=== PATIENT | male | born 1960 ===

== ENCOUNTER 2020-06-05 12:55 | Outpatient (REF) | payer BC, SELFPAY ==
--- NOTE | 2020-06-05 13:51 | XR_ITS ---
EXAMINATION: XR CHEST CLINICAL INFORMATION: Hemoptysis. COMPARISON: 01/28/2019 and 07/27/2017 and 08/08/2016. TECHNIQUE: 2 views of the chest were obtained. FINDINGS: There is mild hyperinflation. There is some diminished vascularity in the upper lobes consistent with emphysematous change with some linear scarring in the right apex. There is some faint density seen over the lower right hemithorax, however, this may represent overlying soft tissues versus a small region of disease within the right middle lobe. No definite lung mass is appreciated. Heart normal size. No evidence of pulmonary edema. IMPRESSION: COPD. Density overlying the lower right hemithorax likely related to overlying soft tissues.
== END 2020-06-05 12:56 | disposition home or self-care (01) ==
LOC: HO.XRAY 12:55
PROVIDERS: PCP Family Medicine; Visit Provider Hospitalist
DX: R04.2 Hemoptysis (principal); J96.10 Chronic respiratory failure, unspecified whether with hypoxia or hypercapnia; J44.9 Chronic obstructive pulmonary disease, unspecified; G47.33 Obstructive sleep apnea (adult) (pediatric); Z99.89 Dependence on other enabling machines and devices; Z88.1 Allergy status to other antibiotic agents; Z88.2 Allergy status to sulfonamides; Z79.899 Other long term (current) drug therapy
CPT/HCPCS: 71046

== ENCOUNTER → 2020-06-09 10:46 | Outpatient (BNVA) | payer BC, SELFPAY | PROVIDERS: PCP Family Medicine; Visit Provider Internal Medicine | DX: Z76.89 Persons encountering health services in other specified circumstances (principal) ==

== ENCOUNTER 2020-07-21 13:46 | Outpatient (REF) | payer BC, SELFPAY ==
--- NOTE | 2020-07-21 13:55 | XR_ITS ---
EXAMINATION: XR CHEST CLINICAL INFORMATION: Abnormal findings on diagnostic imaging. COMPARISON: Chest radiographs dated 06/05/2020 and chest CTA dated 07/27/2017. TECHNIQUE: 2 views of the chest were obtained. FINDINGS: The lungs show generalized hyperinflation. Mild focal increased markings are seen laterally in the right upper lobe. The left lung is clear. The heart and mediastinal structures are unremarkable. XR/XR chest 2V IMPRESSION: COPD. Mild focal increased markings in the right upper lobe are similar to the previous study and likely represent chronic changes such as bronchiectasis/scarring. No other significant abnormality. If symptoms persist or worsen, short-term repeat radiographic follow-up is recommended as clinically indicated to assess for change.
[2020-07-21 16:49] LABS: Mean Corpuscular HGB Conc 32.6 g/dl (31.0-36.0); Mean Corpuscular Volume 104.4 fL (80-98); Platelet Count 331 X10*3/uL (160-400); Red Blood Count 4.12 X10*6/uL (4.60-5.80); White Blood Count 11.1 X10*3/uL (4.8-10.8)
[2020-07-21 17:06] LABS: Alanine Aminotransferase 29 U/L (0-40); Albumin Level 4.6 g/dL (3.5-5.0); Alkaline Phosphatase 127 U/L (39-117); Anion Gap 12 (12-20); Aspartate Amino Transferase 26 U/L (5-37); Bilirubin Direct 0.2 mg/dL (0.0-0.5); Bilirubin Total 0.5 mg/dL (0.0-1.0); Blood Urea Nitrogen 19 mg/dL (9-16); Calcium 9.3 mg/dL (8.4-10.2); Carbon Dioxide 30 mmol/L (22-29); Chloride 104 mmol/L (96-108); Estimated Glomerular Filt Rate > 60; Glucose Random 69 mg/dL (60-115); Sodium 142 mmol/L (135-145); Total Protein 7.1 g/dL (6.5-8.0)
[2020-07-22 11:48] LABS: Absolute CD3 Count 3203 cells/uL (840-3060); Absolute CD4 Count 1218 cells/uL (490-1740); Absolute CD8 Count 1986 cells/uL (180-1170); Absolute Lymphocytes 5042 cells/uL (850-3900); CD4 CD8 Ratio 0.61 (0.86-5.00); Percent CD3 Cells 64 % (57-85); Percent CD4 Cells 24 % (30-61); Percent CD8 Cells 39 % (12-42)
[2020-07-23 13:27] LABS: HIV RNA PCR Qn Copies <20 DETECTED copies/mL (NOT DETECTED); HIV RNA PCR Qn Log Copies <1.30 DETECTED (NOT DETECTED)
== END 2020-07-21 13:47 | disposition home or self-care (01) ==
LOC: HO.HMGCX 13:46
PROVIDERS: Absent Provider Internal Medicine; PCP Family Medicine; Visit Provider Hospitalist
DX: B20 Human immunodeficiency virus [HIV] disease (principal); R39.89 Other symptoms and signs involving the genitourinary system
CPT/HCPCS: 36415; 71046; 80048; 80076; 85027; 86359; 86360; 87536

== ENCOUNTER 2020-10-28 11:38 | Outpatient (REF) | payer BC, SELFPAY ==
[2020-10-28 13:59] LABS: MANUAL DIFF FLAG NO
[2020-10-28 14:05] LABS: Basophils Absolute Auto 0.1 X10*3/uL (0.0-0.2); Basophils Percent Auto 0.9 % (0-2); Eosinophils Absolute Auto 0.5 X10*3/uL (0.0-0.4); Eosinophils Percent Auto 3.9 % (0-4); Hematocrit 43.9 % (42-52); Hemoglobin 14.7 g/dl (14.0-18.0); Imm Gran Abs Auto 0.13 X10*3/uL (0.00-0.03); Imm Gran Pct Auto 1.1 % (0.0-0.4); Lymphocytes Percent Auto 32.5 % (20-40); Mean Corpuscular HGB Conc 33.5 g/dl (31.0-36.0); Mean Corpuscular Hemoglobin 34.9 pg (27.0-33.0); Mean Corpuscular Volume 104.3 fL (80-98); Mean Platelet Volume 10.2 fL (9.4-12.4); Monocytes Percent Auto 7.8 % (2-11); Neutrophils Absolute Auto 6.7 X10*3/uL (2.0-8.3); Neutrophils Percent Auto 53.8 % (45-73); Platelet Count 360 X10*3/uL (160-400); Red Blood Count 4.21 X10*6/uL (4.60-5.80); Red Cell Distribution Width 12.8 % (11.0-16.0); White Blood Count 12.4 X10*3/uL (4.8-10.8)
[2020-10-28 14:31] LABS: Alanine Aminotransferase 29 U/L (0-40); Albumin Level 4.4 g/dL (3.5-5.0); Alkaline Phosphatase 145 U/L (39-117); Anion Gap 11 (12-20); Aspartate Amino Transferase 26 U/L (5-37); Bilirubin Total 0.4 mg/dL (0.0-1.0); Blood Urea Nitrogen 23 mg/dL (9-16); Calcium 9.1 mg/dL (8.4-10.2); Carbon Dioxide 29 mmol/L (22-29); Chloride 106 mmol/L (96-108); Estimated Glomerular Filt Rate > 60; Glucose Random 73 mg/dL (60-115); Potassium 4.1 mmol/L (3.3-5.1); Sodium 142 mmol/L (135-145); Total Protein 7.1 g/dL (6.5-8.0)
== END 2020-10-28 11:39 | disposition home or self-care (01) ==
LOC: HO.HMGCLDS 11:38
PROVIDERS: PCP Family Medicine; Visit Provider Family Medicine
DX: R06.02 Shortness of breath (principal); I10 Essential (primary) hypertension; R11.0 Nausea
CPT/HCPCS: 36415; 80053; 85025

== ENCOUNTER 2020-11-17 09:10 | Outpatient (REF) | payer BC, SELFPAY ==
--- NOTE | 2020-11-17 11:39 | PFT_ITS ---
FLOWS: FEV1 of 26% of predicted at 0.87 L. FVC 56% of predicted at 2.49 L. FEV1 to FVC ratio of 0.35. Positive bronchodilator response. LUNG VOLUMES: Total lung capacity 91% of predicted at 6.05 L. Residual volume 188% of predicted at 4.04 L. Slow vital capacity 45% of predicted at 2.01 L. Expiratory reserve volume 63% of predicted at 0.81 L. Diffusion capacity is severely decreased, diffusion capacity improves to being moderately decreased after correction for alveolar ventilation. IMPRESSION: Very severe obstructive ventilatory defect with positive bronchodilator response. Increased residual volume suggests air trapping. Decreased diffusion capacity suggests emphysema. Jordan Godinez MD AP/MODL / [id number]
== END 2020-11-17 09:11 | disposition home or self-care (01) ==
LOC: HO.RESP 09:10
PROVIDERS: PCP Family Medicine; Visit Provider Hospitalist
DX: J43.2 Centrilobular emphysema (principal)
CPT/HCPCS: 94060; 94727; 94729

== ENCOUNTER 2020-12-08 12:29 | Outpatient (REF) | payer BC, SELFPAY ==
[2020-12-08 14:03] LABS: MANUAL DIFF FLAG NO
[2020-12-08 14:08] LABS: Basophils Absolute Auto 0.1 X10*3/uL (0.0-0.2); Basophils Percent Auto 0.8 % (0-2); Eosinophils Absolute Auto 0.7 X10*3/uL (0.0-0.4); Eosinophils Percent Auto 6.2 % (0-4); Hematocrit 43.3 % (42-52); Hemoglobin 14.3 g/dl (14.0-18.0); Imm Gran Abs Auto 0.12 X10*3/uL (0.00-0.03); Lymphocytes Absolute Auto 4.3 X10*3/uL (1.2-4.9); Lymphocytes Percent Auto 35.8 % (20-40); Mean Corpuscular Hemoglobin 34.3 pg (27.0-33.0); Mean Corpuscular Volume 103.8 fL (80-98); Mean Platelet Volume 9.8 fL (9.4-12.4); Monocytes Absolute Auto 0.9 X10*3/uL (0.1-1.2); Monocytes Percent Auto 7.7 % (2-11); Neutrophils Absolute Auto 5.8 X10*3/uL (2.0-8.3); Neutrophils Percent Auto 48.5 % (45-73); Platelet Count 303 X10*3/uL (160-400); Red Blood Count 4.17 X10*6/uL (4.60-5.80); Red Cell Distribution Width 12.6 % (11.0-16.0); White Blood Count 11.9 X10*3/uL (4.8-10.8)
[2020-12-08 14:41] LABS: Alanine Aminotransferase 35 U/L (0-40); Albumin Level 4.3 g/dL (3.5-5.0); Alkaline Phosphatase 148 U/L (39-117); Anion Gap 12 (12-20); Aspartate Amino Transferase 29 U/L (5-37); Bilirubin Direct < 0.2 mg/dL (0.0-0.5); Bilirubin Total 0.5 mg/dL (0.0-1.0); Blood Urea Nitrogen 22 mg/dL (9-16); Calcium 9.2 mg/dL (8.4-10.2); Carbon Dioxide 28 mmol/L (22-29); Chloride 107 mmol/L (96-108); Estimated Glomerular Filt Rate > 60; Glucose Random 70 mg/dL (60-115); Potassium 4.1 mmol/L (3.3-5.1); Sodium 143 mmol/L (135-145); Total Protein 6.8 g/dL (6.5-8.0)
[2020-12-09 14:06] LABS: Absolute CD3 Count 2470 cells/uL (840-3060); Absolute CD4 Count 918 cells/uL (490-1740); Absolute CD8 Count 1569 cells/uL (180-1170); Absolute Lymphocytes 3952 cells/uL (850-3900); CD4 CD8 Ratio 0.59 (0.86-5.00); Percent CD3 Cells 62 % (57-85); Percent CD4 Cells 23 % (30-61); Percent CD8 Cells 40 % (12-42)
[2020-12-11 12:07] LABS: HIV RNA PCR Qn Copies <20 DETECTED copies/mL (NOT DETECTED); HIV RNA PCR Qn Log Copies <1.30 DETECTED (NOT DETECTED)
== END 2020-12-08 12:30 | disposition home or self-care (01) ==
LOC: HO.HMGCLDS 12:29
PROVIDERS: PCP Family Medicine; Visit Provider Internal Medicine
DX: B20 Human immunodeficiency virus [HIV] disease (principal)
CPT/HCPCS: 36415; 80048; 80076; 85025; 86359; 86360; 87536

== ENCOUNTER 2020-12-16 12:55 | Outpatient (REF) | payer BC, SELFPAY ==
--- NOTE | ~2020-12-16 | CT_ITS ---
EXAMINATION: CT CHEST WITHOUT CONTRAST CLINICAL INFORMATION: Follow-up increased markings in the right upper lobe COMPARISON: Previous chest x-rays most recent July 2020 and chest CTA July 2017 TECHNIQUE: Multidetector volumetric CT imaging of the chest was done. Axial MIP volume rendering provided. Sagittal and coronal reformatted images were obtained. This CT examination was performed using dose optimization techniques as appropriate, variously including the following: *Automated exposure control *Adjustment of mA and/or kV according to patient size (this includes techniques or standardized protocols for targeted exams where dose is matched to indication/reason for exam; i.e. extremities or head) *Use of iterative reconstruction technique DLP: 261 mGy-cm FINDINGS: LUNGS: There is evidence of mild emphysema. There is mild bilateral upper lobe pleural and parenchymal scarring apically and laterally, right greater than left. TThere is a small irregular shaped right upper lobe nodule measuring 3 mm axial image 147 series 10. This is new from July 2017. MEDIASTINUM: The heart does not appear enlarged. There is evidence of atherosclerotic disease. There are no enlarged hilar or mediastinal lymph nodes. There is no pericardial effusion. The thoracic aorta is normal in caliber. PLEURA: There is no pleural effusion. No pleural mass or thickening. AXILLA: No lymphadenopathy. UPPER ABDOMEN: There are small bilateral renal calcifications suggestive of stones. OSSEOUS STRUCTURES: There are degenerative changes of the spine. CT/CT chest wo con IMPRESSION: Emphysema. Bilateral upper lobe pleural and parenchymal scarring, right greater than left. New right upper lobe nodule. Chest CT follow-up in 6-12 months recommended.
== END 2020-12-16 12:56 | disposition home or self-care (01) ==
LOC: HO.CT 12:55
PROVIDERS: PCP Family Medicine; Visit Provider Hospitalist
DX: B20 Human immunodeficiency virus [HIV] disease (principal); R04.2 Hemoptysis; R93.89 Abnormal findings on diagnostic imaging of other specified body structures; Z88.2 Allergy status to sulfonamides; Z88.8 Allergy status to other drugs, medicaments and biological substances; Z79.82 Long term (current) use of aspirin; Z79.52 Long term (current) use of systemic steroids; Z79.899 Other long term (current) drug therapy
CPT/HCPCS: 71250

== ENCOUNTER 2021-01-19 11:30 | Outpatient (REF) | payer BC, SELFPAY ==
--- NOTE | ~2021-01-19 | US_ITS ---
EXAMINATION: US ABDOMEN COMPLETE CLINICAL INFORMATION: Unspecified abdominal pain. COMPARISON: CT abdomen and pelvis 09/17/2018. Ultrasound abdomen complete 09/07/2016 and 06/12/2015. TECHNIQUE: Real-time imaging of the abdominal viscera. FINDINGS: PANCREAS: The head and proximal body of pancreas is homogeneous in echotexture. The rest of the body and the tail of pancreas is not visualized. ABDOMINAL AORTA: The proximal, mid, and distal segments are normal in caliber. INFERIOR VENA CAVA: Visualized portions are normal. LIVER: Normal. The liver is normal in size. The liver contour is normal. Parenchymal echogenicity is normal. No focal hepatic lesion. There is no intrahepatic biliary duct dilatation seen. GALLBLADDER: Normal. The gallbladder is physiologically distended without evidence of stones, sludge, polyps, wall thickening or pericholecystic fluid. COMMON BILE DUCT: Normal in caliber measuring 0.4 cm in diameter. RIGHT KIDNEY: There is an echogenic foci lower pole measuring 0.9 x 0.4 x 0.6 cm, question calcified vessel versus stone. No hydronephrosis or focal parenchymal lesions. The kidney measures 9.8 cm in maximum dimension. LEFT KIDNEY: There is an echogenic foci in the lower pole measuring 0.4 x 0.3 x 0.3 cm question calcified vessel versus stone. No hydronephrosis or focal parenchymal lesions. The kidney measures 9.4 cm in maximum dimension. SPLEEN: Normal. The spleen measures 9.3 cm in maximum dimension. FREE FLUID: None. US/US abdomen complete IMPRESSION: Bilateral renal calcifications less likely stones. The rest of the abdominal ultrasound is unremarkable.
== END 2021-01-19 11:31 | disposition home or self-care (01) ==
LOC: HO.US 11:30
PROVIDERS: PCP Family Medicine; Visit Provider Internal Medicine
DX: R10.9 Unspecified abdominal pain (principal)
CPT/HCPCS: 76700

== ENCOUNTER → 2021-03-04 10:51 | Outpatient (BNVA) | payer BC, SELFPAY | PROVIDERS: PCP Family Medicine; Visit Provider Hospitalist ==

== ENCOUNTER 2021-08-26 10:48 | Outpatient (REF) | payer BC, SELFPAY ==
[2021-08-26 14:41] LABS: Anion Gap 12 (12-20); Blood Urea Nitrogen 14 mg/dL (9-16); Carbon Dioxide 29 mmol/L (22-29); Chloride 106 mmol/L (96-108); Estimated Glomerular Filt Rate > 60; Sodium 143 mmol/L (135-145)
[2021-08-27 08:34] LABS: Syphilis Screen Nonreactive (Nonreactive)
[2021-08-27 12:17] LABS: Absolute CD3 Count 595 cells/uL (840-3060); Absolute CD4 Count 205 cells/uL (490-1740); Absolute CD8 Count 383 cells/uL (180-1170); Absolute Lymphocytes 1561 cells/uL (850-3900); CD4 CD8 Ratio 0.54 (0.86-5.00); Percent CD3 Cells 38 % (57-85); Percent CD4 Cells 13 % (30-61); Percent CD8 Cells 25 % (12-42)
[2021-09-03 18:46] LABS: HIV RNA PCR Qn Copies <20 Copies/mL; HIV RNA PCR Qn Log Copies <1.30 Log cps/mL
== END 2021-08-26 10:49 | disposition home or self-care (01) ==
LOC: HO.10HDL 10:48
PROVIDERS: Family Medicine; Visit Provider Internal Medicine
DX: I10 Essential (primary) hypertension (principal); B20 Human immunodeficiency virus [HIV] disease
CPT/HCPCS: 36415; 80051; 82565; 84520; 86359; 86360; 86780; 87536

== ENCOUNTER → 2021-10-26 13:20 | Outpatient (BNVA) | payer BC, SELFPAY | PROVIDERS: PCP Family Medicine; Visit Provider Hospitalist ==

== ENCOUNTER 2021-11-29 11:09 | Outpatient (REF) | payer BC, SELFPAY ==
[2021-11-30 13:47] LABS: Absolute CD3 Count 2753 cells/uL (840-3060); Absolute CD4 Count 1034 cells/uL (490-1740); Absolute CD8 Count 1747 cells/uL (180-1170); Absolute Lymphocytes 4293 cells/uL (850-3900); CD4 CD8 Ratio 0.59 (0.86-5.00); Percent CD3 Cells 64 % (57-85); Percent CD4 Cells 24 % (30-61); Percent CD8 Cells 41 % (12-42)
== END 2021-11-29 11:10 | disposition home or self-care (01) ==
LOC: HO.10HDL 11:09
PROVIDERS: Visit Provider Internal Medicine
DX: B20 Human immunodeficiency virus [HIV] disease (principal)
CPT/HCPCS: 36415; 86359; 86360

== ENCOUNTER → 2021-12-08 13:16 | Outpatient (BNVA) | payer BC, SELFPAY | PROVIDERS: PCP Family Medicine; Visit Provider Internal Medicine | DX: Z13.89 Encounter for screening for other disorder (principal) ==

== ENCOUNTER 2022-06-30 12:36 | Outpatient (REF) | payer MEDICARE, BC, SELFPAY ==
--- NOTE | ~2022-06-30 | CT_ITS ---
EXAMINATION: CT CHEST WITHOUT CONTRAST CLINICAL INFORMATION: Lung nodule. COMPARISON: CT scan of 12/16/2020 and 07/27/2017. TECHNIQUE: Multidetector volumetric CT imaging of the chest was done. Axial MIP volume rendering provided. Sagittal and coronal reformatted images were obtained. This CT examination was performed using dose optimization techniques as appropriate, variously including the following: *Automated exposure control *Adjustment of mA and/or kV according to patient size (this includes techniques or standardized protocols for targeted exams where dose is matched to indication/reason for exam; i.e. extremities or head) *Use of iterative reconstruction technique DLP: 126 mGy-cm FINDINGS: LUNGS: Central airways are patent. No confluent parenchymal disease. No bronchiectasis. There are moderate changes of centrilobular emphysema seen bilaterally. There are some sub-4 mm densities present. The questioned right upper lobe nodular density from previous study of 12/16/2020 appears to have been vessels with no persistent nodule appreciated. MEDIASTINUM: Heart normal size. Mild coronary artery calcification present. No thoracic aortic aneurysm. Nonocclusive calcified plaque seen within the aortic arch. Thyroid gland unremarkable. No pericardial effusion. No mediastinal or hilar lymphadenopathy identified. CORONARY ARTERY CALCIFICATION: Small amount of calcified plaque present. PLEURA: There is no pleural effusion. No pleural mass or thickening. AXILLA: No lymphadenopathy. UPPER ABDOMEN: There appears to be left nephrolithiasis. OSSEOUS STRUCTURES: Unremarkable. CT/CT chest wo IV con IMPRESSION: Moderate changes of centrilobular emphysema. No suspicious lung nodules identified. Left nephrolithiasis. According to the UPDATED 2017 Fleischner Society recommendations, the advised followup imaging for solid nodules < 6 mm is: LOW RISK PATIENT: No routine follow up. HIGH RISK PATIENT: Optional CT at 12 months.
[2022-06-30 12:52] LABS: MANUAL DIFF FLAG NO
[2022-06-30 13:05] LABS: Basophils Absolute Auto 0.1 X10*3/uL (0.0-0.2); Basophils Percent Auto 0.9 % (0-2); Eosinophils Absolute Auto 0.5 X10*3/uL (0.0-0.4); Eosinophils Percent Auto 4.5 % (0-4); Hematocrit 44.9 % (42.0-52.0); Imm Gran Pct Auto 0.8 % (0.0-0.4); Lymphocytes Absolute Auto 4.7 X10*3/uL (1.2-4.9); Lymphocytes Percent Auto 38.7 % (20-40); Mean Corpuscular HGB Conc 33.4 g/dl (31.0-36.0); Mean Corpuscular Hemoglobin 33.9 pg (27.0-33.0); Mean Corpuscular Volume 101.4 fL (80.0-98.0); Mean Platelet Volume 9.2 fL (9.4-12.4); Monocytes Percent Auto 8.6 % (2-11); Neutrophils Absolute Auto 5.6 x10*3/uL (2.0-8.3); Neutrophils Percent Auto 46.5 % (45-73); Platelet Count 304 X10*3/uL (160-400); Red Blood Count 4.43 X10*6/uL (4.60-5.80); Red Cell Distribution Width 12.7 % (11.0-16.0)
[2022-06-30 13:41] LABS: Alanine Aminotransferase 41 U/L (0-40); Albumin Level 4.5 g/dL (3.5-5.0); Alkaline Phosphatase 166 U/L (39-117); Anion Gap 15 (12-20); Aspartate Amino Transferase 38 U/L (5-37); Bilirubin Total 0.4 mg/dL (0.0-1.0); Blood Urea Nitrogen 18 mg/dL (9-16); Calcium 9.3 mg/dL (8.4-10.2); Carbon Dioxide 27 mmol/L (22-29); Chloride 105 mmol/L (96-108); Estimated Glomerular Filt Rate > 60; Glucose Fasting 86 mg/dL (60-99); Sodium 143 mmol/L (135-145); Total Protein 7.7 g/dL (6.5-8.0)
[2022-06-30 14:01] LABS: Erythrocyte Sedimentation Rate 11 MM/HR (0-15)
[2022-06-30 14:03] LABS: Prostate Specific Antigen 1.54 ng/mL (<0.05-4.0)
== END 2022-06-30 12:37 | disposition home or self-care (01) ==
LOC: HO.CT 12:36
PROVIDERS: Absent Provider Family Medicine; PCP Family Medicine; Visit Provider Hospitalist
DX: Z12.5 Encounter for screening for malignant neoplasm of prostate (principal); R91.8 Other nonspecific abnormal finding of lung field; R06.02 Shortness of breath; R35.0 Frequency of micturition; R53.81 Other malaise
CPT/HCPCS: 36415; 71250; 80053; 84153; 85025; 85652

== ENCOUNTER → 2022-07-08 14:00 | Outpatient (BNVA) | payer MEDICARE, BC, SELFPAY | PROVIDERS: PCP Family Medicine; Visit Provider Hospitalist | DX: J43.2 Centrilobular emphysema (principal); J96.11 Chronic respiratory failure with hypoxia; J96.12 Chronic respiratory failure with hypercapnia; G47.33 Obstructive sleep apnea (adult) (pediatric); R91.8 Other nonspecific abnormal finding of lung field | CPT/HCPCS: 99212 ==

== ENCOUNTER 2022-09-29 11:52 | Outpatient (REF) | payer MEDICARE, BC, SELFPAY ==
[2022-09-29 12:22] LABS: MANUAL DIFF FLAG NO
[2022-09-29 12:30] LABS: Venous Blood Gas Refer to POC result
[2022-09-29 13:13] LABS: Basophils Absolute Auto 0.1 X10*3/uL (0.0-0.2); Basophils Percent Auto 0.9 % (0-2); Eosinophils Absolute Auto 0.3 X10*3/uL (0.0-0.4); Eosinophils Percent Auto 2.7 % (0-4); Hematocrit 43.3 % (42.0-52.0); Hemoglobin 14.6 g/dl (14.0-18.0); Imm Gran Abs Auto 0.12 X10*3/uL (0.00-0.03); Imm Gran Pct Auto 1.1 % (0.0-0.4); Lymphocytes Absolute Auto 1.8 X10*3/uL (1.2-4.9); Lymphocytes Percent Auto 15.9 % (20-40); Mean Corpuscular HGB Conc 33.7 g/dl (31.0-36.0); Mean Corpuscular Hemoglobin 34.3 pg (27.0-33.0); Mean Corpuscular Volume 101.6 fL (80.0-98.0); Mean Platelet Volume 9.8 fL (9.4-12.4); Monocytes Absolute Auto 0.6 X10*3/uL (0.1-1.2); Monocytes Percent Auto 5.2 % (2-11); Neutrophils Absolute Auto 8.4 x10*3/uL (2.0-8.3); Neutrophils Percent Auto 74.2 % (45-73); Platelet Count 330 X10*3/uL (160-400); Red Blood Count 4.26 X10*6/uL (4.60-5.80); Red Cell Distribution Width 12.9 % (11.0-16.0); White Blood Count 11.3 X10*3/uL (4.8-10.8)
[2022-09-29 13:30] LABS: VBG Base Excess 4.2 mmol/L; VBG HCO3 31 mmol/L (22-26); VBG pCO2 54 mmHg; VBG pH 7.36 (7.32-7.43); VBG pO2 45 mmHg
[2022-09-29 13:39] LABS: Anion Gap 14 (12-20); Blood Urea Nitrogen 18 mg/dL (9-16); Calcium 9.7 mg/dL (8.4-10.2); Carbon Dioxide 28 mmol/L (22-29); Chloride 106 mmol/L (96-108); Estimated Glomerular Filt Rate > 60; Glucose Random 74 mg/dL (60-115); Potassium 4.1 mmol/L (3.3-5.1); Sodium 144 mmol/L (135-145)
[2022-09-29 14:00] LABS: Erythrocyte Sedimentation Rate 14 MM/HR (0-15)
[2022-09-29 23:38] LABS: Theophylline 4.2 MG/L ((10-20))
[2022-10-02 14:43] LABS: HIV RNA PCR Qn Copies 39 copies/mL (NOT DETECTED); HIV RNA PCR Qn Log Copies 1.59 (NOT DETECTED)
[2022-10-03 13:23] LABS: Absolute CD3 Count 882 cells/uL (840-3060); Absolute CD4 Count 360 cells/uL (490-1740); Absolute CD8 Count 536 cells/uL (180-1170); Absolute Lymphocytes 1752 cells/uL (850-3900); CD4 CD8 Ratio 0.67 (0.86-5.00); Percent CD3 Cells 50 % (57-85); Percent CD4 Cells 21 % (30-61); Percent CD8 Cells 31 % (12-42)
== END 2022-09-29 11:53 | disposition home or self-care (01) ==
LOC: HO.LAB 11:52
PROVIDERS: Internal Medicine; PCP Family Medicine; Visit Provider Hospitalist
DX: G47.33 Obstructive sleep apnea (adult) (pediatric) (principal); J96.11 Chronic respiratory failure with hypoxia; J96.12 Chronic respiratory failure with hypercapnia; J43.2 Centrilobular emphysema; R91.8 Other nonspecific abnormal finding of lung field; B20 Human immunodeficiency virus [HIV] disease; Z79.899 Other long term (current) drug therapy
CPT/HCPCS: 36415; 80048; 80198; 82803; 85025; 85652; 86359; 86360; 87536; 99212

== ENCOUNTER 2022-10-20 12:36 | Outpatient (REF) | payer MEDICARE, BC, SELFPAY ==
--- NOTE | 2022-10-20 15:28 | PFT_ITS ---
Forced vital capacity 50%, FEV1 23%, FEV1/FVC ratio is 35. [id number] 9% and MVV 19%. Post bronchodilator therapy, there was just minimal improvement in FVC and [id number]. Total lung capacity 82% and residual volume 146%. Diffusion capacity 31% CONCLUSION: Very severe obstructive airway disorder. Only minimal improvement after bronchodilator therapy is noted. The results are compared to the pulmonary function test of 11/17/2020, and there is no significant change except for the fact of bronchodilator therapy is not as pronounced. Clinical correlation is recommended. Rodrigue Wolff MD MSB/MODL / [id number]
== END 2022-10-20 12:37 | disposition home or self-care (01) ==
LOC: HO.RESP 12:36
PROVIDERS: PCP Family Medicine; Visit Provider Hospitalist
DX: J43.2 Centrilobular emphysema (principal)
CPT/HCPCS: 94060; 94727; 94729

== ENCOUNTER → 2022-11-15 13:51 | Outpatient (BNVA) | payer MEDICARE, BC, SELFPAY | PROVIDERS: PCP Family Medicine; Visit Provider Hospitalist | DX: J43.2 Centrilobular emphysema (principal); J96.11 Chronic respiratory failure with hypoxia; J96.12 Chronic respiratory failure with hypercapnia; R91.8 Other nonspecific abnormal finding of lung field; G47.33 Obstructive sleep apnea (adult) (pediatric) | CPT/HCPCS: 99212 ==

== ENCOUNTER → 2022-12-14 10:49 | Outpatient (REF) | payer MEDICARE, BC, SELFPAY ==
--- NOTE | 2022-12-14 10:53 | CA_ITS ---
Transthoracic Echocardiogram Patient (Last, First, Middle): Walter Young J Gender: Male Date of : 1960 Age: 62 Procedure Date: 12/14/2022 Procedure Type: Transthoracic Echocardiogram Location: OP Height: 172.72 cm Weight: 68.04 kg BSA: 1.81 m2 Heart Rate: 61 bpm BP: 134 / 86 mmHg Roads Supervisor: SB Referring MD: James Lackey MD Manager Assembly: Jean Carlos Villarreal MD Symptoms: J43.1 PANLOBY ULAR EMPHYSEMIA R06.02 Study Quality: Adequate w contrast ECG Rhythm: Sinus Conclusions: - 1. Normal LV systolic function with normal filling pattern 2. Normal cardiac valvular Dopplers 3. Upper limits of normal RV systolic pressure 4. No gross pericardial effusion Findings Procedure Information Contrast agent, definity, is being given per protocol without apparent complications. Left Ventricle Normal left ventricular size, thickness, and systolic function. The visually estimated ejection fraction is between 60-65%. Spectral Doppler is indicative of a normal filling pattern. Right Ventricle Normal right ventricular cavity size and systolic function. Atria Both atria are normal in size. Interatrial shunt cannot be excluded. Aortic Valve Normal aortic valve structure and function. There is no aortic valve stenosis. There is no aortic valve regurgitation. Mitral Valve Normal mitral valve structure and function. There is trace mitral valve regurgitation. There is no mitral valve stenosis. Pulmonic Valve The pulmonic valve was not well visualized. Tricuspid Valve Likely normal tricuspid valve structure and function. There is mild tricuspid valve regurgitation. Normal right atrial pressure. There is no evidence of pulmonary hypertension. Great Vessels All visible segments of the aorta are normal in size. The pulmonary artery was not well visualized. Venous The inferior vena cava is normal in size and collapses greater than 50% with inspiration. Pericardium/Pleural There is no evidence of pericardial effusion. Prior Study Comparison No prior study available for comparison. Measurements 2D Linear Measurements IVSd: 0.56 0.6-0.9/0.6-1.0 cm LVIDd: 4.88 3.9-5.3/4.2-5.9 cm LVIDd Index: 2.70 2.4-3.2/2.2-3.1 cm/m2 LVIDs: 2.86 2.0-3.6 cm LVPWd: 0.62 0.7-1.1 cm LA Diam: 2.90 2.7-3.8/3.0-4.0 cm LAIDs Index: 1.60 1.5-2.3 cm/m2 LV Mass: 109.55 67-162/88-224 g LV Mass Index: 60.53 43-95/49-115 g/m2 LVOT Diam: 2.10 3.0+(-)1.3 cm 2D Systolic Function EF 4C: 56.20 >55% EF 2C: 70.10 >55% EF BiP: 63.90 >55% Mitral Valve MV Pk E: 0.81 MV PK A: 0.69 MV Decel Time: 172.00 E/A: 1.20 E'Lateral: 12.00 E'Medial: 8.27 E/E' Med: 9.80 E/E' Lat: 6.80 PHT: 50.00 MVA PHT: 4.40 Decel Donley: 4.72 Aortic Valve AoV Pk Bo: 1.33 AoV Mn Bo: 0.85 AoV VTI: 0.26 AoV Pk Grad: 7.00 Aov Mn Grad: 3.00 CARLY Cont.VTI: 2.62 LVOT LVOT Pk Bo: 1.06 LVOT Mn Bo: 0.65 LVOT VTI: 0.19 LVOT Pk Grad: 4.00 LVOT Mn Grad: 2.00 LVOT Diam: 2.10 LVOT Area: 3.46 Diastolic Function MV Pk E: 0.81 MV Pk A: 0.69 E/A: 1.20 E'Medial: 8.27 E/E' Med: 9.80 E' Laterial: 12.00 E/E' Lat: 6.80 Right Ventricle TAPSE (mm): 16.50 TVS' Bo: 11.20 Tricuspid Valve TR Pk Bo: 2.84 TR Pk Grad: 32.00 RA Press: 3.00 RVSP: 35.00 Great Vessels Aorta Sinus of Valsalva: 3.30 2.0-3.5 cm Ao Asc: 3.40 2.1-3.4 cm Pulmonary Veins Pulm Vein S/D 1.30 Pulmonary Valve PV Pk Bo: 0.98 Peak PV Grad: 4.00 Updated in Other Vendor System with Status of Final Jean Carlos Villarreal MD electronically signed on 12/14/2022 2:56:13 PM with status of Final
== END ==
LOC: HO.CARD 10:49
PROVIDERS: PCP Family Medicine; Visit Provider Family Medicine
DX: J43.1 Panlobular emphysema (principal); B20 Human immunodeficiency virus [HIV] disease; J96.11 Chronic respiratory failure with hypoxia; J96.12 Chronic respiratory failure with hypercapnia
CPT/HCPCS: 93306; 99212; Q9957

== ENCOUNTER 2023-02-27 13:29 | Outpatient (REF) | payer MEDICARE, BC, SELFPAY ==
[2023-02-27 14:03] LABS: MANUAL DIFF FLAG NO
[2023-02-27 14:04] LABS: Basophils Absolute Auto 0.1 X10*3/uL (0.0-0.2); Basophils Percent Auto 0.6 % (0-2); Eosinophils Absolute Auto 0.5 X10*3/uL (0.0-0.4); Eosinophils Percent Auto 2.6 % (0-4); Hematocrit 41.3 % (42.0-52.0); Imm Gran Abs Auto 0.13 X10*3/uL (0.00-0.03); Imm Gran Pct Auto 0.7 % (0.0-0.4); Lymphocytes Absolute Auto 4.4 X10*3/uL (1.2-4.9); Lymphocytes Percent Auto 23.1 % (20-40); Mean Corpuscular HGB Conc 33.9 g/dl (31.0-36.0); Mean Corpuscular Hemoglobin 34.5 pg (27.0-33.0); Mean Corpuscular Volume 101.7 fL (80.0-98.0); Mean Platelet Volume 9.5 fL (9.4-12.4); Monocytes Absolute Auto 1.5 X10*3/uL (0.1-1.2); Monocytes Percent Auto 7.9 % (2-11); Neutrophils Absolute Auto 12.3 x10*3/uL (2.0-8.3); Neutrophils Percent Auto 65.1 % (45-73); Platelet Count 334 X10*3/uL (160-400); Red Blood Count 4.06 X10*6/uL (4.60-5.80); Red Cell Distribution Width 12.7 % (11.0-16.0); White Blood Count 18.8 X10*3/uL (4.8-10.8)
[2023-02-27 14:56] LABS: Anion Gap 15 (12-20); Blood Urea Nitrogen 15 mg/dL (9-16); Carbon Dioxide 23 mmol/L (22-29); Chloride 107 mmol/L (96-108); Estimated Glomerular Filt Rate > 60; Potassium 3.7 mmol/L (3.3-5.1); Sodium 141 mmol/L (135-145)
== END 2023-02-27 13:30 | disposition home or self-care (01) ==
LOC: HO.LAB 13:29
PROVIDERS: PCP Family Medicine; Visit Provider Family Medicine
DX: J43.2 Centrilobular emphysema (principal); J01.80 Other acute sinusitis; J96.12 Chronic respiratory failure with hypercapnia; J96.11 Chronic respiratory failure with hypoxia; G47.33 Obstructive sleep apnea (adult) (pediatric); R91.8 Other nonspecific abnormal finding of lung field; I10 Essential (primary) hypertension; Z99.81 Dependence on supplemental oxygen
CPT/HCPCS: 36415; 80051; 82565; 84520; 85025; 99212

== ENCOUNTER 2023-02-27 13:49 | Outpatient (AMB) | payer MEDICARE, BC, SELFPAY ==
[2023-02-27 13:54] VITALS: BP 128/60; PULSE 75; O2SAT 96; BMI 22.3
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
== END 2023-02-27 14:22 | disposition home or self-care (01) ==
PROVIDERS: PCP Family Medicine; Visit Provider Hospitalist
DX: G47.33 Obstructive sleep apnea (adult) (pediatric) (principal); J96.11 Chronic respiratory failure with hypoxia; J96.12 Chronic respiratory failure with hypercapnia; J43.2 Centrilobular emphysema; R91.8 Other nonspecific abnormal finding of lung field; J01.80 Other acute sinusitis
CPT/HCPCS: 99214

== ENCOUNTER 2023-05-11 12:47 | Outpatient (AMB) | payer MEDICARE, BC, SELFPAY ==
--- NOTE | 2023-05-11 12:59 | MHC.OFFVIS ---
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: No Allergies ethinyl estradiol [From Seasonale (91)] Allergy (Severe, Verified 05/11/23 13:02) Dry Eye levonorgestrel [From Seasonale (91)] Allergy (Severe, Verified 05/11/23 13:02) Dry Eye sulfamethoxazole [From Bactrim] Allergy (Mild, Verified 05/11/23 13:02) RASH trimethoprim [From Bactrim] Allergy (Mild, Verified 05/11/23 13:02) RASH Sulfa (Sulfonamide Antibiotics) Allergy (Unknown, Verified 05/11/23 13:02) mild rash HPI HPI Comments History of Present Illness Details The patient is a 62-year-old gentleman with a known history of COPD, chronic hypoxic and hypercarbic respiratory failure on oxygen supplementation and obstructive sleep apnea. Overall the patient has been doing well. He continues on his anti retroviral therapy without any complications. He has responded very well to the azithromycin. He did have an EKG done. he has been having issues with cough lately. He has noticed productive cough and at times he notices small amount of blood-tinged sputum. He denies any fevers or chills or any chest discomfort. His sputum has normalized at this time. In the meantime will be reasonable to get a chest x-ray. She continues use the BiPAP every night. The BiPAP therapy continues to be affecting beneficial. 11/17/2020 the patient is here for pulmonary follow-up visit. Overall he has been doing well from a respiratory status. He feels like his chest feels fr[employer] and he is able to breathe a little easier. He has been using the oxygen with good effect. The only new issue is that he has had episodes of coughing up blood. This is been intermittent in and has not had it more than a week. Today he did undergo pulmonary function studies and we were able to compared to PFTs from 2015. It appears that he does have a severe obstructive ventilatory defect along with a severe diffusion impairment. But when compared to 2015 the patient has not had any significant worsening in actually some numbers have trend improved. Therefore it is reassuring that he is sustaining his lung capacity. He also brought his BiPAP with him. Currently set up at 16/6. His AHI is down to 2. The therapy has been affecting beneficial. At this point will keep it at at the current pressure settings. It appears to be affecting beneficial. He is wondering if there is any other respiratory medications he can use instead of the once he is on to try to get more of a bronchodilator effect. The only thing we can do this point is consider nebulized therapy in the form Brovana and budesonide. That he would use in exchange of the Symbicort. [facility] in addition to that we looked at the x-ray from 08/09/2020 demonstrating the hazy opacity in the right mid lung area. He had this area also noted his previous x-ray. Based on his abnormal chest x-ray in his episodic hemoptysis. I will request a CT scan of the chest at this time. 03/04/2021 the patient is here for a pulmonary follow-up visit. Overall the patient has been doing well. His cough is respiratory symptoms have been stable. He does continue using his Formeterol and budesonide. Appears to be effective for him. He also continues use the BiPAP. The BiPAP therapy continues to be affecting beneficial. He does use it more than 4 hours a night. He also continues to use the oxygen. The oxygen supplementation he does use continuously. We did review his last CT scan of the chest done in November 2020 which demonstrated extensive emphysema and also a new pulmonary nodule. I personally reviewed the CT scan with the patient in the nodule does not any concerning features although with his significant smoking history id needs to be followed closely. 10/26/2021 the patient is here for a pulmonary follow-up visit. He had taken prednisone yesterday because he felt that his breathing was not great. Today feels a lot better. He continues on the nebulized therapy. He also continues use the oxygen with good effect. He has been using the BiPAP at nighttime with a fullface mask. Still getting of a dry mouth. He started developing gentle disease. Having hard time tolerating the the BiPAP due to the gingivitis in the infection of his gum. He needs to follow-up with dentist. In the meantime the patient has a known pulmonary nodule measuring 3 mm on the last CT scan back in November 2020. He has been reluctant to get a CT scan at this time. So therefore push it out to the end of the summer and will follow-up in [address] scan. If the patient has any worsening symptoms prior to that he is to call for an earlier evaluation. Otherwise will follow-up in 6 months. 07/08/2022 the patient is here for a pulmonary follow-up visit. The patient does complaint of worsening shortness of breath. He has been using his oxygen with good effect. He has also continue with respiratory therapy. But, still complaining of shortness of breath even at rest. Moderate severity. He also has been coughing more lately. He has been More congested lately. Denies any hemoptysis. He has been noticing his phlegm is dark yellowish green. Moderate severity. Does complaint of sinus congestion. He did recently have a CT scan as part of a follow-up CT scan for his pulmonary nodules. Did have significant edematous changes. Some bronchiectatic changes also appreciated. Although no significant pulmonary nodules noted. This is reassuring. He also continues use the BiPAP at nighttime very good effect. At this point will go ahead and optimize respiratory therapy by adding theophylline. We can also treated for a lower respiratory infection. The patient will undergo blood work in a couple weeks to make sure that is theophylline levels are reasonable. I will put him on a very low dose. 09/29/2022 the patient is here for a pulmonary follow-up visit. Overall the patient has been doing fairly well. Continues to have episodes of shortness of breath. Some days are good some days are bad. He does not see that he is getting significant response to Brovana. Seems to do better with DuoNeb. Therefore will switch him off the room I placed on DuoNeb 4 times a day. He is to continue the budesonide for now. He does get a lot of mouth irritation because of the BiPAP and also the inhalers. He gets a lot of infections. I will send him chlorhexidine mouthwash CP can not assess with that. He may have to see the dentist because he does have a growth on his change about that needs to be addressed. The patient has been using his BiPAP. The BiPAP therapy has been affecting beneficial. His venous gas today demonstrate normal acid-base status with a baseline pCO2 of 54 mmHg which is a trying higher than it was before. The patient also is tolerating the theophylline. Will go ahead and get a theophylline level to see if we need to adjust the dose at this time. He is wondering about the severity of his disease. He knows that he has very advanced COPD. We did talk about lung transplant. Although he does have HIV he is viral load is undetectable. He does not want to pursue lung transplant this point. Although he would be open to considering lung volume reduction intervention. Will go ahead and repeat his pulmonary function studies and look into pulmonary rehabilitation the next time he comes in. He continues use the oxygen with good effect. Will follow-up in 6-8 weeks with PFTs. 11/15/2022 the patient is here for a pulmonary follow-up visit. The patient has been having increasing shortness of breath at times. We did review his pulmonary function studies demonstrating very severe COPD. But compared to 2020 not much has changed which is reassuring. We did talk about switching his nebulized therapy as he has not seen significant improvement with Brovana. But he has not done as of yet. He is wondering if Trelegy may be a good inhaler for him. I did recommend that if he goes on Trelegy with have to stop the Brovana and would have to decrease the budesonide. He is willing to do so at this time. If however I cannot get in the Trelegy then he can use the DuoNeb and budesonide twice a day and also good DuoNeb as needed. The patient also had blood work including a theophylline level that was significantly low. He has been adherent to the therapy. Therefore, we talked about increasing the dose from 200 mg to 400 mg. He will double upon what he has and then [facility] The in addition to that the patient did have a venous blood gas. His CO2 slight elevated at 54 mmHg which is slightly elevated on the venous gas likely overestimate. His pH is within normal limits. He does use the BiPAP every night. The BiPAP therapy continues to be affecting beneficial. She is also using the oxygen with good effect. The patient also is working with pulmonary rehabilitation which is helpful and encouraging 02/27/2023 the patient is here for a pulmonary follow-up visit. Overall the patient is doing well from a respiratory status. He did start the theophylline seems to be helping. The patient still continues on his nebulized therapy to make sure he finishes all the medication before he switches over to the new regimen. He is complaining of a worsening cough. Initially also had significant lymphadenopathy on the posterior right side of his neck. Also complained of sinus discomfort. Had increased sinus drainage. He attributes it to the BiPAP or his 8 conditioner. He did take 5 days of Augmentin he felt better and then went back to the azithromycin. He still has residual symptoms with persistent productive cough and some sinus discomfort headaches. I did recommend he complete a full course in view of the residual symptoms. I will send a prescription for doxycycline. Once his complete study can go back in azithromycin. Will go ahead and request blood work including a venous gas to monitor closely his CO2. He continues uses oxygen with good effect. He was participating in pulmonary rehabilitation both the humidity and the fires is been hard to leave the house. Therefore he is going to continue to exercise at home. He will consider going back in-person in the fall. 05/11/2023 the patient is here for a pulmonary follow-up visit. The patient overall has been doing well. Still having episodes of nasal congestion and allergies that are affecting him now in the fall likely typically does. He is tolerating his nebulized therapy. He will stay on the Brovana and budesonide for now. He continues on the Spiriva. The patient has been using the BiPAP at nighttime. Will go ahead and check a venous gas at this point also check his theophylline levels. He did tolerate the high dose theophylline without any adverse effects. If she does have room will try to increase the accordingly. The patient has been considering the one-way valves for lung volume reduction intervention. Although I a.m. concerned with his immune status risk for infection and also raise of pneumothorax. If she wishes for me to send him for a referral to do that I did explain to him that I do not believe it is without significant risk to have any semi invasive intervention in his case. He is already up-to-date with vaccines. The patient will continue with current respiratory therapy. [facility] Medical History (Updated 02/27/23 @ 23:38 by Vik Munoz MD) Sinusitis Pulmonary nodules Abdominal pain Abnormal chest x-ray HIV (human immunodeficiency virus infection) AYLA treated with BiPAP Hemoptysis HIV (human immunodeficiency virus infection) Chronic respiratory failure COPD (chronic obstructive pulmonary disease) Family History Mother Lung cancer Social History Patient Tobacco Use Status: Never used Tobacco Review of Systems Const All systems reviewed & are unremarkable except as noted in HPI and below Denies headache(s) and Denies night sweats ENT Denies change in voice, Denies headache(s), Denies lip swelling, Denies mouth pain, Reports nasal congestion, Reports nasal discharge and Denies tongue swelling Card Denies chest pain and Reports dyspnea on exertion Resp Denies change in phlegm color, Denies chest congestion, Reports cough, Denies hemoptysis (scant) and Reports dyspnea on exertion GI Denies abdominal pain Musc Denies no additional complaints Neuro Denies Neuro-related abnormal movements and Denies headache(s) Psych Denies no additional complaints Barry/Lymph Denies easy bleeding and Denies lymphadenopathy Aller/Immun Denies lip swelling and Denies tongue swelling Physical Exam Vital Signs: Last Vital Signs Pulse 64 05/11/23 13:00 BP 128/70 05/11/23 13:00 Pulse Ox 94 05/11/23 13:00 Oxygen Delivery Method Room Air 05/11/23 13:00 BMI result Body Mass Index 22.1 Const General: alert HEENT Mouth: moist mucous membranes abnormal (gingival disease) Neck Neck: Yes normal visual inspection, Yes full ROM and Yes no lymphadenopathy Chest Chest palpation & inspection: normal inspection of the chest Resp Auscultation: no rhonchi and diminished lung sounds Cardio Rate: regular rate Rhythm: regular rhythm Heart sounds: S1 normal heart sound present and S2 normal heart sound present GI Palpation (GI): Soft to palpation and nontender Auscultation: normal bowel sounds Skin General skin exam: rashes and/or lesions noted Assessment & Plan Assessment & Plan (1) AYLA treated with BiPAP: Comment: Effective and beneficial Code(s): G47.33 - Obstructive sleep apnea (adult) (pediatric) (2) Chronic respiratory failure: Code(s): J96.10 - Chronic respiratory failure, unspecified whether with hypoxia or hypercapnia Qualifiers: Respiratory failure complication: hypoxia and hypercapnia Qualified Code(s): J96.11 - Chronic respiratory failure with hypoxia; J96.12 - Chronic respiratory failure with hypercapnia (3) COPD (chronic obstructive pulmonary disease): Code(s): J44.9 - Chronic obstructive pulmonary disease, unspecified Qualifiers: COPD type: emphysema Emphysema type: centrilobular Qualified Code(s): J43.2 - Centrilobular emphysema (4) Pulmonary nodules: Code(s): R91.8 - Other nonspecific abnormal finding of lung field Plan Duonebt twice a day as needed continue budesonide 2 day continue Brovana continue Spiriva continue theophylline 400mg, need to check levels continue oxygen supplementation continue BiPAP 16/6 with oxygen check VBG follow-up in 4-6 months Coding Level of Care Code Est Pt Level 4 (61959) Diagnoses AYLA treated with BiPAP G47.33 Chronic respiratory failure with hypoxia and hypercapnia J96.11; J96.12 Respiratory failure complication: hypoxia and hypercapnia Centrilobular emphysema J43.2 COPD type: emphysema Emphysema type: centrilobular Pulmonary nodules R91.8 Time Spent (min) 17
[2023-05-11 13:00] VITALS: BP 128/70; PULSE 64; O2SAT 94; BMI 22.1
== END 2023-05-11 13:24 | disposition home or self-care (01) ==
PROVIDERS: PCP Family Medicine; Visit Provider Hospitalist
DX: G47.33 Obstructive sleep apnea (adult) (pediatric) (principal); J96.11 Chronic respiratory failure with hypoxia; J96.12 Chronic respiratory failure with hypercapnia; J43.2 Centrilobular emphysema; R91.8 Other nonspecific abnormal finding of lung field
CPT/HCPCS: 99214

== ENCOUNTER 2023-05-11 12:47 | Outpatient (REF) | payer MEDICARE, BC, SELFPAY ==
[2023-05-11 13:59] LABS: VBG Base Excess 3.4 mmol/L; VBG HCO3 30 mmol/L (22-26); VBG pCO2 53 mmHg; VBG pH 7.36 (7.32-7.43); VBG pO2 30 mmHg
[2023-05-11 14:00] LABS: Venous Blood Gas Refer to POC result
[2023-05-11 15:06] LABS: Erythrocyte Sedimentation Rate 23 MM/HR (0-15)
[2023-05-11 21:12] LABS: Theophylline 9.9 MG/L ((10-20))
== END 2023-05-11 12:48 | disposition home or self-care (01) ==
LOC: HO.LAB 12:47
PROVIDERS: PCP Family Medicine; Visit Provider Hospitalist
DX: J43.2 Centrilobular emphysema (principal); J96.11 Chronic respiratory failure with hypoxia; G47.33 Obstructive sleep apnea (adult) (pediatric); R91.8 Other nonspecific abnormal finding of lung field; Z99.81 Dependence on supplemental oxygen
CPT/HCPCS: 36415; 80198; 82803; 85652; 99212

== ENCOUNTER 2023-09-21 12:55 | Outpatient (REF) | payer MEDICARE, BC, SELFPAY ==
[2023-09-21 14:17] LABS: MANUAL DIFF FLAG NO
[2023-09-21 14:21] LABS: Basophils Absolute Auto 0.1 X10*3/uL (0.0-0.2); Basophils Percent Auto 0.6 % (0-2); Eosinophils Absolute Auto 0.3 X10*3/uL (0.0-0.4); Eosinophils Percent Auto 2.1 % (0-4); Hematocrit 42.4 % (42.0-52.0); Hemoglobin 14.6 g/dl (14.0-18.0); Imm Gran Abs Auto 0.08 X10*3/uL (0.00-0.03); Imm Gran Pct Auto 0.6 % (0.0-0.4); Lymphocytes Absolute Auto 3.9 X10*3/uL (1.2-4.9); Lymphocytes Percent Auto 31.5 % (20-40); Mean Corpuscular HGB Conc 34.4 g/dl (31.0-36.0); Mean Corpuscular Hemoglobin 34.4 pg (27.0-33.0); Mean Platelet Volume 9.5 fL (9.4-12.4); Monocytes Percent Auto 8.2 % (2-11); Neutrophils Absolute Auto 7.1 x10*3/uL (2.0-8.3); Platelet Count 318 X10*3/uL (160-400); Red Blood Count 4.24 X10*6/uL (4.60-5.80); White Blood Count 12.5 X10*3/uL (4.8-10.8)
[2023-09-21 19:02] LABS: Theophylline 7.1 MG/L ((10-20))
== END 2023-09-21 12:56 | disposition home or self-care (01) ==
LOC: HO.WFDLDS 12:55
PROVIDERS: Visit Provider Family Medicine
DX: Z13.89 Encounter for screening for other disorder (principal)
CPT/HCPCS: 36415; 80198; 85025

== ENCOUNTER 2023-10-10 14:36 | Outpatient (REF) | payer MEDICARE, BC, SELFPAY ==
[2023-10-10 15:19] LABS: MANUAL DIFF FLAG NO
[2023-10-10 15:57] LABS: Basophils Absolute Auto 0.1 X10*3/uL (0.0-0.2); Basophils Percent Auto 0.7 % (0-2); Eosinophils Absolute Auto 0.5 X10*3/uL (0.0-0.4); Eosinophils Percent Auto 4.3 % (0-4); Hematocrit 42.8 % (42.0-52.0); Hemoglobin 14.3 g/dl (14.0-18.0); Imm Gran Pct Auto 0.9 % (0.0-0.4); Lymphocytes Absolute Auto 4.2 X10*3/uL (1.2-4.9); Lymphocytes Percent Auto 39.7 % (20-40); Mean Corpuscular HGB Conc 33.4 g/dl (31.0-36.0); Mean Corpuscular Hemoglobin 33.9 pg (27.0-33.0); Mean Corpuscular Volume 101.4 fL (80.0-98.0); Mean Platelet Volume 9.4 fL (9.4-12.4); Monocytes Absolute Auto 0.9 X10*3/uL (0.1-1.2); Monocytes Percent Auto 8.5 % (2-11); Neutrophils Absolute Auto 4.9 x10*3/uL (2.0-8.3); Neutrophils Percent Auto 45.9 % (45-73); Platelet Count 424 X10*3/uL (160-400); Red Blood Count 4.22 X10*6/uL (4.60-5.80); White Blood Count 10.7 X10*3/uL (4.8-10.8)
[2023-10-10 16:28] LABS: Alanine Aminotransferase 18 U/L (0-40); Albumin Level 4.3 g/dL (3.5-5.0); Alkaline Phosphatase 186 U/L (39-117); Anion Gap 14 (12-20); Aspartate Amino Transferase 20 U/L (5-37); Bilirubin Direct 0.1 mg/dL (0.0-0.5); Bilirubin Total 0.3 mg/dL (0.0-1.0); Blood Urea Nitrogen 17 mg/dL (9-16); Calcium 9.9 mg/dL (8.4-10.2); Carbon Dioxide 28 mmol/L (22-29); Chloride 105 mmol/L (96-108); Estimated Glomerular Filt Rate > 60; Glucose Random 83 mg/dL (60-115); Potassium 3.2 mmol/L (3.3-5.1); Sodium 144 mmol/L (135-145)
[2023-10-11 02:15] LABS: Syphilis Screen Nonreactive (Nonreactive)
[2023-10-11 02:29] LABS: ~HepC Num1 0.09 S/CO (0.00-0.79); ~Hepatitis C Antibody Nonreactive (Nonreactive)
[2023-10-12 10:33] LABS: Absolute CD3 Count 2402 cells/uL (840-3060); Absolute CD4 Count 996 cells/uL (490-1740); Absolute CD8 Count 1421 cells/uL (180-1170); Absolute Lymphocytes 3777 cells/uL (850-3900); Percent CD3 Cells 64 % (57-85); Percent CD4 Cells 26 % (30-61); Percent CD8 Cells 38 % (12-42)
== END 2023-10-10 14:37 | disposition home or self-care (01) ==
LOC: HO.LAB 14:36
PROVIDERS: Absent Provider Internal Medicine; PCP Family Medicine; Visit Provider Hospitalist
DX: B20 Human immunodeficiency virus [HIV] disease (principal); R91.8 Other nonspecific abnormal finding of lung field; J43.2 Centrilobular emphysema; J96.11 Chronic respiratory failure with hypoxia; J96.12 Chronic respiratory failure with hypercapnia; G47.33 Obstructive sleep apnea (adult) (pediatric)
CPT/HCPCS: 36415; 80048; 80076; 85025; 86359; 86360; 86780; 86803; 87536; 99212

== ENCOUNTER 2023-10-10 14:36 | Outpatient (AMB) | payer MEDICARE, BC, SELFPAY ==
[2023-10-10 14:42] VITALS: PULSE 86; O2SAT 96; BMI 22.8
--- NOTE | 2023-10-10 14:42 | A.OFFVIS_ITS ---
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 Allergies ethinyl estradiol [From Seasonale (91)] Allergy (Severe, Verified 10/10/23 14:43) Dry Eye levonorgestrel [From Seasonale (91)] Allergy (Severe, Verified 10/10/23 14:43) Dry Eye sulfamethoxazole [From Bactrim] Allergy (Mild, Verified 10/10/23 14:43) RASH trimethoprim [From Bactrim] Allergy (Mild, Verified 10/10/23 14:43) RASH Sulfa (Sulfonamide Antibiotics) Allergy (Unknown, Verified 10/10/23 14:43) mild rash HPI HPI Comments History of Present Illness Details The patient is a 63-year-old gentleman with a known history of COPD, chronic hypoxic and hypercarbic respiratory failure on oxygen supplementation and obstructive sleep apnea. Overall the patient has been doing well. He continues on his anti retroviral therapy without any complications. He has responded very well to the azithromycin. He did have an EKG done. he has been having issues with cough lately. He has noticed productive cough and at times he notices small amount of blood-tinged sputum. He denies any fevers or chills or any chest discomfort. His sputum has normalized at this time. In the meantime will be reasonable to get a chest x-ray. She continues use the BiPAP every night. The BiPAP therapy continues to be affecting beneficial. 11/17/2020 the patient is here for pulmo bethy follow-up visit. Overall he has been doing well from a respiratory status. 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 He has been using the oxygen with good effect. The only new issue is that he has had episodes of coughing up blood. This is been intermittent in and has not had it more than a week. Today he did undergo pulmonary function studies and we were able to compared to PFTs from 2015. It appears that he does have a severe obstructive ventilatory defect along with a severe diffusion impairment. But when compared to 2015 the patient has not had any significant worsening in actually some numbers have trend improved. Therefore it is reassuring that he is sustaining his lung capacity. He also brought his BiPAP with him. Currently set up at 16/6. His AHI is down to 2. The therapy has been affecting beneficial. At this point will keep it at at the current pressure settings. It appears to be affecting beneficial. He is wondering if there is any other respiratory medications he can use instead of the once he is on to try to get more of a bronchodilator effect. The only thing we can do this point is consider nebulized therapy in the form Brovana and budesonide. That he would use in exchange of the Symbicort. Will try to submit does to the [place]. in addition to that we looked at the x-ray from 08/09/2020 demonstrating the hazy opacity in the right mid lung area. He had this area also noted his previous x-ray. Based on his abnormal chest x-ray in his episodic hemoptysis. I will request a CT scan of the chest at this time. 03/04/2021 the patient is here for a pulmonary follow-up visit. Overall the patient has been doing well. His cough is respiratory symptoms have been stable. He does continue using his Formeterol and budesonide. Appears to be effective for him. He also continues use the BiPAP. The BiPAP therapy continues to be affecting beneficial. He does use it more than 4 hours a night. He also continues to use the oxygen. The oxygen supplementation he does use continuously. We did review his last CT scan of the chest done in November 2020 which demonstrated extensive emphysema and also a new pulmonary nodule. I personally reviewed the CT scan with the patient in the nodule does not any concerning features although with his significant smoking history id needs to be followed closely. 10/26/2021 the patient is here for a pulmo nary follow-up visit. He had taken prednisone yesterday because he felt that his breathing was not great. Today feels a lot better. He continues on the nebulized therapy. He also continues use the oxygen with good effect. He has been using the BiPAP at nighttime with a fullface mask. Still getting of a dry mouth. He started developing gentle disease. Having hard time tolerating the the BiPAP due to the gingivitis in the infection of his gum. He needs to follow-up with dentist. In the meantime the patient has a known pulmonary nodule measuring 3 mm on the last CT scan back in November 2020. He has been reluctant to get a CT scan at this time. So therefore push it out to the end of the summer and will follow-up in [address] scan. If the patient has any worsening symptoms prior to that he is to call for an earlier evaluation. Otherwise will follow-up in 6 months. 07/08/2022 the patient is here for a pulmonary follow-up visit. The patient does complaint of worsening shortness of breath. He has been using his oxygen with good effect. He has also continue with respiratory therapy. But, still complaining of shortness of breath even at rest. Moderate severity. He also has been coughing more lately. He has been More congested lately. Denies any hemoptysis. He has been noticing his phlegm is dark yellowish green. Moderate severity. Does complaint of sinus congestion. He did recently have a CT scan as part of a follow-up CT scan for his pulmonary nodules. Did have significant edematous changes. Some bronchiectatic changes also appreciated. Although no significant pulmonary nodules noted. This is reassuring. He also continues use the BiPAP at nighttime very good effect. At this point will go ahead and optimize respiratory therapy by adding theophylline. We can also treated for a lower respiratory infection. The patient will undergo blood work in a couple weeks to make sure that is theophylline levels are reasonable. I will put him on a very low dose. 09/29/2022 the patient is here for a pulmo nary follow-up visit. Overall the patient has been doing fairly well. Continues to have episodes of shortness of breath. Some days are good some days are bad. He does not see that he is getting significant response to Brovana. Seems to do better with DuoNeb. Therefore will switch him off the room I placed on DuoNeb 4 times a day. He is to continue the budesonide for now. He does get a lot of mouth irritation because of the BiPAP and also the inhalers. He gets a lot of infections. I will send him chlorhexidine mouthwash CP can not assess with that. He may have to see the dentist because he does have a growth on his change about that needs to be addressed. The patient has been using his BiPAP. The BiPAP therapy has been affecting beneficial. His venous gas today demonstrate normal acid-base status with a baseline pCO2 of 54 mmHg which is a trying higher than it was before. The patient also is tolerating the theophylline. Will go ahead and get a theophylline level to see if we need to adjust the dose at this time. He is wondering about the severity of his disease. He knows that he has very advanced COPD. We did talk about lung transplant. Although he does have HIV he is viral load is undetectable. He does not want to pursue lung transplant this point. Although he would be open to considering lung volume reduction intervention. Will go ahead and repeat his pulmonary function studies and look into pulmonary rehabilitation the next time he comes in. He continues use the oxygen with good effect. Will follow-up in 6-8 weeks with PFTs. 11/15/2022 the patient is here for a pulm onary follow-up visit. The patient has been having increasing shortness of breath at times. We did review his pulmonary function studies demonstrating very severe COPD. But compared to 2020 not much has changed which is reassuring. We did talk about switching his nebulized therapy as he has not seen significant improvement with Brovana. But he has not done as of yet. He is wondering if Trelegy may be a good inhaler for him. I did recommend that if he goes on Trelegy with have to stop the Brovana and would have to decrease the budesonide. He is willing to do so at this time. If however I cannot get in the Trelegy then he can use the DuoNeb and budesonide twice a day and also good DuoNeb as needed. The patient also had blood work including a theophylline level that was significantly low. He has been adherent to the therapy. Therefore, we talked about increasing the dose from 200 mg to 400 mg. He will double upon what he has and then [facility] The in addition to that the patient did have a venous blood gas. His CO2 slight elevated at 54 mmHg which is slightly elevated on the venous gas likely overestimate. His pH is within normal limits. He does use the BiPAP every night. The BiPAP therapy continues to be affecting beneficial. She is also using the oxygen with good effect. The patient also is working with pulmonary rehabilitation which is helpful and encouraging 02/27/2023 the patient is here for a pulmonary follow-up visit. Overall the patient is doing well from a respiratory status. He did start the theophylline seems to be helping. The patient still continues on his nebulized therapy to make sure he finishes all the medication before he switches over to the new regimen. He is complaining of a worsening cough. Initially also had significant lymphadenopathy on the posterior right side of his neck. Also complained of sinus discomfort. Had increased sinus drainage. He attributes it to the BiPAP or his 8 conditioner. He did take 5 days of Augmentin he felt better and then went back to the azithromycin. He still has residual symptoms with persistent productive cough and some sinus discomfort headaches. I did recommend he complete a full course in view of the residual symptoms. I will send a prescription for doxycycline. Once his complete study can go back in azithromycin. Will go ahead and request blood work including a venous gas to monitor closely his CO2. He continues uses oxygen with good effect. He was participating in pulmonary rehabilitation both the humidity and the fires is been hard to leave the house. Therefore he is going to continue to exercise at home. He will consider going back in-person in the fall. 05/11/2023 the patient is here for a pulm onary follow-up visit. The patient [place] has been doing well. Still having episodes of nasal congestion and allergies that are affecting him now in the fall likely typically does. He is tolerating his nebulized therapy. He will stay on the Brovana and budesonide for now. He continues on the Spiriva. The patient has been using the BiPAP at nighttime. Will go ahead and check a venous gas at this point also check his theophylline levels. He did tolerate the high dose theophylline without any adverse effects. If she does have room will try to increase the accordingly. The patient has been considering the one-way valves for lung volume reduction intervention. Although I a.m. concerned with his immune status risk for infection and also raise of pneumothorax. If she wishes for me to send him for a referral to do that I did explain to him that I do not believe it is without significant risk to have any semi invasive intervention in his case. He is already up-to-date with vaccines. The patient will continue with current respiratory therapy. 10/10/2023 the patient is here for a pulmonary follow-up visit. Doing well from a respiratory status. He does have his good days and bad days. But overall has been stable. His chest congestion is improved. He continues uses respiratory therapy as prescribed. He is tolerating the theophylline. His theophylline levels have been low but reasonable. His last venous blood gas was also reassuring. The patient has not had a chest x-ray in some time. His last CT scan of the chest was personally reviewed demonstrating emphysematous changes. No significant pulmonary nodules appreciated. Therefore no additional CT scans are warranted unless his x-ray is abnormal. The patient unfortunately has been having viral loads that are positive regards of his HIV testing. His CD4 count last was also decreasing. He is going to have blood work done again and will follow up with his Infectious Disease doctor regarding his retroviral therapy. At this point continue with the oxygen therapy. Is okay for him to take it off as long as his pulse ox stays above 90% specially with the dry air and having some epistaxis. He can also try water-based lubricants to lubricate the inside of his mucosa is nose. [facility] Medical History (Updated 02/27/23 @ 23:38 by Vik Munoz MD) Sinusitis Pulmonary nodules Abdominal pain Abnormal chest x-ray HIV (human immunodeficiency virus infection) AYLA treated with BiPAP Hemoptysis HIV (human immunodeficiency virus infection) Chronic respiratory failure COPD (chronic obstructive pulmonary disease) Family History Mother Lung cancer Social History Patient Tobacco Use Status: Never used Tobacco Review of Systems Const All systems reviewed & are unremarkable except as noted in HPI and below Denies headache(s) and Denies night sweats ENT Denies change in voice, Denies headache(s), Denies lip swelling, Reports epistaxis, Denies mouth pain, Reports nasal congestion, Reports nasal discharge and Denies tongue swelling Card Denies chest pain and Reports dyspnea on exertion Resp Denies change in phlegm color, Denies chest congestion, Reports cough, Denies hemoptysis (scant) and Reports dyspnea on exertion GI Denies abdominal pain Musc Denies no additional complaints Neuro Denies Neuro-related abnormal movements and Denies headache(s) Psych Denies no additional complaints Barry/Lymph Denies easy bleeding and Denies lymphadenopathy Aller/Immun Denies lip swelling and Denies tongue swelling Physical Exam Vital Signs: Last Vital Signs Pulse 86 10/10/23 14:42 Pulse Ox 96 10/10/23 14:42 Oxygen Delivery Method Room Air 10/10/23 14:42 BMI result Body Mass Index 22.8 Const General: alert HEENT Mouth: moist mucous membranes abnormal (gingival disease) Neck Neck: Yes normal visual inspection, Yes full ROM and Yes no lymphadenopathy Chest Chest palpation & inspection: normal inspection of the chest Resp Auscultation: no rhonchi and diminished lung sounds Cardio Rate: regular rate Rhythm: regular rhythm Heart sounds: S1 normal heart sound present and S2 normal heart sound present GI Palpation (GI): Soft to palpation and nontender Auscultation: normal bowel sounds Skin General skin exam: rashes and/or lesions noted Assessment & Plan Assessment & Plan (1) AYLA treated with BiPAP: Comment: Effective and beneficial Code(s): G47.33 - Obstructive sleep apnea (adult) (pediatric) (2) Chronic respiratory failure: Code(s): J96.10 - Chronic respiratory failure, unspecified whether with hypoxia or hypercapnia Qualifiers: Respiratory failure complication: hypoxia and hypercapnia Qualified Code(s): J96.11 - Chronic respiratory failure with hypoxia; J96.12 - Chronic respiratory failure with hypercapnia (3) COPD (chronic obstructive pulmonary disease): Code(s): J44.9 - Chronic obstructive pulmonary disease, unspecified Qualifiers: COPD type: emphysema Emphysema type: centrilobular Qualified Code(s): J43.2 - Centrilobular emphysema (4) Pulmonary nodules: Code(s): R91.8 - Other nonspecific abnormal finding of lung field Plan Duoneb twice a day as needed continue budesonide 2 day continue Brovana continue Spiriva continue theophylline 400mg continue oxygen supplementation, Respironic POC from [facility] continue BiPAP 16/6 with oxygen VBG stable CXR follow-up in 4-6 months Orders: Orders XR chest 2V Today R91.8 - Other nonspecific abnormal finding of lung field Coding Level of Care Code Est Pt Level 4 (71895) Diagnoses AYLA treated with BiPAP G47.33 Chronic respiratory failure with hypoxia and hypercapnia J96.11; J96.12 Respiratory failure complication: hypoxia and hypercapnia Centrilobular emphysema J43.2 COPD type: emphysema Emphysema type: centrilobular Pulmonary nodules R91.8 Time Spent (min) 17
== END 2023-10-10 15:02 | disposition home or self-care (01) ==
PROVIDERS: PCP Family Medicine; Visit Provider Hospitalist
DX: G47.33 Obstructive sleep apnea (adult) (pediatric) (principal); J96.11 Chronic respiratory failure with hypoxia; J96.12 Chronic respiratory failure with hypercapnia; J43.2 Centrilobular emphysema; R91.8 Other nonspecific abnormal finding of lung field
CPT/HCPCS: 99214

== ENCOUNTER 2023-11-29 12:40 | Outpatient (REF) | payer MEDICARE, BC, SELFPAY ==
[2023-11-29 13:26] LABS: MANUAL DIFF FLAG NO
[2023-11-29 14:00] LABS: Basophils Absolute Auto 0.1 X10*3/uL (0.0-0.2); Basophils Percent Auto 0.8 % (0-2); Eosinophils Absolute Auto 0.8 X10*3/uL (0.0-0.4); Eosinophils Percent Auto 6.1 % (0-4); Hematocrit 44.4 % (42.0-52.0); Hemoglobin 14.8 g/dl (14.0-18.0); Imm Gran Pct Auto 0.8 % (0.0-0.4); Lymphocytes Absolute Auto 3.9 X10*3/uL (1.2-4.9); Lymphocytes Percent Auto 31.1 % (20-40); Mean Corpuscular HGB Conc 33.3 g/dl (31.0-36.0); Mean Corpuscular Hemoglobin 34.3 pg (27.0-33.0); Mean Corpuscular Volume 102.8 fL (80.0-98.0); Mean Platelet Volume 9.9 fL (9.4-12.4); Monocytes Percent Auto 8.2 % (2-11); Neutrophils Absolute Auto 6.7 x10*3/uL (2.0-8.3); Platelet Count 326 X10*3/uL (160-400); Red Blood Count 4.32 X10*6/uL (4.60-5.80); Red Cell Distribution Width 13.1 % (11.0-16.0); White Blood Count 12.6 X10*3/uL (4.8-10.8)
[2023-11-29 14:24] LABS: Alanine Aminotransferase 21 U/L (0-40); Albumin Level 4.3 g/dL (3.5-5.0); Alkaline Phosphatase 162 U/L (39-117); Anion Gap 10 (12-20); Aspartate Amino Transferase 21 U/L (5-37); Bilirubin Direct 0.1 mg/dL (0.0-0.5); Bilirubin Total 0.4 mg/dL (0.0-1.0); Blood Urea Nitrogen 15 mg/dL (9-16); Calcium 9.5 mg/dL (8.4-10.2); Carbon Dioxide 30 mmol/L (22-29); Chloride 105 mmol/L (96-108); Estimated Glomerular Filt Rate > 60; Glucose Random 87 mg/dL (60-115); Potassium 3.8 mmol/L (3.3-5.1); Sodium 141 mmol/L (135-145); Total Protein 7.7 g/dL (6.5-8.0)
[2023-11-30 10:14] LABS: Absolute CD3 Count 2258 cells/uL (840-3060); Absolute CD4 Count 856 cells/uL (490-1740); Absolute CD8 Count 1412 cells/uL (180-1170); Absolute Lymphocytes 3698 cells/uL (850-3900); CD4 CD8 Ratio 0.61 (0.86-5.00); Percent CD3 Cells 61 % (57-85); Percent CD4 Cells 23 % (30-61); Percent CD8 Cells 38 % (12-42)
[2023-12-01 14:49] LABS: HIV RNA PCR Qn Copies NOT DETECTED copies/mL (NOT DETECTED); HIV RNA PCR Qn Log Copies NOT DETECTED (NOT DETECTED)
== END 2023-11-29 12:41 | disposition home or self-care (01) ==
LOC: HO.10HDL 12:40
PROVIDERS: Visit Provider Internal Medicine
DX: B20 Human immunodeficiency virus [HIV] disease (principal)
CPT/HCPCS: 36415; 80048; 80076; 85025; 86359; 86360; 87536

== ENCOUNTER 2023-12-13 12:57 | Outpatient (REF) | payer MEDICARE, BC, SELFPAY ==
[2023-12-22 15:12] LABS: HPV MRNA E6/E7 Rectal DETECTED
[2023-12-24 15:18] LABS: HPV 16 RNA, Rectal DETECTED; HPV 18/45 RNA Rectal NOT DETECTED
== END 2023-12-13 12:58 | disposition home or self-care (01) ==
LOC: HO.LNP 12:57
PROVIDERS: PCP Family Medicine; Visit Provider Internal Medicine
DX: B20 Human immunodeficiency virus [HIV] disease (principal)
CPT/HCPCS: 87624; 87625; 88112; 99212

== ENCOUNTER 2023-12-13 12:57 | Outpatient (AMB) | payer MEDICARE, BC, SELFPAY ==
[2023-12-13 13:14] VITALS: BP 120/70; PULSE 70; O2SAT 94; BMI 22.8
--- NOTE | 2023-12-13 13:14 | A.OFFVIS_ITS ---
Vital Signs 12/13/23 13:14 Height 5 ft 8 in Weight 150 lb BMI 22.8 BP 120/70 Pulse 70 Pulse Source Pulse Oximeter Pulse Oximetry (%) 94 Oxygen Delivery Method Nasal Cannula Intake Visit Reasons: 1 yr. 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 F/U hiv labs: Details: He is doing well. He still has heavy oxygen tank. He has COPD and on 6 l oxygen He has occasional genital herpes outbreak, He bought iwoca in [place]. His viral load in undetectable and CD4 count 856 11/28. He sees Dr James Lackey. [facility] Medical History Sinusitis Pulmonary nodules Abdominal pain Abnormal chest x-ray HIV (human immunodeficiency virus infection) AYLA treated with BiPAP Hemoptysis HIV (human immunodeficiency virus infection) Chronic respiratory failure COPD (chronic obstructive pulmonary disease) Family History Mother Lung cancer Social History Patient Tobacco Use Status: Never used Tobacco Review of Systems Const All systems reviewed & are unremarkable except as noted in HPI and below Physical Exam Vital Signs: Last Vital Signs Pulse 70 12/13/23 13:14 BP 120/70 12/13/23 13:14 Pulse Ox 94 12/13/23 13:14 Oxygen Delivery Method Nasal Cannula 12/13/23 13:14 BMI result Body Mass Index 22.8 Const General: cooperative Orientation/consciousness: patient oriented x3 HEENT Head: Yes normal to inspection Mouth: Normal oral and palatal mucosa present Eyes General: appearance normal, both eyes and all related structures Pupils: Equal, round and reactive pupils present Resp Effort & Inspection: normal respiratory effort Cardio Rate: regular rate Rhythm: regular rhythm GI Palpation (GI): Soft to palpation and nontender General: Yes no CVA tenderness Back/Spine/Pelvis Back: no CVA tenderness Skin General skin exam: no rashes or lesions noted Neuro General: patient oriented x3 Cranial nerves: Yes CN's II-XII intact bilaterally and Yes Equal, round and reactive pupils present Extrem General: Yes normal to inspection Psych Appearance: grossly normal Assessment & Plan Assessment & Plan (1) HIV (human immunodeficiency virus infection): Comment: He is doing well with medication He has other comorbidities he has abdominal discomfort. His CD4 count and viral load are good. He is interested in easier to use HIV medication but not interested in Cabenuva every other month injection. Code(s): B20 - Human immunodeficiency virus [HIV] disease Category: Medical Plan: Rectal Pap today. MARK per PCP as well as colonoscopy and PSA. Delstrigo renewed for a year and labs put in. Orders: Orders Basic Metabolic Panel 1 Year B20 - Human immunodeficiency virus [HIV] disease Liver Panel 1 Year B20 - Human immunodeficiency virus [HIV] disease PSA,Total (Free>4and<10) 1 Year B20 - Human immunodeficiency virus [HIV] disease Syphilis Screen 1 Year B20 - Human immunodeficiency virus [HIV] disease Hepatitis C Antibody 1 Year B20 - Human immunodeficiency virus [HIV] disease Pap Smear 12/13/23 B20 - Human immunodeficiency virus [HIV] disease Complete Blood Count Auto Diff 1 Year B20 - Human immunodeficiency virus [HIV] disease HIV-1 RNA QN PCR Expanded 1 Year B20 - Human immunodeficiency virus [HIV] disease Lymphocyte Subset Panel 3 1 Year B20 - Human immunodeficiency virus [HIV] disease Medications: New valacyclovir (Valtrex) 1,000 mg PO DAILY 90 tabs 3RF 90 days Refilled [id number] diso 100-300-300 mg (Delstrigo) 1 tab PO DAILY 90 tabs 3RF 90 days Coding Level of Care Code Est Pt Level 4 (25382) Diagnoses HIV (human immunodeficiency virus infection) B20
== END 2023-12-13 14:09 | disposition home or self-care (01) ==
PROVIDERS: PCP Family Medicine; Visit Provider Internal Medicine
DX: B20 Human immunodeficiency virus [HIV] disease (principal)
CPT/HCPCS: 99214

== ENCOUNTER 2024-03-08 13:39 | Outpatient (REF) | payer MEDICARE, BC, SELFPAY ==
[2024-03-08 15:19] LABS: Appearance Urine Clear; Color Urine Yellow; Glucose Urine UA Negative (Negative); Leukocyte Esterase Urine Negative (Negative); Nitrite Urine Negative (Negative); UMIC TRIGGER UACC YES; Urine Blood Negative (Negative); Urine Ketones Negative (Negative); Urine Protein 100 (2+) mg/dL (Neg-Trace)
[2024-03-08 15:29] LABS: Bacteria Urine None Seen (None Seen); Hyaline Casts Urine 0-2 /LPF (0-2); RBC Urine 0-2 /HPF (0-2); Squamous Epithelial Cell Urine 0-2 /HPF (0-2); WBC Urine 0-5 /HPF (0-5)
== END 2024-03-08 13:40 | disposition home or self-care (01) ==
LOC: HO.LAB 13:39
PROVIDERS: PCP Family Medicine; Visit Provider Family Medicine
DX: R30.0 Dysuria (principal); R31.9 Hematuria, unspecified
CPT/HCPCS: 81001; 87086

== ENCOUNTER 2024-03-12 13:47 | Outpatient (AMB) | payer MEDICARE, BC, SELFPAY ==
--- NOTE | 2024-03-12 13:52 | A.OFFVIS_ITS ---
Vital Signs 03/12/24 13:53 Height 5 ft 8 in Weight 140 lb BMI 21.3 Pulse 81 Pulse Source Pulse Oximeter Pulse Oximetry (%) 94 Oxygen Delivery Method Room Air Intake Visit Reasons: copd Allergies ethinyl estradiol [From Seasonale (91)] Allergy (Severe, Verified 03/12/24 13:52) Dry Eye levonorgestrel [From Seasonale (91)] Allergy (Severe, Verified 03/12/24 13:52) Dry Eye sulfamethoxazole [From Bactrim] Allergy (Mild, Verified 03/12/24 13:52) RASH trimethoprim [From Bactrim] Allergy (Mild, Verified 03/12/24 13:52) RASH Sulfa (Sulfonamide Antibiotics) Allergy (Unknown, Verified 03/12/24 13:52) mild rash HPI Comments Details: The patient is a 63-year-old gentleman with a known history of COPD, chronic hypoxic and hypercarbic respiratory failure on oxygen supplementation and obstructive sleep apnea. Overall the patient has been doing well. He continues on his anti retroviral therapy without any complications. He has responded very well to the azithromycin. He did have an EKG done. he has been having issues with cough lately. He has noticed productive cough and at times he notices small amount of blood-tinged sputum. He denies any fevers or chills or any chest discomfort. His sputum has normalized at this time. In the meantime will be reasonable to get a chest x-ray. She continues use the BiPAP every night. The BiPAP therapy continues to be affecting beneficial. 11/17/2020 the patient is here for pulmonary follow-up visit. Overall he has been doing well from a respiratory status. 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 He has been using the oxygen with good effect. The only new issue is that he has had episodes of coughing up blood. This is been intermittent in and has not had it more than a week. Today he did undergo pulmonary function studies and we were able to compared to PFTs from 2015. It appears that he does have a severe obstructive ventilatory defect along with a severe diffusion impairment. But when compared to 2015 the patient has not had any significant worsening in actually some numbers have trend improved. Therefore it is reassuring that he is sustaining his lung capacity. He also brought his BiPAP with him. Currently set up at 03/02. His AHI is down to 2. The therapy has been affecting beneficial. At this point will keep it at at the current pressure settings. It appears to be affecting beneficial. He is wondering if there is any other respiratory medications he can use instead of the once he is on to try to get more of a bronchodilator effect. The only thing we can do this point is consider nebulized therapy in the form Brovana and budesonide. That he would use in exchange of the Symbicort. Will try to submit does to the [place]. in addition to that we looked at the x-ray from 08/09/2020 demonstrating the hazy opacity in the right mid lung area. He had this area also noted his previous x-ray. Based on his abnormal chest x-ray in his episodic hemoptysis. I will request a CT scan of the chest at this time. 03/04/2021 the patient is here for a pulmonary follow-up visit. Overall the patient has been doing well. His cough is respiratory symptoms have been stable. He does continue using his Formeterol and budesonide. Appears to be effective for him. He also continues use the BiPAP. The BiPAP therapy continues to be affecting beneficial. He does use it more than 4 hours a night. He also continues to use the oxygen. The oxygen supplementation he does use continuously. We did review his last CT scan of the chest done in November 2020 which demonstrated extensive emphysema and also a new pulmonary nodule. I personally reviewed the CT scan with the patient in the nodule does not any concerning features although with his significant smoking history id needs to be followed closely. 10/26/2021 the patient is here for a pulmonary follow-up visit. He had taken prednisone yesterday because he felt that his breathing was not great. Today feels a lot better. He continues on the nebulized therapy. He also continues use the oxygen with good effect. He has been using the BiPAP at nighttime with a fullface mask. Still getting of a dry mouth. He started developing gentle disease. Having hard time tolerating the the BiPAP due to the gingivitis in the infection of his gum. He needs to follow-up with dentist. In the meantime the patient has a known pulmonary nodule measuring 3 mm [address] the last CT scan back in November 2020. He has been reluctant to get a CT scan at this time. So therefore push it out to the end of the summer and will follow-up in [address] scan. If the patient has any worsening symptoms prior to that he is to call for an earlier evaluation. Otherwise will follow-up in 6 months. 07/08/2022 the patient is here for a pulmonary follow-up visit. The patient does complaint of worsening shortness of breath. He has been using his oxygen with good effect. He has also continue with respiratory therapy. But, still complaining of shortness of breath even at rest. Moderate severity. He also has been coughing more lately. He has been More congested lately. Denies any hemoptysis. He has been noticing his phlegm is dark yellowish green. Moderate severity. Does complaint of sinus congestion. He did recently have a CT scan as part of a follow-up CT scan for his pulmonary nodules. Did have significant edematous changes. Some bronchiectatic changes also appreciated. Although no significant pulmonary nodules noted. This is reassuring. He also continues use the BiPAP at nighttime very good effect. At this point will go ahead and optimize respiratory therapy by adding theophylline. We can also treated for a lower respiratory infection. The patient will undergo blood work in a couple weeks to make sure that is theophylline levels are reasonable. I will put him on a very low dose. 09/29/2022 the patient is here for a pulmonary follow-up visit. Overall the patient has been doing fairly well. Continues to have episodes of shortness of breath. Some days are good some days are bad. He does not see that he is getting significant response to Brovana. Seems to do better with DuoNeb. Ender mcneil will switch him off the room I placed on DuoNeb 4 times a day. He is to continue the budesonide for now. He does get a lot of mouth irritation because of the BiPAP and also the inhalers. He gets a lot of infections. I will send him chlorhexidine mouthwash CP can not assess with that. He may have to see the dentist because he does have a growth on his change about that needs to be addressed. The patient has been using his BiPAP. The BiPAP therapy has been affecting beneficial. His venous gas today demonstrate normal acid-base status with a baseline pCO2 of 54 mmHg which is a trying higher than it was before. The patient also is tolerating the theophylline. Will go ahead and get a theophylline level to see if we need to adjust the dose at this time. He is wondering about the severity of his disease. He knows that he has very advanced COPD. We did talk about lung transplant. Although he does have HIV he is viral load is undetectable. He does not want to pursue lung transplant this point. Although he would be open to considering lung volume reduction intervention. Will go ahead and repeat his pulmonary function studies and look into pulmonary rehabilitation the next time he comes in. He continues use the oxygen with good effect. Will follow-up in 6-8 weeks with PFTs. 11/15/2022 the patient is here for a pulmonary follow-up visit. The patient has been having increasing shortness of breath at times. We did review his pulmonary function studies demonstrating very severe COPD. But compared to 2020 not much has changed which is reassuring. We did talk about switching his nebulized therapy as he has not seen significant improvement with Brovana. But he has not done as of yet. He is wondering if Trelegy may be a good inhaler for him. I did recommend that if he goes on Trelegy with have to stop the Brovana and would have to decrease the budesonide. He is willing to do so at this time. If however I cannot get in the Trelegy then he can use the DuoNeb and budesonide twice a day and also good DuoNeb as needed. The patient also had blood work including a theophylline level that was significantly low. He has been adherent to the therapy. Therefore, we talked about increasing the dose from 200 mg to 400 mg. He will double upon what he has and then [facility] The in addition to that the patient did have a venous blood gas. His CO2 slight elevated at 54 mmHg which is slightly elevated on the venous gas likely overestimate. His pH is within normal limits. He does use the BiPAP every night. The BiPAP therapy continues to be affecting beneficial. She is also using the oxygen with good effect. The patient also is working with pulmonary rehabilitation which is helpful and encouraging 02/27/2023 the patient is here for a pulmonary follow-up visit. Overall the patient is doing well from a respiratory status. He did start the theophylline seems to be helping. The patient still continues on his nebulized therapy to make sure he finishes all the medication before he switches over to the new regimen. He is complaining of a worsening cough. Initially also had significant lymphadenopathy on the posterior right side of his neck. Also complained of sinus discomfort. Had increased sinus drainage. He attributes it to the BiPAP or his 8 conditioner. He did take 5 days of Augmentin he felt better and then went back to the azithromycin. He still has residual symptoms with persistent productive cough and some sinus discomfort headaches. I did recommend he complete a full course in view of the residual symptoms. I will send a prescription for doxycycline. Once his complete study can go back in azithromycin. Will go ahead and request blood work including a venous gas to monitor closely his CO2. He continues uses oxygen with good effect. He was participating in pulmonary rehabilitation both the humidity and the fires is been hard to leave the house. Therefore he is going to continue to exercise at home. He will consider going back in-person in the fall. 05/11/2023 the patient is here for a pulmonary follow-up visit. The patient overall has been doing well. Still having episodes of nasal congestion and allergies that are affecting him now in the fall likely typically does. He is tolerating his nebulized therapy. He will stay on the Brovana and budesonide for now. He continues on the Spiriva. The patient has been using the BiPAP at nighttime. Will go ahead and check a venous gas at this point also check his theophylline levels. He did tolerate the high dose theophylline without any adverse effects. If she does have room will try to increase the accordingly. The patient has been considering the one-way valves for lung volume reduction intervention. Although I a.m. concerned with his immune status risk for infection and also raise of pneumothorax. If she wishes for me to send him for a referral to do that I did explain to him that I do not believe it is without significant risk to have any semi invasive intervention in his case. He is already up-to-date with vaccines. The patient will continue with current respiratory therapy. 10/10/2023 the patient is here for a pulmonary follow-up visit. Doing well from a respiratory status. He does have his good days and bad days. But overall has been stable. His chest congestion is improved. He continues uses respiratory therapy as prescribed. He is tolerating the theophylline. His theophylline levels have been low but reasonable. His last venous blood gas was also reassuring. The patient has not had a chest x-ray in some time. His last CT scan of the chest was personally reviewed demonstrating emphysematous changes. No significant pulmonary nodules appreciated. Therefore no additional CT scans are warranted unless his x-ray is abnormal. The patient unfortunately has been having viral loads that are positive regards of his HIV testing. His CD4 count last was also decreasing. He is going to have blood work done again and will follow up with his Infectious Disease doctor regarding his retroviral therapy. At this point continue with the oxygen therapy. Is okay for him to t corie it off as long as his pulse ox stays above 90% specially with the dry air and having some epistaxis. He can also try water-based lubricants to lubricate the inside of his mucosa is nose. 03/12/2024 the patient is here for a pulmonary follow-up visit. Overall he is feeling well. The patient continues to use his respiratory therapy as prescribed. He is already maxed on respiratory medications. He was wondering about other alternatives. We did talk about the lung volume reduction intervention with the one-way valves. He understands that there is a risk of pneumothorax with dose increase the risks of pneumonia. Therefore need to consider the risk benefit ratio. Right now he seems to be doing okay would like to hold off. He continues use the BiPAP. The BiPAP has been affecting be neficial. Also has been using the oxygen. Did get a new portable oxygen concentrator through his [employer] company which is to the [place]. seems to be working little better although a little bit more bulk here. Denies any epistaxis. He is still dealing with some oral candidiasis. Recently gotten a statin swish and swallow. He is going to try that for little bit. He also was having left flank pain. He had taking the Augmentin for that. Appeared that he was passing stone. He did have some hematuria. He did follow-up with his primary care doctor. His primary care doctor rather him not have any antibiotics at home that he will call if he needs anything we do not allow any fester. I do agree with that. [facility] Medical History Sinusitis Pulmonary nodules Abdominal pain Abnormal chest x-ray HIV (human immunodeficiency virus infection) AYLA treated with BiPAP Hemoptysis HIV (human immunodeficiency virus infection) Chronic respiratory failure COPD (chronic obstructive pulmonary disease) Family History Mother Lung cancer Social History Patient Tobacco Use Status: Never used Tobacco Review of Systems Const All systems reviewed & are unremarkable except as noted in HPI and below Denies headache(s) and Denies night sweats ENT Denies change in voice, Denies headache(s), Denies lip swelling, Reports epistaxis, Denies mouth pain, Reports nasal congestion, Reports nasal discharge and Denies tongue swelling Card Denies chest pain and Reports dyspnea on exertion Resp Denies change in phlegm color, Denies chest congestion, Reports cough, Denies hemoptysis (scant) and Reports dyspnea on exertion GI Denies abdominal pain Musc Denies no additional complaints Neuro Denies Neuro-related abnormal movements and Denies headache(s) Psych Denies no additional complaints Barry/Lymph Denies easy bleeding and Denies lymphadenopathy Aller/Immun Denies lip swelling and Denies tongue swelling Physical Exam Vital Signs: Last Vital Signs Pulse 81 03/12/24 13:53 Pulse Ox 94 03/12/24 13:53 Oxygen Delivery Method Room Air 03/12/24 13:53 BMI result Body Mass Index 21.3 Const General: alert HEENT Mouth: moist mucous membranes abnormal (gingival disease) Neck Neck: Yes normal visual inspection, Yes full ROM and Yes no lymphadenopathy Chest Chest palpation & inspection: normal inspection of the chest Resp Auscultation: no rhonchi and diminished lung sounds Cardio Rate: regular rate Rhythm: regular rhythm Heart sounds: S1 normal heart sound present and S2 normal heart sound present GI Palpation (GI): Soft to palpation and nontender Auscultation: normal bowel sounds Skin General skin exam: rashes and/or lesions noted Assessment & Plan Assessment & Plan (1) AYLA treated with BiPAP: Comment: Effective and beneficial Code(s): G47.33 - Obstructive sleep apnea (adult) (pediatric) Category: Medical (2) Chronic respiratory failure: Code(s): J96.10 - Chronic respiratory failure, unspecified whether with hypoxia or hypercapnia Category: Medical Qualifiers: Respiratory failure complication: hypoxia and hypercapnia Qualified Code(s): J96.11 - Chronic respiratory failure with hypoxia; J96.12 - Chronic respiratory failure with hypercapnia (3) COPD (chronic obstructive pulmonary disease): Code(s): J44.9 - Chronic obstructive pulmonary disease, unspecified Category: Medical Qualifiers: COPD type: emphysema Emphysema type: centrilobular Qualified Code(s): J43.2 - Centrilobular emphysema (4) Pulmonary nodules: Code(s): R91.8 - Other nonspecific abnormal finding of lung field Category: Medical Plan Duoneb twice a day as needed continue budesonide 2 day continue Brovana continue Spiriva continue theophylline 400mg continue oxygen supplementation, Respironic POC from [facility] continue BiPAP 16/6 with oxygen VBG stable follow-up in 4-6 months Coding Level of Care Code Est Pt Level 4 (95060) Complex EM visit Add On G2211 Diagnoses AYLA treated with BiPAP G47.33 Chronic respiratory failure with hypoxia and hypercapnia J96.11; J96.12 Respiratory failure complication: hypoxia and hypercapnia Centrilobular emphysema J43.2 COPD type: emphysema Emphysema type: centrilobular Pulmonary nodules R91.8 Time Spent (min) 17
[2024-03-12 13:53] VITALS: PULSE 81; O2SAT 94; BMI 21.3
== END 2024-03-12 14:18 | disposition home or self-care (01) ==
PROVIDERS: PCP Family Medicine; Visit Provider Hospitalist
DX: G47.33 Obstructive sleep apnea (adult) (pediatric) (principal); J96.11 Chronic respiratory failure with hypoxia; J96.12 Chronic respiratory failure with hypercapnia; J43.2 Centrilobular emphysema; R91.8 Other nonspecific abnormal finding of lung field
CPT/HCPCS: 99214; G2211

== ENCOUNTER → 2024-03-12 13:47 | Outpatient (BNVA) | payer MEDICARE, BC, SELFPAY | PROVIDERS: PCP Family Medicine; Visit Provider Hospitalist | DX: J43.2 Centrilobular emphysema (principal); J96.11 Chronic respiratory failure with hypoxia; J96.12 Chronic respiratory failure with hypercapnia; G47.33 Obstructive sleep apnea (adult) (pediatric); R91.8 Other nonspecific abnormal finding of lung field; Z79.899 Other long term (current) drug therapy | CPT/HCPCS: 99212 ==

== ENCOUNTER 2024-07-08 13:05 | Outpatient (AMB) | payer MEDICARE, BC, SELFPAY ==
[2024-07-08 13:10] VITALS: BP 110/62; PULSE 86; O2SAT 92; BMI 21.3
--- NOTE | 2024-07-08 13:10 | A.OFFVIS_ITS ---
Vital Signs 07/08/24 13:10 Height 5 ft 8 in Weight 139 lb 15.896 oz BMI 21.3 BP 110/62 Blood Pressure Location Lt brachial Position Sitting Pulse 86 Pulse Source Doppler Pulse Oximetry (%) 92 Oxygen Delivery Method Nasal Cannula Oxygen Flow Rate 2 Intake Visit Reasons: COPD Allergies ethinyl estradiol [From Seasonale (91)] Allergy (Severe, Verified 03/12/24 13:52) Dry Eye levonorgestrel [From Seasonale (91)] Allergy (Severe, Verified 03/12/24 13:52) Dry Eye sulfamethoxazole [From Bactrim] Allergy (Mild, Verified 03/12/24 13:52) RASH trimethoprim [From Bactrim] Allergy (Mild, Verified 03/12/24 13:52) RASH Sulfa (Sulfonamide Antibiotics) Allergy (Unknown, Verified 03/12/24 13:52) mild rash HPI Comments Details: The patient is a 63-year-old gentleman with a known history of COPD, chronic hypoxic and hypercarbic respiratory failure on oxygen supplementation and obstructive sleep apnea. Overall the patient has been doing well. He continues on his anti retroviral therapy without any complications. He has responded very well to the azithromycin. He did have an EKG done. he has been having issues with cough lately. He has noticed productive cough and at times he notices small amount of blood-tinged sputum. He denies any fevers or chills or any chest discomfort. His sputum has normalized at this time. In the meantime will be reasonable to get a chest x-ray. She continues use the BiPAP every night. The BiPAP therapy continues to be affecting beneficial. 11/17/2020 the patient is here for pulmonary follow-up visit. Overall he has been doing well from a respiratory status. He feels like his chest feels fuel cell builder and he is able to breathe a little easier. He has been using the oxygen with good effect. The only new issue is that he has had episodes of coughing up blood. This is been intermittent in and has not had it more than a week. Today he did undergo pulmonary function studies and we were able to compared to PFTs from 2015. It appears that he does have a severe obstructive ventilatory defect along with a severe diffusion impairment. But when compared to 2015 the patient has not had any significant worsening in actually some numbers have trend improved. Therefore it is reassuring that he is sustaining his lung capacity. He also brought his BiPAP with him. Currently set up at 16/6. His AHI is down to 2. The therapy has been affecting beneficial. At this point will keep it at at the current pressure settings. It appears to be affecting beneficial. He is wondering if there is any other respiratory medications he can use instead of the once he is on to try to get more of a bronchodilator effect. The only thing we can do this point is consider nebulized therapy in the form Brovana and budesonide. That he would use in exchange of the Symbicort. Will try to submit does to the [facility]. in addition to that we looked at the x-ray from 08/09/2020 demonstrating the hazy opacity in the right mid lung area. He had this area also noted his previous x-ray. Based on his abnormal chest x-ray in his episodic hemoptysis. I will request a CT scan of the chest at this time. 03/04/2021 the patient is here for a pulmonary follow-up visit. Overall the patient has been doing well. His cough is respiratory symptoms have been stable. He does continue using his Formeterol and budesonide. Appears to be effective for him. He also continues use the BiPAP. The BiPAP therapy continues to be affecting beneficial. He does use it more than 4 hours a night. He also continues to use the oxygen. The oxygen supplementation he does use continuously. We did review his last CT scan of the chest done in November 2020 which demonstrated extensive emphysema and also a new pulmonary nodule. I personally reviewed the CT scan with the patient in the nodule does not any concerning features although with his significant smoking history id needs to be followed closely. 10/26/2021 the patient is here for a pulmonary follow-up visit. He had taken prednisone yesterday because he felt that his breathing was not great. Today feels a lot better. He continues on the nebulized therapy. He also continues use the oxygen with good effect. He has been using the BiPAP at nighttime with a fullface mask. Still getting of a dry mouth. He started developing gentle disease. Having hard time tolerating the the BiPAP due to the gingivitis in the infection of his gum. He needs to follow-up with dentist. In the meantime the patient has a known pulmonary nodule measuring 3 mm on the last CT scan back in November 2020. He has been reluctant to get a CT scan at this time. So therefore push it out to the end of the summer and will follow-up in [address] scan. If the patient has any worsening symptoms prior to that he is to call for an earlier evaluation. Otherwise will follow-up in 6 months. 07/08/2022 the patient is here for a pulmonary follow-up visit. The patient does complaint of worsening shortness of breath. He has been using his oxygen with good effect. He has also continue with respiratory therapy. But, still complaining of shortness of breath even at rest. Moderate severity. He also has been coughing more lately. He has been More congested lately. Denies any hemoptysis. He has been noticing his phlegm is dark yellowish green. Moderate severity. Does complaint of sinus congestion. He did recently have a CT scan as part of a follow-up CT scan for his pulmonary nodules. Did have significant edematous changes. Some bronchiectatic changes also appreciated. Although no significant pulmonary nodules noted. This is reassuring. He also continues use the BiPAP at nighttime very good effect. At this point will go ahead and optimize respiratory therapy by adding theophylline. We can also treated for a lower respiratory infection. The patient will undergo blood work in a couple weeks to make sure that is theophylline levels are reasonable. I will put him on a very low dose. 09/29/2022 the patient is here for a pulmonary follow-up visit. Overall the patient has been doing fairly well. Continues to have episodes of shortness of breath. Some days are good some days are bad. He does not see that he is getting significant response to Brovana. Seems to do better with DuoNeb. Th erefore will switch him off the room I placed on DuoNeb 4 times a day. He is to continue the budesonide for now. He does get a lot of mouth irritation because of the BiPAP and also the inhalers. He gets a lot of infections. I will send him chlorhexidine mouthwash CP can not assess with that. He may have to see the dentist because he does have a growth on his change about that needs to be add ressed. The patient has been using his BiPAP. The BiPAP therapy has been affecting beneficial. His venous gas today demonstrate normal acid-base status with a baseline pCO2 of 54 mmHg which is a trying higher than it was before. The patient also is tolerating the theophylline. Will go ahead and get a theophylline level to see if we need to adjust the dose at this time. He is wondering about the severity of his disease. He knows that he has very advanced COPD. We did talk about lung transplant. Although he does have HIV he is viral load is undetectable. He does not want to pursue lung transplant this point. Although he would be open to considering lung volume reduction intervention. Will go ahead and repeat his pulmonary function studies and look into pulmonary rehabilitation the next time he comes in. He continues use the oxygen with good effect. Will follow-up in 6-8 weeks with PFTs. 11/15/2022 the patient is here for a pulmonary follow-up visit. The patient has been having increasing shortness of breath at times. We did review his pulmonary function studies demonstrating very severe COPD. But compared to 2020 not much has changed which is reassuring. We did talk about switching his nebulized therapy as he has not seen significant improvement with Brovana. But he has not done as of yet. He is wondering if Trelegy may be a good inhaler for him. I did recommend that if he goes on Trelegy with have to stop the Brovana and would have to decrease the budesonide. He is willing to do so at this time. If however I cannot get in the Trelegy then he can use the DuoNeb and budesonide twice a day and also good DuoNeb as needed. The patient also had blood work including a theophylline level that was significantly low. He has been adherent to the therapy. Therefore, we talked about increasing the dose from 200 mg to 400 mg. He will double upon what he has and then [facility] The in addition to that the patient did have a venous blood gas. His CO2 slight elevated at 54 mmHg which is slightly elevated on the venous gas likely overestimate. His pH is within normal limits. He does use the BiPAP every night. The BiPAP therapy continues to be affecting beneficial. She is also using the oxygen with good effect. The patient also is working with pulmonary rehabilitation which is helpful and encouraging 02/27/2023 the patient is here for a pulmonary follow-up visit. Overall the patient is doing well from a respiratory status. He did start the theophylline seems to be helping. The patient still continues on his nebulized therapy to make sure he finishes all the medication before he switches over to the new regimen. He is complaining of a worsening cough. Initially also had significant lymphadenopathy on the posterior right side of his neck. Also complained of sinus discomfort. Had increased sinus drainage. He attributes it to the BiPAP or his 8 conditioner. He did take 5 days of Augmentin he felt bet ter and then went back to the azithromycin. He still has residual symptoms with persistent productive cough and some sinus discomfort headaches. I did recommend he complete a full course in view of the residual symptoms. I will send a prescription for doxycycline. Once his complete study can go back in azithromycin. Will go ahead and request blood work including a venous gas to monitor closely his CO2. He continues uses oxygen with good effect. He was participating in pulmonary rehabilitation both the humidity and the fires is been hard to leave the house. Therefore he is going to continue to exercise at home. He will consider going back in-person in the fall. 05/11/2023 the patient is here for a pulmonary follow-up visit. The patient overall has been doing well. Still having episodes of nasal congestion and allergies that are affecting him now in the fall likely typically does. He is tolerating his nebulized therapy. He will stay on the Brovana and budesonide for now. He continues on the Spiriva. The patient has been using the BiPAP at nighttime. Will go ahead and check a venous gas at this point also check his theophylline levels. He did tolerate the high dose theophylline without any adverse effects. If she does have room will try to increase the accordingly. The patient has been considering the one-way valves for lung volume reduction intervention. Although I a.m. concerned with his immune status risk for infection and also raise of pneumothorax. If she wishes for me to send him for a referral to do that I did explain to him that I do not believe it is without significant risk to have any semi invasive intervention in his case. He is already up-to-date with vaccines. The patient will continue with current respiratory therapy. 10/10/2023 the patient is here for a pulmonary follow-up visit. Doing well from a respiratory status. He does have his good days and bad days. But overall has been stable. His chest congestion is improved. He continues uses respiratory therapy as prescribed. He is tolerating the theophylline. His theophylline levels have been low but reasonable. His last venous blood gas was also reassuring. The patient has not had a chest x-ray in some time. His last CT scan of the chest was personally reviewed demonstrating emphysematous changes. No significant pulmonary nodules appreciated. Therefore no additional CT scans are warranted unless his x-ray is abnormal. The patient unfortunately has been having viral loads that are positive regards of his HIV testing. His CD4 count last was also decreasing. He is going to have blood work done again and will follow up with his Infectious Disease doctor regarding his retroviral therapy. At this point continue with the oxygen therapy. Is okay for him to take it off as long as his pulse ox stays above 90% specially with the dry air and having some epistaxis. He can also try water-based lubricants to lubricate the inside of his mucosa is nose. 03/12/2024 the patient is here for a pulmonary follow-up visit. Overall he is feeling well. The patient continues to use his respiratory therapy as prescribed. He is already maxed on respiratory medications. He was wondering about other alternatives. We did talk about the lung volume reduction intervention with the one-way valves. He understands that there is a risk of pneumothorax with dose increase the risks of pneumonia. Therefore need to consider the risk benefit ratio. Right now he seems to be doing okay would like to hold off. He continues use the BiPAP. The BiPAP has been affecting beneficial. Also has been using the oxygen. Did get a new portable oxygen concentrator through his [employer] company which is to the [place]. seems to be working little better although a little bit more bulk here. Denies any epistaxis. He is still dealing with some oral candidiasis. Recently gotten a statin swish and swallow. He is going to try that for little bit. He also was having left flank pain. He had taking the Augmentin for that. Appeared that he was passing stone. He did have some hematuria. He did follow-up with his primary care doctor. His primary care doctor rather him not have any antibiotics at home that he will call if he needs anything we do not allow any fester. I do agree with that. 07/08/2024 the patient is here for a pulmonary follow-up visit. Still complaining of difficulty breathing. Also chest congestion and cough. He does have evidence of chronic bronchitis. He has been responding fairly decent to his current respiratory regimen. He is using the oxygen with good effect. He is also using the BiPAP at nighttime. Seems to be tolerating the theophylline well. Will monitor closely levels. The patient did have his CT scan to the lung cancer screening program appears to be stable this time. In regards of the respiratory symptoms I do believe that adding a PD4 inhibitor will be helpful. He has already had significant amount of weight loss therefore Daliresp would be potentially problematic. We will look into starting Ohtuvayre nebs BID. The patient did have a Cologuard test done was positive. He is going to follow-up with the GI doctor. He has significant COPD and respiratory failure so therefore undergoing a colonoscopy is always rescue. Therefore, he will talk to his GI doctor to see if there is any other alternative testing for colon cancer including imaging studies. I do believe does good options specially with in view of his respiratory disease and high risk for perioperative pulmonary complications. [facility] Medical History Sinusitis Pulmonary nodules Abdominal pain Abnormal chest x-ray HIV (human immunodeficiency virus infection) AYLA treated with BiPAP Hemoptysis HIV (human immunodeficiency virus infection) Chronic respiratory failure COPD (chronic obstructive pulmonary disease) Family History Mother Lung cancer Social History Patient Tobacco Use Status: Never used Tobacco Review of Systems Const All systems reviewed & are unremarkable except as noted in HPI and below Denies headache(s) and Denies night sweats ENT Denies change in voice, Denies headache(s), Denies lip swelling, Reports epistaxis, Denies mouth pain, Reports nasal congestion, Reports nasal discharge and Denies tongue swelling Card Denies chest pain and Reports dyspnea on exertion Resp Denies change in phlegm color, Reports chest congestion, Reports cough, Denies hemoptysis (scant), Reports dyspnea on exertion and Reports wheezing GI Denies abdominal pain Musc Denies no additional complaints Neuro Denies Neuro-related abnormal movements and Denies headache(s) Psych Denies no additional complaints Barry/Lymph Denies easy bleeding and Denies lymphadenopathy Aller/Immun Denies lip swelling, Denies tongue swelling and Reports wheezing Physical Exam Vital Signs: Last Vital Signs Pulse 86 07/08/24 13:10 BP 110/62 07/08/24 13:10 Pulse Ox 92 07/08/24 13:10 Oxygen Delivery Method Nasal Cannula 07/08/24 13:10 Oxygen Flow Rate 2 07/08/24 13:10 BMI result Body Mass Index 21.3 Const General: alert HEENT Mouth: moist mucous membranes abnormal (gingival disease) Neck Neck: Yes normal visual inspection, Yes full ROM and Yes no lymphadenopathy Chest Chest palpation & inspection: normal inspection of the chest Resp Effort & Inspection: normal respiratory effort and prolonged expiratory phase Auscultation: no rhonchi and diminished lung sounds Cardio Rate: regular rate Rhythm: regular rhythm Heart sounds: S1 normal heart sound present and S2 normal heart sound present GI Palpation (GI): Soft to palpation and nontender Auscultation: normal bowel sounds Skin General skin exam: rashes and/or lesions noted Assessment & Plan Assessment & Plan (1) AYLA treated with BiPAP: Comment: Effective and beneficial Code(s): G47.33 - Obstructive sleep apnea (adult) (pediatric) Category: Medical (2) Chronic respiratory failure: Code(s): J96.10 - Chronic respiratory failure, unspecified whether with hypoxia or hypercapnia Category: Medical Qualifiers: Respiratory failure complication: hypoxia and hypercapnia Qualified Code(s): J96.11 - Chronic respiratory failure with hypoxia; J96.12 - Chronic respiratory failure with hypercapnia (3) COPD (chronic obstructive pulmonary disease): Code(s): J44.9 - Chronic obstructive pulmonary disease, unspecified Category: Medical Qualifiers: COPD type: emphysema Emphysema type: centrilobular Qualified Code(s): J43.2 - Centrilobular emphysema (4) Pulmonary nodules: Code(s): R91.8 - Other nonspecific abnormal finding of lung field Category: Medical Plan Duoneb twice a day as needed continue budesonide 2 day continue Brovana continue Spiriva continue theophylline 400mg start Ohtuvayre nebs BID continue oxygen supplementation, Respironic POC from [facility] continue BiPAP 16/ with oxygen VBG stable, theophylline level CXR follow-up in 4-6 months Orders: Orders Complete Blood Count Auto Diff Today J43.2 - Centrilobular emphysema Venous Blood Gas Today J43.2 - Centrilobular emphysema XR chest 2V Today J96.11 - Chronic respiratory failure with hypoxia, J96.12 - Chronic respiratory failure with hypercapnia Theophylline Today J43.2 - Centrilobular emphysema Basic Metabolic Panel Today J43.2 - Centrilobular emphysema Coding Level of Care Code Est Pt Level 4 (56464) Complex EM visit Add On G2211 Diagnoses AYLA treated with BiPAP G47.33 Chronic respiratory failure with hypoxia and hypercapnia J96.11; J96.12 Respiratory failure complication: hypoxia and hypercapnia Centrilobular emphysema J43.2 COPD type: emphysema Emphysema type: centrilobular Pulmonary nodules R91.8 Time Spent (min) 18
== END 2024-07-08 13:47 | disposition home or self-care (01) ==
PROVIDERS: PCP Family Medicine; Visit Provider Hospitalist
DX: G47.33 Obstructive sleep apnea (adult) (pediatric) (principal); J96.11 Chronic respiratory failure with hypoxia; J96.12 Chronic respiratory failure with hypercapnia; J43.2 Centrilobular emphysema; R91.8 Other nonspecific abnormal finding of lung field
CPT/HCPCS: 99214; G2211

== ENCOUNTER → 2024-07-08 13:05 | Outpatient (BNVA) | payer MEDICARE, BC, SELFPAY | PROVIDERS: PCP Family Medicine; Visit Provider Hospitalist | DX: J43.2 Centrilobular emphysema (principal); J96.11 Chronic respiratory failure with hypoxia; J96.12 Chronic respiratory failure with hypercapnia; R91.8 Other nonspecific abnormal finding of lung field; G47.33 Obstructive sleep apnea (adult) (pediatric); Z99.81 Dependence on supplemental oxygen | CPT/HCPCS: 99212 ==

== ENCOUNTER 2024-11-12 13:25 | Outpatient (REF) | payer MEDICARE, BC, SELFPAY ==
--- NOTE | ~2024-11-12 | XR_ITS ---
EXAMINATION: XR CHEST CLINICAL INFORMATION: J96.11 - Chronic respiratory failure with hypoxia COMPARISON: July 21, 2020. TECHNIQUE: 2 views of the chest were obtained. FINDINGS: Hyperinflated lungs. Pulmonary reticular pattern. No consolidation, pleural effusion or pneumothorax. Mild multilevel spondylosis. Cardiomediastinal silhouette size is normal. XR/XR chest 2V IMPRESSION: Chronic interstitial lung disease suggesting COPD. Electronically signed by: Vaughn Potts MD 11/13/2024 01:21 PM EDT
[2024-11-12 13:51] LABS: MANUAL DIFF FLAG NO
[2024-11-12 13:55] LABS: Basophils Absolute Auto 0.1 X10*3/uL (0.0-0.2); Basophils Percent Auto 0.9 % (0-2); Eosinophils Absolute Auto 0.7 X10*3/uL (0.0-0.4); Eosinophils Percent Auto 6.2 % (0-4); Hematocrit 42.7 % (42.0-52.0); Hemoglobin 14.7 g/dl (14.0-18.0); Imm Gran Abs Auto 0.04 X10*3/uL (0.00-0.03); Imm Gran Pct Auto 0.4 % (0.0-0.4); Lymphocytes Absolute Auto 3.9 X10*3/uL (1.2-4.9); Lymphocytes Percent Auto 35.1 % (20-40); Mean Corpuscular HGB Conc 34.4 g/dl (31.0-36.0); Mean Corpuscular Hemoglobin 34.9 pg (27.0-33.0); Mean Corpuscular Volume 101.4 fL (80.0-98.0); Mean Platelet Volume 9.1 fL (9.4-12.4); Monocytes Percent Auto 8.6 % (2-11); Neutrophils Absolute Auto 5.4 x10*3/uL (2.0-8.3); Neutrophils Percent Auto 48.8 % (45-73); Platelet Count 316 X10*3/uL (160-400); Red Blood Count 4.21 X10*6/uL (4.60-5.80); Red Cell Distribution Width 13.4 % (11.0-16.0); White Blood Count 11.1 X10*3/uL (4.8-10.8)
[2024-11-12 14:11] LABS: Alanine Aminotransferase 29 U/L (0-40); Albumin Level 4.3 g/dL (3.5-5.0); Alkaline Phosphatase 168 U/L (39-117); Anion Gap 8 (12-20); Aspartate Amino Transferase 28 U/L (5-37); Bilirubin Direct 0.1 mg/dL (0.0-0.5); Bilirubin Total 0.3 mg/dL (0.0-1.0); Blood Urea Nitrogen 20 mg/dL (9-16); Calcium 9.7 mg/dL (8.4-10.2); Carbon Dioxide 30 mmol/L (22-29); Chloride 108 mmol/L (96-108); Estimated Glomerular Filt Rate > 60; Glucose Random 86 mg/dL (60-115); Sodium 142 mmol/L (135-145); Total Protein 7.7 g/dL (6.5-8.0)
[2024-11-12 14:24] LABS: Venous Blood Gas Refer to POC result
[2024-11-12 14:26] LABS: VBG HCO3 32 mmol/L (22-26); VBG pCO2 60 mmHg; VBG pH 7.34 (7.32-7.43); VBG pO2 27 mmHg
[2024-11-12 14:28] LABS: PSA,Total (Free>4and<10) 1.68 ng/mL (0.00-4.00)
[2024-11-13 03:44] LABS: Syphilis Screen Nonreactive (Nonreactive)
[2024-11-13 04:12] LABS: ~HepC Num1 0.11 S/CO (0.00-0.79); ~Hepatitis C Antibody Nonreactive (Nonreactive)
[2024-11-13 07:48] LABS: Theophylline 8.8
[2024-11-13 19:08] LABS: HIV RNA PCR Qn Copies 58 copies/mL (NOT DETECTED); HIV RNA PCR Qn Log Copies 1.76 (NOT DETECTED)
[2024-11-16 15:23] LABS: Absolute CD3 Count 2325 cells/uL (840-3060); Absolute CD4 Count 890 cells/uL (490-1740); Absolute CD8 Count 1478 cells/uL (180-1170); Absolute Lymphocytes 3632 cells/uL (850-3900); Percent CD3 Cells 64 % (57-85); Percent CD4 Cells 24 % (30-61); Percent CD8 Cells 41 % (12-42)
== END 2024-11-12 13:26 | disposition home or self-care (01) ==
LOC: HO.XRAY 13:25
PROVIDERS: Absent Provider Hospitalist; PCP Family Medicine; Visit Provider Internal Medicine
DX: B20 Human immunodeficiency virus [HIV] disease (principal); J43.2 Centrilobular emphysema; J96.11 Chronic respiratory failure with hypoxia; J96.12 Chronic respiratory failure with hypercapnia; Z12.5 Encounter for screening for malignant neoplasm of prostate
CPT/HCPCS: 36415; 71046; 80048; 80076; 80198; 82803; 84153; 85025; 86359; 86360; 86780; 86803; 87536

== ENCOUNTER → 2024-11-12 13:52 | Outpatient (BNV) | payer MEDICARE, BC, SELFPAY | PROVIDERS: Absent Provider Hospitalist; PCP Family Medicine; Visit Provider Radiology Diagnostic Radiology | DX: J96.11 Chronic respiratory failure with hypoxia (principal) | CPT/HCPCS: 71046 ==

== ENCOUNTER 2024-11-20 11:12 | Outpatient (AMB) | payer MEDICARE, BC, SELFPAY ==
--- NOTE | 2024-11-20 11:14 | A.OFFVIS_ITS ---
Vital Signs 11/20/24 11:16 Height 5 ft 8 in Weight 144 lb 6.444 oz BMI 22.0 BP 114/66 Blood Pressure Location Rt brachial Position Sitting Pulse 66 Pulse Source Pulse Oximeter Pulse Oximetry (%) 97 Oxygen Delivery Method Room Air Intake Visit Reasons: Needs clearance for colonoscopy 12/02/24 Allergies ethinyl estradiol [From Seasonale (91)] Allergy (Severe, Verified 11/20/24 11:19) Dry Eye levonorgestrel [From Seasonale (91)] Allergy (Severe, Verified 11/20/24 11:19) Dry Eye sulfamethoxazole [From Bactrim] Allergy (Mild, Verified 11/20/24 11:19) RASH trimethoprim [From Bactrim] Allergy (Mild, Verified 11/20/24 11:19) RASH Sulfa (Sulfonamide Antibiotics) Allergy (Unknown, Verified 11/20/24 11:19) mild rash HPI Comments Details: The patient is a 64-year-old gentleman with a known history of COPD, chronic hypoxic and hypercarbic respiratory failure on oxygen supplementation and obstructive sleep apnea. Overall the patient has been doing well. He continues on his anti retroviral therapy without any complications. He has responded very well to the azithromycin. He did have an EKG done. he has been having issues with cough lately. He has noticed productive cough and at times he notices small amount of blood-tinged sputum. He denies any fevers or chills or any chest discomfort. His sputum has normalized at this time. In the meantime will be reasonable to get a chest x-ray. She continues use the BiPAP every night. The BiPAP therapy continues to be affecting beneficial. 11/17/2020 the patient is here for pulmonary follow-up visit. Overall he has been doing well from a respiratory status. He feels like his chest feels search engineer and he is able to breathe a little easier. He has been using the oxygen with good effect. The only new issue is that he has had episodes of coughing up blood. This is been intermittent in and has not had it more than a week. Today he did undergo pulmonary function studies and we were able to compared to PFTs from 2015. It appears that he does have a severe obstructive ventilatory defect along with a severe diffusion impairment. But when compared to 2015 the patient has not had any significant worsening in actually some numbers have trend improved. Therefore it is reassuring that he is sustaining his lung capacity. He also brought his BiPAP with him. Currently set up at 16/6. His AHI is down to 2. The therapy has been affecting beneficial. At this point will keep it at at the current pressure settings. It appears to be affecting beneficial. He is wondering if there is any other respiratory medications he can use instead of the once he is on to try to get more of a bronchodilator effect. The only thing we can do this point is consider nebulized therapy in the form Brovana and budesonide. That he would use in exchange of the Symbicort. Will try to submit does to the [facility]. in addition to that we looked at the x-ray from 08/09/2020 demonstrating the hazy opacity in the right mid lung area. He had this area also noted his previous x-ray. Based on his abnormal chest x-ray in his episodic hemoptysis. I will request a CT scan of the chest at this time. 03/04/2021 the patient is here for a pulmonary follow-up visit. Overall the patient has been doing well. His cough is respiratory symptoms have been stable. He does continue using his Formeterol and budesonide. Appears to be effective for him. He also continues use the BiPAP. The BiPAP therapy continues to be affecting beneficial. He does use it more than 4 hours a night. He also continues to use the oxygen. The oxygen supplementation he does use continuously. We did review his last CT scan of the chest done in November 2020 which demonstrated extensive emphysema and also a new pulmonary nodule. I personally reviewed the CT scan with the patient in the nodule does not any concerning features although with his significant smoking history id needs to be followed closely. 10/26/2021 the patient is here for a pulmonary follow-up visit. He had taken prednisone yesterday because he felt that his breathing was not great. Today feels a lot better. He continues on the nebulized therapy. He also continues use the oxygen with good effect. He has been using the BiPAP at nighttime with a fullface mask. Still getting of a dry mouth. He started developing gentle disease. Having hard time tolerating the the BiPAP due to the gingivitis in the infection of his gum. He needs to follow-up with dentist. In the meantime the patient has a known pulmonary nodule measuring 3 mm on the last CT scan back in November 2020. He has been reluctant to get a CT scan at this time. So therefore push it out to the end of the summer and will follow-up in [address] scan. If the patient has any worsening symptoms prior to that he is to call for an earlier evaluation. Otherwise will follow-up in 6 months. 07/08/2022 the patient is here for a pulmonary follow-up visit. The patient does complaint of worsening shortness of breath. He has been using his oxygen with good effect. He has also continue with respiratory therapy. But, still complaining of shortness of breath even at rest. Moderate severity. He also has been coughing more lately. He has been More congested lately. Denies any hemoptysis. He has been noticing his phlegm is dark yellowish green. Moderate severity. Does complaint of sinus congestion. He did recently have a CT scan as part of a follow-up CT scan for his pulmonary nodules. Did have significant edematous changes. Some bronchiectatic changes also appreciated. Although no significant pulmonary nodules noted. This is reassuring. He also continues use the BiPAP at nighttime very good effect. At this point will go ahead and optimize respiratory therapy by adding theophylline. We can also treated for a lower respiratory infection. The patient will undergo blood work in a couple weeks to make sure that is theophylline levels are reasonable. I will put him on a very low dose. 09/29/2022 the patient is here for a pulmonary follow-up visit. Overall the patient has been doing fairly well. Continues to have episodes of shortness of breath. Some days are good some days are bad. He does not see that he is getting significant response to Brovana. Seems to do better with DuoNeb. Ther ewa will switch him off the room I placed on DuoNeb 4 times a day. He is to continue the budesonide for now. He does get a lot of mouth irritation because of the BiPAP and also the inhalers. He gets a lot of infections. I will send him chlorhexidine mouthwash CP can not assess with that. He may have to see the dentist because he does have a growth on his change about that needs to be addressed. The patient has been using his BiPAP. The BiPAP therapy has been affecting beneficial. His venous gas today demonstrate normal acid-base status with a baseline pCO2 of 54 mmHg which is a trying higher than it was before. The patient also is tolerating the theophylline. Will go ahead and get a theophylline level to see if we need to adjust the dose at this time. He is wondering about the severity of his disease. He knows that he has very advanced COPD. We did talk about lung transplant. Although he does have HIV he is viral load is undetectable. He does not want to pursue lung transplant this point. Although he would be open to considering lung volume reduction intervention. Will go ahead and repeat his pulmonary function studies and look into pulmonary rehabilitation the next time he comes in. He continues use the oxygen with good effect. Will follow-up in 6-8 weeks with PFTs. 11/15/2022 the patient is here for a pulmonary follow-up visit. The patient has been having increasing shortness of breath at times. We did review his pulmonary function studies demonstrating very severe COPD. But compared to 2020 not much has changed which is reassuring. We did talk about switching his nebulized therapy as he has not seen significant improvement with Brovana. But he has not done as of yet. He is wondering if Trelegy may be a good inhaler for him. I did recommend that if he goes on Trelegy with have to stop the Brovana and would have to decrease the budesonide. He is willing to do so at this time. If however I cannot get in the Trelegy then he can use the DuoNeb and budesonide twice a day and also good DuoNeb as needed. The patient also had blood work including a theophylline level that was significantly low. He has been adherent to the therapy. Therefore, we talked about increasing the dose from 200 mg to 400 mg. He will double upon what he has and then [facility] The in addition to that the patient did have a venous blood gas. His CO2 slight elevated at 54 mmHg which is slightly elevated on the venous gas likely overestimate. His pH is within normal limits. He does use the BiPAP every night. The BiPAP therapy continues to be affecting beneficial. She is also using the oxygen with good effect. The patient also is working with pulmonary rehabilitation which is helpful and encouraging 02/27/2023 the patient is here for a pulmonary follow-up visit. Overall the patient is doing well from a respiratory status. He did start the theophylline seems to be helping. The patient still continues on his nebulized therapy to make sure he finishes all the medication before he switches over to the new regimen. He is complaining of a worsening cough. Initially also had significant lymphadenopathy on the posterior right side of his neck. Also complained of sinus discomfort. Had increased sinus drainage. He attributes it to the BiPAP or his 8 conditioner. He did take 5 days of Augmentin he felt better and then went back to the azithromycin. He still has residual symptoms with persistent productive cough and some sinus discomfort headaches. I did recommend he complete a full course in view of the residual symptoms. I will send a prescription for doxycycline. Once his complete study can go back in azithromycin. Will go ahead and request blood work including a venous gas to monitor closely his CO2. He continues uses oxygen with good effect. He was participating in pulmonary rehabilitation both the humidity and the fires is been hard to leave the house. Therefore he is going to continue to exercise at home. He will consider going back in-person in the fall. 05/11/2023 the patient is here for a pulmonary follow-up visit. The patient overall has been doing well. Still having episodes of nasal congestion and allergies that are affecting him now in the fall likely typically does. He is tolerating his nebulized therapy. He will stay on the Brovana and budesonide for now. He continues on the Spiriva. The patient has been using the BiPAP at nighttime. Will go ahead and check a venous gas at this point also check his theophylline levels. He did tolerate the high dose theophylline without any adverse effects. If she does have room will try to increase the accordingly. The patient has been considering the one-way valves for lung volume reduction intervention. Although I a.m. concerned with his immune status risk for infection and also raise of pneumothorax. If she wishes for me to send him for a referral to do that I did explain to him that I do not believe it is without significant risk to have any semi invasive intervention in his case. He is already up-to-date with vaccines. The patient will continue with current respiratory therapy. 10/10/2023 the patient is here for a pulmonary follow-up visit. Doing well from a respiratory status. He does have his good days and bad days. But overall has been stable. His chest congestion is improved. He continues uses respiratory therapy as prescribed. He is tolerating the theophylline. His theophylline levels have been low but reasonable. His last venous blood gas was also reassuring. The patient has not had a chest x-ray in some time. His last CT scan of the chest was personally reviewed demonstrating emphysematous changes. No significant pulmonary nodules appreciated. Therefore no additional CT scans are warranted unless his x-ray is abnormal. The patient unfortunately has been having viral loads that are positive regards of his HIV testing. His CD4 count last was also decreasing. He is going to have blood work done again and will follow up with his Infectious Disease doctor regarding his retroviral therapy. At this point continue with the oxygen therapy. Is okay for him to t corie it off as long as his pulse ox stays above 90% specially with the dry air and having some epistaxis. He can also try water-based lubricants to lubricate the inside of his mucosa is nose. 03/12/2024 the patient is here for a pulmonary follow-up visit. Overall he is feeling well. The patient continues to use his respiratory therapy as prescribed. He is already maxed on respiratory medications. He was wondering about other alternatives. We did talk about the lung volume reduction intervention with the one-way valves. He understands that there is a risk of pneumothorax with dose increase the risks of pneumonia. Therefore need to consider the risk benefit ratio. Right now he seems to be doing okay would like to hold off. He continues use the BiPAP. The BiPAP has been affecting be neficial. Also has been using the oxygen. Did get a new portable oxygen concentrator through his [employer] company which is to the [place]. seems to be working little better although a little bit more bulk here. Denies any epistaxis. He is still dealing with some oral candidiasis. Recently gotten a statin swish and swallow. He is going to try that for little bit. He also was having left flank pain. He had taking the Augmentin for that. Appeared that he was passing stone. He did have some hematuria. He did follow-up with his primary care doctor. His primary care doctor rather him not have any antibiotics at home that he will call if he needs anything we do not allow any fester. I do agree with that. 07/08/2024 the patient is here for a pulmonary follow-up visit. Still complaining of difficulty breathing. Also chest congestion and cough. He does have evidence of chronic bronchitis. He has been responding fairly decent to his current respiratory regimen. He is using the oxygen with good effect. He is also using the BiPAP at nighttime. Seems to be tolerating the theophylline well. Will monitor closely levels. The patient did have his CT scan to the lung cancer screening program appears to be stable this time. In regards of the respiratory symptoms I do believe that adding a PD4 inhibitor will be helpful. He has already had significant amount of weight loss therefore Daliresp would be potentially problematic. We will look into starting Ohtuvayre nebs BID. The patient did have a Cologuard test done was positive. He is going to follow-up with the GI doctor. He has significant COPD and respiratory failure so therefore undergoing a colonoscopy is always rescue. Therefore, he will talk to his GI doctor to see if there is any other alternative testing for colon cancer including imaging studies. I do believe does good options specially with in view of his respiratory disease and high risk for perioperative pulmonary complications. 11/20/2024 the patient is here for a pulmonary follow-up visit. Overall he is doing okay. He did start the new nebulized therapy, Ohtuvayre, initially felt that he has not side effects from it such as tachycardia. But he took some additional metoprolol the symptoms subsided. He then started taking a daily and seems to be tolerating it. He also started taking more recently twice a day and seems to be helping. He is going to continue to use it daily and monitor closely. Will continue with his current respiratory therapy and also continues with the oxygen. He is also using the BiPAP. He states that he is getting very dry mouth. He does not have the BiPAP with him. I did talk to about 100 potentially adjust the temperature and humidity a little bit to help him with a dry mouth. He also gets thrush because of the dry mouth and he has did signs switch and swallow that he can use. The patient would benefit from pulmonary function studies to assess his lung capacity specially after on the medication will plan to do that sometime in the next 4 months. We did review his blood work. His theophylline levels are 8.8 which is below therapeutic range. I do believe that theophylline is helping and I would encourage him to continue it. Another was concerns because of the elevated heart rate but with this low level I do not believe is playing a role. If he develops further tachycardia arrhythmias or issues with his heart rate then we can consider stopping it and see what happens. Therefore, will follow-up in 4 months with PFTs. If he has any issues prior to this he will call for an earlier assessment. [facility] Medical History Sinusitis Pulmonary nodules Abdominal pain Abnormal chest x-ray HIV (human immunodeficiency virus infection) AYLA treated with BiPAP Hemoptysis HIV (human immunodeficiency virus infection) Chronic respiratory failure COPD (chronic obstructive pulmonary disease) Family History Mother Lung cancer Social History Patient Tobacco Use Status: Never used Tobacco Review of Systems Const All systems reviewed & are unremarkable except as noted in HPI and below Denies headache(s) and Denies night sweats ENT Denies change in voice, Denies headache(s), Denies lip swelling, Reports epistaxis, Denies mouth pain, Reports nasal congestion, Reports nasal discharge and Denies tongue swelling Card Denies chest pain and Reports dyspnea on exertion Resp Denies change in phlegm color, Reports chest congestion, Reports cough, Denies hemoptysis (scant), Reports dyspnea on exertion and Reports wheezing GI Denies abdominal pain Musc Denies no additional complaints Neuro Denies Neuro-related abnormal movements and Denies headache(s) Psych Denies no additional complaints Barry/Lymph Denies easy bleeding and Denies lymphadenopathy Aller/Immun Denies lip swelling, Denies tongue swelling and Reports wheezing Physical Exam Vital Signs: Last Vital Signs Pulse 66 11/20/24 11:16 BP 114/66 11/20/24 11:16 Pulse Ox 97 11/20/24 11:16 Oxygen Delivery Method Room Air 11/20/24 11:16 BMI result Body Mass Index 22.0 Const General: alert HEENT Mouth: moist mucous membranes abnormal (gingival disease) Neck Neck: Yes normal visual inspection, Yes full ROM and Yes no lymphadenopathy Chest Chest palpation & inspection: normal inspection of the chest Resp Effort & Inspection: normal respiratory effort and prolonged expiratory phase Auscultation: no rhonchi and diminished lung sounds Cardio Rate: regular rate Rhythm: regular rhythm Heart sounds: S1 normal heart sound present and S2 normal heart sound present GI Palpation (GI): Soft to palpation and nontender Auscultation: normal bowel sounds Skin General skin exam: rashes and/or lesions noted Assessment & Plan Assessment & Plan (1) AYLA treated with BiPAP: Comment: Effective and beneficial Code(s): G47.33 - Obstructive sleep apnea (adult) (pediatric) Category: Medical (2) Chronic respiratory failure: Code(s): J96.10 - Chronic respiratory failure, unspecified whether with hypoxia or hypercapnia Category: Medical Qualifiers: Respiratory failure complication: hypoxia and hypercapnia Qualified Code(s): J96.11 - Chronic respiratory failure with hypoxia; J96.12 - Chronic respiratory failure with hypercapnia (3) COPD (chronic obstructive pulmonary disease): Code(s): J44.9 - Chronic obstructive pulmonary disease, unspecified Category: Medical Qualifiers: COPD type: emphysema Emphysema type: centrilobular Qualified Code(s): J43.2 - Centrilobular emphysema (4) Pulmonary nodules: Code(s): R91.8 - Other nonspecific abnormal finding of lung field Category: Medical Plan Duoneb twice a day as needed continue budesonide 2 day continue Brovana continue Spiriva continue theophylline 400mg continue Ohtuvayre nebs BID (side effects: ?HR elevated, continue oxygen supplementation, Respironic POC from [facility] continue BiPAP 16/6 with oxygen VBG stable, theophylline level stable follow-up in 4-6 months Medications: New nystatin swish and swallow 2.5 mL PO QID 30 days 300 mL 0RF Coding Level of Care Code Est Pt Level 4 (78736) Complex EM visit Add On G2211 Diagnoses AYLA treated with BiPAP G47.33 Chronic respiratory failure with hypoxia and hypercapnia J96.11; J96.12 Respiratory failure complication: hypoxia and hypercapnia Centrilobular emphysema J43.2 COPD type: emphysema Emphysema type: centrilobular Pulmonary nodules R91.8 Time Spent (min) 17
[2024-11-20 11:16] VITALS: BP 114/66; PULSE 66; O2SAT 97; BMI 22.0
--- OUTSIDE RECORDS SUMMARY | 2024-11-20 13:37 | XMS_ITS ---
Author Organization [facility] Address [address] [place] [id number] Care Team Providers Care Indirect Fire Infantryman Name Role Phone Ziyad GOMES, James Primary Care Provider Unavailab Antonio Vitale [phone] REASON FOR VISIT cancelled colon on 12-02-2024 Encounters Encounter Location Date Provider Diagnosis [facility] [address] [place] [id number] 10/14/2024 Antonio Arce Plan Of Treatment No Information Progress Notes * LEVY JERNIGANDOB: [birth year] (64 yo M)Acc No.[id number]:10/14/2024 Patient:?LEVY JERNIGAN :1960???Age:64 Y???Sex:Male Address:[address] [place] [id number] * true * Date:? Generated for Cindy victor/Walt/eTransmitting on:?11/20/2024 01:37 PM EDT
--- OUTSIDE RECORDS SUMMARY | 2024-11-20 13:38 | XMS_ITS ---
Author Organization [facility] Address [address] [address] Care Team Providers Care Power Systems Engineer Name Role Phone Ziyad GOMES, James Primary Care Provider UnavailAntonio Segura [phone] REASON FOR VISIT bowel prep Medications Medication SIG (Take, Route, Frequency, Duration) Notes Start Date End Date Status MiraLax (colon prep) 17 GM/SCOOP 1 238Gm bottle mixed with Gatorade or Crystal Light Orally begin at 5:00 p.m. the day before the procedure for 1 day 09/01/2024 Active Dulcolax (colon prep) 5 MG take at 3:00 p.m and 7:00p.m. Orally two tablets twice a day for one day for 1 day 09/01/2024 Active Encounters Encounter Location Date Provider Diagnosis [facility] [address] [phone] 08/30/2024 Antonio Arce Plan Of Treatment Medication Medication Name Sig Start Date Stop Date Notes MiraLax (colon prep) 17 GM/SCOOP 1 238Gm bottle mixed with Gatorade or Crystal Light Orally begin at 5:00 p.m. the day before the procedure for 1 day 09/01/2024 Dulcolax (colon prep) 5 MG take at 3:00 p.m and 7:00p.m. Orally two tablets twice a day for one day for 1 day 09/01/2024 Progress Notes * LEVY JERNIGANDOB: [birth year] (64 yo M)Acc No.[id number]:08/30/2024 Patient:?LEVY JERNIGAN :1960???Age:64 Y???Sex:Male Address:[address] [place], [place] [address] * Refills? Start MiraLax (colon prep) Powder, 17 GM/SCOOP, Orally, 1, 1 238Gm bottle mixed with Gatorade or Crystal Light, begin at 5:00 p.m. the day before the procedure, 1 day, Refills=0 Start Dulcolax (colon prep) Tablet Delayed Release, 5 MG, Orally, 4, take at 3:00 p.m and 7:00p.m., two tablets twice a day for one day, 1 day, Refills=0 * true * Date:? Generated for Cindy victor/Walt/Richaitting on:?11/20/2024 01:38 PM EDT
--- OUTSIDE RECORDS SUMMARY | 2024-11-20 13:38 | XMS_ITS | Patient Health Record ---
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 the day before the procedure for 1 day 09/01/2024 Active ZyrTEC 10 MG 1 tablet Orally Once a day for 30 day(s) Active Omeprazole 20 MG Oral for 90 A ctive Doravirine 100 MG 1 tablet Orally Once a day for 30 day(s) Active Spiriva Respimat 2.5 MCG/ACT Inhalation for 90 Active Dulcolax (colon prep) 5 MG take at 3:00 p.m and 7:00p.m. Orally two tablets twice a day for one day for 1 day 09/01/2024 Active Testosterone 1.62 % Transdermal for 30 Active Metoprolol Tartrate 25 MG Oral for 90 Active Budesonide 0.5 MG/2ML Inhalation for 90 Active Theophylline ER 400 MG Oral for 90 Active predniSONE 10 MG Oral for 60 A ctive Amoxicillin-Pot Clavulanate 875-125 MG Oral for 10 Active Brovana 15 MCG/2ML 2 mL Inhalation Twic e a day Active Ondansetron HCl 4 MG Oral for 30 Active LORazepam 0.5 MG Oral for 10 A ctive Ipratropium [place] 0.06 % Nasal for 30 Active hydrOXYzine Pamoate 25 MG Oral for 90 Active Azithromycin 250 MG Oral for 90 Active Nystatin 450743 UNIT/ML SWISH AND SWALLO W 1 TEASPOONFUL 5 ML) THREE TIMES A DAY FOR 7 DAYS THEN STOP Mouth/Throat for 31 Active Social History Tobacco Use: Social History Observation Description Date Details (start date - stop date) Former Smoker NA - NA Tobacco Use/Smoking Question Answer Notes Patient is a former smoker How long has it been since you last smoked? > 10 years Alcohol Screen Question Answer Notes Did you have a drink contain ing alcohol in the past year? Yes How often did you have a dri nk containing alcohol in the past year? Never (0 point) How many drinks did you have on a typical day when you were drinking in the past year? 1 or 2 drinks (0 point) How often did you have 6 or more drinks on one occasion in the past year? Never (0 point) Points 0 Interpretation Negative Section Notes: 2015 stopped tobacco chews nicotine gum very occaional drink /socially Problems Problem Type SNOMED Code ICD Code Onset Dates Problem Status W/U Status Risk Notes Problem Abnormal feces (408739453) Positive colorectal cancer screening using Cologuard test (R19.5) Active confirmed Vital Signs Blood pressure diastolic 00 mm Hg 07/16/2024 Height 5 ft 8 in in 07/16/2024 Blood pressure systolic 00 mm Hg 07/16/2024 Weight 139 lbs 07/16/2024 BMI 21.13 kg/m2 07/16/2024 Encounters Encounter Location Date Provider Diagnosis [facility] [address] [place] [phone] 07/16/2024 Antonio Arce Positive colorectal cancer screening using Cologuard test R19.5 [facility] [address] [place] [phone] 08/03/2024 Antonio Arce [facility] [address] [place] [phone] 08/30/2024 Antonio Arce [facility] [address] [place] [phone] 10/14/2024 Antonio Arce Assessments Encounter Date Diagnosis (ICD Code) Assessment Notes Treatment Notes Treatment Clinical Notes Section Notes 07/16/2024 Positive colorectal cancer screening using Cologuard test (ICD-10 - R19.5) Needs clearance with Dr. Munoz Overall, Levy appears to be doing well from a GI standpoint. However, I did recommend that he definitely undergo a colonoscopy due to his positive Cologuard test and his last colonoscopy being over 20 years ago. Levy is concerned about undergoing a colonoscopy due to his breathing issues and risks of the procedure. However, I did advise him that it would be important to undergo the colonoscopy as a way to either prevent colon cancer or at least detect it at an earlier stage. I did reassure him that the procedure would be done with the anesthesiologist and monitored anesthesia care. We would also obtain clearance from Dr. Munoz as well. Full consent was obtained for the colonoscopy, including risks of bleeding and perforation. I would like do a colonoscopy for a positive Cologuard test sooner, rather than later. However, Levy insisted on waiting until this Spring as he does not want to go in the hospital during the winter due to the risk of catching some type of respiratory infection. Levy was comfortable with this plan. Thank you again for allowing me to participate in Levy's care. I shall continue to keep you advised of his progress. Plan Of Treatment Future Test Test Name Order Date COLONOSCOPY 07/16/2024 Insurance Providers Payer Name Payer Address Payer Phone Subscriber Number Group Number Insured Name Patient Relationship to Insured Coverage Start Date Coverage End Date MEDICARE OF [place] [address] [place] [address] [phone] [id number] LEVY ANDINO Self - patient is the insured [facility] [address] [place], [place] [id number] LEVY ANDINO Self - patient is the insured Medical (General) History Medical History History ICD Code COPD/Emphysema -on oxygen/uses bipap/neb ulizer GERD Hypertension Sleep apnea-Uses BIPAP HIV Kidney stones HTN Negative colonoscopy in 1999 Denies DC,DM,CVA,renal disease Lactose-intolerance with gas and bloatin g Surgical History Surgery Date(Month/Year) Left inguinal hernia with mesh 2012 Right testicle with removal surgery for a torsion with implant - [facility]
--- OUTSIDE RECORDS SUMMARY | 2024-11-20 13:38 | XMS_ITS | Continuity of Care Document ---
Author Name [facility] Organization [facility] Care Team Providers Care Lieutenant Colonel Name Role Phone [facility] Unavailable Unavailable Problems Combined list of problems from Department of Defense and Veterans Affairs facilities. It does not include entries that were removed or entered in error. Problem Status Onset Date Problem Type Date of Resolution Comments Source Pneumonia Inactive 07/30/20 17 Condition 01/05/2022 Aug 03, 2017 Entered By: YUKI NEVILLE Comment: [facility]. Admission Jul 2017. COPD/Pneumo arielle. D/c with Home O2 to use with acitivity [facility] Allergic rhinitis Active Condition 2002 Entered By: MADHU UGALDE Comment: on zyrtec [facility] Chronic obstructive lung disease (SNOMED CT [id number]) Active Condition Jul 24, 2015 Entered By: JENNIFER KWON Comment: PFTs 02/02 FVC 54%, FEV1 29%, FEF 25-75 9%, TLC 90%Jul 24, 2015 Entered By: JENNIFER KWON Comment: DLCO 34% [facility] Depression Active Condition [place] Erectile dysfunction Active Condition [place] Exposure to potentially hazardous substance Active Condition Jul 24, 2022 Entered By: KELSIE MARTINEZ Comment: [facility] Gastroesophageal reflux disease Active Condition [facility] Generalized anxiety disorder Active Condition [facility] Genital herpes simplex Active Condition [facility] Human immunodeficiency virus infection Active Condition Jan 22, 2003 Entered By: MADHU UGALDE Comment: CD4 count----10 2002 Entered By: MADHU UGALDE Comment: viral load was low [facility] Hypertension Active Condition [place] Hypogonadism Active Condition [place] Nicotine dependence Active Condition January 05, 2022 Entered By: ALLI NOE Comment: Uses nictoine gum - 4mg - at least 6 a day [place] Obstructive sleep apnea of [facility] 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 Condition January 05, 2022 Entered By: ALLI NOE Comment: Quit 2014 - 40 pack yr history [facility] Dyspepsia and other specified disorders of function of stomach Inactive Condition 01/05/2022 Jan 22, 2003 Entered By: MADHU UGALDE JAWED Comment: stable on buspirone [facility] Diagnosis: ICD-10-CM Z46.0 Encounter for fit/adjst of spectacles and contact lenses Active Diagnosis [facility] Diagnosis: ICD-10-CM H25.813 Combined forms of age-related cataract, bilateral Active Diagnosis [facility] Diagnosis: ICD-10-CM G47.33 Obstructive sleep apnea (adult) (pediatric) Active Diagnosis [place] Diagnosis: ICD-10-CM J44.9 Chronic obstructive pulmonary disease, unspecified Active Diagnosis [facility] Diagnosis: ICD-10-CM Z77.29 Contact with and exposure to other hazardous substances Active Diagnosis [facility] Diagnosis: ICD-10-CM Z71.9 Counseling, unspecified Active Diagnosis [facility] Diagnosis: ICD-10-CM Z71.89 Other specified counseling Active Diagnosis [facility] Diagnosis: ICD-10-CM H25.13 Age-related nuclear cataract, bilateral Active Diagnosis [facility] Medications Combined list of outpatient medications from Department of Defense and Veterans Affairs facilities.Medications provided include 1) outpatient medications from the last 15 months, and 2) patient-reported medications. Medication Details Route Status Patient Instructions Prescription Expires Prescription Number Last Dispense Date Ordering Provider Order Date Order Qty Source ALBUTEROL 90MCG/ACTUA T (CFC-F) INHL,ORAL,8 .5GM DOSE COUNTER INHALE 2 PUFFS BY MOUTH EVERY 6 HOURS NEEDED RESPIR ATORY (INHAL ATION) ACTIVE 08/20/2025 [id number] FURCOLO,T CARLOS 2023 1 [facility] ALBUTEROL 90MCG/ACTUA T (CFC-F) INHL,ORAL,8 .5GM DOSE COUNTER INHALE 2 PUFFS BY MOUTH EVERY 6 HOURS NEEDED RESPIR ATORY (INHAL ATION) DISCONT INUED 08/03/2024 [id number] 4 [facility] AMMED JAWED 2022 1 [facility] AMLODIPINE BESYLATE 5MG TAB TAKE ONE TABLET BY MOUTH TWICE DAILY FOR BLOOD PRESSURE /HEART, DO NOT TAKE WITH GRAPEFRU IT JUICE ORAL SUSPEND ED 06/29/2025 [id number] 5 FURCOLO,T CARLOS 2023 180 [facility] AMLODIPINE BESYLATE 5MG TAB TAKE ONE TABLET BY MOUTH TWICE DAILY FOR BLOOD PRESSURE /HEART, DO NOT TAKE WITH GRAPEFRU IT JUICE ORAL DISCONT INUED 07/03/2024 [id number] 4 [facility] AMMED JAWED 2022 180 [facility] AMOXICILLIN TRIHYDRATE 875MG/CLAVU LANATE K 125MG TAB TAKE 1 TABLET BY MOUTH TWICE DAILY FOR INFECTIO N ORAL DISCONT INUED 02/11/2024 [id number] FURCOLO,T CARLOS 2023 20 [facility] AMOXICILLIN TRIHYDRATE 875MG/CLAVU LANATE K 125MG TAB TAKE 1 TABLET BY MOUTH TWICE DAILY FOR INFECTIO N ORAL DISCONT INUED 01/10/2024 [id number] 4 FURCOLO,T CARLOS 2023 20 [facility] AMOXICILLIN TRIHYDRATE 875MG/CLAVU LANATE K 125MG TAB TAKE 1 TABLET BY MOUTH TWICE DAILY FOR INFECTIO N ORAL 03/15/2024 [id number] 4 FURCOLO,T CARLOS 2023 20 [facility] ARFORMOTERO L TARTRATE 7.5MCG/ML SOLN,INHL,2 ML INHALE 1 AMPULE VIA UPDRAFT EVERY 12 HOURS UPDRAF T ACTIVE 08/20/2025 [id number] 5 FURCOLO,T CARLOS 2024 120 [facility] ARFORMOTERO L TARTRATE 7.5MCG/ML SOLN,INHL,2 ML INHALE 1 AMPULE VIA UPDRAFT EVERY 12 HOURS UPDRAF T DISCONT INUED 08/03/2024 [id number] 4 [facility] AMMED JAWED 2022 120 [facility] AZITHROMYCI N 250MG TAB TAKE TWO TABLETS BY MOUTH THREE TIMES A WEEK ORAL SUSPEND ED 06/29/2025 [id number] 5 FURCOLO,T CARLOS 2024 78 [facility] AZITHROMYCI N 250MG TAB TAKE TWO TABLETS BY MOUTH THREE TIMES A WEEK ORAL DISCONT INUED 09/06/2024 [id number] [facility] AMMED JAWED 2023 78 [facility] BISACODYL 5MG TAB,EC TAKE TWO TABLETS BY MOUTH TWICE DAILY FOR BOWELS - LAXATIVE TAKE AT 3 PM AND 7 PM FOR 1 DAY PRIOR TO GI PROCEDUR E. DR. TINO BONNER ORAL 10/06/2024 [id number] FURCOLO,T CARLOS 2024 4 [facility] BUDESONIDE 0.5MG/2ML SUSP,INH,2M L 1 VIAL VIA NEBULIZE R EVERY 12 HOURS NEBULI ZER ACTIVE 12/11/2024 [id number] 5 FURCOLO,T CARLOS 2023 180 [facility] BUDESONIDE 0.5MG/2ML SUSP,INH,2M L 1 VIAL VIA NEBULIZE R EVERY 12 HOURS NEBULI ZER DISCONT INUED 09/11/2024 [id number] [facility] AMMED JAWED 2023 60 [facility] BUSPIRONE HCL 5MG TAB TAKE ONE TABLET BY MOUTH EVERY 8 HOURS NEEDED ORAL ACTIVE 08/20/2025 [id number] 5 FURCOLO,T CARLOS 2023 180 [facility] BUSPIRONE HCL 5MG TAB TAKE ONE TABLET BY MOUTH EVERY 8 HOURS NEEDED ORAL DISCONT INUED 08/03/2024 [id number] [facility] AMMED JAWED 2022 180 [facility] CARBOXYMETH YLCELLULOSE NA 0.5% SOLN,OPH INSTILL 1 DROP INTO EACH EYE FOUR TIMES A DAY FOR DRY EYE OPHTHA LMIC 06/13/2024 [id number] IVAN MOHAN 2022 15 [facility] CETIRIZINE HCL 10MG TAB TAKE ONE TABLET BY MOUTH ONCE DAILY NEEDED FOR ALLERGIE S ORAL 04/06/2024 [id number] 4 [facility] JAWED 2022 90 [facility] DORAVIRINE 100MG/LAMIV UDINE 300MG/TENOF OVIR DF 300MG TAB TAKE 1 TABLET BY MOUTH ONCE DAILY FOR INFECTIO N ORAL SUSPEND ED 12/22/2024 [id number] 5 FURCOLO,T CARLOS 2023 90 [facility] DORAVIRINE 100MG/LAMIV UDINE 300MG/TENOF OVIR DF 300MG TAB TAKE 1 TABLET BY MOUTH ONCE DAILY FOR INFECTIO N ORAL DISCONT INUED 02/06/2024 [id number] SUREKHA LUNA 2023 90 [facility] DORAVIRINE 100MG/LAMIV UDINE 300MG/TENOF OVIR DF 300MG TAB TAKE 1 TABLET BY MOUTH ONCE DAILY FOR INFECTIO N ORAL DISCONT INUED 12/22/2023 [id number] [facility] JAWED 2022 90 [facility] GABAPENTIN 300MG CAP TAKE ONE CAPSULE BY MOUTH AT BEDTIME ORAL 04/06/2024 [id number] [facility] AMMED JAWED 2022 90 [facility] HYDROXYZINE PAMOATE 25MG CAP TAKE ONE CAPSULE BY MOUTH EVERY 12 HOURS NEEDED FOR ANXIETY ORAL SUSPEND ED 06/29/2025 [id number] FURCOLO,T CARLOS 2023 180 [facility] HYDROXYZINE PAMOATE 25MG CAP TAKE ONE CAPSULE BY MOUTH EVERY 12 HOURS NEEDED FOR ANXIETY ORAL DISCONT INUED 04/06/2024 [id number] IPRATROPIUM BR 0.06% SOLN,SPRAY, NASAL INSTILL 2 SPRAYS INTO EACH NOSTRIL EVERY 12 HOURS NEEDED FOR CONGESTI ON NASAL ACTIVE 08/20/2025 [id number] 5 FURCOLO,T CARLOS 2023 30 [facility] IPRATROPIUM BR 0.06% SOLN,SPRAY, NASAL INSTILL 2 SPRAYS INTO EACH NOSTRIL EVERY 12 HOURS NEEDED FOR CONGESTI ON NASAL DISCONT INUED 08/07/2024 [id number] 4 [facility] JAWED 2022 30 [facility] LORAZEPAM 0.5MG TAB TAKE ONE TABLET BY MOUTH ONCE DAILY ORAL ACTIVE LINSEY SOARES 2022 [facility] METOPROLOL TARTRATE 25MG TAB TAKE ONE TABLET BY MOUTH TWICE DAILY FOR BLOOD PRESSURE /HEART ORAL ACTIVE 12/22/2024 [id number] 5 FURCOLO,T CARLOS 2023 180 [facility] METOPROLOL TARTRATE 25MG TAB TAKE ONE TABLET BY MOUTH TWICE DAILY FOR BLOOD PRESSURE /HEART ORAL DISCONT INUED 02/06/2024 [id number] SUREKHA LUNA [address] [facility] METOPROLOL TARTRATE 25MG TAB TAKE ONE TABLET BY MOUTH TWICE DAILY FOR BLOOD PRESSURE /HEART ORAL DISCONT INUED 01/31/2024 [id number] 4 [facility] 2022 180 [facility] IELD OMEPRAZOLE 20MG CAP,EC TAKE ONE CAPSULE BY MOUTH EVERY MORNING 30 MINUTES BEFORE BREAKFAS T ORAL 04/06/2024 [id number] 4 [facility] [address] [facility] ONDANSETRON HCL 4MG TAB TAKE ONE TABLET BY MOUTH EVERY MORNING FOR NAUSEA AND VOMITING ORAL ACTIVE 01/12/2025 [id number] 5 FURCOLO,T CARLOS 2023 30 [facility] ONDANSETRON HCL 4MG TAB TAKE ONE TABLET BY MOUTH EVERY MORNING FOR NAUSEA AND VOMITING ORAL DISCONT INUED 01/10/2024 [id number] 4 FURCOLO,T CARLOS 2023 30 [facility] ONDANSETRON HCL 4MG TAB TAKE ONE TABLET BY MOUTH EVERY MORNING FOR NAUSEA AND VOMITING ORAL DISCONT INUED 12/08/2023 [id number] SUREKHA LUNA 2023 30 [facility] ONDANSETRON HCL 4MG TAB TAKE ONE TABLET BY MOUTH EVERY MORNING FOR NAUSEA AND VOMITING ORAL DISCONT INUED 04/06/2024 [id number] [facility] AMKLAUS JAWED [address] [facility] OXYGEN MISCELLANEO US USE DIRECTED NOT APPLIC ABLE ACTIVE RUEL KWON [address] [facility] POLYETHYLEN E GLYCOL 3350 PWDR,ORAL TAKE 17 GRAMS(FI LL CAP TO 17GM LINE) BY MOUTH ONCE DAILY FOR EMPTYING OF THE BOWEL [MIX WITH 4 TO 8OZ. OF BEVERAGE ] ONE 238 GM BOTTLE MIXED WITH GATORADE , BEGIN AT 5 PM THE DAY BEFORE THE PROCEDUR E. DR. TINO BONNER [MIX WITH 4 TO 8OZ. OF [place] ] ONE 238 GM BOTTLE MIXED WITH GATORADE , BEGIN AT 5 PM THE DAY BEFORE THE PROCEDUR E. DR. TINO BONNER ORAL ACTIVE 12/05/2024 [id number] FURCOLO,T CARLOS 2024 238 [facility] PREDNISONE 10MG TAB TAKE ONE TABLET BY MOUTH ONCE DAILY NEEDED FOR ASTHMA ORAL DISCONT INUED 08/27/2024 [id number] 4 FURCOLO,T CARLOS 2023 60 [facility] PREDNISONE 10MG TAB TAKE ONE TABLET BY MOUTH ONCE DAILY NEEDED FOR ASTHMA ORAL DISCONT INUED 04/14/2024 [id number] SILVANACOLO,T CARLOS 2023 60 [facility] PREDNISONE 10MG TAB TAKE ONE TABLET BY MOUTH ONCE DAILY NEEDED FOR ASTHMA ORAL DISCONT INUED 03/12/2024 [id number] 4 FURCOLO,T CARLOS 2023 60 [facility] PREDNISONE 10MG TAB TAKE ONE TABLET BY MOUTH ONCE DAILY NEEDED FOR ASTHMA ORAL DISCONT INUED 02/09/2024 [id number] 4 FURCOLO,T CARLOS 2023 60 [facility] PREDNISONE 10MG TAB TAKE ONE TABLET BY MOUTH ONCE DAILY NEEDED FOR ASTHMA ORAL DISCONT INUED 11/10/2023 [id number] 4 MARICHUY UGALDE JAWED 2023 60 [facility] PREDNISONE 10MG TAB TAKE ONE TABLET BY MOUTH ONCE DAILY NEEDED FOR ASTHMA ORAL DISCONT INUED 11/05/2023 [id number] MARICHUY UGALDE JAWED 2023 60 [facility] PREDNISONE 10MG TAB TAKE ONE TABLET BY MOUTH ONCE DAILY NEEDED FOR ASTHMA ORAL 10/18/2024 [id number] 4 FURCOLO,T CARLOS 2023 60 [facility] PREDNISONE 10MG TAB TAKE ONE TABLET BY MOUTH PRN ORAL ACTIVE MONIK NOE SA HAL 2021 [facility] TESTOSTERON E 1.62% 20.25MG/PUM P GEL,TOP APPLY 2 PUMPS (40.5 MG) TOPICALL Y ONCE DAILY TOPICA L ACTIVE 12/29/2024 [id number] 5 FURCOLO,T CARLOS 2023 1 [facility] TESTOSTERON E 1.62% 20.25MG/PUM P GEL,TOP APPLY 2 PUMPS (40.5 MG) TOPICALL Y ONCE DAILY TOPICA L DISCONT INUED 08/21/2024 [id number] FURCOLO,T CARLOS 2023 1 [facility] TESTOSTERON E 1.62% 20.25MG/PUM P GEL,TOP APPLY 2 PUMPS (40.5 MG) TOPICALL Y ONCE DAILY TOPICA L 02/03/2024 [id number] 4 MARICHUY UGALDE AMMED JAWED 2022 1 [facility] THEOPHYLLIN E 400MG 24HR TAB,SA TAKE ONE TABLET BY MOUTH ONCE DAILY ORAL SUSPEND ED 06/29/2025 [id number] 5 FURCOLO,T CARLOS 2024 90 [facility] THEOPHYLLIN E 400MG 24HR TAB,SA TAKE ONE TABLET BY MOUTH ONCE DAILY ORAL DISCONT INUED 09/06/2024 [id number] 4 [facility] AMMED JAWED 2023 90 [facility] TIOTROPIUM 2.5MCG/ACTU AT INHL,ORAL,6 0D,4GM INHALE 2 PUFFS BY MOUTH ONCE DAILY -CONTROL LER MEDICATI ON FOR ASTHMA RESPIR ATORY (INHAL ATION) ACTIVE 12/11/2024 [id number] 5 Rasheed SANCHEZ 2023 3 [facility] TIOTROPIUM 2.5MCG/ACTU AT INHL,ORAL,6 0D,4GM INHALE 2 PUFFS BY MOUTH ONCE DAILY FOR CONTROLL ER MEDICATI ON FOR ASTHMA RESPIR ATORY (INHAL ATION) DISCONT INUED 02/06/2024 [id number] SUREKHA LUNA [address] [facility] TIOTROPIUM 2.5MCG/ACTU AT INHL,ORAL,6 0D,4GM INHALE 2 PUFFS BY MOUTH ONCE DAILY FOR CONTROLL ER MEDICATI ON FOR ASTHMA RESPIR ATORY (INHAL ATION) DISCONT INUED 01/15/2024 [id number] MARICHUY UGALDE AMKLAUS JAWED [address] [facility] TIOTROPIUM 2.5MCG/ACTU AT INHL,ORAL,6 0D,4GM INHALE 2 PUFFS BY MOUTH ONCE DAILY FOR CONTROLL ER MEDICATI ON FOR ASTHMA RESPIR ATORY (INHAL ATION) DISCONT INUED 12/05/2023 [id number] MARICHUY UGALDE JAWED 2023 3 [facility] TIOTROPIUM 2.5MCG/ACTU AT INHL,ORAL,6 0D,4GM INHALE 2 PUFFS BY MOUTH ONCE DAILY FOR CONTROLL ER MEDICATI ON FOR ASTHMA RESPIR ATORY (INHAL ATION) DISCONT INUED 11/02/2023 [id number] 4 [facility] 3 [facility] Allergies, Adverse Reactions, Alerts Combined list of allergies from Department of Defense and Veterans Affairs facilities. It does not include entries that were removed or entered in error. Substance Category Reaction Severity Reaction type Status Date Reported Comments Source BACTRIM Propensity to adverse reactions to drug (finding) active 3 [facility] [place] [facility] Immunizations Combined list of available immunizations from the Department of Defense and Veterans Affairs facilities. Immunization Series Date Given Administered By Site Reaction Lot Number CVX Code Drug Single Corner Cutter Status Comments Source INFLUENZA, UNSPECIFIED FORMULATION 2022 88 complet ed [facility] INFLUENZA, UNSPECIFIED FORMULATION 2021 88 complet ed [facility] COVID-19 (MODERNA), MRNA, LNP-S, BIVALENT BOOSTER, PF, 50 MCG/0.5 ML OR 25MCG/0.25 ML DOSE 1 2021 229 complet ed [facility] COVID-19 (MODERNA), MRNA, LNP-S, PF, 100 MCG/0.5ML DOSE OR 50 MCG/0.25ML DOSE 3 2021 207 complet ed [facility] COVID-19 (MODERNA), MRNA, LNP-S, PF, 100 MCG/0.5ML DOSE OR 50 MCG/0.25ML DOSE 3 2020 207 complet ed [facility] COVID-19 (MODERNA), MRNA, LNP-S, PF, 100 MCG/0.5ML DOSE OR 50 MCG/0.25ML DOSE 2 2020 207 complet ed [facility] COVID-19 (MODERNA), MRNA, LNP-S, PF, 100 MCG/0.5ML DOSE OR 50 MCG/0.25ML DOSE 1 2020 207 complet ed [facility] PNEUMOCOCCAL POLYSACCHARID E PPV23 2019 33 complet ed [facility] ZOSTER RECOMBINANT 1 2019 187 complet ed [facility] INFLUENZA, TRIVALENT, ADJUVANTED 2018 168 complet ed Site: Left Deltoid [place] INFLUENZA, SEASONAL, INJECTABLE 2017 141 complet ed [facility] INFLUENZA, SEASONAL, INJECTABLE 2016 141 complet ed Site: Right Deltoid [place] INFLUENZA, SEASONAL, INJECTABLE 2016 141 complet ed [facility] FLU,3 YRS (HISTORICAL) 2016 88 complet ed [place] [facility] FLU,3 YRS (HISTORICAL) 2014 88 complet ed Site: Left Deltoid [place] PNEUMOCOCCAL CONJUGATE PCV 13 2014 133 complet ed [place] FLU,3 YRS (HISTORICAL) 2013 88 complet ed [facility] FLU,3 YRS (HISTORICAL) 2012 88 complet ed Site: Left Deltoid [place] FLU,3 YRS (HISTORICAL) 2011 88 complet ed Site: Left Deltoid [place] FLU,3 YRS (HISTORICAL) 2010 88 complet ed Site: Right Deltoid [facility] DTAP, UNSPECIFIED FORMULATION 2010 107 complet ed Site: Left Deltoid [facility] FLU,3 YRS (HISTORICAL) 2009 88 complet ed [facility] PNEUMOCOCCAL, UNSPECIFIED FORMULATION 2009 109 complet ed [facility] NOVEL INFLUENZA-H1N 1-09, ALL FORMULATIONS 2009 128 complet ed [facility] FLU,3 YRS (HISTORICAL) 2008 88 complet ed [facility] Results Combined list of recent chemistry, hematology and other laboratory results from Department of Defense and Veterans Affairs, ranging from 15 months to all on record, depending upon the facility. Order Name Results Value Reference Range Date Interpretation Specimen Comments Source TESTOSTER ONE, TOTAL (WHV) TESTOSTERON E [MASS/VOLUM E] IN SERUM OR PLASMA 745.65 ng/dL 220.00 - 892.00 12/07 Specimen Type: SERUM No comment entered. Ordering Provider: ZECHARIAH SANCHEZ Report Released Date/Time: Oct 20, 2023 06:52 PM Reporting Lab: [facility] [place] [address] [address] Performing Lab: [facility] [address] [facility] [facility] [address] [facility] PSA PROSTATE SPECIFIC AG [MASS/VOLUM E] IN SERUM OR PLASMA 2.31 ng/mL 0.00 - 4.00 12/07 Specimen Type: SERUM No comment entered. Ordering Provider: ZECHARIAH SANCHEZ Report Released Date/Time: Oct 20, 2023 06:52 PM Reporting Lab: [facility] [address] [facility] [address] Performing Lab: [facility] [address] [address] [facility] LIPID PANEL FASTING CHOLESTEROL [MASS/VOLUM E] IN SERUM OR PLASMA 242 mg/dL 12/07 H Specimen Type: SERUM No comment entered. Ordering Provider: ZECHARIAH SANCHEZ Report Released Date/Time: Oct 20, 2023 06:52 PM Reporting Lab: [facility] [address] [facility] [address] Performing Lab: [facility] [address] [address] [facility] LIPID PANEL FASTING TRIGLYCERID E [MASS/VOLUM E] IN SERUM OR PLASMA 201 mg/dL 0 - 150 12/07 H Specimen Type: SERUM No comment entered. Ordering Provider: ZECHARIAH SANCHEZ Report Released Date/Time: Oct 20, 2023 06:52 PM Reporting Lab: [facility] [address] Performing Lab: [facility] [address] [address] [facility] LIPID PANEL FASTING CHOLESTEROL IN LDL [MASS/VOLUM E] IN SERUM OR PLASMA BY CALCULATION 150 mg/dL 0 - 129 12/07 H Specimen Type: SERUM No comment entered. Ordering Provider: ZECHARIAH SANCHEZ Report Released Date/Time: Oct 20, 2023 06:52 PM Reporting Lab: [facility] [address] [facility] [phone] Performing Lab: [facility] [place] [facility] [address] [address] [facility] LIPID PANEL FASTING CHOLESTEROL .TOTAL/CHOL ESTEROL IN HDL [MASS RATIO] IN SERUM OR PLASMA 4.7 12/07 Specimen Type: SERUM No comment entered. Ordering Provider: ZECHARIAH SANCHEZ Report Released Date/Time: Oct 20, 2023 06:52 PM Reporting Lab: [facility] [place] [facility] [address] [facility] [address] Performing Lab: [facility] [address] [facility] [phone] [facility] LIPID PANEL FASTING CHOLESTEROL IN HDL [MASS/VOLUM E] IN SERUM OR PLASMA 52 mg/dL 40 - 60 12/07 Specimen Type: SERUM No comment entered. Ordering Provider: ZECHARIAH SANCHEZ Report Released Date/Time: Oct 20, 2023 06:52 PM Reporting Lab: [facility] [place] [facility] [address] [facility] [phone] Performing Lab: [facility] [address] [facility] [phone] [facility] BASIC METABOLIC PANEL (fasting) UREA NITROGEN [MASS/VOLUM E] IN SERUM OR PLASMA 17 mg/dL 7 - 25 12/07 Specimen Type: SERUM No comment entered. Ordering Provider: ZECHARIAH SANCHEZ Report Released Date/Time: Oct 20, 2023 06:52 PM Reporting Lab: [facility] [place] [facility] [address] [phone] Performing Lab: [facility] [place] [facility] [address] [facility] [phone] [facility] [place] [facility] BASIC METABOLIC PANEL (fasting) GLUCOSE [MASS/VOLUM E] IN SERUM OR PLASMA 89 mg/dL 65 - 100 12/07 Specimen Type: SERUM No comment entered. Ordering Provider: ZECHARIAH SANCHEZ Report Released Date/Time: Oct 20, 2023 06:52 PM Reporting Lab: [facility] [place] [facility] [address] [facility] [phone] Performing Lab: [facility] [place] [facility] [address] [facility] [phone] [facility] [facility] BASIC METABOLIC PANEL (fasting) SODIUM [MOLES/VOLU ME] IN SERUM OR PLASMA 142 mmol/L 135 - 145 12/07 Specimen Type: SERUM No comment entered. Ordering Provider: ZECHARIAH SANCHEZ Report Released Date/Time: Oct 20, 2023 06:52 PM Reporting Lab: [facility] [place] [facility] [address] [phone] Performing Lab: [facility] [place] [facility] [address] [phone] [facility] BASIC METABOLIC PANEL (fasting) POTASSIUM [MOLES/VOLU ME] IN SERUM OR PLASMA 3.8 mmol/L 3.5 - 5.0 12/07 Specimen Type: SERUM No comment entered. Ordering Provider: ZECHARIAH SANCHEZ Report Released Date/Time: Oct 20, 2023 06:52 PM Reporting Lab: [facility] [place] [address] [address] Performing Lab: [facility] [place] [facility] [address] [facility] [address] [facility] BASIC METABOLIC PANEL (fasting) CHLORIDE [MOLES/VOLU ME] IN SERUM OR PLASMA 105 mmol/L 100 - 110 12/07 Specimen Type: SERUM No comment entered. Ordering Provider: ZECHARIAH SANCHEZ Report Released Date/Time: Oct 20, 2023 06:52 PM Reporting Lab: [facility] [place] [facility] [address] [facility] [address] Performing Lab: [facility] [place] [facility] [address] [facility] [address] [facility] BASIC METABOLIC PANEL (fasting) CARBON DIOXIDE, TOTAL [MOLES/VOLU ME] IN SERUM OR PLASMA 28 meq/L 20 - 30 12/07 Specimen Type: SERUM No comment entered. Ordering Provider: ZECHARIAH SANCHEZ Report Released Date/Time: Oct 20, 2023 06:52 PM Reporting Lab: [facility] [place] [address] [address] Performing Lab: [facility] [address] [address] [facility] BASIC METABOLIC PANEL (fasting) CREATININE [MASS/VOLUM E] IN SERUM OR PLASMA 0.94 mg/dL 0.50 - 1.40 12/07 Specimen Type: SERUM No comment entered. Ordering Provider: ZECHARIAH SANCHEZ Report Released Date/Time: Oct 20, 2023 06:52 PM Reporting Lab: [facility] [place] [address] [address] Performing Lab: [facility] [address] [facility] BASIC METABOLIC PANEL (fasting) GLOMERULAR FILTRATION RATE/1.73 SQ M.PREDICTED [VOLUME RATE/AREA] IN SERUM, PLASMA OR BLOOD BY CREATININE- BASED FORMULA (CKD-EPI 2020) >90mL/ min 60 12/07 Specimen Type: SERUM No comment entered. Ordering Provider: ZECHARIAH SANCHEZ Report Released Date/Time: Oct 20, 2023 06:52 PM Reporting Lab: [facility] [address] Performing Lab: [facility] [address] [address] [facility] LIVER FUNCTION PROTEIN [MASS/VOLUM E] IN SERUM OR PLASMA 7.5 g/dL 6.0 - 8.3 12/07 Specimen Type: SERUM No comment entered. Ordering Provider: ZECHARIAH SANCHEZ Report Released Date/Time: Oct 20, 2023 06:52 PM Reporting Lab: [facility] [place] [address] [address] Performing Lab: [facility] [address] [address] [facility] LIVER FUNCTION ALBUMIN [MASS/VOLUM E] IN SERUM OR PLASMA 3.8 g/dL 3.5 - 5.0 12/07 Specimen Type: SERUM No comment entered. Ordering Provider: ZECHARIAH SANCHEZ Report Released Date/Time: Oct 20, 2023 06:52 PM Reporting Lab: [facility] [place] [facility] [address] [facility] [address] Performing Lab: [facility] [place] [facility] [address] [facility] [address] [facility] LIVER FUNCTION ALKALINE PHOSPHATASE [ENZYMATIC ACTIVITY/VO LUME] IN SERUM OR PLASMA 156 U/L 40 - 150 12/07 H Specimen Type: SERUM No comment entered. Ordering Provider: ZECHARIAH SANCHEZ Report Released Date/Time: Oct 20, 2023 06:52 PM Reporting Lab: [facility] [place] [address] [address] Performing Lab: [facility] [place] [address] [address] [facility] LIVER FUNCTION ASPARTATE AMINOTRANSF ERASE [ENZYMATIC ACTIVITY/VO LUME] IN SERUM OR PLASMA 18 U/L 5 - 34 12/07 Specimen Type: SERUM No comment entered. Ordering Provider: ZECHARIAH SANCHEZ Report Released Date/Time: Oct 20, 2023 06:52 PM Reporting Lab: [facility] [place] [address] [address] Performing Lab: [facility] [place] [address] [address] [facility] [place] [facility] LIVER FUNCTION ALANINE AMINOTRANSF ERASE [ENZYMATIC ACTIVITY/VO LUME] IN SERUM OR PLASMA 18 U/L 12/07 Specimen Type: SERUM No comment entered. Ordering Provider: ZECHARIAH SANCHEZ Report Released Date/Time: Oct 20, 2023 06:52 PM Reporting Lab: [facility] [place] [address] [address] Performing Lab: [facility] [place] [facility] [address] [facility] [address] [facility] [place] [facility] LIVER FUNCTION BILIRUBIN.T OTAL [MASS/VOLUM E] IN SERUM OR PLASMA 0.3 mg/dL 0.2 - 1.2 12/07 Specimen Type: SERUM No comment entered. Ordering Provider: ZECHARIAH SANCHEZ Report Released Date/Time: Oct 20, 2023 06:52 PM Reporting Lab: [facility] [place] [address] [address] Performing Lab: [facility] [place] [address] [address] [facility] CBC AND DIFF (AUTO) LEUKOCYTES [#/VOLUME] IN BLOOD BY AUTOMATED COUNT 13.67 10*3/u L 4.50 - 11.00 12/07 H Specimen Type: BLOOD No comment entered. Ordering Provider: ZECHARIAH SANCHEZ Report Released Date/Time: Oct 20, 2023 06:52 PM Reporting Lab: [facility] [place] [address] [address] Performing Lab: [facility] [place] [address] [address] [facility] CBC AND DIFF (AUTO) ERYTHROCYTE S [#/VOLUME] IN BLOOD BY AUTOMATED COUNT 4.22 10*6/u L 4.23 - 5.66 12/07 L Specimen Type: BLOOD No comment entered. Ordering Provider: ZECHARIAH SANCHEZ Report Released Date/Time: Oct 20, 2023 06:52 PM Reporting Lab: [facility] [place] [address] [address] Performing Lab: [facility] [place] [address] [address] [facility] [place] [facility] CBC AND DIFF (AUTO) HEMOGLOBIN [MASS/VOLUM E] IN BLOOD 14.4 g/dL 12.8 - 17 12/07 Specimen Type: BLOOD No comment entered. Ordering Provider: ZECHARIAH SANCHEZ Report Released Date/Time: Oct 20, 2023 06:52 PM Reporting Lab: [facility] [place] [facility] [address] [facility] [address] Performing Lab: [facility] [place] [facility] [address] [facility] [address] [facility] [place] [facility] CBC AND DIFF (AUTO) HEMATOCRIT [VOLUME FRACTION] OF BLOOD BY AUTOMATED COUNT 42.9 39.2 - 50.4 12/07 Specimen Type: BLOOD No comment entered. Ordering Provider: ZECHARIAH SANCHEZ Report Released Date/Time: Oct 20, 2023 06:52 PM Reporting Lab: [facility] [place] [facility] [address] [facility] [address] Performing Lab: [facility] [place] [address] [address] [facility] [place] [facility] CBC AND DIFF (AUTO) MCV [ENTITIC VOLUME] BY AUTOMATED COUNT 101.7 fL 82 - 99 12/07 H Specimen Type: BLOOD No comment entered. Ordering Provider: ZECHARIAH SANCHEZ Report Released Date/Time: Oct 20, 2023 06:52 PM Reporting Lab: [facility] [place] [address] [address] Performing Lab: [facility] [place] [address] [address] [facility] [place] [facility] CBC AND DIFF (AUTO) MCHC [MASS/VOLUM E] BY AUTOMATED COUNT 33.6 g/dL 30.8 - 35.1 12/07 Specimen Type: BLOOD No comment entered. Ordering Provider: ZECHARIAH SANCHEZ Report Released Date/Time: Oct 20, 2023 06:52 PM Reporting Lab: [facility] [place] [address] [address] Performing Lab: [facility] [place] [address] [address] [facility] [place] [facility] CBC AND DIFF (AUTO) PLATELETS [#/VOLUME] IN BLOOD BY AUTOMATED COUNT 395 10*3/u L 140 - 360 12/07 H Specimen Type: BLOOD No comment entered. Ordering Provider: ZECHARIAH SANCHEZ Report Released Date/Time: Oct 20, 2023 06:52 PM Reporting Lab: [facility] [place] [facility] [address] [facility] [address] Performing Lab: [facility] [place] [facility] [address] [facility] [address] [facility] [place] [facility] CBC AND DIFF (AUTO) ERYTHROCYTE DISTRIBUTIO N WIDTH [RATIO] BY AUTOMATED COUNT 12.9 12.0 - 16.0 12/07 Specimen Type: BLOOD No comment entered. Ordering Provider: ZECHARIAH SANCHEZ Report Released Date/Time: Oct 20, 2023 06:52 PM Reporting Lab: [facility] [place] [facility] [address] [facility] [address] Performing Lab: [facility] [place] [address] [address] [facility] [place] [facility] CBC AND DIFF (AUTO) MONOCYTES [#/VOLUME] IN BLOOD BY AUTOMATED COUNT 1.30 10*3/u L 0.30 - 1.10 12/07 H Specimen Type: BLOOD No comment entered. Ordering Provider: ZECHARIAH SANCHEZ Report Released Date/Time: Oct 20, 2023 06:52 PM Reporting Lab: [facility] [place] [facility] [address] [facility] [address] Performing Lab: [facility] [place] [address] [address] [facility] [place] [facility] CBC AND DIFF (AUTO) MCH [ENTITIC MASS] BY AUTOMATED COUNT 34.1 pg 26.2 - 32.6 12/07 H Specimen Type: BLOOD No comment entered. Ordering Provider: ZECHARIAH SANCHEZ Report Released Date/Time: Oct 20, 2023 06:52 PM Reporting Lab: [facility] [place] [facility] [address] [facility] [address] Performing Lab: [facility] [place] [address] [address] [facility] [place] [facility] CBC AND DIFF (AUTO) NEUTROPHILS /100 LEUKOCYTES IN BLOOD BY AUTOMATED COUNT 46.6 43.7 - 75.8 12/07 Specimen Type: BLOOD No comment entered. Ordering Provider: ZECHARIAH SANCHEZ Report Released Date/Time: Oct 20, 2023 06:52 PM Reporting Lab: [facility] [place] [facility] [address] [facility] [address] Performing Lab: [facility] [place] [facility] [address] [facility] [address] [facility] [place] [facility] CBC AND DIFF (AUTO) LYMPHOCYTES /100 LEUKOCYTES IN BLOOD BY AUTOMATED COUNT 36.4 14.0 - 42.3 12/07 Specimen Type: BLOOD No comment entered. Ordering Provider: ZECHARIAH SANCHEZ Report Released Date/Time: Oct 20, 2023 06:52 PM Reporting Lab: [facility] [place] [address] [address] Performing Lab: [facility] [place] [address] [address] [facility] [place] [facility] CBC AND DIFF (AUTO) MONOCYTES/1 00 LEUKOCYTES IN BLOOD BY AUTOMATED COUNT 9.5 5.1 - 13.7 12/07 Specimen Type: BLOOD No comment entered. Ordering Provider: ZECHARIAH SANCHEZ Report Released Date/Time: Oct 20, 2023 06:52 PM Reporting Lab: [facility] [place] [address] [address] Performing Lab[facility] [place] [facility] [address] [facility] [address] [facility] [place] [facility] CBC AND DIFF (AUTO) EOSINOPHILS /100 LEUKOCYTES IN BLOOD BY AUTOMATED COUNT 5.4 0.4 - 6.8 12/07 Specimen Type: BLOOD No comment entered. Ordering Provider: ZECHARIAH SANCHEZ Report Released Date/Time: Oct 20, 2023 06:52 PM Reporting Lab: [facility] [place] [address] [address] Performing Lab: [facility] [place] [address] [address] [facility] [place] [facility] CBC AND DIFF (AUTO) BASOPHILS/1 00 LEUKOCYTES IN BLOOD BY AUTOMATED COUNT 0.7 0.1 - 2.0 12/07 Specimen Type: BLOOD No comment entered. Ordering Provider: ZECHARIAH SANCHEZ Report Released Date/Time: Oct 20, 2023 06:52 PM Reporting Lab: [facility] [place] [address] [address] Performing Lab: [facility] [place] [address] [address] [facility] [place] [facility] CBC AND DIFF (AUTO) NEUTROPHILS [#/VOLUME] IN BLOOD BY AUTOMATED COUNT 6.36 10*3/u L 2.20 - 7.60 12/07 Specimen Type: BLOOD No comment entered. Ordering Provider: ZECHARIAH SANCHEZ Report Released Date/Time: Oct 20, 2023 06:52 PM Reporting Lab: [facility] [place] [address] [address] Performing Lab: [facility] [place] [address] [address] [facility] [place] [facility] CBC AND DIFF (AUTO) LYMPHOCYTES [#/VOLUME] IN BLOOD BY AUTOMATED COUNT 4.98 10*3/u L 1.00 - 3.20 12/07 H Specimen Type: BLOOD No comment entered. Ordering Provider: ZECHARIAH SANCHEZ Report Released Date/Time: Oct 20, 2023 06:52 PM Reporting Lab: [facility] [place] [address] [address] Performing Lab: [facility] [place] [address] [address] [facility] [place] [facility] CBC AND DIFF (AUTO) EOSINOPHILS [#/VOLUME] IN BLOOD BY AUTOMATED COUNT 0.74 10*3/u L 0.03 - 0.44 12/07 H Specimen Type: BLOOD No comment entered. Ordering Provider: ZECHARIAH SANCHEZ Report Released Date/Time: Oct 20, 2023 06:52 PM Reporting Lab: [facility] [place] [facility] [address] [facility] [address] Performing Lab[facility] [place] [facility] [address] [facility] [address] [facility] [place] [facility] CBC AND DIFF (AUTO) BASOPHILS [#/VOLUME] IN BLOOD BY AUTOMATED COUNT 0.10 10*3/u L 0.01 - 0.13 12/07 Specimen Type: BLOOD No comment entered. Ordering Provider: ZECHARIAH SANCHEZ Report Released Date/Time: Oct 20, 2023 06:52 PM Reporting Lab: [facility] [place] [facility] [address] [facility] [address] Performing Lab: [facility] [address] [address] [facility] CBC AND DIFF (AUTO) IMMATURE GRANULOCYTE S/100 LEUKOCYTES IN BLOOD BY AUTOMATED COUNT 1.4 0.0 - 0.7 12/07 H Specimen Type: BLOOD No comment entered. Ordering Provider: ZECHARIAH SANCHEZ Report Released Date/Time: Oct 20, 2023 06:52 PM Reporting Lab: [facility] [place] [place] [facility] [address] [facility] [address] Performing Lab: [facility] [address] [address] [facility] CBC AND DIFF (AUTO) IMMATURE GRANULOCYTE S [#/VOLUME] IN BLOOD 0.19 10*3/u L 0.00 - 0.06 12/07 H Specimen Type: BLOOD No comment entered. Ordering Provider: ZECHARIAH SANCHEZ Report Released Date/Time: Oct 20, 2023 06:52 PM Reporting Lab: [facility] [place] [address] [address] Performing Lab: [facility] [address] [address] [facility] LIPID PANEL FASTING CHOLESTEROL [MASS/VOLUM E] IN SERUM OR PLASMA 185 mg/dL 04/05 Specimen Type: SERUM No comment entered. Ordering Provider: MADHU UGALDE Report Released Date/Time: Mar 17, 2023 11:55 AM Reporting Lab: [facility] [place] [facility] [address] [facility] [address] Performing Lab: [facility] [place] [facility] [address] [facility] [address] [facility] [place] [facility] LIPID PANEL FASTING TRIGLYCERID E [MASS/VOLUM E] IN SERUM OR PLASMA 123 mg/dL 0 - 150 04/05 Specimen Type: SERUM No comment entered. Ordering Provider: MADHU UGALDE Report Released Date/Time: Mar 17, 2023 11:55 AM Reporting Lab: [facility] [place] [facility] [address] [facility] [address] Performing Lab: [facility] [place] [facility] [address] [facility] [address] [facility] [place] [facility] LIPID PANEL FASTING CHOLESTEROL IN LDL [MASS/VOLUM E] IN SERUM OR PLASMA BY CALCULATION 111 mg/dL 0 - 129 04/05 Specimen Type: SERUM No comment entered. Ordering Provider: MADHU UGALDE Report Released Date/Time: Mar 17, 2023 11:55 AM Reporting Lab: [facility] [place] [facility] [address] [facility] [address] Performing Lab: [facility] [place] [facility] [address] [facility] [address] [facility] [place] [facility] LIPID PANEL FASTING CHOLESTEROL .TOTAL/CHOL ESTEROL IN HDL [MASS RATIO] IN SERUM OR PLASMA 3.8 04/05 Specimen Type: SERUM No comment entered. Ordering Provider: MADHU UGALDE Report Released Date/Time: Mar 17, 2023 11:55 AM Reporting Lab: [facility] [place] [facility] [address] [facility] [address] Performing Lab: [facility] [place] [facility] [address] [facility] [address] [facility] [place] [facility] LIPID PANEL FASTING CHOLESTEROL IN HDL [MASS/VOLUM E] IN SERUM OR PLASMA 49 mg/dL 40 - 60 04/05 Specimen Type: SERUM No comment entered. Ordering Provider: MADHU UGALDE Report Released Date/Time: Mar 17, 2023 11:55 AM Reporting Lab: [facility] [place] [facility] [address] [facility] [address] Performing Lab: [facility] [place] [facility] [address] [facility] [address] [facility] [place] [facility] BASIC METABOLIC PANEL (fasting) UREA NITROGEN [MASS/VOLUM E] IN SERUM OR PLASMA 15 mg/dL 7 - 25 04/05 Specimen Type: SERUM No comment entered. Ordering Provider: MADHU UGALDE Report Released Date/Time: Mar 17, 2023 11:55 AM Reporting Lab: [facility] [place] [facility] [address] [facility] [address] Performing Lab: [facility] [facility] [address] [facility] [address] [facility] [place] [facility] BASIC METABOLIC PANEL (fasting) GLUCOSE [MASS/VOLUM E] IN SERUM OR PLASMA 71 mg/dL 65 - 100 04/05 Specimen Type: SERUM No comment entered. Ordering Provider: MADHU UGALDE Report Released Date/Time: Mar 17, 2023 11:55 AM Reporting Lab: [facility] [place] [facility] [address] [facility] [address] Performing Lab: [facility] [place] [facility] [address] [facility] [address] [facility] [place] [facility] BASIC METABOLIC PANEL (fasting) SODIUM [MOLES/VOLU ME] IN SERUM OR PLASMA 143 mmol/L 135 - 145 04/05 Specimen Type: SERUM No comment entered. Ordering Provider: MADHU UGALDE Report Released Date/Time: Mar 17, 2023 11:55 AM Reporting Lab: [facility] [place] [facility] [address] [facility] [address] Performing Lab: [facility] [facility] [address] [facility] [address] [facility] [place] [facility] BASIC METABOLIC PANEL (fasting) POTASSIUM [MOLES/VOLU ME] IN SERUM OR PLASMA 3.8 mmol/L 3.5 - 5.0 04/05 Specimen Type: SERUM No comment entered. Ordering Provider: MADHU UGALDE Report Released Date/Time: Mar 17, 2023 11:55 AM Reporting Lab: [facility] [address] [address] Performing Lab: [facility] [address] [address] [facility] BASIC METABOLIC PANEL (fasting) CHLORIDE [MOLES/VOLU ME] IN SERUM OR PLASMA 106 mmol/L 100 - 110 04/05 Specimen Type: SERUM No comment entered. Ordering Provider: MADHU UGALDE Report Released Date/Time: Mar 17, 2023 11:55 AM Reporting Lab: [facility] [address] Performing Lab: [facility] [address] [address] [facility] BASIC METABOLIC PANEL (fasting) CARBON DIOXIDE, TOTAL [MOLES/VOLU ME] IN SERUM OR PLASMA 27 meq/L 20 - 30 04/05 Specimen Type: SERUM No comment entered. Ordering Provider: MADHU UGALDE Report Released Date/Time: Mar 17, 2023 11:55 AM Reporting Lab: [facility] [address] [address] Performing Lab: [facility] [address] [address] [facility] BASIC METABOLIC PANEL (fasting) CREATININE [MASS/VOLUM E] IN SERUM OR PLASMA 1.04 mg/dL 0.50 - 1.40 04/05 Specimen Type: SERUM No comment entered. Ordering Provider: MADHU UGALDE Report Released Date/Time: Mar 17, 2023 11:55 AM Reporting Lab: [facility] [place] [address] [address] Performing Lab: [facility] [place] [facility] [address] [facility] [facility] [address] [facility] BASIC METABOLIC PANEL (fasting) GLOMERULAR FILTRATION RATE/1.73 SQ M.PREDICTED [VOLUME RATE/AREA] IN SERUM, PLASMA OR BLOOD BY CREATININE- BASED FORMULA (CKD-EPI) 81 mL/min 60 04/05 Specimen Type: SERUM No comment entered. Ordering Provider: MADHU UGALDE Report Released Date/Time: Mar 17, 2023 11:55 AM Reporting Lab: [facility] [place] [facility] [address] [facility] [facility] [address] Performing Lab: [facility] [address] [facility] [address] [facility] LIVER FUNCTION PROTEIN [MASS/VOLUM E] IN SERUM OR PLASMA 7.5 g/dL 6.0 - 8.3 04/05 Specimen Type: SERUM No comment entered. Ordering Provider: MADHU UGALDE Report Released Date/Time: Mar 17, 2023 11:55 AM Reporting Lab: [facility] [place] [facility] [address] [facility] [phone] Performing Lab: [facility] [place] [facility] [address] [facility] [address] [facility] LIVER FUNCTION ALBUMIN [MASS/VOLUM E] IN SERUM OR PLASMA 4.0 g/dL 3.5 - 5.0 04/05 Specimen Type: SERUM No comment entered. Ordering Provider: MADHU UGALDE Report Released Date/Time: Mar 17, 2023 11:55 AM Reporting Lab: [facility] [place] [facility] [address] [facility] [address] Performing Lab: [facility] [address] [facility] [facility] [phone] [facility] LIVER FUNCTION ALKALINE PHOSPHATASE [ENZYMATIC ACTIVITY/VO LUME] IN SERUM OR PLASMA 166 U/L 40 - 150 04/05 H Specimen Type: SERUM No comment entered. Ordering Provider: MADHU UGALDE Report Released Date/Time: Mar 17, 2023 11:55 AM Reporting Lab: [facility] [facility] [address] [facility] [address] Performing Lab: [facility] [address] [facility] [address] [facility] LIVER FUNCTION ASPARTATE AMINOTRANSF ERASE [ENZYMATIC ACTIVITY/VO LUME] IN SERUM OR PLASMA 16 U/L 5 - 34 04/05 Specimen Type: SERUM No comment entered. Ordering Provider: MADHU UGALDE [email or web address] Report Released Date/Time: Mar 17, 2023 11:55 AM Reporting Lab: [facility] [address] [facility] [address] Performing Lab: [facility] [address] [facility] [address] [facility] LIVER FUNCTION ALANINE AMINOTRANSF ERASE [ENZYMATIC ACTIVITY/VO LUME] IN SERUM OR PLASMA 15 U/L 04/05 Specimen Type: SERUM No comment entered. Ordering Provider: MADHU UGALDE [email or web address] Report Released Date/Time: Mar 17, 2023 11:55 AM Reporting Lab: [facility] [place] [address] [facility] [address] Performing Lab: [facility] [place] [facility] [address] [facility] [address] [facility] LIVER FUNCTION BILIRUBIN.T OTAL [MASS/VOLUM E] IN SERUM OR PLASMA 0.3 mg/dL 0.2 - 1.2 04/05 Specimen Type: SERUM No comment entered. Ordering Provider: MADHU UGALDE [email or web address] Report Released Date/Time: Mar 17, 2023 11:55 AM Reporting Lab: [facility] [place] [address] [facility] [address] Performing Lab: [facility] [place] [facility] [address] [facility] [address] [facility] [place] CBC AND DIFF (AUTO) LEUKOCYTES [#/VOLUME] IN BLOOD BY AUTOMATED COUNT 12.08 10*3/u L 4.50 - 11.00 04/05 H Specimen Type: BLOOD Comment: Smear reviewed, auto CBC w/Diff accepted. FEW LARGE PLATELETS SEEN Ordering Provider: MADHU UGALDE Report Released Date/Time: Mar 17, 2023 11:55 AM Reporting Lab: [facility] [place] [facility] [address] [facility] [address] Performing Lab: [facility] [place] [facility] [address] [facility] [address] [facility] [place] CBC AND DIFF (AUTO) ERYTHROCYTE S [#/VOLUME] IN BLOOD BY AUTOMATED COUNT 4.35 10*6/u L 4.23 - 5.66 04/05 Specimen Type: BLOOD Comment: Smear reviewed, auto CBC w/Diff accepted. FEW LARGE PLATELETS SEEN Ordering Provider: MADHU UGALDE Report Released Date/Time: Mar 17, 2023 11:55 AM Reporting Lab: [facility] [place] [facility] [address] [facility] [address] Performing Lab: [facility] [place] [facility] [address] [facility] [address] [facility] [place] [facility] CBC AND DIFF (AUTO) HEMOGLOBIN [MASS/VOLUM E] IN BLOOD 14.4 g/dL 12.8 - 17 04/05 Specimen Type: BLOOD Comment: Smear reviewed, auto CBC w/Diff accepted. FEW LARGE PLATELETS SEEN Ordering Provider: MADHU UGALDE Report Released Date/Time: Mar 17, 2023 11:55 AM Reporting Lab: [facility] [place] [facility] [address] [facility] [address] Performing Lab: [facility] [place] [facility] [address] [facility] [address] [facility] [place] CBC AND DIFF (AUTO) HEMATOCRIT [VOLUME FRACTION] OF BLOOD BY AUTOMATED COUNT 43.5 39.2 - 50.4 04/05 Specimen Type: BLOOD Comment: Smear reviewed, auto CBC w/Diff accepted. FEW LARGE PLATELETS SEEN Ordering Provider: MADHU UGALDE Report Released Date/Time: Mar 17, 2023 11:55 AM Reporting Lab: [facility] [place] [facility] [address] [facility] [address] Performing Lab: [facility] [place] [facility] [address] [facility] [address] [facility] CBC AND DIFF (AUTO) MCV [ENTITIC VOLUME] BY AUTOMATED COUNT 100.0 fL 82 - 99 04/05 H Specimen Type: BLOOD Comment: Smear reviewed, auto CBC w/Diff accepted. FEW LARGE PLATELETS SEEN Ordering Provider: MADHU UGALDE Report Released Date/Time: Mar 17, 2023 11:55 AM Reporting Lab: [facility] [place] [facility] [address] [facility] [address] Performing Lab: [facility] [place] [facility] [address] [facility] [address] [facility] [place] CBC AND DIFF (AUTO) MCHC [MASS/VOLUM E] BY AUTOMATED COUNT 33.1 g/dL 30.8 - 35.1 04/05 Specimen Type: BLOOD Comment: Smear reviewed, auto CBC w/Diff accepted. FEW LARGE PLATELETS SEEN Ordering Provider: MADHU UGALDE Report Released Date/Time: Mar 17, 2023 11:55 AM Reporting Lab: [facility] [place] [facility] [address] [facility] [address] Performing Lab: [facility] [place] [facility] [address] [facility] [address] [facility] [place] CBC AND DIFF (AUTO) PLATELETS [#/VOLUME] IN BLOOD BY AUTOMATED COUNT 345 10*3/u L 140 - 360 04/05 Specimen Type: BLOOD Comment: Smear reviewed, auto CBC w/Diff accepted. FEW LARGE PLATELETS SEEN Ordering Provider: MADHU UGALDE Report Released Date/Time: Mar 17, 2023 11:55 AM Reporting Lab: [facility] [place] [facility] [address] [facility] [address] Performing Lab: [facility] [place] [facility] [address] [facility] [address] [facility] [place] CBC AND DIFF (AUTO) ERYTHROCYTE DISTRIBUTIO N WIDTH [RATIO] BY AUTOMATED COUNT 12.1 12.0 - 16.0 04/05 Specimen Type: BLOOD Comment: Smear reviewed, auto CBC w/Diff accepted. FEW LARGE PLATELETS SEEN Ordering Provider: MADHU UGALDE Report Released Date/Time: Mar 17, 2023 11:55 AM Reporting Lab: [facility] [place] [facility] [address] [facility] [address] Performing Lab: [facility] [place] [facility] [address] [facility] [address] [facility] CBC AND DIFF (AUTO) MONOCYTES [#/VOLUME] IN BLOOD BY AUTOMATED COUNT 1.05 10*3/u L 0.30 - 1.10 04/05 Specimen Type: BLOOD Comment: Smear reviewed, auto CBC w/Diff accepted. FEW LARGE PLATELETS SEEN Ordering Provider: MADHU UGALED Report Released Date/Time: Mar 17, 2023 11:55 AM Reporting Lab: [facility] [place] [facility] [address] [facility] [address] Performing Lab: [facility] [place] [facility] [address] [facility] [address] [facility] CBC AND DIFF (AUTO) MCH [ENTITIC MASS] BY AUTOMATED COUNT 33.1 pg 26.2 - 32.6 04/05 H Specimen Type: BLOOD Comment: Smear reviewed, auto CBC w/Diff accepted. FEW LARGE PLATELETS SEEN Ordering Provider: MADHU UGALDE Report Released Date/Time: Mar 17, 2023 11:55 AM Reporting Lab: [facility] [place] [facility] [address] [facility] [address] Performing Lab: [facility] [place] [facility] [address] [facility] [address] [facility] CBC AND DIFF (AUTO) NEUTROPHILS /100 LEUKOCYTES IN BLOOD BY AUTOMATED COUNT 47.3 43.7 - 75.8 04/05 Specimen Type: BLOOD Comment: Smear reviewed, auto CBC w/Diff accepted. FEW LARGE PLATELETS SEEN Ordering Provider: MADHU UGALDE Report Released Date/Time: Mar 17, 2023 11:55 AM Reporting Lab: [facility] [address] [facility] [address] Performing Lab: [facility] [address] [facility] [address] [facility] CBC AND DIFF (AUTO) LYMPHOCYTES /100 LEUKOCYTES IN BLOOD BY AUTOMATED COUNT 38.6 14.0 - 42.3 04/05 Specimen Type: BLOOD Comment: Smear reviewed, auto CBC w/Diff accepted. FEW LARGE PLATELETS SEEN Ordering Provider: MADHU UGALDE Report Released Date/Time: Mar 17, 2023 11:55 AM Reporting Lab: [facility] [place] [facility] [address] [facility] [address] Performing Lab: [facility] [place] [address] [address] [facility] [place] CBC AND DIFF (AUTO) MONOCYTES/1 00 LEUKOCYTES IN BLOOD BY AUTOMATED COUNT 8.7 5.1 - 13.7 04/05 Specimen Type: BLOOD Comment: Smear reviewed, auto CBC w/Diff accepted. FEW LARGE PLATELETS SEEN Ordering Provider: MADHU UGALDE Report Released Date/Time: Mar 17, 2023 11:55 AM Reporting Lab: [facility] [place] [address] [address] Performing Lab: [facility] [place] [facility] [address] [facility] [address] [facility] [place] CBC AND DIFF (AUTO) EOSINOPHILS /100 LEUKOCYTES IN BLOOD BY AUTOMATED COUNT 3.8 0.4 - 6.8 04/05 Specimen Type: BLOOD Comment: Smear reviewed, auto CBC w/Diff accepted. FEW LARGE PLATELETS SEEN Ordering Provider: MADHU UGALDE Report Released Date/Time: Mar 17, 2023 11:55 AM Reporting Lab: [facility] [place] [address] [address] Performing Lab: [facility] [place] [address] [address] [facility] [place] [facility] CBC AND DIFF (AUTO) BASOPHILS/1 00 LEUKOCYTES IN BLOOD BY AUTOMATED COUNT 0.8 0.1 - 2.0 04/05 Specimen Type: BLOOD Comment: Smear reviewed, auto CBC w/Diff accepted. FEW LARGE PLATELETS SEEN Ordering Provider: MADHU UGALDE Report Released Date/Time: Mar 17, 2023 11:55 AM Reporting Lab: [facility] [place] [facility] [address] [facility] [address] Performing Lab: [facility] [place] [facility] [address] [facility] [address] [facility] [place] [facility] CBC AND DIFF (AUTO) NEUTROPHILS [#/VOLUME] IN BLOOD BY AUTOMATED COUNT 5.71 10*3/u L 2.20 - 7.60 04/05 Specimen Type: BLOOD Comment: Smear reviewed, auto CBC w/Diff accepted. FEW LARGE PLATELETS SEEN Ordering Provider: MADHU UGALDE Report Released Date/Time: Mar 17, 2023 11:55 AM Reporting Lab: [facility] [place] [facility] [address] [facility] [address] Performing Lab: [facility] [place] [facility] [address] [facility] [address] [facility] [place] [facility] CBC AND DIFF (AUTO) LYMPHOCYTES [#/VOLUME] IN BLOOD BY AUTOMATED COUNT 4.66 10*3/u L 1.00 - 3.20 04/05 H Specimen Type: BLOOD Comment: Smear reviewed, auto CBC w/Diff accepted. FEW LARGE PLATELETS SEEN Ordering Provider: MADHU UGALDE Report Released Date/Time: Mar 17, 2023 11:55 AM Reporting Lab: [facility] [place] [facility] [address] [facility] [address] Performing Lab: [facility] [place] [facility] [address] [facility] [address] [facility] [place] [facility] CBC AND DIFF (AUTO) EOSINOPHILS [#/VOLUME] IN BLOOD BY AUTOMATED COUNT 0.46 10*3/u L 0.03 - 0.44 04/05 H Specimen Type: BLOOD Comment: Smear reviewed, auto CBC w/Diff accepted. FEW LARGE PLATELETS SEEN Ordering Provider: MADHU UGALDE Report Released Date/Time: Mar 17, 2023 11:55 AM Reporting Lab: [facility] [place] [facility] [address] [facility] [address] Performing Lab: [facility] [place] [address] [address] [facility] [place] [facility] CBC AND DIFF (AUTO) BASOPHILS [#/VOLUME] IN BLOOD BY AUTOMATED COUNT 0.10 10*3/u L 0.01 - 0.13 04/05 Specimen Type: BLOOD Comment: Smear reviewed, auto CBC w/Diff accepted. FEW LARGE PLATELETS SEEN Ordering Provider: MADHU UGALDE Report Released Date/Time: Mar 17, 2023 11:55 AM Reporting Lab: [facility] [place] [address] [address] Performing Lab[facility] [place] [facility] [address] [facility] [address] [facility] [place] [facility] CBC AND DIFF (AUTO) IMMATURE GRANULOCYTE S/100 LEUKOCYTES IN BLOOD BY AUTOMATED COUNT 0.8 0.0 - 0.7 04/05 H Specimen Type: BLOOD Comment: Smear reviewed, auto CBC w/Diff accepted. FEW LARGE PLATELETS SEEN Ordering Provider: MADHU UGALDE Report Released Date/Time: Mar 17, 2023 11:55 AM Reporting Lab: [facility] [place] [address] [address] Performing Lab: [facility] [place] [address] [address] [facility] CBC AND DIFF (AUTO) IMMATURE GRANULOCYTE S [#/VOLUME] IN BLOOD 0.10 10*3/u L 0.00 - 0.06 04/05 H Specimen Type: BLOOD Comment: Smear reviewed, auto CBC w/Diff accepted. FEW LARGE PLATELETS SEEN Ordering Provider: MADHU UGALDE Report Released Date/Time: Mar 17, 2023 11:55 AM Reporting Lab: [facility] [address] [facility] [address] Performing Lab: [facility] [address] [facility] [address] [facility] Vital Signs Combined list of inpatient and outpatient Vital Signs from Department of Defense and Veterans Affairs, ranging from 12 months to all on record, depending upon the facility. Vital Sign Value Date Comments Source SYSTOLIC BLOOD PRESSURE 134 12/11/19 24 13:19:31 [facility] DIASTOLIC BLOOD PRESSURE 77 024 13:19:31 [facility] PULSE OXIMETRY 95 12/11/2023 13:19:31 [facility] WEIGHT 148 12/11/2023 13:19:31 [facility] BMI 22 kg/m2 12/11/2023 13:19:31 [facility] PAIN 0 12/11/2023 13:19:31 [facility] TEMPERATURE 98 12/11/2023 13:19:31 [facility] PULSE 67 12/11/2023 13:19:31 [facility] RESPIRATION 18 12/11/2023 13:19:31 [facility] Encounters Combined list of: 1) Encounters from 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 Location Location Details Encounter Type Encounter Number Reason For Visit Attending Provider ADM Date DC Date Status Disposition Source [facility] Outpatient Encounter [id number] 05/24 [facility] [place] DISPOSABLE NEBULIZER SML VOL [id number] Diagnos is: ICD-10- CM G47.33 Obstruc tive sleep apnea (adult) ([facility] [place]) SIMONE PERRIN P 05/25 [facility] Outpatient Encounter [id number] MAGO UGALDE MMED JAWED 05/30 [facility] Outpatient Encounter [id number] MAGO UGALDE MMED JAWED 05/31 [facility] EYE EXAM&TX ESTAB PT 1/VST [id number] Diagnos is: ICD-10- CM H25.13 Age-rel ated nuclear catarac t, bilnasim al IVAN MOHAN 06/13 [facility] Outpatient Encounter [id number] 06/13 [facility] FIT SPECTACLES MULTIFOCAL [id number] Diagnos is: ICD-10- CM Z46.0 Encount er for fit/adj st of spectac les and contact lenses BALJINDER PADILLA 06/13 [facility] Outpatient Encounter [id number] MAGO UGALDE MMED JAWED 06/20 [facility] Outpatient Encounter [id number] 06/21 [facility] Outpatient Encounter [id number] Debo PRECIADO 07/03 [facility] Out[facility] Encounter [id number] 07/18 [facility] Out[facility] Encounter [id number] MAGO UGALDE MMED JAWED 07/19 [facility] Out[facility] Encounter [id number] 07/26 [facility] Out[facility] Encounter [id number] Debo PRECIADO 07/28 [facility] Out[facility] Encounter [id number] 07/28 [facility] HC PRO PHONE CALL 21-30 MIN [id number] Diagnos is: ICD-10- CM Z71.89 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 MANA Macias 08/02 [facility] Out[facility] Encounter [id number] 08/03 [facility] Outpatient Encounter [id number] 08/04 [facility] Outpatient Encounter [id number] Debo PRECIADO 08/04 [facility] HC PRO PHONE CALL 11-20 MIN [id number] Diagnos is: ICD-10- CM Z71.9 Stitch Rubber ing, unspeci fiASIA Cavazos 08/04 [facility] Outpatient Encounter [id number] MAGO UGALDE JAWED 08/22 [facility] Outpatient Encounter [id number] 08/31 [facility] Out[facility] Encounter [id number] Debo PRECIADO 09/05 [facility] Outpatient Encounter [id number] MAGO UGALDE MMED JAWED 09/18 [facility] Out[facility] Encounter [id number] MAGO UGALDE MMED JAWED 10/16 [facility] Out[facility] Encounter [id number] [facility] Outpatient Encounter [id number] 10/19 [facility] Outpatient Encounter [id number] 11/05 [facility] Outpatient Encounter [id number] 11/07 [facility] Outpatient Encounter [id number] MAGO UGALDE MMCAESAR JAWED 11/15 [facility] Outpatient Encounter [id number] 11/21 [facility] Outpatient Encounter [id number] MGAO UGALDE MMED JAWED 12/04 [facility] OFFICE O/[place] 40 MIN [id number] Diagnos is: ICD-10- CM Z77.29 Contact with and exposur e to other hazardo us substan wei FURCOLO,TI NA 12/10 [facility] COLLJ & INTERPJ DATA EA 30 D [id number] Diagnos is: ICD-10- CM G47.33 Obstruc tive sleep apnea (adult) ([facility] [place]) DION VELASQUEZ 12/11 [facility] Outpatient Encounter [id number] FURCOLO,TI NA 12/17 [facility] Out[facility] Encounter [id number] FURCOLO,TI NA 12/19 [facility] Out[facility] Encounter [id number] 12/25 [facility] POS AIRWAY PRESSURE CPAP [id number] Diagnos is: ICD-10- CM G47.33 Obstruc tive sleep apnea (adult) ([facility]) DION VELASQUEZ 12/25 [facility] Out[facility] Encounter [id number] FURCOLO,TI NA 12/27 [facility] DISPOSABLE COMPRESSOR FILTER [id number] Diagnos is: ICD-10- CM J44.9 Chronic obstruc tive pulmona ry disease , 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 JARMOLOWIC Z,KAITLIN 01/01 [facility] Out[facility] Encounter [id number] 01/02 [facility] Out[facility]counter [id number] 01/02 [facility] Out[facility] Encounter [id number] FURCOLO,TI NA 01/03 [facility] Out[facility] Encounter [id number] DEANGELO MORGAN 01/09 [facility] Out[facility] Encounter [id number] 01/15 [facility] Out[facility] Encounter [id number] FURCOLO,TI NA 01/22 [facility] Out[facility] Encounter [id number] FURCOLO,TI NA 01/30 [facility] HC PRO PHONE CALL 5-10 MIN [id number] Diagnos is: ICD-10- CM J44.9 Chronic obstruc tive pulmona ry disease , 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 JARMOLOWIC Z,KAITLIN 02/11 [facility] Out[facility] Encounter [id number] DEANGELO MORAGN ZKA 02/11 [facility] Out[facility] Encounter [id number] FURCOLO,TI NA 02/14 [facility] SELF-MGMT EDUC & TRAIN 1 PT [id number] Diagnos is: ICD-10- CM J44.9 Chronic obstruc tive pulmona ry disease , 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 JARMOLOWIC Z,KAITLIN 02/18 [facility] Out[facility] Encounter [id number] 02/18 [facility] Out[facility] Encounter [id number] FURCOLO,TI NA 02/27 [facility] Out[facility] Encounter [id number] FURCOLO,TI NA 03/20 [facility] Out[facility] Encounter [id number] FURCOLO,TI NA 04/25 [facility] Out[facility] Encounter [id number] 05/07 [facility] [place] [employer] PRESSURE CPAP [id number] Diagnos is: ICD-10- CM G47.33 Obstruc tive sleep apnea (adult) ([place]iat [place]) DION VELASQUEZ 05/08 [place] [facility] Outpatient Encounter [id number] FURCOLO,TI NA 05/09 [facility] Out[facility] Encounter [id number] FURCOLO,TI NA 05/13 [facility] Out[facility] Encounter [id number] FURCOLO,TI NA 05/14 [facility] [place] [id number] Diagnos is: ICD-10- CM H25.813 Combine d forms of age-rel ated catarac t, bilater al LAURA NEWBERRY 06/24 [facility] FIT SPECTACLES MULTIFOCAL [id number] Diagnos is: ICD-10- CM Z46.0 Encount er for fit/adj st of spectac les and contact lenses LAURA NEWBERRY 06/24 [facility] [facility] Outpatient Encounter [id number] DEANGELO MORGAN 06/28 [facility] Encounter [id number] 08/04 [facility] Outpatient Encounter [id number] BOLES 08/12 [place] [facility] [place] [facility] [facility] Outpatient Encounter [id number] NANCY CEBALLOS L 08/19 [facility] [place] [facility] Social History Combined list of available smoking, tobacco, and other social history from Department of Defense and Veterans Affairs facilities. Social History Type Response Date Comment Source Tobacco smoking status [facility] FORMER USER 10[place]20/2023 [place] [facility] of [facility] 15 [facility] 10/20/2023 [place] [facility] [place] [facility] [place] of [place] use [place] FOR[place] 07/13/2022 [place] [facility] History of tobacco use [place] FOR[place] US[place] 02/25/2021 [facility] [place] [facility] History of tobacco [facility]09/2019 [place] History of tobacco use QUIT TOBACCO USE > 7 YEARS AGO 04/13/2018 [place] History of tobacco use QUIT TOBACCO USE 1-7 YEARS AGO 10/27/2017 reports quitting 2 years ago [place] History of tobacco use QUIT TOBACCO USE IN PAST YEAR 03/16/2017 cigarettes/ repoorts quitting 07/06 [place] History of tobacco use CURRENT SMOKER 10/26/2015 few daily [place] History of tobacco use V1-PT DECLINES TOBACCO CESSATION MEDS 07/24/2015 [place] History of tobacco use V1-PT DECLINES TOBACCO CESSATION MEDS 10/24/2014 [place] History of tobacco use CURRENT SMOKER 05/16/2014 smokes cigaretts one ppd. [place] History of tobacco use V1-PT DECLINES TOBACCO CESSATION MEDS 02/27/2014 [place] History of tobacco use CURRENT SMOKER 04/25/2013 half pack per day [place] History of tobacco use V1-PT DECLINES TOBACCO CESSATION MEDS 11/27/2012 [facility] [place] [facility] History of tobacco use CURRENT SMOKER 04/12/2012 [facility] [place] [facility] History of tobacco use V1-PT THINKING ABOUT QUIT TOBACCO USE 10/17/2011 [facility] [place] [facility] History of tobacco use CURRENT [facility] 04/04/[facility] of tobacco use CURRENT SMOKER 03/01/2010 1/2 ppd [facility] History of tobacco use CURRENT SMOKER 09/02/2008 1/2 ppd [facility] History of tobacco use V1-PT READY TO QUIT TOBACCO USE 01/28/2008 [facility] History of tobacco use CURRENT SMOKER 04/06/2007 1/2 ppd [facility] History of tobacco use CURRENT SMOKER 06/02/2005 1 pk [facility] History of tobacco use CURRENT SMOKER 10/10/2003 smokes 1/2 day [facility] History of tobacco use CURRENT SMOKER 05/28/2002 smokes 1/2 pack/day [facility] History of tobacco use CURRENT SMOKER 11/29/2001 [facility] Plan of Care List of future care activities from Department of [facility] Affairs facilities. Additional future care activities may be listed in the Assessment and Plan section. Date/Time Care Activity Care Activity Detail Facili ty 12/10/2024 AMBULATORY - MEDICINE AMBULATORY - MEDICI [facility]
--- OUTSIDE RECORDS SUMMARY | 2024-11-20 13:38 | XMS_ITS ---
Author Organization [facility] Address [address] [place] [address] Care Team Providers Care Hat Block Maker Name Role Phone Ziyad GOMES, James Primary Care Provider Unavailab Antonio Vitale [phone] Encounters Encounter Location Date Provider Diagnosis [facility] [address] [place] [address] 08/03/2024 Antoino Arce Plan Of Treatment No Information Progress Notes * LEVY JERNIGANDOB: [birth year] (64 yo M)Acc No.[id number]:08/03/2024 Patient:?LEVY JERNIGAN :1960???Age:64 Y???Sex:Male Address:[address] [place] [phone] * true * Date:? Generated for Cindy victor/Walt/eTransmitting on:?11/20/2024 01:37 PM EDT
== END 2024-11-20 12:03 | disposition home or self-care (01) ==
LOC: HO.HPS 11:12
PROVIDERS: PCP Family Medicine; Visit Provider Hospitalist
DX: G47.33 Obstructive sleep apnea (adult) (pediatric) (principal); J96.11 Chronic respiratory failure with hypoxia; J96.12 Chronic respiratory failure with hypercapnia; J43.2 Centrilobular emphysema; R91.8 Other nonspecific abnormal finding of lung field
CPT/HCPCS: 99214; G2211

== ENCOUNTER → 2024-11-20 11:12 | Outpatient (BNVA) | payer MEDICARE, BC, SELFPAY | PROVIDERS: PCP Family Medicine; Visit Provider Hospitalist | DX: J96.11 Chronic respiratory failure with hypoxia (principal); J96.12 Chronic respiratory failure with hypercapnia; J43.2 Centrilobular emphysema; G47.33 Obstructive sleep apnea (adult) (pediatric); R91.8 Other nonspecific abnormal finding of lung field | CPT/HCPCS: 99212 ==

== ENCOUNTER 2024-12-11 13:24 | Outpatient (AMB) | payer MEDICARE, BC, SELFPAY ==
[2024-12-11 13:21] VITALS: PULSE 76; O2SAT 96; BMI 22.0
--- NOTE | 2024-12-11 13:21 | MHC.OFFVIS ---
Vital Signs 12/11/24 13:21 Height 5 ft 8 in Weight 145 lb BMI 22.0 Pulse 76 Pulse Source Pulse Oximeter Pulse Oximetry (%) 96 Intake Visit Reasons: f/u ,1 yr.HIV labs Allergies ethinyl estradiol [From Seasonale (91)] Allergy (Severe, Verified 12/11/24 13:32) Dry Eye levonorgestrel [From Seasonale (91)] Allergy (Severe, Verified 12/11/24 13:32) Dry Eye sulfamethoxazole [From Bactrim] Allergy (Mild, Verified 12/11/24 13:32) RASH trimethoprim [From Bactrim] Allergy (Mild, Verified 12/11/24 13:32) RASH Sulfa (Sulfonamide Antibiotics) Allergy (Unknown, Verified 12/11/24 13:32) mild rash HPI HPI f/u ,1 yr.HIV labs: Details: He has been feeling fatigued and is on oxygen, now 2 1/2 liters. He has CD4 count of 890 and viral load 58 on 11/12/2024. He had anal Pap last year ASCUS with HPV 16. He rescheduled colonoscopy. He had visual changes right eye split vision stopped after 2 minutes,declined ER. [facility] Medical History Bone disease Sinusitis Pulmonary nodules Abdominal pain Abnormal chest x-ray HIV (human immunodeficiency virus infection) AYLA treated with BiPAP Hemoptysis HIV (human immunodeficiency virus infection) Chronic respiratory failure COPD (chronic obstructive pulmonary disease) Family History Mother Lung cancer Social History Patient Tobacco Use Status: Never used Tobacco Review of Systems Const All systems reviewed & are unremarkable except as noted in HPI and below Physical Exam Vital Signs: Last Vital Signs Pulse 76 12/11/24 13:21 Pulse Ox 96 12/11/24 13:21 BMI result Body Mass Index 22.0 Const General: cooperative Orientation/consciousness: patient oriented x3 HEENT Head: Yes normal to inspection Mouth: Normal oral and palatal mucosa present Eyes General: appearance normal, both eyes and all related structures Pupils: Equal, round and reactive pupils present Resp Effort & Inspection: normal respiratory effort Cardio Rate: regular rate Rhythm: regular rhythm GI Palpation (GI): Soft to palpation and nontender General: Yes no CVA tenderness Back/Spine/Pelvis Back: no CVA tenderness Skin General skin exam: no rashes or lesions noted Neuro General: patient oriented x3 Cranial nerves: Yes CN's II-XII intact bilaterally and Yes Equal, round and reactive pupils present Extrem General: Yes normal to inspection Psych Appearance: grossly normal Assessment & Plan Assessment & Plan (1) HIV (human immunodeficiency virus infection): Comment: He has slight viral load at 58 and says doesnt miss doses. He had cold then when getting blood. Would continue Delstrigo and recheck viral load at 3 months. See in six months with new PCP. Bone density test ordered. Per Reprieve trial HIV independent risk for CAD and CVD and has hypertension would add statin,atovastatin high intensity, 10 one week and then 20 mg daily. Needs to see Yazmin Li at [facility] for anal Pap with HPV positivity and ASCUS. See us in six months. Code(s): B20 - Human immunodeficiency virus [HIV] disease Category: Medical Plan: na Orders: Orders HIV-1 RNA QN PCR Expanded 3 Months B20 - Human immunodeficiency virus [HIV] disease XR DEXA axial skeleton Today M89.9 - Disorder of bone, unspecified Medications: New atorvastatin 20 mg PO BEDTIME 30 days 30 tabs 11RF Coding Level of Care Code Est Pt Level 4 (80457) Diagnoses HIV (human immunodeficiency virus infection) B20
--- OUTSIDE RECORDS SUMMARY | 2024-12-11 15:47 | XMS_ITS | Encounter Summary ---
Author Name [facility] Organization [facility] [place] Address [address] [place] [address] Care Team Providers Care Head Boys Tennis Coach Name Role Phone TEO SANCHEZ Primary Care Provider Unavailmathew e Insurance Providers: All historical and current Section Date Range: From patient's date of to the date document was created. This section includes the names of all active insurance providers for the patient. Insurance Provider Type of Coverage Plan Name Start of Policy Coverage End of Policy Coverage Group Number Member ID Insurance Provider's Telephone Number Policy Ugarte's Name Patient's Relationship to Policy Ugarte MONICA [employer] [place] FEDERAL PREFERRED PROVIDER ORGANIZAT ION (PPO) BASIC SELF Jun 23, 2013 [id number] ISAURALEVY LLOYD PATIENT BCBS [place] FEP PREFERRED PROVIDER ORGANIZAT ION (PPO) BASIC INDIV IDUAL Jun 23, 2013 [id number] FELIXOLYALEVY LLOYD PATIENT [employer] FEPRX PLAN PRESCRIPT ION CAREM ARK FEPRX Jun 23, 2013 [id number] LEVY COVARRUBIAS PATIENT [employer]-F EP BCBS PRESCRIPT ION FEP [place] ARK Jun 23, 2013 [id number] JANAK MAIERLEVY PATIENT MEDICARE (WNR) MEDICARE (M) PART A Jun 21, 2022 PART A [id number] GARLEVY COLEMAN PATIENT MEDICARE (WNR) MEDICARE (M) PART B Jun 21, 2022 PART B [id number] LEVY COVARRUBIAS PATIENT Selected Encounter This section includes the information on record at VA for the Encounter. Date/Time Encounter Type Encounter Description Reason Pro vider Source IHE Encounter Template Text not used by VA
--- OUTSIDE RECORDS SUMMARY | 2024-12-11 15:47 | XMS_ITS ---
Author Name [facility] Organization [facility] Address [address] [place] [address] Care Team Providers Care Post Acute Care Nurse Name Role Phone ALMA DELIA STALLWORTH Primary Care Provider Unavailabl e Insurance Providers: All historical and current [...] Name Patient's Relationship to Policy Ugarte MONICA [facility] FEDERAL PREFERRED PROVIDER ORGANIZAT ION (PPO) BASIC SELF Jun 23, 2013 [id number] JANAK MAIERLEVY PATIENT BCBS [place] FEP PREFERRED PROVIDER ORGANIZAT ION (PPO) BASIC INDIV IDUAL Jun 23, 2013 [id number] JANAK MAIERLEVY PATIENT [employer] FEPRX PLAN PRESCRIPT ION CAREM ARK FEPRX Jun 23, 2013 [id number] JANAK MAIERLEVY PATIENT [employer]-F EP BCBS PRESCRIPT ION FEP CAREM ARK Jun 23, 2013 [id number] LEVY COVARRUBIAS PATIENT MEDICARE (WNR) MEDICARE (M) PART B Jun 21, 2022 PART B [id number] FELIXGISSELLE LEVY MAIER PATIENT MEDICARE (WNR) MEDICARE (M) PART A Jun 21, 2022 PART A [id number] LEVY COVARRUBIAS PATIENT Selected Encounter This section includes the information on record at [place] for the Encounter. Date/Time Encounter Type Encounter Description Reason Pro vider Source Feb 19, 2024 01:14 PM Outpatient Encounter PRIMARY CARE/MEDICINE IHE Encounter Template Text not used by [place] Plan of Treatment: Future Appointments (+ 6 months) and Future Tests (+/- 45 days) The Plan of Treatment section includes future care activities for the patient from all [place] treatmentfacilities. This section includes future appointments and future orders which are active, pending or scheduled. Future Appointments This section includes appointments that were scheduled to occur 6 months from the date of the Encounter, up to a maximum of 20 appointments. The data comes from all [place] treatment facilities. Appointment Date/Time Appointment Type Appointme nt Facility Name Jun 24, 2024 01:00 PM AMBULATORY - MEDICINE [facility] Social History: Smoking Status (Most current) and Tobacco Use (All prior to encounter date) This section includes the most current, and the historical, smoking and tobacco- related health factors from the VA facility where the Encounter took place. Current Smoking Status This section includes the most current smoking, or tobacco-related health factor, from the [place] facility where the Encounter took place. Date/Time Current Smoking Status Comment [facility]ya Oct 20, 2023 08:21 PM VA-TOBACCO [facility] [place] [facility] Tobacco Use History This section includes a history of the smoking, or tobacco-related health factors, that were collected on or before the date of the Encounter. The data comes from the [place] facility where the Encounter took place. Date/Time Smoking Status/Tobac co Use Comment Facility Oct 20, 2023 08:21 PM VA-TOBACCO QUIT 5 TO < 15 YRS [facility] [place] [facility] Jul 13, 2022 01:00 PM VA-TOBACCO FORMER USER [facility] [place] [facility] Jul 13, 2022 01:00 PM VA-TOBACCO QUIT 5 TO < 15 YRS [facility] [place] [facility] Feb 25, 2021 01:15 PM VA-TOBACCO FORMER USER [facility] [place] [facility] Feb 25, 2021 01:15 PM VA-TOBACCO QUIT 5 TO < 15 YRS [facility] [place] [facility] Nov 27, 2012 03:19 PM V1-PT DECLINES REF TO TOBACCO CESS PRGM [facility] [place] [facility] Nov 27, 2012 03:19 PM V1-PT DECLINES TOBACCO CESSATION MEDS [facility] [place] [facility] Nov 27, 2012 03:19 PM V1-PT NOT INTERESTED IN QUIT TOBACCO USE [facility] [place] [facility] Apr 12, 2012 10:34 AM CURRENT SMOKER [facility] [place] [facility] Apr 12, 2012 10:34 AM V1-PT THINKING ABOUT QUIT TOBACCO USE [facility] [place] [facility] Oct 17, 2011 11:15 AM V1-PT DECLINES REF TO TOBACCO CESS [facility] Oct 17, 2011 11:15 AM V1-PT THINKING ABOUT QUIT TOBACCO USE [facility] [place] [facility] Apr 04, 2011 01:28 PM CURRENT SMOKER [facility] [place] [facility] Apr 04, 2011 01:28 PM V1-PT DECLINES REF TO TOBACCO CESS [facility] [place] [facility] Apr 04, 2011 01:28 PM V1-PT DECLINES TOBACCO CESSATION MEDS [facility] Apr 04, 2011 01:28 PM V1-PT NOT INTERESTED IN QUIT TOBACCO USE [facility] [place] [facility] Mar 01, 2010 01:50 PM CURRENT SMOKER 1/2 ppd [facility] [place] [facility] Mar 01, 2010 01:50 PM V1-PT THINKING ABOUT QUIT TOBACCO USE [facility] [place] [facility] Sep 02, 2008 03:15 PM CURRENT SMOKER 1/2 ppd [facility] [place] [facility] Sep 02, 2008 03:15 PM V1-PT DECLINES REF TO TOBACCO CESS [facility] [place] [facility] Sep 02, 2008 03:15 PM V1-PT READY TO QUIT TOBACCO USE [facility] [place] [facility] Jan 28, 2008 03:59 PM V1-PT DECLINES REF TO TOBACCO CESS [facility] Jan 28, 2008 03:59 PM V1-PT READY TO QUIT TOBACCO USE [facility] Apr 06, 2007 03:19 PM CURRENT SMOKER 1/2 ppd [facility] Apr 06, 2007 03:19 PM V1-PT DECLINES REF TO TOBACCO CESS PRGM [facility] Apr 06, 2007 03:19 PM V1-PT DECLINES TOBACCO CESSATION MEDS [facility] Apr 06, 2007 03:19 PM V1-PT THINKING ABOUT QUIT TOBACCO USE [facility] Jun 02, 2005 01:53 PM CURRENT SMOKER 1 pk [facility] Oct 10, 2003 02:33 PM CURRENT SMOKER smokes 1/2 day [facility] May 28, 2002 03:47 PM CURRENT SMOKER smokes 1/2 pack/day [facility] Nov 29, 2001 10:07 AM CURRENT SMOKER [facility] Encounter Notes: All associated encounter notes This section contains the clinical notes associated to the Encounter. Date/Time Encounter Note(s) Provider Source Feb 19, 2024 01:16 PM ACCOUNTING OF DISC LOSURES NOTE: LOCAL TITLE: STATE PRESCRIPTION DRUG MONITORING PROGRAM STANDARD TITLE: ACCOUNTING OF DISCLOSURES NOTE DATE OF NOTE: FEB 19, 2024@13:16:06 ENTRY DATE: FEB 19, 2024@13:16:06 AUTHOR: ALMA DELIA STALLWORTH EXP COSIGNER: URGENCY: STATUS: COMPLETED This PDMP query was submitted by Alma Delia Stallworth. The clinical justification for this PDMP query is to review controlled substances prescribed outside of the [place], and any additional information that may become available, as an important component of standard clinical care, and in accordance with [facility] policy. Patient information was shared with the PDMP Appriss Rowe. No prescription(s) for controlled substances outside the [facility] were found in the last 90 days. /desean/ ALMA DELIA STALLWORTH D.O. PHYSICIAN Signed: 02/19/2024 13:16 [facility]ALLWORTH [facility]
--- OUTSIDE RECORDS SUMMARY | 2024-12-11 15:47 | XMS_ITS | Patient Health Record ---
Author Organization [facility] Address [address] [place] [phone] Care Team Providers Care Tipple Greaser Name Role Phone Ziyad GOMES, James Primary Care Provider UnavailAntonio Segura Unavailable [phone] Allergies No Known Allergies Reason For Referral [...] MG Oral for 10 A ctive Ipratropium [place] 0.06 % Nasal for 30 Active hydrOXYzine Pamoate 25 MG Oral for 90 Active Azithromycin 250 MG Oral for 90 Active Nystatin 966853 UNIT/ML SWISH AND SWALLO W 1 TEASPOONFUL [...] W/U Status Risk Notes Problem Abnormal feces ([id number]) Positive colorectal cancer screening using Cologuard test (R19.5) Active confirmed Vital Signs Blood pressure diastolic 00 mm Hg 07/16/2024 Height 5 ft 8 in in 07/16/2024 Blood pressure systolic 00 mm Hg 07/16/2024 Weight 139 lbs 07/16/2024 BMI 21.13 kg/m2 07/16/2024 Encounters Encounter Location Date Provider Diagnosis [facility] [address] [place] [phone] 07/16/2024 Antonio Arce Positive colorectal cancer screening using Cologuard test R19.5 [facility] [address] [place] [phone] 08/03/2024 Antonio Arce [facility] [address] [place] [phone] 08/30/2024 Antonio Arce [facility] [address] [place] [phone] 10/14/2024 Antonio Arce Assessments Encounter Date Diagnosis [...] Date MEDICARE OF [place] [address] [place] [address] [id number] LEVY ANDINO Self - patient is the insured [facility] [address] [place], [place] [id number] LEVY ANDINO Self - patient is the insured Medical (General) History Medical History History ICD Code COPD/Emphysema -on oxygen/uses bipap/neb ulizer GERD Hypertension Sleep apnea-Uses BIPAP HIV Kidney stones HTN Negative colonoscopy in 1999 Denies OR,DM,CVA,renal disease Lactose-intolerance with gas and bloatin g Surgical History Surgery Date(Month/Year) Left inguinal hernia with mesh 2012 Right testicle with removal surgery for a torsion with implant [facility]
--- OUTSIDE RECORDS SUMMARY | 2024-12-11 15:47 | XMS_ITS ---
Author Organization [facility] Address [address] [place] [id number] Care Team Providers Care Meat And Seafood Clerk Name Role Phone Ziyad GOMES, James Primary Care Provider Unavailab Antonio Vitale [phone] REASON FOR VISIT cancelled colon on 12-02-2024 Encounters Encounter Location Date Provider Diagnosis [facility] [address] [place] [id number] 10/14/2024 Antonio Arce Plan Of Treatment No Information Progress Notes * LEVY JERNIGANDOB: [birth year] (64 yo M)Acc No.[id number]:10/14/2024 Patient:?LEVY JERNIGAN :1960???Age:64 Y???Sex:Male Address:[address] [place] [id number] * true * Date:? Generated for Cindy victor/Walt/eTransmitting on:?12/11/2024 03:47 PM EDT
--- OUTSIDE RECORDS SUMMARY | 2024-12-11 15:47 | XMS_ITS ---
Author Name [facility] [place] [facility] [place] Address [address] [place] [address] Care Team Providers Care Insole Channeler Name Role Phone TEO SANCHEZ Primary Care Provider Unavailabl e Insurance Providers: [...] Name Patient's Relationship to Policy Ugarte [facility] FEDERAL PREFERRED PROVIDER ORGANIZAT ION (PPO) BASIC SELF Jun 23, 2013 [id number] [phone] ISAURALEVY LLOYD PATIENT BCBS [place] FEP PREFERRED PROVIDER ORGANIZAT ION (PPO) BASIC INDIV IDUAL Jun 23, 2013 [id number] JANAK LEVY MAIER PATIENT [employer] FEPRX PLAN PRESCRIPT ION CAR[place] FEPRX Jun 23, 2013 [id number] [phone] JANAK LEVY MAIER PATIENT [employer]-F EP BCBS PRESCRIPT ION FEP CAREM ARK Jun 23, 2013 [id number] [phone] JANAK MAIERLEVY PATIENT MEDICARE (WNR) MEDICARE (M) PART A Jun 21, 2022 PART A [id number] LEVY COVARRUBIAS PATIENT MEDICARE (WNR) MEDICARE (M) PART B Jun 21, 2022 PART B [id number] LEVY COVARRUBIAS PATIENT Selected Encounter This section includes the information on record at [place] for the Encounter. Date/Time Encounter Type Encounter Description Reason Provider Source Feb 19, 2024 10:30 AM SELF-MGMT EDUC & TRAIN 1 PT RESPIRATORY THERAPY ICD-10-CM J44.9 Chronic obstructive pulmonary disease, unspecified GEMMARAMYABE LAVERNE IHE Encounter Template Text not used by [place] Assessments - Encounter Diagnoses This section includes the primary and secondary diagnoses documented for the Encounter. Date/Time Primary/Secondary Diagnosis Diagnosis Name Provider Source Feb 20, 2024 07:36 AM PRIMARY Chronic obstructive pulmonary disease, unspecified OZZIEIZAIAHRAMYA,BE NEOTania [facility] Plan of Treatment: Future Appointments (+ 6 months) and Future Tests (+/- 45 days) The Plan of Treatment section includes future care activities for the patient from all [place] treatmentfacilities. This section includes future appointments and future orders which are active, pending or scheduled. Future Appointments This section includes appointments that were scheduled to occur 6 months from the date of the Encounter, up to a maximum of 20 appointments. The data comes from all [place] treatment facilities. Appointment Date/Time Appointment Type Appointme nt Facility Name Jun 24, 2024 01:00 PM AMBULATORY - MEDICINE [facility] Social History: Smoking Status (Most current) and Tobacco Use (All prior to encounter date) This section includes the most current, and the historical, smoking and tobacco- related health factors from the [place] facility where the Encounter took place. Current Smoking Status This section includes the most current smoking, or tobacco-related health factor, from the [place] facility where the Encounter took place. Date/Time Current Smoking Status Comment Facil it Oct 20, 2023 08:21 PM VA-TOBACCO FORMER USER [facility] Tobacco Use History This section includes a history of the smoking, or tobacco-related health factors, that were collected on or before the date of the Encounter. The data comes from the [place] facility where the Encounter took place. Date/Time Smoking Status/Tobac co Use Comment Facility Oct 20, 2023 08:21 PM VA-TOBACCO QUIT 5 TO < 15 YRS [facility] [place] [facility] Jul 13, 2022 01:00 PM VA-TOBACCO FORMER USER [facility] [place] [facility] Jul 13, 2022 01:00 PM VA-TOBACCO QUIT 5 TO < 15 YRS [facility] [place] [facility] Feb 25, 2021 01:15 PM VA-TOBACCO FORMER USER [facility] [place] [facility] Feb 25, 2021 01:15 PM VA-TOBACCO QUIT 5 TO < 15 YRS [facility] [place] [facility] Nov 27, 2012 03:19 PM V1-PT DECLINES REF TO TOBACCO CESS PRGM [facility] [place] [facility] Nov 27, 2012 03:19 PM V1-PT DECLINES TOBACCO CESSATION MEDS IN [facility] [place] [facility] Nov 27, 2012 03:19 PM V1-PT NOT INTERESTED IN QUIT TOBACCO USE [facility] [place] [facility] Apr 12, 2012 10:34 AM CURRENT SMOKER [facility] [place] [facility] Apr 12, 2012 10:34 AM V1-PT THINKING ABOUT QUIT TOBACCO USE [facility] [place] [facility] Oct 17, 2011 11:15 AM V1-PT DECLINES REF [facility]AC[facility]ESS [facility] [place] [facility] Oct 17, 2011 11:15 AM V1-PT THINKING ABOUT QUIT [facility]AC[facility] [place] [facility] Apr 04, 2011 01:28 PM CURRENT SMOKER [facility] [place] [facility] Apr 04, 2011 01:28 PM V1-PT DECLINES REF TO TOBACCO CESS PRGM [facility] [place] [facility] Apr 04, 2011 01:28 PM V1-PT DECLINES TOBACCO CESSATION MEDS [facility] [place] [facility] Apr 04, 2011 01:28 PM V1-PT NOT INTERESTED IN QUIT TOBACCO USE [facility] [place] [facility] Mar 01, 2010 01:50 PM CURRENT SMOKER 1/2 ppd [facility] [place] [facility] Mar 01, 2010 01:50 PM V1-PT THINKING ABOUT QUIT TOBACCO USE [facility] [place] [facility] Sep 02, 2008 03:15 PM CURRENT SMOKER 1/2 ppd [facility] Sep 02, 2008 03:15 PM V1-PT DECLINES REF [facility]ACCO [facility]ESS [facility] Sep 02, 2008 03:15 PM V1-PT READY TO QUIT TOBACCO USE [facility] Jan 28, 2008 03:59 PM V1-PT DECLINES REF TO TOBACCO CESS PR[facility] Jan 28, 2008 03:59 PM V1-PT READY TO QUIT TOBACCO USE [facility] Apr 06, 2007 03:19 PM CURRENT SMOKER 1/2 ppd [facility] Apr 06, 2007 03:19 PM V1-PT DECLINES REF TO TOBACCO CESS PRGM [facility] Apr 06, 2007 03:19 PM V1-PT DECLINES TOBACCO CESSATION MEDS [facility] Apr 06, 2007 03:19 PM V1-PT THINKING ABOUT QUIT TOBACCO USE [facility] Jun 02, 2005 01:53 PM CURRENT SMOKER 1 pk [facility] Oct 10, 2003 02:33 PM CURRENT SMOKER smokes 1/2 day [facility] May 28, 2002 03:47 PM CURRENT SMOKER smokes 1/2 pack/day [facility] Nov 29, 2001 10:07 AM CURRENT SMOKER [facility] Encounter Notes: All associated encounter notes This section contains the clinical notes associated to the Encounter. Date/Time Encounter Note(s) Provider Source Feb 19, 2024 11:00 AM RESPIRATORY THERAP Y NOTE: LOCAL TITLE: RESPIRATORY THERAPY NOTE(BLANK) STANDARD TITLE: RESPIRATORY THERAPY NOTE DATE OF NOTE: FEB 19, 2024@11:00 ENTRY DATE: FEB 19, 2024@11:00:10 AUTHOR: KAITLIN YODER COSIGNER: URGENCY: STATUS: COMPLETED with COPD was seen in oxygen clinic to be issued with his new [employer] Eclipse portable oxygen concentrator (POC). He was issued two batteries in clinic. We discussed the specs of the POC, including the weight of the machine with and without batteries. Stamps understands that the POC will be his primary source for portable oxygen. He forgot to bring in the power supplies and we [facility] Vet was given contact information for this clinic and will call with any questions or concerns. /desean/ KAITLIN YODER BA, RAIL SIGNAL MECHANIC, RPFT RESPIRATORY THERAPIST Signed: 02/20/2024 07:37 KAITLIN YODER [facility]
--- OUTSIDE RECORDS SUMMARY | 2024-12-11 15:48 | XMS_ITS | Continuity of Care Document ---
Author Name [facility] Organization [facility] Care Team Providers Care Geography Head Name Role Phone [facility] Unavailable Unavailable Problems Combined list of problems from Department of Defense and Veterans Affairs facilities. It does not include entries that were removed or entered in error. Problem Status Onset Date Problem Type Date of Resolution Comments Source Pneumonia Inactive 07/30/20 17 Condition 01/05/2022 Aug 03, 2017 Entered By: YUKI NEVILLE Comment: [facility]. Admission Jul 2017. COPD/Pneumo arielle. D/c with Home O2 to use with acitivity [facility] Allergic rhinitis Active Condition 2002 Entered By: MADHU UGALDE Comment: on zyrtec [facility] Chronic obstructive lung disease (SNOMED CT [id number]) Active Condition Jul 24, 2015 Entered By: JENNIFER KWON Comment: PFTs 02/02 FVC 54%, FEV1 29%, FEF 25-75 9%, TLC 90%Jul 24, 2015 Entered By: JENNIFER KWON Comment: DLCO 34% [facility] Depression Active Condition [place] Erectile dysfunction Active Condition [place] Exposure to potentially hazardous substance Active Condition Jul 24, 2022 Entered By: KELSIE MARTINEZ Comment: [facility] (6[facility]) Gastroesophageal reflux disease Active [...] 4mg - at least 6 a day [place] Obstructive sleep apnea of adult [facility] 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 Condition January 05, 2022 Entered By: ALLI NOE Comment: Quit 2014 - 40 pack yr history [facility] Dyspepsia and other specified disorders of function of stomach Inactive Condition 01/05/2022 Jan 22, 2003 Entered By: MADHU UGALDE JAWED Comment: stable on buspirone [facility] Diagnosis: ICD-10-CM I10 Essential (primary) hypertension Active Diagnosis [facility] [...] Obstructive sleep apnea (adult) (pediatric) Active Diagnosis [place] Diagnosis: ICD-10-CM J44.9 Chronic obstructive pulmonary disease, [...] NEEDED RESPIR ATORY (INHAL ATION) ACTIVE 08/20/2025 [id number] 5 FURCOLO,T CARLOS 2023 1 [facility] ALBUTEROL 90MCG/ACTUA T (CFC-F) INHL,ORAL,8 .5GM DOSE COUNTER INHALE 2 PUFFS BY MOUTH EVERY 6 HOURS NEEDED RESPIR ATORY (INHAL ATION) DISCONT INUED 08/03/2024 [id number] 4 [facility] 2022 1 [facility] AMLODIPINE BESYLATE 5MG TAB TAKE ONE TABLET BY MOUTH TWICE DAILY FOR BLOOD PRESSURE /HEART, DO NOT TAKE WITH GRAPEFRU IT JUICE ORAL ACTIVE 06/29/2025 [id number] 5 FURCOLO,T CARLOS 2023 180 [facility] AMLODIPINE BESYLATE 5MG TAB TAKE ONE TABLET BY MOUTH TWICE DAILY FOR BLOOD PRESSURE /HEART, DO NOT TAKE WITH GRAPEFRU IT JUICE ORAL DISCONT INUED 07/03/2024 [id number] 4 [facility] JAWED 2022 180 [facility] AMOXICILLIN TRIHYDRATE 875MG/CLAVU LANATE K 125MG TAB TAKE 1 TABLET BY MOUTH TWICE DAILY FOR INFECTIO N ORAL DISCONT INUED 02/11/2024 [id number] 4 FURCOLO,T CARLOS 2023 20 [facility] AMOXICILLIN TRIHYDRATE 875MG/CLAVU LANATE K 125MG TAB TAKE 1 TABLET BY MOUTH TWICE DAILY FOR INFECTIO N ORAL DISCONT INUED 01/10/2024 [id number] 4 FURCOLO,T CARLOS 2023 20 [facility] AMOXICILLIN TRIHYDRATE 875MG/CLAVU LANATE K 125MG TAB TAKE 1 TABLET BY MOUTH TWICE DAILY FOR INFECTIO N ORAL 03/15/2024 [id number] 4 FURCOLO,T CARLOS 2023 20 [facility] ARFORMOTERO L TARTRATE 7.5MCG/ML SOLN,INHL,2 ML INHALE 1 AMPULE VIA UPDRAFT EVERY 12 HOURS UPDRAF T ACTIVE 08/20/2025 [id number] 5 FURCOLO,T CARLOS 2024 120 [facility] ARFORMOTERO L TARTRATE 7.5MCG/ML SOLN,INHL,2 ML INHALE 1 AMPULE VIA UPDRAFT EVERY 12 HOURS UPDRAF T DISCONT INUED 08/03/2024 [id number] 4 [facility] JAW[facility] 2022 120 [facility] AZITHROMYCI N 250MG TAB TAKE TWO TABLETS BY MOUTH THREE TIMES A WEEK ORAL SUSPEND ED 11/29/2025 [id number] 5 FURCOLO,T CARLOS 2024 78 [facility] AZITHROMYCI N 250MG TAB TAKE TWO TABLETS BY MOUTH THREE TIMES A WEEK ORAL DISCONT INUED 06/29/2025 [id number] 5 FURCOLO,T CARLOS 2024 78 [facility] AZITHROMYCI N 250MG TAB TAKE TWO TABLETS BY MOUTH THREE TIMES A WEEK ORAL DISCONT INUED 09/06/2024 [id number] 4 [facility] JAW[facility] 2023 78 [facility] BISACODYL 5MG TAB,EC TAKE TWO TABLETS BY MOUTH TWICE DAILY FOR BOWELS - LAXATIVE TAKE AT 3 PM AND 7 PM FOR 1 DAY PRIOR TO GI PROCEDUR ECastro BONNER ORAL 10/06/2024 [id number] FURCOLO,T CARLOS 2024 4 [facility] BUDESONIDE 0.5MG/2ML SUSP,INH,2M L 1 VIAL VIA NEBULIZE R EVERY 12 HOURS NEBULI ZER SUSPEND ED 11/27/2025 [id number] 5 FURCOLO,T CARLOS 2024 180 [facility] BUDESONIDE 0.5MG/2ML SUSP,INH,2M L 1 VIAL VIA NEBULIZE R EVERY 12 HOURS NEBULI ZER DISCONT INUED 12/11/2024 [id number] 5 FURCOLO,T CARLOS 2023 180 [facility] BUDESONIDE 0.5MG/2ML SUSP,INH,2M L 1 VIAL VIA NEBULIZE R EVERY 12 HOURS NEBULI ZER DISCONT INUED 09/11/2024 [id number] 4 [facility]23 60 [facility] BUSPIRONE HCL 5MG TAB TAKE ONE TABLET BY MOUTH EVERY 8 HOURS NEEDED ORAL ACTIVE 08/20/2025 [id number] 5 FURCOLO,T CARLOS 2023 180 [facility] BUSPIRONE HCL 5MG TAB TAKE ONE TABLET BY MOUTH EVERY 8 HOURS NEEDED ORAL DISCONT INUED 08/03/2024 [id number] 4 [facility] JAW[facility] 2022 180 [facility] CARBOXYMETH YLCELLULOSE NA 0.5% SOLN,OPH INSTILL 1 DROP INTO EACH EYE FOUR TIMES A DAY FOR DRY EYE OPHTHA LMIC 06/13/2024 [id number] IVAN MOHAN 2022 15 [facility] CETIRIZINE HCL 10MG TAB TAKE ONE TABLET BY MOUTH ONCE DAILY NEEDED FOR ALLERGIE S ORAL 04/06/2024 [id number] 4 [facility] 2022 90 [facility] DORAVIRINE 100MG/LAMIV UDINE 300MG/TENOF OVIR DF 300MG TAB TAKE 1 TABLET BY MOUTH ONCE DAILY FOR INFECTIO N ORAL SUSPEND ED 11/29/2025 [id number] 5 FURCOLO,T CARLOS 2024 90 [facility] DORAVIRINE 100MG/LAMIV UDINE 300MG/TENOF OVIR DF 300MG TAB TAKE 1 TABLET BY MOUTH ONCE DAILY FOR INFECTIO N ORAL DISCONT INUED 12/22/2024 [id number] 5 FURCOLO,T CARLOS 2023 90 [facility] DORAVIRINE 100MG/LAMIV UDINE 300MG/TENOF OVIR DF 300MG TAB TAKE 1 TABLET BY MOUTH ONCE DAILY FOR INFECTIO N ORAL DISCONT INUED 02/06/2024 [id number] 4 SUREKHA LUNA 2023 90 [facility] DORAVIRINE 100MG/LAMIV UDINE 300MG/TENOF OVIR DF 300MG TAB TAKE 1 TABLET BY MOUTH ONCE DAILY FOR INFECTIO N ORAL DISCONT INUED 12/22/2023 [id number] [facility] 2022 90 [facility] GABAPENTIN 300MG CAP TAKE ONE CAPSULE BY MOUTH AT BEDTIME ORAL 04/06/2024 [id number] 4 [facility] 2022 90 [facility] HYDROXYZINE PAMOATE 25MG CAP TAKE ONE CAPSULE BY MOUTH EVERY 12 HOURS NEEDED FOR ANXIETY ORAL ACTIVE 06/29/2025 [id number] 5 FURCOLO,T CARLOS 2023 180 [facility] HYDROXYZINE PAMOATE 25MG CAP TAKE ONE CAPSULE BY MOUTH EVERY 12 HOURS NEEDED FOR ANXIETY ORAL DISCONT INUED 04/06/2024 [id number] 4 [facility] 2022 180 [facility] IPRATROPIUM BR 0.06% SOLN,SPRAY, NASAL INSTILL 2 SPRAYS INTO EACH NOSTRIL EVERY 12 HOURS NEEDED FOR CONGESTI ON NASAL ACTIVE 08/20/2025 [id number] 5 FURCOLO,T CARLOS 2023 30 [facility] IPRATROPIUM BR 0.06% SOLN,SPRAY, NASAL INSTILL 2 SPRAYS INTO EACH NOSTRIL EVERY 12 HOURS NEEDED FOR CONGESTI ON NASAL DISCONT INUED 08/07/2024 [id number] 4 [facility] 2022 30 [facility] LORAZEPAM 0.5MG TAB TAKE ONE TABLET BY MOUTH ONCE DAILY ORAL ACTIVE LINSEY SOARES 2022 [facility] METOPROLOL TARTRATE 25MG TAB TAKE ONE TABLET BY MOUTH TWICE DAILY FOR BLOOD PRESSURE /HEART ORAL SUSPEND ED 11/27/2025 [id number] 5 FURCOLO,T CARLOS 2024 180 [facility] METOPROLOL TARTRATE 25MG TAB TAKE ONE TABLET BY MOUTH TWICE DAILY FOR BLOOD PRESSURE /HEART ORAL DISCONT INUED 12/22/2024 [id number] 5 FURCOLO,T CARLOS 2023 180 [facility] METOPROLOL TARTRATE 25MG TAB TAKE ONE TABLET BY MOUTH TWICE DAILY FOR BLOOD PRESSURE /HEART ORAL DISCONT INUED 02/06/2024 [id number] SUREKHA LUNA [address] METOPROLOL TARTRATE 25MG TAB TAKE ONE TABLET BY MOUTH TWICE DAILY FOR BLOOD PRESSURE /HEART ORAL DISCONT INUED 01/31/2024 [id number] 4 [facility] 2022 180 [place] [place] OMEPRAZOLE 20MG CAP,EC TAKE ONE CAPSULE BY MOUTH EVERY MORNING 30 MINUTES BEFORE BREAKFAS T ORAL 04/06/2024 [id number] 4 [facility] 2022 90 [facility] ONDANSETRON HCL 4MG TAB TAKE ONE TABLET BY MOUTH EVERY MORNING FOR NAUSEA AND VOMITING ORAL SUSPEND ED 11/27/2025 [id number] 5 FURCOLO,T CARLOS 2024 30 [facility] ONDANSETRON HCL 4MG TAB TAKE ONE TABLET BY MOUTH EVERY MORNING FOR NAUSEA AND VOMITING ORAL DISCONT INUED 01/12/2025 [id number] 5 FURCOLO,T CARLOS 2023 30 [facility] ONDANSETRON HCL 4MG TAB TAKE ONE TABLET BY MOUTH EVERY MORNING FOR NAUSEA AND VOMITING ORAL DISCONT INUED 01/10/2024 [id number] 4 FURCOLO,T CARLOS 2023 30 [facility] ONDANSETRON HCL 4MG TAB TAKE ONE TABLET BY MOUTH EVERY MORNING FOR NAUSEA AND VOMITING ORAL DISCONT INUED 12/08/2023 [id number] 4 SUREKHA LUNA 2023 30 [facility] ONDANSETRON HCL 4MG TAB TAKE ONE TABLET BY MOUTH EVERY MORNING FOR NAUSEA AND VOMITING ORAL DISCONT INUED 04/06/2024 [id number] MARICHUY UGALDE JAWED 2022 30 [facility] OXYGEN MISCELLANEO US USE DIRECTED NOT APPLIC ABLE ACTIVE RUEL KWON 2016 [facility] POLYETHYLEN E GLYCOL 3350 PWDR,ORAL TAKE 17 GRAMS(FI LL CAP TO 17GM LINE) BY MOUTH ONCE DAILY FOR EMPTYING OF THE BOWEL [MIX WITH 4 TO 8OZ. OF BEVERAGE ] ONE 238 GM BOTTLE MIXED WITH GATORADE , BEGIN AT 5 PM THE DAY BEFORE THE PROCEDUR ECastro BONNER [MIX WITH 4 TO 8OZ. OF BEVERAGE ] ONE 238 GM BOTTLE MIXED WITH GATORADE , BEGIN AT 5 PM THE DAY BEFORE THE PROCEDUR ECastro BONNER ORAL 12/05/2024 [id number] FURCOLO,T CARLOS 2024 238 [facility] PREDNISONE 10MG TAB TAKE ONE TABLET BY MOUTH ONCE DAILY NEEDED FOR ASTHMA ORAL DISCONT INUED 08/27/2024 [id number] 4 FURCOLO,T CARLOS 2023 60 [facility] PREDNISONE 10MG TAB TAKE ONE TABLET BY MOUTH ONCE DAILY NEEDED FOR ASTHMA ORAL DISCONT INUED 04/14/2024 [id number] 4 FURCOLOT CARLOS 2023 60 [facility] PREDNISONE 10MG TAB TAKE ONE TABLET BY MOUTH ONCE DAILY NEEDED FOR ASTHMA ORAL DISCONT INUED 03/12/2024 [id number] 4 DANIELT CARLOS 2023 60 [facility] PREDNISONE 10MG TAB TAKE ONE TABLET BY MOUTH ONCE DAILY NEEDED FOR ASTHMA ORAL DISCONT INUED 02/09/2024 [id number] 4 FURMARISA,T CARLOS 2023 60 [facility] PREDNISONE 10MG TAB TAKE ONE TABLET BY MOUTH ONCE DAILY NEEDED FOR ASTHMA ORAL DISCONT INUED 11/10/2023 [id number] 4 MARICHUY UGALDE JAWED 2023 60 [facility] PREDNISONE 10MG TAB TAKE ONE TABLET BY MOUTH ONCE DAILY NEEDED FOR ASTHMA ORAL DISCONT INUED 11/05/2023 [id number] 4 MARICHUY UGALDE JAWED 2023 60 [facility] PREDNISONE 10MG TAB TAKE ONE TABLET BY MOUTH ONCE DAILY NEEDED FOR ASTHMA ORAL 10/18/2024 [id number] 4 FURMARISAT CARLOS 2023 60 [facility] PREDNISONE 10MG TAB TAKE ONE TABLET BY MOUTH PRN ORAL ACTIVE MONIK NOE SA 2021 [facility] TESTOSTERON E 1.62% 20.25MG/PUM P GEL,TOP APPLY 2 PUMPS (40.5 MG) TOPICALL Y ONCE DAILY TOPICA L ACTIVE 12/29/2024 [id number] 5 FURCOLO,T CARLOS 2023 1 [facility] TESTOSTERON E 1.62% 20.25MG/PUM P GEL,TOP APPLY 2 PUMPS (40.5 MG) TOPICALL Y ONCE DAILY TOPICA L DISCONT INUED 08/21/2024 [id number] FURCOLO,T CARLOS 2023 1 [facility] TESTOSTERON E 1.62% 20.25MG/PUM P GEL,TOP APPLY 2 PUMPS (40.5 MG) TOPICALL Y ONCE DAILY TOPICA L 02/03/2024 [id number] 4 MARICHUY UGALDE AMMED JAWED 2022 1 [facility] THEOPHYLLIN E 400MG 24HR TAB,SA TAKE ONE TABLET BY MOUTH ONCE DAILY ORAL SUSPEND ED 06/29/2025 [id number] 5 FURCOLO,T CARLOS 2024 90 [facility] THEOPHYLLIN E 400MG 24HR TAB,SA TAKE ONE TABLET BY MOUTH ONCE DAILY ORAL DISCONT INUED 09/06/2024 [id number] 4 [facility] 2023 90 [facility] TIOTROPIUM 2.5MCG/ACTU AT INHL,ORAL,6 0D,4GM INHALE 2 PUFFS BY MOUTH ONCE DAILY -CONTROL LER MEDICATI ON FOR ASTHMA RESPIR ATORY (INHAL ATION) ACTIVE 11/27/2025 [id number] 5 FURCOLO,T ACRLOS 2024 3 [facility] TIOTROPIUM 2.5MCG/ACTU AT INHL,ORAL,6 0D,4GM INHALE 2 PUFFS BY MOUTH ONCE DAILY -CONTROL LER MEDICATI ON FOR ASTHMA RESPIR ATORY (INHAL ATION) DISCONT INUED 12/11/2024 [id number] 5 Rasheed SANCHEZ 2023 3 [facility] TIOTROPIUM 2.5MCG/ACTU AT INHL,ORAL,6 0D,4GM INHALE 2 PUFFS BY MOUTH ONCE DAILY FOR CONTROLL ER MEDICATI ON FOR ASTHMA RESPIR ATORY (INHAL ATION) DISCONT INUED 02/06/2024 [id number] 4 SUREKHA LUNA 2023 3 [facility] TIOTROPIUM 2.5MCG/ACTU AT INHL,ORAL,6 0D,4GM INHALE 2 PUFFS BY MOUTH ONCE DAILY FOR CONTROLL ER MEDICATI ON FOR ASTHMA RESPIR ATORY (INHAL ATION) DISCONT INUED 01/15/2024 [id number] [facility] 2023 3 [facility] TIOTROPIUM 2.5MCG/ACTU AT INHL,ORAL,6 0D,4GM INHALE 2 PUFFS BY MOUTH ONCE DAILY FOR CONTROLL ER MEDICATI ON FOR ASTHMA RESPIR ATORY (INHAL ATION) DISCONT INUED 12/05/2023 [id number] 4 [facility] JAW[facility] 2023 3 [facility] TIOTROPIUM 2.5MCG/ACTU AT INHL,ORAL,6 0D,4GM INHALE 2 PUFFS BY MOUTH ONCE DAILY FOR CONTROLL ER MEDICATI ON FOR ASTHMA RESPIR ATORY (INHAL ATION) DISCONT INUED 11/02/2023 [id number] 4 [facility] 2023 3 [facility] [place] [facility] Allergies, Adverse Reactions, Alerts Combined list of allergies from Department of Defense and Veterans Affairs facilities. It does not include entries that were removed or entered in error. Substance Category Reaction Severity Reaction type Status Date Reported Comments Source BACTRIM Propensity to adverse reactions to drug (finding) active 3 [facility] [place] [facility] Immunizations Combined list of available immunizations from the Department of Defense and Veterans Affairs facilities. Immunization Series Date Given Administered By Site Reaction Lot Number CVX Code Drug Rn Gyn Status Comments Source INFLUENZA, UNSPECIFIED FORMULATION 2023 88 complet ed Completed Series, HISTORICA L INFORMATI ON - [facility]ALL[facility] [place] RSV, BIVALENT, PROTEIN SUBUNIT RSVPREF, DILUENT RECONSTITUTED , 0.5 ML, PF 2023 305 complet ed Completed Series, HISTORICA L INFORMATI ON - [facility] OTHER REGISTRY, [facility] [place] [facility] [facility] INFLUENZA, UNSPECIFIED FORMULATION 2022 88 complet ed HISTORICA L INFORMATI ON - FROM OTHER REGISTRY, [facility] [place] [facility] INFLUENZA, UNSPECIFIED FORMULATION 2021 88 complet ed [facility] COVID-19 (MODERNA), MRNA, LNP-S, BIVALENT BOOSTER, PF, 50 MCG/0.5 ML OR 25MCG/0.25 ML DOSE 1 2021 229 complet ed [facility] [place] COVID-19 ([place]ER[place]), MRNA, LNP-S, PF, 100 MCG/0.5ML DOSE OR 50 MCG/0.25ML DOSE 3 2021 207 complet ed [facility] [place] COVID-19 ([place]ER[place]), MRNA, LNP-S, PF, 100 MCG/0.5ML DOSE OR 50 MCG/0.25ML DOSE 3 2020 207 complet ed [facility] COVID-19 (MODERNA), MRNA, LNP-S, PF, 100 MCG/0.5ML DOSE OR 50 MCG/0.25ML DOSE 2 2020 207 complet ed [facility] COVID-19 (MODERNA), MRNA, LNP-S, PF, 100 MCG/0.5ML DOSE OR 50 MCG/0.25ML DOSE 1 2020 207 complet ed [facility] [place] PNEUMOCOCCAL POLYSACCHARID E PPV23 2019 33 complet ed [facility] [place] ZOSTER RECOMBINANT 1 2019 [...] (HISTORICAL) 2016 88 complet ed [place] [facility] FLU,3 [...] Reference Range Date Interpretation Specimen Comments Source PSA PROSTATE SPECIFIC AG [MASS/VOLUM E] IN SERUM OR PLASMA BY IMMUNOASSAY 2.1 ng/mL 0.0 - 4.0 12/10 Specimen Type: SERUM No comment entered. Ordering Provider: ZECHARIAH SANCHEZ Report Released Date/Time: Nov 29, 2024 11:36 AM Reporting Lab: [facility] [address] [facility] [address] Performing Lab: [facility] [address] [address] [facility] TOTAL TESTOSTER ONE TESTOSTERON E [MASS/VOLUM E] IN SERUM OR PLASMA 569.99 ng/dL 221 - 716 12/10 Specimen Type: SERUM No comment entered. Ordering Provider: ZECHARIAH SANCHEZ Report Released Date/Time: Nov 29, 2024 11:36 AM Reporting Lab: [facility] [address] [address] Performing Lab: [facility] [address] [address] [facility] TESTOSTER ONE, TOTAL ([facility]) TESTOSTERON E [MASS/VOLUM E] IN SERUM OR PLASMA 745.65 ng/dL 220.00 - 892.00 12/07 Specimen Type: SERUM No comment entered. Ordering Provider: ZECHARIAH SANCHEZ Report Released Date/Time: Oct 20, 2023 06:52 PM Reporting Lab: [address] [address] Performing Lab: [facility] [address] [facility] PSA PROSTATE SPECIFIC AG [MASS/VOLUM E] IN SERUM OR PLASMA 2.31 ng/mL 0.00 - 4.00 12/07 Specimen Type: SERUM No comment entered. Ordering Provider: ZECHARIAH SANCHEZ Report Released Date/Time: Oct 20, 2023 06:52 PM Reporting Lab: [address] [address] Performing Lab: [address] [address] [facility] [place] [facility] LIPID PANEL FASTING CHOLESTEROL [MASS/VOLUM E] IN SERUM OR PLASMA 242 mg/dL 12/07 H Specimen Type: SERUM No comment entered. Ordering Provider: ZECHARIAH SANCHEZ Report Released Date/Time: Oct 20, 2023 06:52 PM Reporting Lab: [facility] [place] [address] [address] Performing Lab: [facility] [place] [address] [address] [facility] [place] [facility] LIPID PANEL FASTING TRIGLYCERID E [MASS/VOLUM E] IN SERUM OR PLASMA 201 mg/dL 0 - 150 12/07 H Specimen Type: SERUM No comment entered. Ordering Provider: ZECHARIAH SANCHEZ Report Released Date/Time: Oct 20, 2023 06:52 PM Reporting Lab: [facility] [address] [address] Performing Lab: [facility] [address] [address] [facility] [place] LIPID PANEL FASTING CHOLESTEROL IN LDL [MASS/VOLUM E] IN SERUM OR PLASMA BY CALCULATION 150 mg/dL 0 - 129 12/07 H Specimen Type: SERUM No comment entered. Ordering Provider: ZECHARIAH SANCHEZ Report Released Date/Time: Oct 20, 2023 06:52 PM Reporting Lab: [facility] [place] [address] [address] Performing Lab: [facility] [address] [facility] [place] [address] [address] [facility] [place] [facility] LIPID PANEL FASTING CHOLESTEROL .TOTAL/CHOL ESTEROL IN HDL [MASS RATIO] IN SERUM OR PLASMA 4.7 12/07 Specimen Type: SERUM No comment entered. Ordering Provider: ZECHARIAH SANCHEZ Report Released Date/Time: Oct 20, 2023 06:52 PM Reporting Lab: [facility] [address] Performing Lab: [facility] [address] [place] [place] [address] [facility] [place] [facility] LIPID PANEL FASTING CHOLESTEROL IN HDL [MASS/VOLUM E] IN SERUM OR PLASMA 52 mg/dL 40 - 60 12/07 Specimen Type: SERUM No comment entered. Ordering Provider: ZECHARIAH SANCHEZ Report Released Date/Time: Oct 20, 2023 06:52 PM Reporting Lab: [facility] [place] [facility] [address] [address] Performing Lab: [place] [facility] [facility] [address] [address] [facility] LIVER FUNCTION PROTEIN [MASS/VOLUM E] IN SERUM OR PLASMA 7.5 g/dL 6.0 - 8.3 12/07 Specimen Type: SERUM No comment entered. Ordering Provider: ZECHARIAH SANCHEZ Report Released Date/Time: Oct 20, 2023 06:52 PM Reporting Lab: [facility] [place] [facility] [address] [address] Performing Lab: [facility] [place] [address] [address] [facility] TRN [facility] LIVER FUNCTION ALBUMIN [MASS/VOLUM E] IN SERUM OR PLASMA 3.8 g/dL 3.5 - 5.0 12/07 Specimen Type: SERUM No comment entered. Ordering Provider: ZECHARIAH SANCHEZ Report Released Date/Time: Oct 20, 2023 06:52 PM Reporting Lab: [facility] [place] [address] [address] Performing Lab: [place] [facility] [address] [address] [facility] [place] [facility] LIVER FUNCTION ALKALINE PHOSPHATASE [ENZYMATIC ACTIVITY/VO LUME] IN SERUM OR PLASMA 156 U/L 40 - 150 12/07 H Specimen Type: SERUM No comment entered. Ordering Provider: ZECHARIAH SANCHEZ Report Released Date/Time: Oct 20, 2023 06:52 PM Reporting Lab: [facility] [place] [address] [address] Performing Lab: [facility] [place] [facility] [address] [address] [place] [facility] [place] [facility] LIVER FUNCTION ASPARTATE AMINOTRANSF ERASE [ENZYMATIC ACTIVITY/VO LUME] IN SERUM OR PLASMA 18 U/L 5 - 34 12/07 Specimen Type: SERUM No comment entered. Ordering Provider: ZECHARIAH SANCHEZ Report Released Date/Time: Oct 20, 2023 06:52 PM Reporting Lab: [facility] [place] [facility] [address] [address] Performing Lab: [facility] [place] [facility] [address] [address] [place] [facility] [place] [facility] LIVER FUNCTION ALANINE AMINOTRANSF ERASE [ENZYMATIC ACTIVITY/VO LUME] IN SERUM OR PLASMA 18 U/L 12/07 Specimen Type: SERUM No comment entered. Ordering Provider: ZECHARIAH SANCHEZ Report Released Date/Time: Oct 20, 2023 06:52 PM Reporting Lab: [facility] [place] [place] [address] [address] Performing Lab: [facility] [place] [address] [address] [facility] [place] [facility] LIVER FUNCTION BILIRUBIN.T OTAL [MASS/VOLUM E] IN SERUM OR PLASMA 0.3 mg/dL 0.2 - 1.2 12/07 Specimen Type: SERUM No comment entered. Ordering Provider: ZECHARIAH SANCHEZ Report Released Date/Time: Oct 20, 2023 06:52 PM Reporting Lab: [facility] [place] [address] [address] Performing Lab: [facility] [place] [address] [address] [facility] [place] [facility] BASIC METABOLIC PANEL (fasting) UREA NITROGEN [MASS/VOLUM E] IN SERUM OR PLASMA 17 mg/dL 7 - 25 12/07 Specimen Type: SERUM No comment entered. Ordering Provider: ZECHARIAH SANCHEZ Report Released Date/Time: Oct 20, 2023 06:52 PM Reporting Lab: [facility] [place] [facility] [address] [facility] [address] [address] Per[address] Lab: [facility] [address]ITALRST[facility] [address] [address] [facility]ITALUSE [facility] BASIC METABOLIC PANEL (fasting) GLUCOSE [MASS/VOLUM E] IN SERUM OR PLASMA 89 mg/dL 65 - 100 12/07 Specimen Type: SERUM No comment entered. Ordering Provider: ZECHARIAH SANCHEZ Report Released Date/Time: Oct 20, 2023 06:52 PM Reporting Lab: [facility]ITALUSE[facility] [address] [address] Performing Lab: [facility]ITALUSE[facility] [address] [address] [facility] BASIC METABOLIC PANEL (fasting) SODIUM [MOLES/VOLU ME] IN SERUM OR PLASMA 142 mmol/L 135 - 145 12/07 Specimen Type: SERUM No comment entered. Ordering Provider: ZECHARIAH SANCHEZ Report Released Date/Time: Oct 20, 2023 06:52 PM Reporting Lab: [facility]ITALUSEUN[facility] [address] [address] Performing Lab: [facility] [address] [facility]OSPITALRST[facility]TR[facility]OSPITALUSE[address] [address] [facility] BASIC METABOLIC PANEL (fasting) POTASSIUM [MOLES/VOLU ME] IN SERUM OR PLASMA 3.8 mmol/L 3.5 - 5.0 12/07 Specimen Type: SERUM No comment entered. Ordering Provider: ZECHARIAH SANCHEZ Report Released Date/Time: Oct 20, 2023 06:52 PM Reporting Lab: [facility]ITALUSEUN[facility] [address] [address] Performing Lab: [facility] [address]OSPITALRST[facility]ASTTRN [facility]OSPITALUSE[address] [address] [facility] BASIC METABOLIC PANEL (fasting) CHLORIDE [MOLES/VOLU ME] IN SERUM OR PLASMA 105 mmol/L 100 - 110 12/07 Specimen Type: SERUM No comment entered. Ordering Provider: ZECHARIAH SANCHEZ Report Released Date/Time: Oct 20, 2023 06:52 PM Reporting Lab: [facility] [place] [facility] [address] [address] Performing Lab: [facility] [place] [facility] [address] [facility] [address] [facility] HOSPITALRL WSTRN [place] [facility] BASIC METABOLIC PANEL (fasting) CARBON DIOXIDE, TOTAL [MOLES/VOLU ME] IN SERUM OR PLASMA 28 meq/L 20 - 30 12/07 Specimen Type: SERUM No comment entered. Ordering Provider: ZECHARIAH SANCHEZ Report Released Date/Time: Oct 20, 2023 06:52 PM Reporting Lab: [facility] [place] [facility] [address] [address] Performing Lab: [facility] [place] [address] [address] [facility] HOSPITALRL WSTRN [facility]OSPITALUSE [facility] BASIC METABOLIC PANEL (fasting) CREATININE [MASS/VOLUM E] IN SERUM OR PLASMA 0.94 mg/dL 0.50 - 1.40 12/07 Specimen Type: SERUM No comment entered. Ordering Provider: ZECHARIAH SANCHEZ Report Released Date/Time: Oct 20, 2023 06:52 PM Reporting Lab: [facility] [place] [facility] [address] [address] Performing Lab: [facility]ITAL[facility] [address] [address] JOHN HOSPITALRL WSTRN [facility]CHUSE [facility] BASIC METABOLIC PANEL (fasting) GLOMERULAR FILTRATION RATE/1.73 SQ M.PREDICTED [VOLUME RATE/AREA] IN SERUM, PLASMA OR BLOOD BY CREATININE- BASED FORMULA (CKD-EPI 2020) >90mL/ min 60 12/07 Specimen Type: SERUM No comment entered. Ordering Provider: ZECHARIAH SANCHEZ Report Released Date/Time: Oct 20, 2023 06:52 PM Reporting Lab: [facility] [place] [facility] [address] [address] Performing Lab: [facility] [place] [facility] [address] [address] [facility] [place] [facility] CBC AND DIFF (AUTO) LEUKOCYTES [#/VOLUME] IN BLOOD BY AUTOMATED COUNT 13.67 10*3/u L 4.50 - 11.00 12/07 H Specimen Type: BLOOD No comment entered. Ordering Provider: ZECHARIAH SANCHEZ Report Released Date/Time: Oct 20, 2023 06:52 PM Reporting Lab: [facility] [place] [facility] [address] [address] Performing Lab: [facility] [place] [facility] [address] [facility] [address] [facility] [place] [facility] CBC AND DIFF (AUTO) ERYTHROCYTE S [#/VOLUME] IN BLOOD BY AUTOMATED COUNT 4.22 10*6/u L 4.23 - 5.66 12/07 L Specimen Type: BLOOD No comment entered. Ordering Provider: ZECHARIAH SANCHEZ Report Released Date/Time: Oct 20, 2023 06:52 PM Reporting Lab: [facility]OSPITALRL W[facility]N [place] [address] [address] Performing Lab: [facility] [place] [address] [address] [facility] HOSPITALRL WSTRN [place] [facility] CBC AND DIFF (AUTO) HEMOGLOBIN [MASS/VOLUM E] IN BLOOD 14.4 g/dL 12.8 - 17 12/07 Specimen Type: BLOOD No comment entered. Ordering Provider: ZECHARIAH SANCHEZ Report Released Date/Time: Oct 20, 2023 06:52 PM Reporting Lab: [facility]OS[facility]ITALRL W[facility]N [place] [address] [address] Performing Lab: [facility] [address] [address] [facility]OSPITALRL WSTRN [place] [facility] CBC AND DIFF (AUTO) HEMATOCRIT [VOLUME FRACTION] OF BLOOD BY AUTOMATED COUNT 42.9 39.2 - 50.4 12/07 Specimen Type: BLOOD No comment entered. Ordering Provider: ZECHARIAH SANCHEZ Report Released Date/Time: Oct 20, 2023 06:52 PM Reporting Lab: [facility]ITALRL [facility]N [place] [address] [address] Performing Lab: [facility] [place] [facility] [address] [address] [facility] [place] [facility] CBC AND DIFF (AUTO) MCV [ENTITIC VOLUME] BY AUTOMATED COUNT 101.7 fL 82 - 99 12/07 H Specimen Type: BLOOD No comment entered. Ordering Provider: ZECHARIAH SANCHEZ Report Released Date/Time: Oct 20, 2023 06:52 PM Reporting Lab: [facility] [place] [facility] [address] [facility] [address] Performing Lab: [facility] [place] [facility] [address] [address] [facility] [place] [facility] CBC AND DIFF (AUTO) MCHC [MASS/VOLUM E] BY AUTOMATED COUNT 33.6 g/dL 30.8 - 35.1 12/07 Specimen Type: BLOOD No comment entered. Ordering Provider: ZECHARIAH SANCHEZ Report Released Date/Time: Oct 20, 2023 06:52 PM Reporting Lab: [facility] [place] [facility] [address] [address] Performing Lab: [facility] [place] [facility] [address] [address] [facility] [place] [facility] CBC AND DIFF (AUTO) PLATELETS [#/VOLUME] IN BLOOD BY AUTOMATED COUNT 395 10*3/u L 140 - 360 12/07 H Specimen Type: BLOOD No comment entered. Ordering Provider: ZECHARIAH SANCHEZ Report Released Date/Time: Oct 20, 2023 06:52 PM Reporting Lab: [facility] [place] [facility] [address] [address] Performing Lab: [facility] [place] [address] [address] [facility] [place] [facility] CBC AND DIFF (AUTO) ERYTHROCYTE DISTRIBUTIO N WIDTH [RATIO] BY AUTOMATED COUNT 12.9 12.0 - 16.0 12/07 Specimen Type: BLOOD No comment entered. Ordering Provider: ZECHARIAH SANCHEZ Report Released Date/Time: Oct 20, 2023 06:52 PM Reporting Lab: [facility] [place] [facility] [address] [address] Performing Lab: [facility] [place] [facility] [address] [address] [facility] [place] [facility] CBC AND DIFF (AUTO) MONOCYTES [#/VOLUME] IN BLOOD BY AUTOMATED COUNT 1.30 10*3/u L 0.30 - 1.10 12/07 H Specimen Type: BLOOD No comment entered. Ordering Provider: ZECHARIAH SANCHEZ Report Released Date/Time: Oct 20, 2023 06:52 PM Reporting Lab: [facility] [place] [facility] [address] [address] Performing Lab: [facility] [place] [address] [address] [facility] [place] [facility] CBC AND DIFF (AUTO) MCH [ENTITIC MASS] BY AUTOMATED COUNT 34.1 pg 26.2 - 32.6 12/07 H Specimen Type: BLOOD No comment entered. Ordering Provider: ZECHARIAH SANCHEZ Report Released Date/Time: Oct 20, 2023 06:52 PM Reporting Lab: [facility] [place] [address] [address] Performing Lab: [facility] [place] [facility] [address] [address] [facility] [place] [facility] CBC AND DIFF (AUTO) NEUTROPHILS /100 LEUKOCYTES IN BLOOD BY AUTOMATED COUNT 46.6 43.7 - 75.8 12/07 Specimen Type: BLOOD No comment entered. Ordering Provider: ZECHARIAH SANCHEZ Report Released Date/Time: Oct 20, 2023 06:52 PM Reporting Lab: [facility] [place] [address] [address] Performing Lab: [facility] [place] [address] [address] [facility] [place] [facility] CBC AND DIFF (AUTO) LYMPHOCYTES /100 LEUKOCYTES IN BLOOD BY AUTOMATED COUNT 36.4 14.0 - 42.3 12/07 Specimen Type: BLOOD No comment entered. Ordering Provider: ZECHARIAH SANCHEZ Report Released Date/Time: Oct 20, 2023 06:52 PM Reporting Lab: [facility] [place] [facility] [address] [facility] [address] Performing Lab: [facility] [place] [facility] [address] [facility] [address] [address] [facility] [place] [facility] CBC AND DIFF (AUTO) MONOCYTES/1 00 LEUKOCYTES IN BLOOD BY AUTOMATED COUNT 9.5 5.1 - 13.7 12/07 Specimen Type: BLOOD No comment entered. Ordering Provider: ZECHARIAH SANCHEZ Report Released Date/Time: Oct 20, 2023 06:52 PM Reporting Lab: [facility] [place] [facility] [address] [place] [address] Performing Lab: [facility] [place] [facility] [address] [place] [address] [facility] [place] [facility] CBC AND DIFF (AUTO) EOSINOPHILS /100 LEUKOCYTES IN BLOOD BY AUTOMATED COUNT 5.4 0.4 - 6.8 12/07 Specimen Type: BLOOD No comment entered. Ordering Provider: ZECHARIAH SANCHEZ Report Released Date/Time: Oct 20, 2023 06:52 PM Reporting Lab: [facility] [place] [facility] [address] [place] [address] Performing Lab: [facility] [place] [address] [address] [facility] [place] [facility] CBC AND DIFF (AUTO) BASOPHILS/1 00 LEUKOCYTES IN BLOOD BY AUTOMATED COUNT 0.7 0.1 - 2.0 12/07 Specimen Type: BLOOD No comment entered. Ordering Provider: ZECHARIAH SANCHEZ Report Released Date/Time: Oct 20, 2023 06:52 PM Reporting Lab: [facility] [place] [facility] [address] [place] [address] Performing Lab: [facility] [place] [facility] [address] [place] [address] [facility] [place] [facility] CBC AND DIFF (AUTO) NEUTROPHILS [#/VOLUME] IN BLOOD BY AUTOMATED COUNT 6.36 10*3/u L 2.20 - 7.60 12/07 Specimen Type: BLOOD No comment entered. Ordering Provider: ZECHARIAH SANCHEZ Report Released Date/Time: Oct 20, 2023 06:52 PM Reporting Lab: [facility] [place] [address] [address] Performing Lab: [facility] [place] [address] [address] [facility] [place] [facility] CBC AND DIFF (AUTO) LYMPHOCYTES [#/VOLUME] IN BLOOD BY AUTOMATED COUNT 4.98 10*3/u L 1.00 - 3.20 12/07 H Specimen Type: BLOOD No comment entered. Ordering Provider: ZECHARIAH SANCHEZ Report Released Date/Time: Oct 20, 2023 06:52 PM Reporting Lab: [facility] [place] [address] [address] Performing Lab: [facility] [place] [address] [address] [facility] [place] [facility] CBC AND DIFF (AUTO) EOSINOPHILS [#/VOLUME] IN BLOOD BY AUTOMATED COUNT 0.74 10*3/u L 0.03 - 0.44 12/07 H Specimen Type: BLOOD No comment entered. Ordering Provider: ZECHARIAH SANCHEZ Report Released Date/Time: Oct 20, 2023 06:52 PM Reporting Lab: [facility] [place] [address] [address] Performing Lab: [facility] [place] [address] [address] [facility] [place] [facility] CBC AND DIFF (AUTO) BASOPHILS [#/VOLUME] IN BLOOD BY AUTOMATED COUNT 0.10 10*3/u L 0.01 - 0.13 12/07 Specimen Type: BLOOD No comment entered. Ordering Provider: ZECHARIAH SANCHEZ Report Released Date/Time: Oct 20, 2023 06:52 PM Reporting Lab: [facility] [place] [address] [address] Performing Lab: [facility] [place] [facility] [address] [address] [facility] [place] [facility] CBC AND DIFF (AUTO) IMMATURE GRANULOCYTE S/100 LEUKOCYTES IN BLOOD BY AUTOMATED COUNT 1.4 0.0 - 0.7 12/07 H Specimen Type: BLOOD No comment entered. Ordering Provider: ZECHARIAH SANCHEZ Report Released Date/Time: Oct 20, 2023 06:52 PM Reporting Lab: [facility] [place] [facility] [address] [address] Performing Lab: [facility] [place] [facility] [address] [address] [facility] [place] [facility] CBC AND DIFF (AUTO) IMMATURE GRANULOCYTE S [#/VOLUME] IN BLOOD 0.19 10*3/u L 0.00 - 0.06 12/07 H Specimen Type: BLOOD No comment entered. Ordering Provider: ZECHARIAH SANCHEZ Report Released Date/Time: Oct 20, 2023 06:52 PM Reporting Lab: [facility] [place] [facility] [address] [facility] [address] Performing Lab: [facility] [place] [address] [address] [facility] [place] [facility] BASIC METABOLIC PANEL (fasting) UREA NITROGEN [MASS/VOLUM E] IN SERUM OR PLASMA 15 mg/dL 7 - 25 04/05 Specimen Type: SERUM No comment entered. Ordering Provider: MADHU UGALDE Report Released Date/Time: Mar 17, 2023 11:55 AM Reporting Lab: [facility] [place] [facility] [address] [facility] [address] Performing Lab: [facility] [address] [address] [facility]RL W[facility]N [facility] BASIC METABOLIC PANEL (fasting) GLUCOSE [MASS/VOLUM E] IN SERUM OR PLASMA 71 mg/dL 65 - 100 04/05 Specimen Type: SERUM No comment entered. Ordering Provider: MADHU UGALDE Report Released Date/Time: Mar 17, 2023 11:55 AM Reporting Lab: [facility] [place] [facility] [address] [address] Performing Lab: [facility] [place] [facility] [address] [facility] [address] [address] [facility] [place] [facility] BASIC METABOLIC PANEL (fasting) SODIUM [MOLES/VOLU ME] IN SERUM OR PLASMA 143 mmol/L 135 - 145 04/05 Specimen Type: SERUM No comment entered. Ordering Provider: MADHU UGALDE Report Released Date/Time: Mar 17, 2023 11:55 AM Reporting Lab: [facility] [place] [facility] [address] [facility] [address] Performing Lab: [facility] [place] [facility] [address] [facility] [address] [facility] [place] [facility] BASIC METABOLIC PANEL (fasting) POTASSIUM [MOLES/VOLU ME] IN SERUM OR PLASMA 3.8 mmol/L 3.5 - 5.0 04/05 Specimen Type: SERUM No comment entered. Ordering Provider: MADHU UGALDE Report Released Date/Time: Mar 17, 2023 11:55 AM Reporting Lab: [facility] [place] [facility] [address] [facility] [address] Performing Lab: [facility] [place] [facility] [address] [facility] [address] [address] [facility] [place] [facility] BASIC METABOLIC PANEL (fasting) CHLORIDE [MOLES/VOLU ME] IN SERUM OR PLASMA 106 mmol/L 100 - 110 04/05 Specimen Type: SERUM No comment entered. Ordering Provider: MADHU UGALDE Report Released Date/Time: Mar 17, 2023 11:55 AM Reporting Lab: [facility] [place] [facility] [address] [facility] [address] Performing Lab: [facility] [place] [facility] [address] [facility] [address] [facility] [place] [facility] BASIC METABOLIC PANEL (fasting) CARBON DIOXIDE, TOTAL [MOLES/VOLU ME] IN SERUM OR PLASMA 27 meq/L 20 - 30 04/05 Specimen Type: SERUM No comment entered. Ordering Provider: MADHU UGALDE Report Released Date/Time: Mar 17, 2023 11:55 AM Reporting Lab: [facility] [place] [facility] [address] [facility] [address] Performing Lab: [facility] [place] [facility] [address] [facility] [address] [facility] [place] [facility] BASIC METABOLIC PANEL (fasting) CREATININE [MASS/VOLUM E] IN SERUM OR PLASMA 1.04 mg/dL 0.50 - 1.40 04/05 Specimen Type: SERUM No comment entered. Ordering Provider: MADHU UGALDE Report Released Date/Time: Mar 17, 2023 11:55 AM Reporting Lab: [facility] [place] [facility] [address] [address] Performing Lab: [facility] [place] [facility] [address] [address] [facility] [place] [facility] BASIC METABOLIC PANEL (fasting) GLOMERULAR FILTRATION RATE/1.73 SQ M.PREDICTED [VOLUME RATE/AREA] IN SERUM, PLASMA OR BLOOD BY CREATININE- BASED FORMULA (CKD-EPI) 81 mL/min 60 04/05 Specimen Type: SERUM No comment entered. Ordering Provider: MADHU UGALDE Report Released Date/Time: Mar 17, 2023 11:55 AM Reporting Lab: [facility] [place] [facility] [address] [address] Performing Lab: [facility] [place] [facility] [address] [facility] [address] [facility] [place] [facility] LIPID PANEL FASTING CHOLESTEROL [MASS/VOLUM E] IN SERUM OR PLASMA 185 mg/dL 04/05 Specimen Type: SERUM No comment entered. Ordering Provider: MADHU UGALDE Report Released Date/Time: Mar 17, 2023 11:55 AM Reporting Lab: [facility] [place] [facility] [address] [address] Performing Lab: [facility] [place] [facility] [address] [address] [facility] [place] [facility] LIPID PANEL FASTING TRIGLYCERID E [MASS/VOLUM E] IN SERUM OR PLASMA 123 mg/dL 0 - 150 04/05 Specimen Type: SERUM No comment entered. Ordering Provider: MADHU UGALDE Report Released Date/Time: Mar 17, 2023 11:55 AM Reporting Lab: [facility] [place] [facility] [address] [facility] [address] Performing Lab: [facility] [place] [facility] [address] [facility] [address] [facility] [place] [facility] LIPID PANEL FASTING CHOLESTEROL IN LDL [MASS/VOLUM E] IN SERUM OR PLASMA BY CALCULATION 111 mg/dL 0 - 129 04/05 Specimen Type: SERUM No comment entered. Ordering Provider: MADHU UGALDE Report Released Date/Time: Mar 17, 2023 11:55 AM Reporting Lab: [facility] [place] [facility] [address] [address] Performing Lab: [facility] [place] [facility] [address] [address] [facility] [place] [facility] LIPID PANEL FASTING CHOLESTEROL .TOTAL/CHOL ESTEROL IN HDL [MASS RATIO] IN SERUM OR PLASMA 3.8 04/05 Specimen Type: SERUM No comment entered. Ordering Provider: MADHU UGALDE Report Released Date/Time: Mar 17, 2023 11:55 AM Reporting Lab: [facility] [place] [facility] [address] [facility] [address] Performing Lab: [facility] [facility] [address] [id number] [facility] LIPID PANEL FASTING CHOLESTEROL IN HDL [MASS/VOLUM E] IN SERUM OR PLASMA 49 mg/dL 40 - 60 04/05 Specimen Type: SERUM No comment entered. Ordering Provider: MADHU UGALDE Report Released Date/Time: Mar 17, 2023 11:55 AM Reporting Lab: [facility] [place] [facility] [address] [address] Performing Lab: [facility] [place] [facility] [address] [address] [facility] Vital Signs Combined list of inpatient and outpatient Vital Signs from Department of Defense and Veterans Affairs, ranging from 12 months to all on record, depending upon the facility. Vital Sign Value Date Comments Source SYSTOLIC BLOOD PRESSURE 129 12/11/19 25 13:09:26 [facility] DIASTOLIC BLOOD PRESSURE 72 025 13:09:26 [facility] PULSE OXIMETRY 96 12/10/2024 13:09:26 [facility] WEIGHT 144 12/10/2024 13[facility]09:26 [facility] BMI 21 kg/m2 12/10/2024 13:09:26 [facility] PAIN 1 12/10/2024 13:09:26 [facility] TEMPERATURE 98.1 12/10/2024 13:09:26 [facility] PULSE 64 12/10/2024 13:09:26 [facility] RESPIRATION 16 12/10/2024 13:09:26 [facility] [place] [facility] Encounters Combined list of: 1) Encounters from Department of Veterans Affairs facilities going backup to the last 18 months, not all [facility] inpatient encounters are included; 2) Encounters from the Department of Defense facilities going backup to 280 months. Location Location Details Encounter Type Encounter Number Reason For Visit Attending Provider ADM Date DC Date Status Disposition Source [facility] EYE EXAM&TX ESTAB PT /VST [id number] Diagnos is: ICD-10- CM H25.13 Age-rel ated ch[place] warner LEONARD J 06/13 [facility] Outpatient Encounter [id number] 06/13 [facility] FIT SPECTACLES MULTIFOCAL [id number] Diagnos is: ICD-10- CM Z46.0 Encount er for fit/adj st of spectac les and contact lenses BALJINDER PADILLA JUSTUS 06/13 [facility] Out[facility] Encounter [id number] MAGO UGALDE MMED JAWED 06/20 [facility] Out[facility] Encounter [id number] 06/21 [facility]counter [id number] Debo PRECIADO 07/03 [facility]counter [id number] 07/18 [facility] Out[facility] Encounter [id number] MAGO UGALDE MMED JAWED 07/19 [facility] Encounter [id number] 07/26 [facility] Out[facility] Encounter [id number] Debo PRECIADO 07/28 [facility] Out[facility] Encounter [id number] 07/28 [facility] HC PRO PHONE CALL 21-30 MIN [id number] Diagnos is: ICD-10- CM Z71.89 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 MANA SOARES 08/02 [facility] Out[facility] Encounter [id number] 08/03 [facility] Out[facility] Encounter [id number] 08/04 [facility] Out[facility] Encounter [id number] Debo PRECIADO D 08/04 [facility] HC PRO PHONE CALL 11-20 MIN [id number] Diagnos is: ICD-10- CM 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, 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 ASIA Klein 08/04 [facility] Outpatient Encounter [id number] MAGO UGALDE JAWCAESAR 08/22 [facility] Out[facility] Encounter [id number] 08/31 [facility] Outpatient Encounter [id number] Debo PRECIADO D 09/05 [facility] Out[facility] Encounter [id number] MAGO UGALDE JAWED 09/18 [facility] Outpatient Encounter [id number] MAGO UGALDE JAWED 10/16 [facility] Outpatient Encounter [id number] [facility] Outpatient Encounter [id number] 10/19 [facility] Outpatient Encounter [id number] 11/05 [facility] Out[facility] Encounter [id number] 11/07 [facility] Outpatient Encounter [id number] MAGO UGALDE MMED JAWED 11/15 [facility] Out[facility] Encounter [id number] 11/21 [facility] Outpatient Encounter [id number] MAGO UGALDE MMED JAWED 12/04 [facility] OFFICE O/P EST HI 40 MIN [id number] Diagnos is: ICD-10- CM Z77.29 Contact with and exposur e to other hazardo us substan wei FURCOLO,TI NA 12/10 [facility] COLLJ & INTERPJ DATA EA 30 D [id number] Diagnos is: ICD-10- CM G47.33 Obstruc tive sleep apnea (adult) (pediat [place]) DION VELASQUEZ 12/11 [facility] Outpatient Encounter [id number] FURCOLO,TI NA 12/17 [facility] Outpatient Encounter [id number] FURCOLO,TI NA 12/19 [facility] Outpatient Encounter [id number] 12/25 [facility] POS AIRWAY PRESSURE CPAP [id number] Diagnos is: ICD-10- CM G47.33 Obstruc tive sleep apnea (adult) (pediat [place]) DION VELASQUEZ 12/25 [facility] Outpatient Encounter [id number] FURCOLO,TI NA 12/27 [facility] DISPOSABLE COMPRESSOR FILTER [id number] Diagnos is: ICD-10- CM J44.9 Chronic obstruc tive pulmona ry disease , 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 JARMOLOWIC Z,KAITLIN 01/01 [facility] Out[facility] Encounter [id number] 01/02 [facility] Outpatient Encounter [id number] 01/02 [facility] Outpatient Encounter [id number] FURCOLO,TI NA 01/03 [facility] Outpatient Encounter [id number] DEANGELO MORGAN 01/09 [facility] Outpatient Encounter [id number] 01/15 [facility] Outpatient Encounter [id number] FURCOLO,TI NA 01/22 [facility] Outpatient Encounter [id number] FURCOLO,TI NA 01/30 [facility] HC PRO PHONE CALL 5-10 MIN [id number] Diagnos is: ICD-10- CM J44.9 Chronic obstruc tive pulmona ry disease , 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 JARMOLOWIC Z,KAITLIN 02/11 [facility] Outpatient Encounter [id number] DEANGELO MORGAN 02/11 [facility] Outpatient Encounter [id number] FURCOLO,TI NA 02/14 [facility] SELF-MGMT EDUC & TRAIN 1 PT [id number] Diagnos is: ICD-10- CM J44.9 Chronic obstruc tive pulmona ry disease , 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 JARMOLOWIC Z,KAITLIN 02/18 [facility] Outpatient Encounter [id number] 02/18 [facility] Outpatient Encounter [id number] FURCOLO,TI NA 02/27 [facility] Outpatient Encounter [id number] FURCOLO,TI NA 03/20 [facility] Outpatient Encounter [id number] FURCOLO,TI NA 04/25 [facility] Outpatient Encounter [id number] 05/07 [facility] [place] POS AIRWAY PRESSURE CPAP [id number] Diagnos is: ICD-10- CM G47.33 Obstruc tive sleep apnea (adult) (pediat [place]) DION VELASQUEZ 05/08 [place] [facility] Outpatient Encounter [id number] FURCOLO,TI NA 05/09 [facility] Outpatient Encounter [id number] FURCOLO,TI NA 05/13 [facility] Outpatient Encounter [id number] FURCOLO,TI NA 05/14 [facility] Outpatient Encounter [id number] 05/30 [facility] COMPRE OPH EXAM EST PT 1/> [id number] Diagnos is: ICD-10- CM H25.813 Combine d forms of age-rel ated catarac t, bilater al LAURA NEWBERRY 06/24 [facility] FIT SPECTACLES MULTIFOCAL [id number] Diagnos is: ICD-10- CM Z46.0 Encount er for fit/adj st of spectac les and contact lenses LAURA NEWBERRY 06/24 [facility] Outpatient Encounter [id number] DEANGELO MORGAN 06/28 [facility] Outpatient Encounter [id number] 08/04 [facility] Outpatient Encounter [id number] DEANGELO MORGAN 08/12 [facility] Outpatient Encounter [id number] NANCY CEBALLOS 08/19 [facility] Outpatient Encounter [id number] 11/25 [facility] Outpatient Encounter [id number] CASSI CALDERON 11/26 [facility] Outpatient Encounter [id number] CASSI CALDERON 11/27 [facility] Outpatient Encounter [id number] CASSI CALDERON 11/27 [facility] Outpatient Encounter [id number] 12/02 [facility] CASE MANAGEMENT [id number] Diagnos is: ICD-10- CM 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, 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 CUTLER, QUINAULT 12/03 [facility] Outpatient Encounter [id number] FURMARISA,TI NA 12/10 [facility] Outpatient Encounter [id number] 12/10 [facility] NQHP OL DIG ASSMT&MGMT 5-10 [id number] Diagnos is: ICD-10- CM I10 Essenti al (primar y) hyperte nsion SOVEROW,CH RISTY A 12/11 [facility] Social History Combined list of available smoking, tobacco, and other social history from Department of Defense and Veterans Affairs facilities. Social History Type Response Date Comment Source Tobacco smoking status [facility] VA-TOBACCO USE FORMER CIGARETTES 12/10/2024 [facility] History of tobacco use VA-TOBACCO NEVER USED OTHER TYPE 12/10/2024 [facility] History of tobacco use VA-TOBACCO FORMER USER 10/20/2023 [facility] History of tobacco use VA-TOBACCO FORMER USER 07/13/2022 [facility] History of tobacco use VA-TOBACCO FORMER USER 02/25/2021 [facility] History of tobacco use VA-TOBACCO QUIT 5 TO < 15 YRS 05/09/2019 [place] History of tobacco use QUIT TOBACCO USE > 7 YEARS AGO 04/13/2018 [place] History of tobacco use QUIT TOBACCO USE 1-7 YEARS AGO 10/27/2017 reports quitting 2 years ago [place] History of tobacco use QUIT TOBACCO USE IN PAST YEAR 03/16/2017 cigarettes/ repoorts quitting 07/06 [place] History of tobacco use CURRENT SMOKER 10/26/2015 few daily [place] History of tobacco use V1-PT DECLINES TOBACCO CESSATION MEDS 07/24/2015 [place] History of tobacco use V1-PT DECLINES TOBACCO CESSATION MEDS 10/24/2014 [place] History of tobacco use CURRENT SMOKER 05/16/2014 smokes cigaretts one ppd. [place] History of tobacco use V1-PT DECLINES TOBACCO CESSATION MEDS 02/27/2014 [place] History of tobacco use CURRENT SMOKER 04/25/2013 half pack per day [place] History of tobacco use V1-PT DECLINES TOBACCO CESSATION MEDS 11/27/2012 [facility] History of tobacco use CURRENT SMOKER 04/12/2012 [facility] [place] [facility] History of tobacco use V1-PT THINKING ABOUT QUIT TOBACCO USE 10/17/2011 [facility] [place] [facility] History of tobacco use CURRENT SMOKER 04/04/2011 [facility] [place] [facility] History of tobacco use CURRENT SMOKER 03/01/2010 1/2 ppd [facility] History of tobacco use CURRENT SMOKER 09/02/2008 1/2 ppd [facility] History of tobacco use V1-PT READY TO QUIT TOBACCO USE 01/28/2008 [facility] [place] [facility] History of tobacco use CURRENT SMOKER 04/06/2007 1/2 ppd [facility] History of tobacco use CURRENT SMOKER 06/02/2005 1 pk [facility] History of tobacco use CURRENT SMOKER 10/10/2003 smokes 1/2 day [facility] History of tobacco use CURRENT SMOKER 05/28/2002 smokes 1/2 pack/day [facility] History of tobacco use CURRENT SMOKER 11/29/2001 [facility] Plan of Care List of future care activities from Department of [facility] Affairs facilities. Additional future care activities may be listed in the Assessment and Plan section. Date/Time Care Activity Care Activity Detail Facili 12/19/2024 AMBULATORY - REHAB MEDICINE AMBULATORY - REHAB MEDICINE [facility]
--- OUTSIDE RECORDS SUMMARY | 2024-12-11 15:48 | XMS_ITS | Encounter Summary ---
Author Name [facility] Organization [facility] Address [address] [place] [address] Care Team Providers Care Manager Motor Name Role Phone ALMA DELIA STALLWORTH Primary [...] Name Patient's Relationship to Policy [place] FEDERAL PREFERRED PROVIDER ORGANIZAT ION (PPO) BASIC SELF Jun 23, 2013 [id number] JANAK MAIERLEVY PATIENT BCBS [place] FEP PREFERRED PROVIDER ORGANIZAT ION (PPO) BASIC INDIV IDUAL Jun 23, 2013 [id number] JANAK MAIERLEVY PATIENT [place] FEPRX PLAN PRESCRIPT ION CAREM ARK FEPRX Jun 23, 2013 [id number] JANAK MAIERLEVY PATIENT [place]-F EP BCBS PRESCRIPT ION FEP CAREM ARK Jun 23, 2013 [id number] LEVY COVARRUBIAS PATIENT MEDICARE (WNR) MEDICARE (M) PART A Jun 21, 2022 PART A [id number] LEVY COVARRUBIAS PATIENT MEDICARE (WNR) MEDICARE (M) PART B Jun 21, 2022 PART B [id number] LEVY COVARRUBIAS PATIENT Selected Encounter This section includes the information on record at [place] for the Encounter. Date/Time Encounter Type Encounter Description Reason Pro vider Source Dec 10, 2024 01:00 PM Outpatient Encounter PRIMARY CARE/MEDICINE IHE Encounter Template Text not used by [place] Plan of Treatment: Future Appointments (+ 6 [...] Date/Time Appointment Type Appointme nt Facility Name December 19, 2024 02:00 PM [facility] Active, Pending, and Scheduled Orders This section includes a listing of several types of active, pending, and scheduled orders, including clinic medications orders, diagnostic test orders, procedure orders and consult orders; where the start date of the order is 45 days before the date of the Encounter or 45 days after the date of theEncounter. The data comes from all [place] treatment facilities. Test Date/Time Test Type Test Details Facility Name Nov 25, 2024 01:58 PM Consult Order COMMUNITY CARE-PULMONARY Cons Stencil Cutter Machine's Choice [facility] Nov 27, 2024 12:00 AM Laboratory - Chemistry Order LIPID PANEL FASTING BLOOD (SST-SERUM) SP [facility] Nov 29, 2024 02:43 PM Consult Order COMMUNITY CARE-PULMONARY Cons Stencil Cutter Machine's Choice [facility] Dec 10, 2024 01:45 PM Consult Order OCCUPATIONAL THERAPY POWER MOBILITY OUTPT Cons Stencil Cutter Machine's Choice [facility] Lab Results: +/- 30 days of the encounter This section includes the Chemistry and Hematology Lab Results on record with [place] for the patient. Radiology Reports and Pathology Reports are provided separately, in subsequent sections. Lab Results This section contains the Chemistry/Hematology Results that were resulted 30 days before or 30 daysafter the date of the Encounter. Date/Time Source Result Type Result - Unit Interpretation Reference Range Specimen Type Comment Dec 10, 2024 01:53 PM [facility] TOTAL TESTOSTERONE SERUM Specimen Type: SERUM No comment entered. Ordering Provider: ALMA DELIA STALLWORTH Report Released Date/Time: Nov 29, 2024 11:36 AM Reporting Lab: [address] [phone] Performing Lab: [address] [address] TOTAL TESTOSTERONE 569.99 ng/dL 221-716 Dec 10, 2024 01:53 PM [facility] PSA SERUM Specimen Type: SERUM No comment entered. Ordering Provider: ALMA DELIA STALLWORTH Report Released Date/Time: Nov 29, 2024 11:36 AM Reporting Lab: [address] [phone] Performing Lab: [address] [id number] PSA 2.1 ng/mL 0.0-4.0 Vital Signs: All taken on the encounter date This section contains inpatient and outpatient Vital Signs collected on the date of the Encounter. Date/Time Temperature Pulse Blood Pressure Respiratory Rate SP02 Pain Height Weight Body Mass Index Source Dec 10, 2024 01:09 PM 98.1 64 129/72 16 96 1 144 21 [facility] Social History: Smoking Status (Most current) and [...] took place. Date/Time Current Smoking Status Comment Drake mckenzie Dec 10, 2024 01:00 PM VA-TOBACCO NEVER U SED OTHER TYPE [facility] Tobacco Use History This section includes a history of the smoking, or tobacco-related health factors, that were collected on or before the date of the Encounter. The data comes from the [place] facility where the Encounter took place. Date/Time Smoking Status/Tobac co Use Comment Facility Dec 10, 2024 01:00 PM VA-TOBACCO USE FORMER CIGARETTES [facility] Oct 20, 2023 08:21 PM VA-TOBACCO FORMER USER [facility] Oct 20, 2023 08:21 PM VA-TOBACCO QUIT 5 TO < 15 YRS [facility] Jul 13, 2022 01:00 PM VA-TOBACCO FORMER USER [facility] Jul 13, 2022 01:00 PM VA-TOBACCO QUIT 5 TO < 15 YRS [facility] Feb 25, 2021 01:15 PM VA-TOBACCO FORMER USER [facility] Feb 25, 2021 01:15 PM VA-TOBACCO QUIT 5 TO < 15 YRS [facility] Nov 27, 2012 03:19 PM V1-PT DECLINES REF TO TOBACCO CESS PRGM [facility] Nov 27, 2012 03:19 PM V1-PT DECLINES TOBACCO CESSATION MEDS [facility] Nov 27, 2012 03:19 PM V1-PT NOT INTERESTED IN QUIT TOBACCO USE [facility] Apr 12, 2012 10:34 AM CURRENT SMOKER [facility] Apr 12, 2012 10:34 AM V1-PT THINKING ABOUT QUIT TOBACCO USE [facility] Oct 17, 2011 11:15 AM V1-PT DECLINES REF TO TOBACCO CESS PRGM [facility] Oct 17, 2011 11:15 AM V1-PT THINKING ABOUT QUIT TOBACCO USE [facility] Apr 04, 2011 01:28 PM CURRENT SMOKER [facility] Apr 04, 2011 01:28 PM V1-PT DECLINES REF TO TOBACCO CESS PRGM [facility] Apr 04, 2011 01:28 PM V1-PT DECLINES TOBACCO CESSATION MEDS [facility] Apr 04, 2011 01:28 PM V1-PT NOT INTERESTED IN QUIT TOBACCO USE [facility] Mar 01, 2010 01:50 PM CURRENT SMOKER 1/2 ppd [facility] Mar 01, 2010 01:50 PM V1-PT THINKING ABOUT QUIT TOBACCO USE [facility] Sep 02, 2008 03:15 PM CURRENT SMOKER 1/2 ppd [facility] Sep 02, 2008 03:15 PM V1-PT DECLINES REF TO TOBACCO CESS PRGM [facility] Sep 02, 2008 03:15 PM V1-PT READY TO QUIT TOBACCO USE [facility] Jan 28, 2008 03:59 PM V1-PT DECLINES REF TO TOBACCO CESS PRGM [facility] Jan 28, 2008 03:59 PM V1-PT READY TO QUIT TOBACCO USE [facility] Apr 06, 2007 03:19 PM CURRENT SMOKER 1/2 ppd [facility] Apr 06, 2007 03:19 PM V1-PT DECLINES [facility]AC[facility] [place] Apr 06, 2007 03:19 PM V1-PT DECLINES TOBACCO CESSATION MEDS [facility] Apr 06, 2007 03:19 PM V1-PT THINKING ABOUT QUIT TOBACCO USE [facility] Jun 02, 2005 01:53 PM CURRENT SMOKER 1 pk [facility] Oct 10, 2003 02:33 PM CURRENT SMOKER smokes 1/2 day [facility] May 28, 2002 03:47 PM CURRENT SMOKER smokes 1/2 pack/day [facility] Nov 29, 2001 10:07 AM CURRENT SMOKER [facility] Encounter Notes: All associated encounter notes This section contains the clinical notes associated to the Encounter. Date/Time Encounter Note(s) Provider Source Jun 28, 2024 01:52 PM ACCOUNTING OF DISC LOSURES NOTE: LOCAL TITLE: STATE PRESCRIPTION DRUG MONITORING PROGRAM STANDARD TITLE: ACCOUNTING OF DISCLOSURES NOTE DATE OF NOTE: JUN 28, 2024@13:52:41 ENTRY DATE: JUN 28, 2024@13:52:41 AUTHOR: ALMA DELIA STALLWORTH EXP COSIGNER: URGENCY: STATUS: COMPLETED This PDMP query was submitted by Alma Delia Stallworth. The clinical justification for this PDMP query is to review controlled substances prescribed outside of the [facility], and any additional information that may become available, as an important component of standard clinical care, and in accordance with [facility] policy. Patient information was shared with the PDMP Appriss [place]. No prescription(s) for controlled substances outside the [facility] were found in the last 90 days. /desean/ LAMA DELIA STALLWORTH D.O. PHYSICIAN Signed: 06/28/2024 13:52 ALMA DELIA STALLWORTH [facility]
--- OUTSIDE RECORDS SUMMARY | 2024-12-11 15:48 | XMS_ITS ---
Author Organization [facility] Address [address] [place] [address] Care Team Providers Care Acquisition Marketing Manager Name Role Phone Ziyad GOMES, James Primary Care Provider UnavailAntonio Segura [phone] REASON FOR VISIT positive colon ca screening using cologuard Encounters Encounter Location Date Provider Diagnosis [facility] Outpatient [address] [place] [id number] 12/02/2024 Antonio Arce Plan Of Treatment No Information Progress Notes * LEVY JERNIGANDOB: [birth year] (64 yo M)Acc No.[id number]:12/02/2024 COLON WITH MAC Patient:?JANAKLIVIERLEVY Provider:?Antonio Arce MD :1960???Age:64 Y???Sex:Male Fady e:12/02/2024 Address:[address] [place], [place] [phone] Pcp:James Lackey MD Subjective: * Chief Complaints: * ???1. Positive colon ca scre ening using cologuard. * Medical History:? Objective: * Vitals:? Assessment: Plan: * Treatment: * * The named appointment provid er may or may not be the originator of this progress note, and it is not deemed complete until electronically signed by the appointment provider. Sign off status: Pending * Provider:?Antonio Arce MD Date:? 025 Generated for Cindy victor/Walt/eTransmitting on:?12/11/2024 03:47 PM EDT
--- OUTSIDE RECORDS SUMMARY | 2024-12-11 15:48 | XMS_ITS ---
Author Name [facility] [place] [facility] [place] Organization [facility] [place] Address [address] [place] [address] Care Team Providers Care Tube Former Operator Name Role Phone TEO SANCHEZ Primary Care [...] Name Patient's Relationship to Policy Ugarte [facility] FEDERAL PREFERRED PROVIDER ORGANIZAT ION (PPO) BASIC SELF Jun 23, 2013 [id number] [phone] JANAK MAIERLEVY PATIENT BCBS [place] FEP PREFERRED PROVIDER ORGANIZAT ION (PPO) BASIC INDIV IDUAL Jun 23, 2013 [id number] JANAK MAIERLEVY PATIENT [place] FEPRX PLAN PRESCRIPT ION CAREM ARK FEPRX Jun 23, 2013 [id number] JANAK MAIERLEVY PATIENT [place]ARK-F EP BCBS PRESCRIPT ION FEP CAREM ARK Jun 23, 2013 [id number] [phone] LEVY COVARRUBIAS PATIENT MEDICARE (WNR) MEDICARE (M) PART A Jun 21, 2022 PART A [id number] LEVY COVARRUBIAS PATIENT MEDICARE (WNR) MEDICARE (M) PART B Jun 21, 2022 PART B [id number] LEVY COVARRUBIAS PATIENT Selected Encounter This section includes the information on record at [place] for the Encounter. Date/Time Encounter Type Encounter Description Reason Provider Source Dec 03, 2024 05:13 PM CASE MANAGEMENT PRIMARY CARE/MEDICINE ICD-10-CM Z71.9 Counseling, unspecified HERSON CUTLER IHKemar Encounter Template Text not used by [place] Assessments - Encounter Diagnoses This section includes the primary and secondary diagnoses documented for the Encounter. Date/Time Primary/Secondary Diagnosis Diagnosis Name Provider Source Dec 03, 2024 06:52 PM PRIMARY Counseling, unspecified CARL CUTLER [facility] Plan of Treatment: Future Appointments (+ 6 months) and Future Tests (+/- 45 days) The Plan of Treatment section includes future care activities for the [facility] [place] [facility] This section includes future appointments and future orders which are active, pending or scheduled. Future Appointments This section includes appointments that were scheduled to occur 6 months from the date of the Encounter, up to a maximum of 20 appointments. The data comes from all [place] treatment facilities. Appointment Date/Time Appointment Type Appointme nt Facility Name Dec 10, 2024 01:00 PM AMBULATORY - MEDICINE [facility] December 19, 2024 02:00 PM AMBULATORY - REHAB MEDICIN E [facility] Active, Pending, and Scheduled Orders This section includes a listing of several types of active, pending, and scheduled orders, including clinic medications orders, diagnostic test orders, procedure orders and consult orders; where the start date of the order is 45 days before the date of the Encounter or 45 days after the date of theEncounter. The data comes from all [facility]. Test Date/Time Test Type Test Details Facility Name Nov 25, 2024 01:58 PM Consult Order COMMUNITY CARE-PULMONARY Cons Powerhouse Tender's Choice [facility] Nov 27, 2024 12:00 AM Laboratory - Chemistry Order LIPID PANEL FASTING BLOOD (SST-SERUM) SP [facility] Nov 29, 2024 02:43 PM Consult Order COMMUNITY CARE-PULMONARY Cons [facility] [place] [facility] Dec 10, 2024 01:45 PM Consult Order OCCUPATIONAL THERAPY POWER MOBILITY OUTPT Cons Powerhouse Tender's [facility] Lab Results: +/- 30 days of the encounter This section includes the Chemistry and Hematology Lab Results on record with [place] for the patient. Radiology Reports and Pathology Reports are provided separately, in subsequent sections. Lab Results This section contains the Chemistry/Hematology Results that were resulted 30 days before or 30 daysafter the date of the Encounter. Date/Time Source Result Type Result - Unit Interpretation Reference Range Specimen Type Comment Dec 10, 2024 01:53 PM [facility] TOTAL TESTOSTERONE SERUM Specimen Type: SERUM No comment entered. Ordering Provider: TEO SANCHEZ Report Released Date/Time: Nov 29, 2024 11:36 AM Reporting Lab: [address] [id number] Performing Lab: [address] [address] TOTAL TESTOSTERONE 569.99 ng/dL [id number] Dec 10, 2024 01:53 PM [facility] PSA SERUM Specimen Type: SERUM No comment entered. Ordering Provider: TEO SANCHEZ Report Released Date/Time: Nov 29, 2024 11:36 AM Reporting Lab: [address] [address] Performing [facility]: [facility] [address] PSA 2.1 ng/mL 0.0-4.0 Social History: Smoking Status (Most current) and Tobacco Use (All prior to encounter date) This section includes the most current, and the historical, smoking and tobacco- related health factors from the [place] facility where the Encounter took place. Current Smoking Status This section includes the most current smoking, or tobacco-related health factor, from the [place] facility where the Encounter took place. Date/Time Current Smoking Status Comment Drake mckenzie Oct 20, 2023 08:21 PM [facility] Tobacco Use History This section includes a history of the smoking, or tobacco-related health factors, that were collected on or before the date of the Encounter. The data comes from the [place] facility where the Encounter took place. Date/Time Smoking Status/Tobac co Use Comment Facility Oct 20, 2023 08:21 PM VA-TOBACCO QUIT 5 TO < 15 YRS [place] [facility] Jul 13, 2022 01:00 PM VA-TOBACCO FORMER USER [place] [facility] Jul 13, 2022 01:00 PM VA-TOBACCO QUIT 5 TO < 15 YRS [place] [facility] Feb 25, 2021 01:15 PM VA-TOBACCO FORMER USER [place] [facility] Feb 25, 2021 01:15 PM VA-TOBACCO QUIT 5 TO < 15 YRS [place] [facility] Nov 27, 2012 03:19 PM V1-PT DECLINES [facility]F [facility] Nov 27, 2012 03:19 PM V1-PT DECLINES TOBACCO CESSATION MEDS [place] [facility] Nov 27, 2012 03:19 PM V1-PT NOT INTERESTED IN QUIT TOBACCO USE [facility] Apr 12, 2012 10:34 AM CURRENT SMOKER [facility] Apr 12, 2012 10:34 AM V1-PT THINKING ABOUT QUIT TOBACCO USE [facility] [place] [facility] Oct 17, 2011 11:15 AM V1-PT DECLINES REF TO TOBACCO CESS PRGM [place] [facility] Oct 17, 2011 11:15 AM V1-PT THINKING ABOUT QUIT TOBACCO USE [place] [facility] Apr 04, 2011 01:28 PM CURRENT SMOKER [facility] [place] [facility] Apr 04, 2011 01:28 PM V1-PT DECLINES REF TO TOBACCO CESS PRGM [place] [facility] Apr 04, 2011 01:28 PM V1-PT DECLINES TOBACCO CESSATION MEDS [facility] Apr 04, 2011 01:28 PM V1-PT NOT INTERESTED IN QUIT TOBACCO USE [facility] [place] [facility] Mar 01, 2010 01:50 PM CURRENT SMOKER 1/2 ppd [facility] [place] [facility] Mar 01, 2010 01:50 PM V1-PT THINKING ABOUT QUIT TOBACCO USE [facility] [place] [facility] Sep 02, 2008 03:15 PM CURRENT SMOKER 1/2 ppd [facility] [place] [facility] Sep 02, 2008 03:15 PM V1-PT DECLINES REF TO TOBACCO CESS PRGM [facility] [place] [facility] Sep 02, 2008 03:15 PM V1-PT READY TO QUIT TOBACCO USE [facility] [place] [place] [facility] Jan 28, 2008 03:59 PM V1-PT DECLINES REF TO TOBACCO CESS PRGM [facility] [place] [facility] Jan 28, 2008 03:59 PM V1-PT READY TO QUIT TOBACCO USE [facility] [place] [facility] Apr 06, 2007 03:19 PM CURRENT SMOKER 1/2 ppd [facility] [place] [place] [facility] Apr 06, 2007 03:19 PM V1-PT DECLINES REF TO TOBACCO CESS PRGM [facility] [place] [facility] Apr 06, 2007 03:19 PM V1-PT DECLINES TOBACCO CESSATION MEDS [facility] [place] [facility] Apr 06, 2007 03:19 PM V1-PT THINKING ABOUT QUIT TOBACCO USE [facility] [place] [facility] Jun 02, 2005 01:53 PM CURRENT SMOKER 1 pk [facility] [place] [facility] Oct 10, 2003 02:33 PM CURRENT SMOKER smokes 1/2 day [facility] [place] [facility] May 28, 2002 03:47 PM CURRENT SMOKER smokes 1/2 pack/day [facility] [place] [facility] Nov 29, 2001 10:07 AM CURRENT SMOKER [facility] [place] [facility] Encounter Notes: All associated encounter notes This section contains the clinical notes associated to the Encounter. Date/Time Encounter Note(s) Provider Source Dec 03, 2024 05:13 PM SOCIAL WORK NOTE: LOCAL TITLE: SOCIAL WORK NOTE STANDARD TITLE: SOCIAL WORK NOTE DATE OF NOTE: DEC 03, 2024@17:13 ENTRY DATE: DEC 03, 2024@17:14:23 AUTHOR: ASIA CUTLER EXP COSIGNER: URGENCY: STATUS: COMPLETED Bullet Casting Operator reached out to check in with . [place] reported , The only thing that bothers me is when I walk too far,I get out of breath and have to sit. Sometimes I just sit on the ground. He mentioned that when the time comes where he may need assistance and can't take care of himself, [facility] We discussed higher level of care and his service connection. 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 Bullet Casting Operator and [place] discussed increased service conection. [place] provided contact information for [facility]'s to look into serice connection. [place] verbalized appreciation. Bullet Casting Operator encouraged [place] to contactwriter and [facility] prn. /desean/ BENJAMIN MASON LICENSED INDEPENDENT CLINICAL LITIGATION LEGAL SECRETARY Signed: 12/03/2024 18:52 Receipt Acknowledged By: 12/04/2024 08:22 /desean/ TEO SANCHEZ D.O. PHYSICIAN ASIA CUTLER [place] [facility]
--- OUTSIDE RECORDS SUMMARY | 2024-12-11 15:48 | XMS_ITS ---
Author Organization [facility] Address [address] [address] Care Team Providers Care [employer] Worker Name Role Phone Ziyad GOMES, James Primary Care Provider UnavailAntonio Segura [phone] REASON FOR VISIT bowel prep Medications Medication [...] Active Encounters Encounter Location Date Provider Diagnosis [facility] [address] [address] 08/30/2024 Antonio Arce Plan Of Treatment Medication [...] * LEVY JERNIGANDOB: [birth year] (64 yo M)Acc No.[id number]:08/30/2024 Patient:?LEVY JERNIGAN :1960???Age:64 Y???Sex:Male Address:[address] [place], [place] [id number] * Refills? Start MiraLax (colon prep) Powder, [...] true * Date:? Generated for Cindy victor/Walt/Richaitting on:?12/11/2024 03:48 PM EDT
--- OUTSIDE RECORDS SUMMARY | 2024-12-11 15:48 | XMS_ITS ---
Author Name [facility] Organization [facility] Address [address] [place] [address] Care Team Providers Care Outside Production Inspector Name Role Phone TEO SANCHEZ Primary Care [...] Name Patient's Relationship to Policy Ugarte [facility] FEDERAL PREFERRED PROVIDER ORGANIZAT ION (PPO) BASIC SELF Jun 23, 2013 [id number] JANAK MAIERLEVY PATIENT BCBS [place] FEP PREFERRED PROVIDER ORGANIZAT ION (PPO) BASIC INDIV IDUAL Jun 23, 2013 [id number] JANAK MAIERLEVY PATIENT [employer] FEPRX PLAN PRESCRIPT ION CAREM ARK FEPRX Jun 23, 2013 [id number] JANAK MAIERLEVY PATIENT [place]ARK-F EP BCBS PRESCRIPT ION FEP CAREM ARK Jun 23, 2013 [id number] LEVY COVARRUBIAS PATIENT MEDICARE (WNR) MEDICARE (M) PART A Jun 21, 2022 PART A [id number] LEVY COVARRUBIAS PATIENT MEDICARE (WNR) MEDICARE (M) PART B Jun 21, 2022 PART B [id number] LEVY COVARRUBIAS PATIENT Selected Encounter This section includes the information on record at [place] for the Encounter. Date/Time Encounter Type Encounter Description Reason Provider Source Dec 10, 2024 01:00 PM Outpatient Encounter PRIMARY CARE/MEDICINE TEO SANCHEZ Encounter Template Text not used by [place] Plan of Treatment: Future Appointments (+ 6 months) and Future Tests (+/- 45 days) The Plan of Treatment section includes future care activities for the [facility] [place] [facility] This section includes future appointments and future orders which are active, pending or scheduled. Future Appointments This section includes appointments that were scheduled to occur 6 months from the date of the Encounter, up to a maximum of 20 appointments. The data comes from all [place] treatment facilities. Appointment Date/Time Appointment Type Appointme nt Facility Name December 19, 2024 02:00 PM [facility] [place] [facility] Active, Pending, and Scheduled Orders This section includes a listing of several types of active, pending, and scheduled orders, including clinic medications orders, diagnostic test orders, procedure orders and consult orders; where the start date of the order is 45 days before the date of the Encounter or 45 days after the date of theEncounter. The data comes from all [place] treatment facilities. Test Date/Time Test Type Test Details Facility Name Nov 25, 2024 01:58 PM Consult Order COMMUNITY CARE-PULMONARY Cons Sales Development Representative's Choice [facility] [place] [facility] Nov 27, 2024 12:00 AM Laboratory - Chemistry Order LIPID PANEL FASTING BLOOD (SST-SERUM) SP [facility] [place] [facility] Nov 29, 2024 02:43 PM Consult Order COMMUNITY CARE-PULMONARY Cons Sales Development Representative's Choice [facility] [place] [facility] Dec 10, 2024 01:45 PM Consult Order OCCUPATIONAL THERAPY POWER MOBILITY OUTPT Cons Sales Development Representative's Choice [facility] [place] [facility] Lab Results: +/- 30 days of the encounter This section includes the Chemistry and Hematology Lab Results on record with [place] for the patient. Radiology Reports and Pathology Reports are provided separately, in subsequent sections. Lab Results This section contains the Chemistry/Hematology Results that were resulted 30 days before or 30 daysafter the date of the Encounter. Date/Time Source Result Type Result - Unit Interpretation Reference Range Specimen Type Comment Dec 10, 2024 01:53 PM [facility] TOTAL TESTOSTERONE SERUM Specimen Type: SERUM No comment entered. Ordering Provider: TEO SANCHEZ Report Released Date/Time: Nov 29, 2024 11:36 AM Reporting Lab: [address] [id number] Performing Lab: [address] [phone] TOTAL TESTOSTERONE 569.99 ng/dL [id number] Dec 10, 2024 01:53 PM [facility] PSA SERUM Specimen Type: SERUM No comment entered. Ordering Provider: TEO SANCHEZ Report Released Date/Time: Nov 29, 2024 11:36 AM Reporting Lab: [address] [id number] Performing Lab: [address] [id number] PSA 2.1 ng/mL 0.0-4.0 Vital Signs: All taken on the encounter date This section contains inpatient and outpatient Vital Signs collected on the date of the Encounter. Date/Time Temperature Pulse Blood Pressure Respiratory Rate SP02 Pain Height Weight Body Mass Index Source Dec 10, 2024 01:09 PM 98.1 64 129/72 16 96 1 144 21 [facility] Social History: Smoking Status (Most current) and Tobacco Use (All prior to encounter date) This section includes the most current, and the historical, smoking and tobacco- related health factors from the [place] facility where the Encounter took place. Current Smoking Status This section includes the most current smoking, or tobacco-related health factor, from the [place] facility where the Encounter took place. Date/Time Current Smoking Status Comment Drake mckenzie Dec 10, 2024 01:00 PM VA-TOBACCO USE FOR RUBIO CIGARETTES [facility] Tobacco Use History This section includes a history of the smoking, or tobacco-related health factors, that were collected on or before the date of the Encounter. The data comes from the [place] facility where the Encounter took place. Date/Time Smoking Status/Tobac co Use Comment Facility Dec 10, 2024 01:00 PM VA-TOBACCO USE FORMER CIGARETTES [facility] [place] [facility] Oct 20, 2023 08:21 PM VA-TOBACCO FORMER USER [facility] [place] [facility] Oct 20, 2023 08:21 PM VA-TOBACCO QUIT 5 TO < 15 YRS [facility] [place] [facility] Jul 13, 2022 01:00 PM VA-TOBACCO FORMER USER [facility] [place] [facility] Jul 13, 2022 01:00 PM VA-TOBACCO QUIT 5 TO < 15 YRS [facility] [place] [facility] Feb 25, 2021 01:15 PM [facility]AC[facility] Feb 25, 2021 01:15 PM VA-TOBACCO QUIT 5 TO < 15 YRS [facility] [place] [facility] Nov 27, 2012 03:19 PM V1-PT DECLINES REF TO TOBACCO CESS PRGM [facility] [place] [facility] Nov 27, 2012 03:19 PM V1-PT DECLINES TOBACCO CESSATION MEDS [facility] Nov 27, 2012 03:19 PM V1-PT NOT INTERESTED IN QUIT TOBACCO USE [facility] [place] [facility] Apr 12, 2012 10:34 AM CURRENT SMOKER [facility] [place] [facility] Apr 12, 2012 10:34 AM V1-PT THINKING ABOUT QUIT TOBACCO USE [facility] [place] [facility] Oct 17, 2011 11:15 AM V1-PT DECLINES REF TO TOBACCO CESS [facility]GM [facility] [place] [facility] Oct 17, 2011 11:15 AM V1-PT THINKING ABOUT QUIT TOBACCO USE [facility] [place] [facility] Apr 04, 2011 01:28 PM CURRENT SMOKER [facility] [place] [facility] Apr 04, 2011 01:28 PM V1-PT DECLINES REF TO TOBACCO CESS [facility]GM [facility] [place] [facility] Apr 04, 2011 01:28 PM V1-PT DECLINES TOBACCO CESSATION MEDS [facility] [place] [facility] Apr 04, 2011 01:28 PM V1-PT NOT INTERESTED IN QUIT TOBACCO USE [facility] [place] [facility] Mar 01, 2010 01:50 PM CURRENT SMOKER 1/2 ppd [facility] [place] [facility] Mar 01, 2010 01:50 PM V1-PT THINKING ABOUT QUIT TOBACCO USE [facility] [place] [facility] Sep 02, 2008 03:15 PM CURRENT SMOKER 1/2 ppd [facility] [place] [facility] Sep 02, 2008 03:15 PM V1-PT DECLINES REF TO TOBACCO CESS PRGM [facility] [place] [facility] Sep 02, 2008 03:15 PM V1-PT READY TO QUIT TOBACCO USE [facility] [place] [facility] Jan 28, 2008 03:59 PM V1-PT DECLINES [facility] [place] [facility] Jan 28, 2008 03:59 PM V1-PT READY TO QUIT [facility]ACCO [facility] [place] [facility] Apr 06, 2007 03:19 PM CURRENT SMOKER 1/2 ppd [facility] [place] [facility] Apr 06, 2007 03:19 PM V1-PT DECLINES REF TO TOBACCO CESS [facility] Apr 06, 2007 03:19 PM V1-PT DECLINES TOBACCO CESSATION [facility] Apr 06, 2007 03:19 PM V1-PT THINKING ABOUT QUIT TOBACCO [facility] [place] [facility] Jun 02, 2005 01:53 PM CURRENT SMOKER 1 pk [facility] [place] [facility] Oct 10, 2003 02:33 PM CURRENT SMOKER smokes 1/2 day [facility] [place] [facility] May 28, 2002 03:47 PM CURRENT SMOKER smokes 1/2 pack/day [facility] [place] [facility] Nov 29, 2001 10:07 AM [facility] Encounter Notes: All associated encounter notes This section contains the clinical notes associated to the Encounter. Date/Time Encounter Note(s) Provider Source Dec 10, 2024 01:10 PM PREVENTIVE MEDICIN E NURSING NOTE: LOCAL TITLE: CLINICAL REMINDERS/NURSING STANDARD TITLE: PREVENTIVE MEDICINE NURSING NOTE DATE OF NOTE: DEC 10, 2024@13:10 ENTRY DATE: DEC 10, 2024@13:10:07 AUTHOR: CLARIBEL MORGAN EXP COSIGNER: URGENCY: STATUS: COMPLETED Depression Screening: Perform PHQ-2 A PHQ-2 screen was performed. The score was 1 which is a negative screen for depression. Over the past two weeks, how often have you been bothered by the following problems? 1. Little interest or pleasure in doing things Not at all 2. Feeling down, depressed, or hopeless Several days Tobacco Use Screening: The patient is a former cigarette smoker. The patient has never used other types of tobacco. Alcohol Use Screen (AUDIT-C): Alcohol Screen: SCREEN FOR ALCOHOL (AUDIT-C) An alcohol screening test (AUDIT-C) was negative (score=0). 1. How often did you have a drink containing alcohol in the past year? Consider a drink to be a 12 ounce can or bottle of regular beer, 8 ounces of malt liquor, a 5 ounce glass of table wine, or a 1.5 ounce shot of liquor (like scotch, gin, or vodka). Never 2. How many drinks containing alcohol did you have on a typical day when you were drinking in the past year? Response not required due to responses to other questions. 3. How often did you have six or more drinks on one occasion in the past year? Response not required due to responses to other questions. Sexual Orientation: The patient thinks of their sexual orientation as: Lesbian or Bishop Advance Directive Screen MH AD: Patient has an up-to-date Advance Directive at an outside, non-va facility and was asked to forward a copy to his/her clinician. Homelessness/Food Insecurity Screen: In the past 2 months, have you been living in stable housing that you own, rent, or stay in as part of a household? Yes - Living in stable housing. Are you worried or concerned that in the next 2 months you may NOT have stable housing that you own, rent, or stay in as part of a household? No - Not worried about housing near future The reports the following: Within the past 12 months, you worried whether your food would run out before you got money to buy more. Never true Within the past 12 months, the food you bought just didn't last and you didn't have money to get more. Never true Alcohol Use Screen (AUDIT-C): Alcohol Screen: SCREEN FOR ALCOHOL (AUDIT-C) An alcohol screening test (AUDIT-C) was negative (score=0). 1. How often did you have a drink containing alcohol in the past year? Consider a drink to be a 12 ounce can or bottle of regular beer, 8 ounces of malt liquor, a 5 ounce glass of table wine, or a 1.5 ounce shot of liquor (like scotch, gin, or vodka). Never 2. How many drinks containing alcohol did you have on a typical day when you were drinking in the past year? Response not required due to responses to other questions. 3. How often did you have six or more drinks on one occasion in the past year? Response not required due to responses to other questions. Herpes Zoster (Shingles) Vaccine: Prior Herpes Zoster vaccination The patient has been vaccinated in the past but written documentation of vaccination is not available today. RSV Immunization: Record prior RSV Vaccine (historical) Patient received a prior dose of Pfizer RSV vaccine. Documented: RSV, BIVALENT, PROTEIN SUBUNIT RSVPREF, DILUENT RECONSTITUTED, 0.5 ML, PF Historical Date Administered: May 30, 2024 Series: Complete Outside Location: Outside Healthcare Provider Information Source: FROM OTHER REGISTRY Influenza Immunization: The patient has received the seasonal influenza vaccine for the current season at another location. Documented: INFLUENZA, UNSPECIFIED FORMULATION Historical Date Administered: May 30, 2024 Series: Complete Outside Location: Outside Healthcare Provider Information Source: FROM PATIENT'S RECALL /desean/ CLARIBEL MORGAN LPN License Practical Nurse Signed: 12/10/2024 13:15 CLARIBEL MORGAN [place] [facility]
--- OUTSIDE RECORDS SUMMARY | 2024-12-11 15:48 | XMS_ITS | Encounter Summary ---
Author Name [facility] Organization [facility] Address [address] [place] [address] Care Team Providers Care Landscape Drafter Name Role Phone TEO SANCHEZ Primary Care [...] Name Patient's Relationship to Policy Ugarte [facility] FEDERAL PREFERRED PROVIDER ORGANIZAT ION (PPO) BASIC SELF Jun 23, 2013 [id number] [phone] JANAK LEVY MAIER PATIENT BCBS [place] FEP PREFERRED PROVIDER ORGANIZAT ION (PPO) BASIC INDIV IDUAL Jun 23, 2013 [id number] JAANK MAIERLEVY PATIENT [place] FEPRX PLAN PRESCRIPT ION CAREM ARK FEPRX Jun 23, 2013 [id number] JANAK MAIERLEVY PATIENT CAREMARK-F EP BCBS PRESCRIPT ION FEP CAREM ARK Jun 23, 2013 [id number] JANAK MAIERLEVY PATIENT MEDICARE (WNR) MEDICARE (M) PART B Jun 21, 2022 PART B [id number] LEVY COVARRUBIAS PATIENT MEDICARE (WNR) MEDICARE (M) PART A Jun 21, 2022 PART A [id number] LEVY COVARRUBIAS PATIENT Selected Encounter This section includes the information on record at ID for the Encounter. Date/Time Encounter Type Encounter Description Reason Provider Source Jun 24, 2024 01:00 PM COMPRE OPH EXAM EST PT 1/> OPTOMETRY ICD-10-CM H25.813 Combined forms of age-related cataract, bilateral EUGENE NEWBERRY Kemar Encounter Template Text not used by ID Assessments - Encounter Diagnoses This section includes the primary and secondary diagnoses documented for the Encounter. Date/Time Primary/Secondary Diagnosis Diagnosis Name Provider Source Jun 24, 2024 01:49 PM PRIMARY Combined forms of age-related cataract, bilateral EUGENE NEWBERRY [facility] [place] [facility] Jun 24, 2024 01:49 PM SECONDARY Dry eye syndrome of bilateral lacrimal glands EUGENE NEWBERRY ID [facility] [place] [facility] Jun 24, 2024 01:49 PM SECONDARY Glare sensitivity EUGENE NEWBERRY ID [facility] [place] [facility] Jun 24, 2024 01:49 PM SECONDARY Unspecified disorder of refraction EUGENE NEWBERRY [facility] [place] [facility] Plan of Treatment: Future Appointments (+ 6 months) and Future Tests (+/- 45 days) The Plan of Treatment section includes future care activities for the patient from all ID treatmentfacilities. This section includes future appointments and future orders which are active, pending or scheduled. Future Appointments This section includes appointments that were scheduled to occur 6 months from the date of the Encounter, up to a maximum of 20 appointments. The data comes from all ID treatment facilities. Appointment Date/Time Appointment Type Appointme nt Facility Name Nov 20, 2024 11:15 AM AMBULATORY - MEDICINE ID C [facility] [place] [facility] Dec 10, 2024 01:00 PM AMBULATORY - MEDICINE [facility] [place] [facility] December 19, 2024 02:00 PM AMBULATORY - REHAB MEDICIN E ID [facility] [place] [facility] Social History: Smoking Status (Most current) and Tobacco Use (All prior to encounter date) This section includes the most current, and the historical, smoking and tobacco- related health factors from the ID facility where the Encounter took place. Current Smoking Status This section includes the most current smoking, or tobacco-related health factor, from the ID facility where the Encounter took place. Date/Time Current Smoking Status Comment [facility] it Oct 20, 2023 08:21 PM VA-TOBACCO [facility] Tobacco Use History This section includes a history of the smoking, or tobacco-related health factors, that were collected on or before the date of the Encounter. The data comes from the ID facility where the Encounter took place. Date/Time Smoking Status/Tobac co Use Comment Facility Oct 20, 2023 08:21 PM VA-TOBACCO QUIT 5 TO < 15 YRS [facility] Jul 13, 2022 01:00 PM [facility]ACCO [facility] Jul 13, 2022 01:00 PM VA-TOBACCO QUIT 5 TO < 15 YRS [facility] Feb 25, 2021 01:15 PM VA-TOBACCO [facility] Feb 25, 2021 01:15 PM VA-TOBACCO QUIT 5 TO < 15 YRS [facility] Nov 27, 2012 03:19 PM V1-PT DECLINES REF [facility] Nov 27, 2012 03:19 PM V1-PT DECLINES TOBACCO CESSATION MEDS [facility] Nov 27, 2012 03:19 PM V1-PT NOT INTERESTED IN QUIT TOBACCO USE [facility] Apr 12, 2012 10:34 AM CURRENT SMOKER [facility] Apr 12, 2012 10:34 AM V1-PT THINKING ABOUT QUIT TOBACCO USE [facility] Oct 17, 2011 11:15 AM V1-PT DECLINES REF TO TOBACCO CESS [facility] Oct 17, 2011 11:15 AM V1-PT THINKING ABOUT QUIT [facility]BACCO [facility] [place] [facility] Apr 04, 2011 01:28 PM CURRENT SMOKER [facility] [place] [facility] Apr 04, 2011 01:28 PM V1-PT DECLINES REF TO TOBACCO CESS PRGM [facility] [place] [facility] Apr 04, 2011 01:28 PM V1-PT DECLINES TOBACCO CESSATION MEDS [facility] [place] [facility] Apr 04, 2011 01:28 PM V1-PT NOT INTERESTED IN QUIT TOBACCO USE [facility] [place] [facility] Mar 01, 2010 01:50 PM CURRENT SMOKER 1/2 ppd [facility] [place] [facility] Mar 01, 2010 01:50 PM V1-PT THINKING ABOUT QUIT TOBACCO USE [facility] [place] [facility] Sep 02, 2008 03:15 PM CURRENT SMOKER 1/2 ppd [facility] [place] [facility] Sep 02, 2008 03:15 PM V1-PT DECLINES REF TO TOBACCO CESS PRGM [facility] [place] [facility] Sep 02, 2008 03:15 PM V1-PT READY TO QUIT TOBACCO USE [facility] [place] [facility] Jan 28, 2008 03:59 PM V1-PT DECLINES REF TO TOBACCO CESS PRGM [facility] [place] [facility] Jan 28, 2008 03:59 PM V1-PT READY TO QUIT TOBACCO USE [facility] [place] [facility] Apr 06, 2007 03:19 PM CURRENT SMOKER 1/2 ppd [facility] [place] [facility] Apr 06, 2007 03:19 PM V1-PT DECLINES REF TO TOBACCO CESS PRGM [facility] [place] [facility] Apr 06, 2007 03:19 PM V1-PT DECLINES TOBACCO CESSATION MEDS [facility] [place] [facility] Apr 06, 2007 03:19 PM V1-PT THINKING ABOUT QUIT TOBACCO USE [facility] [place] [facility] Jun 02, 2005 01:53 PM CURRENT SMOKER 1 pk [facility] [place] [facility] Oct 10, 2003 02:33 PM CURRENT SMOKER smokes 1/2 day [facility] [place] [facility] May 28, 2002 03:47 PM CURRENT SMOKER smokes 1/2 pack/day [facility] [place] [facility] Nov 29, 2001 10:07 AM CURRENT SMOKER [facility] Encounter Notes: All associated encounter notes This section contains the clinical notes associated to the Encounter. Date/Time Encounter Note(s) Provider Source Jun 24, 2024 12:55 PM OPTOMETRY NOTE: LOCAL TITLE: OPTOMETRY NOTE(T) STANDARD TITLE: OPTOMETRY NOTE DATE OF NOTE: JUN 24, 2024@12:55 ENTRY DATE: JUN 24, 2024@12:55:34 AUTHOR: EUGENE NEWBERRY EXP COSIGNER: URGENCY: STATUS: COMPLETED I saw this patient in conjunction with the student and agree to the stated findings and plan after reviewing both history and repeating bui elements of physical exam. Patient presents for annual comprehensive exam with history of dry eye exacerbated by CPAP, history of PSC OD not visually significant, and refraction disorder. He is also HIV positive. No acute ocular disease was seen today. Patient is bothered by some glare and glare at night. Ordered PAL in clear and sunglasses and yellow lenses for nighttime driving and single vision intermediate computer glasses. The patient will return in 12 months or sooner if any problems arise. /desean/ EUGENE NEWBERRY OD STAFF STUDENT TEACHING COORDINATOR Signed: 06/24/2024 13:49 EUGENE NEWBERRY [facility] Jun 24, 2024 07:41 AM OPTOMETRY NOTE: LOCAL TITLE: OPTOMETRY NOTE STANDARD TITLE: OPTOMETRY NOTE DATE OF NOTE: JUN 24, 2024@07:41 ENTRY DATE: JUN 24, 2024@07:41:27 AUTHOR: TJ CASTREJON EXP COSIGNER: EUGENE NEWBERRY URGENCY: STATUS: COMPLETED Active problems - Computerized Problem List is the source for the followin. Exposure to potentially hazardous substance 2. Depression 3. Hypertension 4. Erectile dysfunction 5. Obstructive sleep apnea of adult 6. Nicotine dependence 7. Sponge kidney 8. Hypogonadism 9. Chronic obstructive lung disease (SNOMED CT [id number]) 10. Genital herpes simplex 11. Gastroesophageal reflux disease 12. Allergic rhinitis 13. Generalized anxiety disorder 14. Human immunodeficiency virus infection 15. 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 Outpatient Medications (including Supplies): Active Outpatient Medications Status 1) ALBUTEROL 90MCG (CFC-F) 200D ORAL INHL INHALE 2 PUFFS ACTIVE BY MOUTH EVERY 6 HOURS NEEDED 2) AMLODIPINE BESYLATE 5MG TAB TAKE ONE TABLET BY MOUTH ACTIVE TWICE DAILY FOR BLOOD PRESSURE/HEART, DO NOT TAKE WITH GRAPEFRUIT JUICE 3) ARFORMOTEROL 7.5MCG/ML SOLN INHL 2ML INHALE 1 AMPULE ACTIVE VIA UPDRAFT EVERY 12 HOURS 4) AZITHROMYCIN 250MG TAB TAKE TWO TABLETS BY MOUTH ACTIVE THREE TIMES A WEEK 5) BUDESONIDE 0.5MG/2ML INH SUSP 2ML 1 VIAL VIA ACTIVE NEBULIZER EVERY 12 HOURS 6) BUSPIRONE HCL 5MG TAB TAKE ONE TABLET BY MOUTH EVERY ACTIVE 8 HOURS NEEDED 7) DORAVIRINE 100/LAMIV 300/TENOF 300MG TAB TAKE 1 ACTIVE TABLET BY MOUTH ONCE DAILY FOR INFECTION 8) IPRATROPIUM BR 0.06% NASAL SPRAY INSTILL 2 SPRAYS ACTIVE INTO EACH NOSTRIL EVERY 12 HOURS NEEDED FOR CONGESTION 9) METOPROLOL TARTRATE 25MG TAB TAKE ONE TABLET BY MOUTH ACTIVE TWICE DAILY FOR BLOOD PRESSURE/HEART 10) ONDANSETRON HCL 4MG TAB TAKE ONE TABLET BY MOUTH ACTIVE EVERY MORNING FOR NAUSEA AND VOMITING 11) TESTOSTERONE 1.62% 20.25MG/PUMP TOP GEL APPLY 2 PUMPS ACTIVE (40.5 MG) TOPICALLY ONCE DAILY 12) THEOPHYLLINE 400MG 24HR SA TAB TAKE ONE TABLET BY ACTIVE MOUTH ONCE DAILY 13) TIOTROPIUM 2.5MCG/ACTUAT 60D ORAL INHL INHALE 2 PUFFS ACTIVE BY MOUTH ONCE DAILY -CONTROLLER MEDICATION FOR ASTHMA Active Non-VA Medications Status 1) Non-VA LORAZEPAM 0.5MG TAB 0.5MG BY MOUTH ONCE DAILY ACTIVE 2) Non-VA OXYGEN MISCELLANEOUS DIRECTED ACTIVE 3) Non-VA PREDNISONE 10MG TAB 10MG BY MOUTH NEEDED ACTIVE 16 Total Medications Allergies: BACTRIM All medications including those prescribed by outside VA's, community providers, and all OTC meds were reviewed and reconciled with patient to the best of their abilities. This 63 year old MALE is seen today for annual CEE ITALO: 06/13/2023 Chief Complaint: Dry eyes with use of Refresh once a day. Sometimes peripheral vision seems to take a while to notice. Have to tilt head back to access the near portion in his PALs and even so his vision at near is still blurry OHx: 1. HIV without ocular complications OU 2. NSC OU 3. 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 RE and presbyopia Ocular Medications: Refresh once a day (-) Pain: (-) HERNANDEZ: (-) Diplopia: (-) Flashes: (+) Floaters: Longstanding OS>OD (-) Amaurosis Fugax/Tia's: (-) Eye Injury: (-) Eye Surgery: (-) TBI FOHx: (-) Glaucoma/ARMD/Blindness VITALS (most recent, as listed in the electronic record): B/P: 134/77 (12/11/2023 13:19) Pulse: 67 (12/11/2023 13:19) Temperature: 98 F [36.7 C] (12/11/2023 13:19) Weight: 148 lb [67.13 kg] (12/11/2023 13:19) Height: 69 in [175.3 cm] (01/05/2022 13:13) BMI: BMI: 21.9 PERTINENT LABS: HEMOGLOBIN A1C TREND Collection DT Spec HGBA1c 11/06/2018 11:31 BLOOD 5.6 04/30/2013 10:09 BLOOD 5.9 (-) Smoker/Length of Time/PPD: Current Rx with last BCVA: OD: +1.50-1.25 x085 20/20 OS: +1.00-1.00 x095 20/20 Add:+2.50 DVA ( )sc ( x )cc - phoropter OD: 20/25 OS: 20/20-2 Pupils: PERRL (-)APD EOMs: SAFE OU, (-)Pain/Diplopia CVF (facial, peripheral): FTFC OU Subjective Refraction: OD: +1.75-1.25 x085 20/20 OS: +0.75-1.00 x095 20/20-2 Add:+2.50 20/25+; no improvement with higher add Final SRx OD: +1.75-1.25 x085 OS: +1.00-1.00 x095 Add:+2.50 Computer: +1.25 All the above performed by student, reviewed by attending Anterior segment: Performed by student, repeated by attending Lids: Dermatochalasis OU Conj: white and quiet OU Cornea: Trc SPKs staining inferior 1/3 OU(-)k spindle OU AC: D&Q OU Angles: 4x4 OU Iris: flat and clear OU Lens: 1-2 NSC with trc vacuole OU (-)PXF OU Tonometry: Performed by student, reviewed by attending [x ] GAT [ ] iCare OD 12 mmHg OS 11 mmHg Time: 13:10 Last IOP OD: 14 OS: 14 Fundus exam: Dilated: xxxx Non dilated: Dilating Drops: 1GTT 1 % Tropicamide OU & 1GTT 2.5% Phenylephrine OU (Pt. ed. on side effects, dilation warning given and verbal consent obtained) Patient advised not to drive if they feel they have any symptoms which could affect their ability to drive safely. Patient advised not to engage in any activities which could put themselves or others at risk if they feel they have any symptoms which could affect their ability to perform those activities safely. Performed by student, repeated by attending Vit: clear OU C/D: 0.25 OU pink & healthy rim tissue Macula: flat and clear OU PPole: clear (-)dot/blot hemorrhage (-)exudates OU A/V: 2/3 Vessels: Mild tuotuosity OU Periph: flat and intact (-) holes, tears, detachments 360 OU (+) scattered small hypopigmentation spots in sup temp OD and sup nasal OS Assessment/Plan: 1. Human immunodeficiency virus infection without ocular manifestation OU - Monitor 2. Combined Form Cataracts OU - Pt. ed. on findings - cataracts are not visually significant and that surgery is notnecessary at this time - Ed. on importance of UV protection and on symptoms of glare - Continue to monitor 3.Dry eyes OU; symptomatic - Pt. ed. on todays findings - Continue to use Refresh - Ed. pt. to use BID-QID OU even on days when eyes are not feeling dry - Monitor 4. Hyperopia and presbyopia OU - Pt. ed. on todays findings - Is going to pick out new frames for PALs and computer - Monitor Return to Clinic 1yr or earlier PRN Education: After discussion and answering all 's questions, [place] demonstrated and verbalized understanding of diagnosis and treatment. Yes [x] No [ ] Medication Reconciliation: Outpatient: Has the patient been taking medications as documented in the EMLR? YES: The patient has been taking medications as documented in the EMLR. Essential Medication List for Review used to complete this medication reconciliation. INCLUDED IN THIS LIST: Alphabetical list of active outpatient prescriptions dispensed from this VA (local) and dispensed from another VA or DoD facility (remote) as well as inpatient orders (local, pending and active), local clinic medications, locally documented non-VA medications, and local prescriptions that have or been discontinued in the past 90 days. - All changes in medications, including all non-VA/Herbal/OTC medications were entered into CPRS. - If there were any medications the patient should no longer take, they were discontinued. - The patient/caregiver was instructed to update this list, discard old lists, and take this list to the next appointment, whether with a VA or non-VA provider. /desean/ TJ CASTREJON OPTOMETRY STUDENT Signed: 07/09/2024 16:05 /desean/ EUGENE NEWBERRY OD STAFF STUDENT TEACHING COORDINATOR Cosigned: 07/10/2024 08:29 TJ CASTREJON ID [facility]
== END 2024-12-11 14:02 | disposition home or self-care (01) ==
LOC: HO.HID 13:24
PROVIDERS: PCP Family Medicine; Visit Provider Internal Medicine
DX: B20 Human immunodeficiency virus [HIV] disease (principal)
CPT/HCPCS: 99214

== ENCOUNTER → 2024-12-11 13:24 | Outpatient (BNVA) | payer MEDICARE, BC, SELFPAY | PROVIDERS: PCP Family Medicine; Visit Provider Internal Medicine | DX: B20 Human immunodeficiency virus [HIV] disease (principal); M89.9 Disorder of bone, unspecified; Z99.81 Dependence on supplemental oxygen | CPT/HCPCS: 99212 ==

== ENCOUNTER 2024-12-24 10:51 | Outpatient (REF) | payer MEDICARE, BC, SELFPAY ==
--- OUTSIDE RECORDS SUMMARY | 2024-12-24 12:34 | XMS_ITS ---
Author Organization [facility] Address [address] [place] [id number] Care Team Providers Care Carpenter Assistant Installer Name Role Phone Ziyad GOMES, James Primary Care Provider UnavailAntonio Segura [phone] REASON FOR VISIT positive colon ca screening using cologuard Encounters Encounter Location Date Provider Diagnosis [facility] Outpatient [address] [place] [phone] 12/02/2024 Antonio Arce Plan Of Treatment No Information Progress Notes * LEVY JERNIGANDOB: [birth year] (64 yo M)Acc No.[id number]:12/02/2024 COLON WITH MAC Patient:?JANAKLIVIERLEVY Provider:?Antonio Arce MD :1960???Age:64 Y???Sex:Male Fady e:12/02/2024 Address:[address] [place], [place] [id number] Pcp:James Lackey MD Subjective: * Chief Complaints: [...] MD Date:? 025 Generated for Cindy victor/Walt/eTransmitting on:?12/24/2024 12:34 PM EDT
--- OUTSIDE RECORDS SUMMARY | 2024-12-24 12:34 | XMS_ITS ---
Author Organization [facility] Address [address] [address] Care Team Providers Care Foot Drill Operator Name Role Phone Ziyad GOMES, James Primary Care Provider UnavailAntonio Segura [phone] REASON FOR VISIT bowel prep Medications Medication [...] Active Encounters Encounter Location Date Provider Diagnosis [facility] [address] [address] 08/30/2024 Antonio Arce Plan Of Treatment Medication [...] * LEVY JERNIGANDOB: [birth year] (64 yo M)Acc No.[id number]:08/30/2024 Patient:?LEVY JERNIGAN :1960???Age:64 Y???Sex:Male Address:[address] [place], [place] [id number] * Refills? Start MiraLax (colon prep) Powder, [...] true * Date:? Generated for Cindy victor/Walt/Richaitting on:?12/24/2024 12:34 PM EDT
--- OUTSIDE RECORDS SUMMARY | 2024-12-24 12:34 | XMS_ITS | Patient Health Record ---
Author Organization [facility] Address [address] [place] [phone] Care Team Providers Care Laundry Aide Name Role Phone Ziyad GOMES, James Primary Care Provider UnavailAntonio Segura Unavailable [phone] Allergies No Known Allergies Reason For Referral [...] MG Oral for 10 A ctive Ipratropium [place] 0.06 % Nasal for 30 Active hydrOXYzine Pamoate 25 MG Oral for 90 Active Azithromycin 250 MG Oral for 90 Active Nystatin [id number] UNIT/ML SWISH AND SWALLO W 1 TEASPOONFUL [...] Problem Status W/U Status Risk Notes Problem Positive colorectal cancer screening using Cologuard test (R19.5) Active confirmed Vital Signs Blood pressure diastolic 00 mm Hg 07/16/2024 Height 5 ft 8 in in 07/16/2024 Blood pressure systolic 00 mm Hg 07/16/2024 Weight 139 lbs 07/16/2024 BMI 21.13 kg/m2 07/16/2024 Encounters Encounter Location Date Provider Diagnosis [facility] [address] [place] [phone] 07/16/2024 Antonio Arce Positive colorectal cancer screening using Cologuard test R19.5 [facility] [address] [place] [phone] 08/03/2024 Antonio Arce [facility] [address] [place] [phone] 08/30/2024 Antonio Arce [facility] [address] [place] [phone] 10/14/2024 Antonio Arce Assessments Encounter Date Diagnosis [...] Date MEDICARE OF [place] [address] [place] [address] [phone] [id number] LEVY ANDINO Self - patient is the insured [facility] [address] [place], [place] [id number] LEVY ANDINO Self - patient is the insured Medical (General) History Medical History History ICD Code COPD/Emphysema -on oxygen/uses bipap/neb ulizer GERD Hypertension Sleep apnea-Uses BIPAP HIV Kidney stones HTN Negative colonoscopy in 1999 Denies NM,DM,CVA,renal disease Lactose-intolerance with gas and bloatin g Surgical History Surgery Date(Month/Year) Left inguinal hernia with mesh 2012 Right testicle with removal surgery [facility] a [facility]
--- OUTSIDE RECORDS SUMMARY | 2024-12-24 12:34 | XMS_ITS | Continuity of Care Document ---
Author Name [facility] Organization [facility] Care Team Providers Care X Ray Developer Name Role Phone [facility] Unavailable Unavailable Problems Combined list of problems from Department of Defense and Veterans Affairs facilities. It does not include entries that were removed or entered in error. Problem Status Onset Date Problem Type Date of Resolution Comments Source Pneumonia Inactive 07/30/20 17 Condition 01/05/2022 Aug 03, 2017 Entered By: YUKI NEVILLE Comment: [facility]. Admission Jul 2017. COPD/Pneumo arielle. D/c with Home O2 to use with acitivity [facility] Allergic rhinitis Active Condition 2002 Entered By: MADHU UGALDE Comment: on zyrtec [facility] Chronic obstructive lung disease (SNOMED CT [id number]) Active Condition Jul 24, 2015 Entered By: JENNIFER KWON Comment: PFTs 02/02 FVC 54%, FEV1 29%, FEF 25-75 9%, TLC 90%Jul 24, 2015 Entered By: JENNIFER KWON Comment: DLCO 34% [facility] Depression Active Condition [place] Erectile dysfunction Active Condition [place] Exposure to potentially hazardous substance Active Condition Jul 24, 2022 Entered By: KELSIE MARTINEZ Comment: [id number] Gastroesophageal reflux disease Active Condition [...] 4mg - at least 6 a day [place] Obstructive sleep apnea of adult [facility] 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 Condition [...] Obstructive sleep apnea (adult) (pediatric) Active Diagnosis [place] Diagnosis: ICD-10-CM J44.9 Chronic obstructive pulmonary disease, unspecified Active Diagnosis [facility] Diagnosis: ICD-10-CM Z71.89 Other specified counseling Active Diagnosis [facility] Medications Combined list of [...] NEEDED RESPIR ATORY (INHAL ATION) ACTIVE 08/20/2025 [id number] 5 FURCOLO,T CARLOS 2023 1 [facility] ALBUTEROL 90MCG/ACTUA T (CFC-F) INHL,ORAL,8 .5GM DOSE COUNTER INHALE 2 PUFFS BY MOUTH EVERY 6 HOURS NEEDED RESPIR ATORY (INHAL ATION) DISCONT INUED 08/03/2024 [id number] 4 [facility] J[facility] 2022 1 [facility] AMLODIPINE BESYLATE 5MG TAB TAKE ONE TABLET BY MOUTH TWICE DAILY FOR BLOOD PRESSURE /HEART, DO NOT TAKE WITH GRAPEFRU IT JUICE ORAL ACTIVE 06/29/2025 [id number] 5 FURCOLO,T CARLOS 2023 180 [facility] AMLODIPINE BESYLATE 5MG TAB TAKE ONE TABLET BY MOUTH TWICE DAILY FOR BLOOD PRESSURE /HEART, DO NOT TAKE WITH GRAPEFRU IT JUICE ORAL DISCONT INUED 07/03/2024 [id number] 4 [facility] AMOXICILLIN TRIHYDRATE 875MG/CLAVU LANATE K 125MG TAB TAKE 1 TABLET BY MOUTH TWICE DAILY FOR INFECTIO N ORAL DISCONT INUED 02/11/2024 [id number] 4 FURCOLO,T CARLOS 2023 20 [facility] AMOXICILLIN TRIHYDRATE 875MG/CLAVU LANATE K 125MG TAB TAKE 1 TABLET BY MOUTH TWICE DAILY FOR INFECTIO N ORAL DISCONT INUED 01/10/2024 [id number] 4 FURCOLO,T CARLOS 2023 20 [facility] AMOXICILLIN TRIHYDRATE 875MG/CLAVU LANATE K 125MG TAB TAKE 1 TABLET BY MOUTH TWICE DAILY FOR INFECTIO N ORAL 03/15/2024 [id number] FURCOLO,T CARLOS 2023 20 [facility] ARFORMOTERO L TARTRATE 7.5MCG/ML SOLN,INHL,2 ML INHALE 1 AMPULE VIA UPDRAFT EVERY 12 HOURS UPDRAF T ACTIVE 08/20/2025 [id number] 5 FURCOLO,T CARLOS 2024 120 [facility] ARFORMOTERO L TARTRATE 7.5MCG/ML SOLN,INHL,2 ML INHALE 1 AMPULE VIA UPDRAFT EVERY 12 HOURS UPDRAF T DISCONT INUED 08/03/2024 [id number] AHMED,MO[facility] AMMED JAWED 2022 120 [facility] ATORVASTATI N CA 40MG TAB TAKE ONE-HALF TABLET BY MOUTH ONCE DAILY FOR HIGH CHOLESTE ROL ORAL ACTIVE 12/12/2025 [id number] FURCOLO,T CARLOS 2024 45 [facility] AZITHROMYCI N 250MG TAB TAKE TWO TABLETS BY MOUTH THREE TIMES A WEEK ORAL SUSPEND ED 11/29/2025 [id number] FURCOLO,T CARLOS 2024 78 [facility] AZITHROMYCI N 250MG TAB TAKE TWO TABLETS BY MOUTH THREE TIMES A WEEK ORAL DISCONT INUED 06/29/2025 [id number] 5 FURCOLO,T CARLOS 2024 78 [facility] AZITHROMYCI N 250MG TAB TAKE TWO TABLETS BY MOUTH THREE TIMES A WEEK ORAL DISCONT INUED 09/06/2024 [id number] AHMED[facility] AM[facility] JAWED 2023 78 [facility] BISACODYL 5MG TAB,EC TAKE TWO TABLETS BY MOUTH TWICE DAILY FOR BOWELS - LAXATIVE TAKE AT 3 PM AND 7 PM FOR 1 DAY PRIOR TO GI PROCEDMARIE BONNER ORAL 10/06/2024 [id number] FURCOLO,T CARLOS 2024 4 [facility] BUDESONIDE 0.5MG/2ML SUSP,INH,2M L 1 VIAL VIA NEBULIZE R EVERY 12 HOURS NEBULI ZER SUSPEND ED 11/27/2025 [id number] 5 FURCOLO,T CARLOS 2024 180 [facility] BUDESONIDE 0.5MG/2ML SUSP,INH,2M L 1 VIAL VIA NEBULIZE R EVERY 12 HOURS NEBULI ZER DISCONT INUED 12/11/2024 [id number] 5 FURCOLO,T CARLOS 2023 180 [facility] BUDESONIDE 0.5MG/2ML SUSP,INH,2M L 1 VIAL VIA NEBULIZE R EVERY 12 HOURS NEBULI ZER DISCONT INUED 09/11/2024 [id number] [facility] J[facility] 2023 60 [facility] BUSPIRONE HCL 5MG TAB TAKE ONE TABLET BY MOUTH EVERY 8 HOURS NEEDED ORAL ACTIVE 08/20/2025 [id number] 5 FURCOLO,T CARLOS 2023 180 [facility] BUSPIRONE HCL 5MG TAB TAKE ONE TABLET BY MOUTH EVERY 8 HOURS NEEDED ORAL DISCONT INUED 08/03/2024 [id number] TRAM[facility] AMMED JAWED 2022 180 [facility] CARBOXYMETH YLCELLULOSE NA 0.5% SOLN,OPH INSTILL 1 DROP INTO EACH EYE FOUR TIMES A DAY FOR DRY EYE OPHTHA LMIC 06/13/2024 [id number] IVAN MOHAN 2022 15 [facility] CETIRIZINE HCL 10MG TAB TAKE ONE TABLET BY MOUTH ONCE DAILY NEEDED FOR ALLERGIE S ORAL 04/06/2024 [id number] 4 KLAUS,[facility] AMMED JAWED 2022 90 [facility] DORAVIRINE 100MG/LAMIV UDINE 300MG/TENOF OVIR DF 300MG TAB TAKE 1 TABLET BY MOUTH ONCE DAILY FOR INFECTIO N ORAL ACTIVE 11/29/2025 [id number] FURCOLO,T CARLOS 2024 90 [facility] DORAVIRINE 100MG/LAMIV UDINE 300MG/TENOF OVIR DF 300MG TAB TAKE 1 TABLET BY MOUTH ONCE DAILY FOR INFECTIO N ORAL DISCONT INUED 12/22/2024 [id number] FURCOLO,T CARLOS 2023 90 [facility] DORAVIRINE 100MG/LAMIV UDINE 300MG/TENOF OVIR DF 300MG TAB TAKE 1 TABLET BY MOUTH ONCE DAILY FOR INFECTIO N ORAL DISCONT INUED 02/06/2024 [id number] SUREKHA LUNA 2023 90 [facility] DORAVIRINE 100MG/LAMIV UDINE 300MG/TENOF OVIR DF 300MG TAB TAKE 1 TABLET BY MOUTH ONCE DAILY FOR INFECTIO N ORAL DISCONT INUED 12/22/2023 [id number] MARICHUY UGALDE AMMED JAWED 2022 90 [facility] GABAPENTIN 300MG CAP TAKE ONE CAPSULE BY MOUTH AT BEDTIME ORAL 04/06/2024 [id number] [address] [facility] JAW[facility] 2022 90 [facility] HYDROXYZINE PAMOATE 25MG CAP TAKE ONE CAPSULE BY MOUTH EVERY 12 HOURS NEEDED FOR ANXIETY ORAL ACTIVE 06/29/2025 [id number] 5 FURCOLO,T CARLOS 2023 180 [facility] HYDROXYZINE PAMOATE 25MG CAP TAKE ONE CAPSULE BY MOUTH EVERY 12 HOURS NEEDED FOR ANXIETY ORAL DISCONT INUED 04/06/2024 [id number] [facility] J[facility] 2022 180 [facility] IPRATROPIUM BR 0.06% SOLN,SPRAY, NASAL INSTILL 2 SPRAYS INTO EACH NOSTRIL EVERY 12 HOURS NEEDED FOR CONGESTI ON NASAL ACTIVE 08/20/2025 [id number] 5 FURCOLO,T CARLOS 2023 30 [facility] IPRATROPIUM BR 0.06% SOLN,SPRAY, NASAL INSTILL 2 SPRAYS INTO EACH NOSTRIL EVERY 12 HOURS NEEDED FOR CONGESTI ON NASAL DISCONT INUED 08/07/2024 [id number] 4 MARICHUY UGALDE AMMED JAWED 2022 30 [facility] LORAZEPAM 0.5MG TAB TAKE ONE TABLET BY MOUTH ONCE DAILY ORAL ACTIVE LINSEY SOARES 2022 [facility] METOPROLOL TARTRATE 25MG TAB TAKE ONE TABLET BY MOUTH TWICE DAILY FOR BLOOD PRESSURE /HEART ORAL ACTIVE 11/27/2025 [id number] 5 FURCOLO,T CARLOS 2024 180 [facility] METOPROLOL TARTRATE 25MG TAB TAKE ONE TABLET BY MOUTH TWICE DAILY FOR BLOOD PRESSURE /HEART ORAL DISCONT INUED 12/22/2024 [id number] 5 FURCOLO,T CARLOS 2023 180 [facility] METOPROLOL TARTRATE 25MG TAB TAKE ONE TABLET BY MOUTH TWICE DAILY FOR BLOOD PRESSURE /HEART ORAL DISCONT INUED 02/06/2024 [id number] 4 SUREKHA LUNA 2023 180 [facility] METOPROLOL TARTRATE 25MG TAB TAKE ONE TABLET BY MOUTH TWICE DAILY FOR BLOOD PRESSURE /HEART ORAL DISCONT INUED 01/31/2024 [id number] 4 MARICHUY UGALDE JAWED 2022 180 [place] OMEPRAZOLE 20MG CAP,EC TAKE ONE CAPSULE BY MOUTH EVERY MORNING 30 MINUTES BEFORE BREAKFAS T ORAL 04/06/2024 [id number] MARICUHY UGLADE AMKLAUS JAWED 2022 90 [facility] ONDANSETRON HCL 4MG TAB TAKE ONE TABLET BY MOUTH EVERY MORNING FOR NAUSEA AND VOMITING ORAL ACTIVE 11/27/2025 [id number] 5 FURCOLO,T CARLOS 2024 30 [facility] ONDANSETRON HCL 4MG TAB TAKE ONE TABLET BY MOUTH EVERY MORNING FOR NAUSEA AND VOMITING ORAL DISCONT INUED 01/12/2025 [id number] FURCOLO,T CARLOS 2023 30 [facility] ONDANSETRON HCL 4MG TAB TAKE ONE TABLET BY MOUTH EVERY MORNING FOR NAUSEA AND VOMITING ORAL DISCONT INUED 01/10/2024 [id number] FURCOLO,T CARLOS 2023 30 [facility] ONDANSETRON HCL 4MG TAB TAKE ONE TABLET BY MOUTH EVERY MORNING FOR NAUSEA AND VOMITING ORAL DISCONT INUED 12/08/2023 [id number] 4 SUREKHA LUNA 2023 30 [facility] ONDANSETRON HCL 4MG TAB TAKE ONE TABLET BY MOUTH EVERY MORNING FOR NAUSEA AND VOMITING ORAL DISCONT INUED 04/06/2024 [id number] [facility] OXYGEN MISCELLANEO US USE DIRECTED NOT APPLIC ABLE ACTIVE RUEL KWON 2016 [facility] POLYETHYLEN E GLYCOL 3350 [...] THE PROCEDUR E. DR. TINO BONNER ORAL 12/05/2024 [id number] FURCOLO,T CARLOS 2024 238 [facility] PREDNISONE 10MG TAB TAKE ONE TABLET BY MOUTH ONCE DAILY NEEDED FOR ASTHMA ORAL DISCONT INUED 08/27/2024 [id number] 4 FURCOLO,T CARLOS 2023 60 [facility] PREDNISONE 10MG TAB TAKE ONE TABLET BY MOUTH ONCE DAILY NEEDED FOR ASTHMA ORAL DISCONT INUED 04/14/2024 [id number] 4 FURCOLO,T CARLOS 2023 60 [facility] PREDNISONE 10MG TAB TAKE ONE TABLET BY MOUTH ONCE DAILY NEEDED FOR ASTHMA ORAL DISCONT INUED 03/12/2024 [id number] 4 FURCOLO,T CARLOS 2023 60 [facility] PREDNISONE 10MG TAB TAKE ONE TABLET BY MOUTH ONCE DAILY NEEDED FOR ASTHMA ORAL DISCONT INUED 02/09/2024 [id number] 4 FURCOLO,T CARLOS 2023 60 [facility] PREDNISONE 10MG TAB TAKE ONE TABLET BY MOUTH ONCE DAILY NEEDED FOR ASTHMA ORAL 10/18/2024 [id number] 4 FURCOLO,T CARLOS 2023 60 [facility] PREDNISONE 10MG TAB TAKE ONE TABLET BY MOUTH PRN ORAL ACTIVE MONIK NOE SA 2021 [facility] TESTOSTERON E 1.62% 20.25MG/PUM P GEL,TOP APPLY 2 PUMPS (40.5 MG) TOPICALL Y ONCE DAILY TOPICA L ACTIVE 12/29/2024 [id number] 5 FURCOLO,T CARLOS 2023 1 [facility] TESTOSTERON E 1.62% 20.25MG/PUM P GEL,TOP APPLY 2 PUMPS (40.5 MG) TOPICALL Y ONCE DAILY TOPICA L DISCONT INUED 08/21/2024 [id number] FURCOLO,T CARLOS 2023 1 [facility] TESTOSTERON E 1.62% 20.25MG/PUM P GEL,TOP APPLY 2 PUMPS (40.5 MG) TOPICALL Y ONCE DAILY TOPICA L 02/03/2024 [id number] 4 [facility] AMMED JAWED 2022 1 [facility] THEOPHYLLIN E 400MG 24HR TAB,SA TAKE ONE TABLET BY MOUTH ONCE DAILY ORAL SUSPEND ED 06/29/2025 [id number] 5 FURCOLO,T CARLSO 2024 90 [facility] THEOPHYLLIN E 400MG 24HR TAB,SA TAKE ONE TABLET BY MOUTH ONCE DAILY ORAL DISCONT INUED 09/06/2024 [id number] 4 [facility] AMMED JAW[facility] 2023 90 [facility] TIOTROPIUM 2.5MCG/ACTU AT INHL,ORAL,6 0D,4GM INHALE 2 PUFFS BY MOUTH ONCE DAILY -CONTROL LER MEDICATI ON FOR ASTHMA RESPIR ATORY (INHAL ATION) ACTIVE 11/27/2025 [id number] FURCOLO,T CARLOS 2024 3 [facility] TIOTROPIUM 2.5MCG/ACTU AT INHL,ORAL,6 0D,4GM INHALE 2 PUFFS BY MOUTH ONCE DAILY -CONTROL LER MEDICATI ON FOR ASTHMA RESPIR ATORY (INHAL ATION) DISCONT INUED 12/11/2024 [id number] 5 FURCOLO,T CARLOS 2023 3 [facility] TIOTROPIUM 2.5MCG/ACTU AT INHL,ORAL,6 0D,4GM INHALE 2 PUFFS BY MOUTH ONCE DAILY FOR CONTROLL ER MEDICATI ON FOR ASTHMA RESPIR ATORY (INHAL ATION) DISCONT INUED 02/06/2024 [id number] [facility] LUNA [facility] TIOTROPIUM 2.5MCG/ACTU AT INHL,ORAL,6 0D,4GM INHALE 2 PUFFS BY MOUTH ONCE DAILY FOR CONTROLL ER MEDICATI ON FOR ASTHMA RESPIR ATORY (INHAL ATION) DISCONT INUED 01/15/2024 [id number] 3 [facility] TIOTROPIUM 2.5MCG/ACTU AT INHL,ORAL,6 0D,4GM INHALE 2 PUFFS BY MOUTH ONCE DAILY FOR CONTROLL ER MEDICATI ON FOR ASTHMA RESPIR ATORY (INHAL ATION) DISCONT INUED 12/05/2023 [id number] 4 [facility]23 3 [facility] TIOTROPIUM 2.5MCG/ACTU AT INHL,ORAL,6 0D,4GM INHALE 2 PUFFS BY MOUTH ONCE DAILY FOR CONTROLL ER MEDICATI ON FOR ASTHMA RESPIR ATORY (INHAL ATION) DISCONT INUED 11/02/2023 [id number] [facility]23 3 [facility] Allergies, Adverse Reactions, Alerts Combined list of allergies from Department of Defense and Veterans Affairs facilities. It does not include entries that were removed or entered in error. Substance Category Reaction Severity Reaction type Status Date Reported Comments Source [facility] Propensity to adverse reactions to drug (finding) active 3 [facility] Immunizations Combined list of available immunizations from the Department of Defense and Veterans Affairs facilities. Immunization Series Date Given Administered By Site Reaction Lot Number CVX Code Drug Log Chain Feeder Status Comments Source INFLUENZA, UNSPECIFIED FORMULATION 2023 88 complet ed Completed Series, HISTORICA L INFORMATI ON - FROM PATIENT'S RECALL, [facility] RSV, BIVALENT, PROTEIN SUBUNIT RSVPREF, DILUENT RECONSTITUTED , 0.5 ML, PF 2023 305 complet ed Completed Series, HISTORICA L INFORMATI ON - FROM OTHER REGISTRY, [facility] INFLUENZA, UNSPECIFIED FORMULATION 2022 88 complet ed HISTORICA L INFORMATI ON - FROM OTHER REGISTRY, [facility] [...] (HISTORICAL) 2016 88 complet ed adelfo england [place] [facility] FLU,3 [...] [facility] [address] [address] Performing Lab: [facility] [address] [address] [facility] TOTAL TESTOSTER ONE TESTOSTERON E [MASS/VOLUM E] IN SERUM OR PLASMA 569.99 ng/dL 221 - 716 12/10 Specimen Type: SERUM No comment entered. Ordering Provider: ZECHARIAH SANCHEZ Report Released Date/Time: Nov 29, 2024 11:36 AM Reporting Lab: [facility] [address] Performing Lab: [facility] [address] [address] [facility] TESTOSTER ONE, TOTAL ([facility]) TESTOSTERON E [MASS/VOLUM E] IN SERUM OR PLASMA 745.65 ng/dL 220.00 - 892.00 12/07 Specimen Type: SERUM No comment entered. Ordering Provider: ZECHARIAH SANCHEZ Report Released Date/Time: Oct 20, 2023 06:52 PM Reporting Lab: [facility] MASSUSE[address] [address] Performing Lab: [facility]TRN [facility] [address] [address] [facility] PSA PROSTATE SPECIFIC AG [MASS/VOLUM E] IN SERUM OR PLASMA 2.31 ng/mL 0.00 - 4.00 12/07 Specimen Type: SERUM No comment entered. Ordering Provider: ZECHARIAH SANCHEZ Report Released Date/Time: Oct 20, 2023 06:52 PM Reporting Lab: [facility] [place] [address] [address] Performing Lab: [facility] [address] [address] [facility] LIVER FUNCTION PROTEIN [MASS/VOLUM E] IN SERUM OR PLASMA 7.5 g/dL 6.0 - 8.3 12/07 Specimen Type: SERUM No comment entered. Ordering Provider: ZECHARIAH SANCHEZ Report Released Date/Time: Oct 20, 2023 06:52 PM Reporting Lab: [facility] [address] [address] Performing Lab: [facility]N [place] [facility] [address] [address] [facility]N MASSUSE [facility] LIVER FUNCTION ALBUMIN [MASS/VOLUM E] IN SERUM OR PLASMA 3.8 g/dL 3.5 - 5.0 12/07 Specimen Type: SERUM No comment entered. Ordering Provider: ZECHARIAH SANCHEZ Report Released Date/Time: Oct 20, 2023 06:52 PM Reporting Lab: [facility] [place] [facility] [address] [address] Performing Lab: [facility] WSTRN [facility] [address] [facility] LIVER FUNCTION ALKALINE PHOSPHATASE [ENZYMATIC ACTIVITY/VO LUME] IN SERUM OR PLASMA 156 U/L 40 - 150 12/07 H Specimen Type: SERUM No comment entered. Ordering Provider: ZECHARIAH SANCHEZ Report Released Date/Time: Oct 20, 2023 06:52 PM Reporting Lab: [facility] [facility] [address] [address] Performing Lab: [facility] [address] [facility]TR[facility] LIVER FUNCTION ASPARTATE AMINOTRANSF ERASE [ENZYMATIC ACTIVITY/VO LUME] IN SERUM OR PLASMA 18 U/L 5 - 34 12/07 Specimen Type: SERUM No comment entered. Ordering Provider: ZECHARIAH SANCHEZ Report Released Date/Time: Oct 20, 2023 06:52 PM Reporting Lab: [facility] [place] [facility] [address] [address] Performing Lab: [facility] W[facility]N [facility] [address] [facility] LIVER FUNCTION ALANINE AMINOTRANSF ERASE [ENZYMATIC ACTIVITY/VO LUME] IN SERUM OR PLASMA 18 U/L 12/07 Specimen Type: SERUM No comment entered. Ordering Provider: ZECHARIAH SANCHEZ Report Released Date/Time: Oct 20, 2023 06:52 PM Reporting Lab: [facility] [place] [facility] [address] [address] Performing Lab: [facility]ITAL[facility] [address] [address] [facility] LIVER FUNCTION BILIRUBIN.T OTAL [MASS/VOLUM E] IN SERUM OR PLASMA 0.3 mg/dL 0.2 - 1.2 12/07 Specimen Type: SERUM No comment entered. Ordering Provider: ZECHARIAH SANCHEZ Report Released Date/Time: Oct 20, 2023 06:52 PM Reporting Lab: [facility] TRN [address] [address] Performing Lab: [facility] WSTRN [address] [address] [facility] LIPID PANEL FASTING CHOLESTEROL [MASS/VOLUM E] IN SERUM OR PLASMA 242 mg/dL 12/07 H Specimen Type: SERUM No comment entered. Ordering Provider: ZECHARIAH SANCHEZ Report Released Date/Time: Oct 20, 2023 06:52 PM Reporting Lab: [facility] [address] [address] Performing Lab: [facility] [phone] [facility] LIPID PANEL FASTING TRIGLYCERID E [MASS/VOLUM E] IN SERUM OR PLASMA 201 mg/dL 0 - 150 12/07 H Specimen Type: SERUM No comment entered. Ordering Provider: ZECHARIAH SANCHEZ Report Released Date/Time: Oct 20, 2023 06:52 PM Reporting Lab: [facility] [address] [address] Performing Lab: [facility] [address] [facility] LIPID PANEL FASTING CHOLESTEROL IN LDL [MASS/VOLUM E] IN SERUM OR PLASMA BY CALCULATION 150 mg/dL 0 - 129 12/07 H Specimen Type: SERUM No comment entered. Ordering Provider: ZECHARIAH SANCHEZ Report Released Date/Time: Oct 20, 2023 06:52 PM Reporting Lab: [facility] [place] [facility] [address] [facility] [address] Performing Lab: [facility] [place] [facility] [address] [facility] [address] [place] [facility] [facility] LIPID PANEL FASTING CHOLESTEROL .TOTAL/CHOL ESTEROL IN HDL [MASS RATIO] IN SERUM OR PLASMA 4.7 12/07 Specimen Type: SERUM No comment entered. Ordering Provider: ZECHARIAH SANCHEZ Report Released Date/Time: Oct 20, 2023 06:52 PM Reporting Lab: [facility] [address] Performing Lab: [place] [facility] [address] [address] [facility] LIPID PANEL FASTING CHOLESTEROL IN HDL [MASS/VOLUM E] IN SERUM OR PLASMA 52 mg/dL 40 - 60 12/07 Specimen Type: SERUM No comment entered. Ordering Provider: ZECHARIAH SANCHEZ Report Released Date/Time: Oct 20, 2023 06:52 PM Reporting Lab: [facility] [address] [address] Performing Lab: [place] [facility] [address] [address] [facility] BASIC METABOLIC PANEL (fasting) UREA NITROGEN [MASS/VOLUM E] IN SERUM OR PLASMA 17 mg/dL 7 - 25 12/07 Specimen Type: SERUM No comment entered. Ordering Provider: ZECHARIAH SANCHEZ Report Released Date/Time: Oct 20, 2023 06:52 PM Reporting Lab: [facility] [place] [facility] [address] [facility] [address] Performing Lab: [place] [facility] [place] [address] [address] [facility] BASIC METABOLIC PANEL (fasting) GLUCOSE [MASS/VOLUM E] IN SERUM OR PLASMA 89 mg/dL 65 - 100 12/07 Specimen Type: SERUM No comment entered. Ordering Provider: ZECHARIAH SANCHEZ Report Released Date/Time: Oct 20, 2023 06:52 PM Reporting Lab: [facility] [place] [facility] [address] [facility] [address] Performing Lab: [facility] [place] [facility] [address] [facility] [address] [facility] [facility] BASIC METABOLIC PANEL (fasting) SODIUM [MOLES/VOLU ME] IN SERUM OR PLASMA 142 mmol/L 135 - 145 12/07 Specimen Type: SERUM No comment entered. Ordering Provider: ZECHARIAH SANCHEZ Report Released Date/Time: Oct 20, 2023 06:52 PM Reporting Lab: [facility] [place] [address] [address] Performing Lab: [facility] [place] [address] [address] [facility] [place] [facility] BASIC METABOLIC PANEL (fasting) POTASSIUM [MOLES/VOLU ME] IN SERUM OR PLASMA 3.8 mmol/L 3.5 - 5.0 12/07 Specimen Type: SERUM No comment entered. Ordering Provider: ZECHARIAH SANCHEZ Report Released Date/Time: Oct 20, 2023 06:52 PM Reporting Lab: [facility] [place] [address] [address] Performing Lab: [facility] [place] [address] [address] [facility] [place] [facility] BASIC METABOLIC PANEL (fasting) CHLORIDE [MOLES/VOLU ME] IN SERUM OR PLASMA 105 mmol/L 100 - 110 12/07 Specimen Type: SERUM No comment entered. Ordering Provider: ZECHARIAH SANCHEZ Report Released Date/Time: Oct 20, 2023 06:52 PM Reporting Lab: [facility] [place] [facility] [address] [facility] [address] Performing Lab: [facility] [place] [address] [address] [facility] [place] [facility] BASIC METABOLIC PANEL (fasting) CARBON DIOXIDE, TOTAL [MOLES/VOLU ME] IN SERUM OR PLASMA 28 meq/L 20 - 30 12/07 Specimen Type: SERUM No comment entered. Ordering Provider: ZECHARIAH SANCHEZ Report Released Date/Time: Oct 20, 2023 06:52 PM Reporting Lab: [address] [address] Performing Lab: [address] [address] [facility] BASIC METABOLIC PANEL (fasting) CREATININE [MASS/VOLUM E] IN SERUM OR PLASMA 0.94 mg/dL 0.50 - 1.40 12/07 Specimen Type: SERUM No comment entered. Ordering Provider: ZECHARIAH SANCHEZ Report Released Date/Time: Oct 20, 2023 06:52 PM Reporting Lab: [address] [address] Performing Lab: [address] [address] [facility] BASIC METABOLIC PANEL (fasting) GLOMERULAR FILTRATION RATE/1.73 SQ M.PREDICTED [VOLUME RATE/AREA] IN SERUM, PLASMA OR BLOOD BY CREATININE- BASED FORMULA (CKD-EPI 2020) >90mL/ min 60 12/07 Specimen Type: SERUM No comment entered. Ordering Provider: ZECHARIAH SANCHEZ Report Released Date/Time: Oct 20, 2023 06:52 PM Reporting Lab: [address] [address] Performing Lab: [address] [address] [facility] CBC AND DIFF (AUTO) LEUKOCYTES [#/VOLUME] IN BLOOD BY AUTOMATED COUNT 13.67 10*3/u L 4.50 - 11.00 12/07 H Specimen Type: BLOOD No comment entered. Ordering Provider: ZECHARIAH SANCHEZ Report Released Date/Time: Oct 20, 2023 06:52 PM Reporting Lab: [address] [address] Performing Lab: [facility] [place] [facility] [address] [facility] [address] [facility] [place] [facility] CBC AND DIFF (AUTO) ERYTHROCYTE S [#/VOLUME] IN BLOOD BY AUTOMATED COUNT 4.22 10*6/u L 4.23 - 5.66 12/07 L Specimen Type: BLOOD No comment entered. Ordering Provider: ZECHARIAH SANCHEZ Report Released Date/Time: Oct 20, 2023 06:52 PM Reporting Lab: [facility] [facility] [address] [facility] [address] Performing Lab: [facility] [place] [facility] [address] [facility] [facility] [address] [facility] [place] [facility] CBC AND DIFF (AUTO) HEMOGLOBIN [MASS/VOLUM E] IN BLOOD 14.4 g/dL 12.8 - 17 12/07 Specimen Type: BLOOD No comment entered. Ordering Provider: ZECHARIAH SANCHEZ Report Released Date/Time: Oct 20, 2023 06:52 PM Reporting Lab: [facility] [place] [facility] [address] [facility] [facility] [address] Performing Lab: [facility] [facility] [address] [facility] [facility] [address] [facility] CBC AND DIFF (AUTO) HEMATOCRIT [VOLUME FRACTION] OF BLOOD BY AUTOMATED COUNT 42.9 39.2 - 50.4 12/07 Specimen Type: BLOOD No comment entered. Ordering Provider: ZECHARIAH SANCHEZ Report Released Date/Time: Oct 20, 2023 06:52 PM Reporting Lab: [facility] [facility] [address] [facility] [address] Performing Lab: [facility] [place] [address] [address] [facility] [place] [facility] CBC AND DIFF (AUTO) MCV [ENTITIC VOLUME] BY AUTOMATED COUNT 101.7 fL 82 - 99 12/07 H Specimen Type: BLOOD No comment entered. Ordering Provider: ZECHARIAH SANCHEZ Report Released Date/Time: Oct 20, 2023 06:52 PM Reporting Lab: [facility] [place] [facility] [address] [facility] [address] Performing Lab: [facility] [place] [facility] [address] [facility] [address] [facility] [place] [facility] CBC AND DIFF (AUTO) MCHC [MASS/VOLUM E] BY AUTOMATED COUNT 33.6 g/dL 30.8 - 35.1 12/07 Specimen Type: BLOOD No comment entered. Ordering Provider: ZECHARIAH SANCHEZ Report Released Date/Time: Oct 20, 2023 06:52 PM Reporting Lab: [facility] [place] [facility] [address] [facility] [facility] [address] Performing Lab: [facility] [place] [address] [address] [facility] [place] [facility] CBC AND DIFF (AUTO) PLATELETS [#/VOLUME] IN BLOOD BY AUTOMATED COUNT 395 10*3/u L 140 - 360 12/07 H Specimen Type: BLOOD No comment entered. Ordering Provider: ZECHARIAH SANCHEZ Report Released Date/Time: Oct 20, 2023 06:52 PM Reporting Lab: [facility] [place] [address] [address] Performing Lab: [facility] [place] [facility] [address] [facility] [address] [facility] [place] [facility] CBC AND DIFF (AUTO) ERYTHROCYTE DISTRIBUTIO N WIDTH [RATIO] BY AUTOMATED COUNT 12.9 12.0 - 16.0 12/07 Specimen Type: BLOOD No comment entered. Ordering Provider: ZECHARIAH SANCHEZ Report Released Date/Time: Oct 20, 2023 06:52 PM Reporting Lab: [facility] [place] [facility] [address] [facility] [address] Performing Lab: [facility] [place] [facility] [address] [facility] [address] [facility] [place] [facility] CBC AND DIFF (AUTO) MONOCYTES [#/VOLUME] IN BLOOD BY AUTOMATED COUNT 1.30 10*3/u L 0.30 - 1.10 12/07 H Specimen Type: BLOOD No comment entered. Ordering Provider: ZECHARIAH SANCHEZ Report Released Date/Time: Oct 20, 2023 06:52 PM Reporting Lab: [facility] [place] [facility] [address] [facility] [address] Performing Lab: [facility] [place] [facility] [address] [facility] [address] [facility] [place] CBC AND DIFF (AUTO) MCH [ENTITIC MASS] BY AUTOMATED COUNT 34.1 pg 26.2 - 32.6 12/07 H Specimen Type: BLOOD No comment entered. Ordering Provider: ZECHARIAH SANCHEZ Report Released Date/Time: Oct 20, 2023 06:52 PM Reporting Lab: [facility] [place] [facility] [address] [facility] [address] Performing Lab: [facility] [place] [address] [address] [facility] [place] [facility] CBC AND DIFF (AUTO) NEUTROPHILS /100 LEUKOCYTES IN BLOOD BY AUTOMATED COUNT 46.6 43.7 - 75.8 12/07 Specimen Type: BLOOD No comment entered. Ordering Provider: ZECHARIAH SANCHEZ Report Released Date/Time: Oct 20, 2023 06:52 PM Reporting Lab: [facility] [place] [facility] [address] [facility] [address] Performing Lab: [facility] [place] [address] [address] [facility] [place] CBC AND DIFF (AUTO) LYMPHOCYTES /100 LEUKOCYTES IN BLOOD BY AUTOMATED COUNT 36.4 14.0 - 42.3 12/07 Specimen Type: BLOOD No comment entered. Ordering Provider: ZECHARIAH SANCHEZ Report Released Date/Time: Oct 20, 2023 06:52 PM Reporting Lab: [facility] [place] [facility] [address] [facility] [address] Performing Lab: [facility] [place] [address] [address] [facility] [place] CBC AND DIFF (AUTO) MONOCYTES/1 00 LEUKOCYTES IN BLOOD BY AUTOMATED COUNT 9.5 5.1 - 13.7 12/07 Specimen Type: BLOOD No comment entered. Ordering Provider: ZECHARIAH SANCHEZ Report Released Date/Time: Oct 20, 2023 06:52 PM Reporting Lab: [facility] [place] [facility] [address] [facility] [address] Performing Lab: [facility] [place] [address] [phone] [facility] [place] [facility] CBC AND DIFF (AUTO) EOSINOPHILS /100 LEUKOCYTES IN BLOOD BY AUTOMATED COUNT 5.4 0.4 - 6.8 12/07 Specimen Type: BLOOD No comment entered. Ordering Provider: ZECHARIAH SANCHEZ Report Released Date/Time: Oct 20, 2023 06:52 PM Reporting Lab: [facility] [place] [address] [address] Performing Lab: [facility] [place] [address] [address] [facility] [place] [facility] CBC AND DIFF (AUTO) BASOPHILS/1 00 LEUKOCYTES IN BLOOD BY AUTOMATED COUNT 0.7 0.1 - 2.0 12/07 Specimen Type: BLOOD No comment entered. Ordering Provider: ZECHARIAH SANCHEZ Report Released Date/Time: Oct 20, 2023 06:52 PM Reporting Lab: [facility] [place] [address] [address] Performing Lab: [facility] [place] [address] [address] [facility] [place] [facility] CBC AND DIFF (AUTO) NEUTROPHILS [#/VOLUME] IN BLOOD BY AUTOMATED COUNT 6.36 10*3/u L 2.20 - 7.60 12/07 Specimen Type: BLOOD No comment entered. Ordering Provider: ZECHARIAH SANCHEZ Report Released Date/Time: Oct 20, 2023 06:52 PM Reporting Lab: [facility] [place] [address] [address] Performing Lab: [facility] [place] [address] [address] [facility] [place] [facility] CBC AND DIFF (AUTO) LYMPHOCYTES [#/VOLUME] IN BLOOD BY AUTOMATED COUNT 4.98 10*3/u L 1.00 - 3.20 12/07 H Specimen Type: BLOOD No comment entered. Ordering Provider: ZECHARIAH SANCHEZ Report Released Date/Time: Oct 20, 2023 06:52 PM Reporting Lab: [facility] [place] [address] [address] Performing Lab: [facility] [place] [address] [address] [facility] [place] [facility] CBC AND DIFF (AUTO) EOSINOPHILS [#/VOLUME] IN BLOOD BY AUTOMATED COUNT 0.74 10*3/u L 0.03 - 0.44 12/07 H Specimen Type: BLOOD No comment entered. Ordering Provider: ZECHARIAH SANCHEZ Report Released Date/Time: Oct 20, 2023 06:52 PM Reporting Lab: [facility] [place] [address] [address] Performing Lab: [facility] [place] [address] [address] [facility] [place] [facility] CBC AND DIFF (AUTO) BASOPHILS [#/VOLUME] IN BLOOD BY AUTOMATED COUNT 0.10 10*3/u L 0.01 - 0.13 12/07 Specimen Type: BLOOD No comment entered. Ordering Provider: ZECHARAIH SANCHEZ Report Released Date/Time: Oct 20, 2023 06:52 PM Reporting Lab: [facility] [place] [address] [address] Performing Lab: [facility] [place] [address] [address] [facility] [place] [facility] CBC AND DIFF (AUTO) IMMATURE GRANULOCYTE S/100 LEUKOCYTES IN BLOOD BY AUTOMATED COUNT 1.4 0.0 - 0.7 12/07 H Specimen Type: BLOOD No comment entered. Ordering Provider: ZECHARIAH SANCHEZ Report Released Date/Time: Oct 20, 2023 06:52 PM Reporting Lab: [facility] [place] [facility] [address] [facility] [address] Performing Lab: [facility] [place] [facility] [address] [facility] [facility] [address] [facility] [place] [facility] CBC AND DIFF (AUTO) IMMATURE GRANULOCYTE S [#/VOLUME] IN BLOOD 0.19 10*3/u L 0.00 - 0.06 12/07 H Specimen Type: BLOOD No comment entered. Ordering Provider: ZECHARIAH SANCHEZ Report Released Date/Time: Oct 20, 2023 06:52 PM Reporting Lab: [facility] [facility] [address] [facility] [address] Performing Lab: [facility] [place] [address] [address] [facility] [place] [facility] LIPID PANEL FASTING CHOLESTEROL [MASS/VOLUM E] IN SERUM OR PLASMA 185 mg/dL 04/05 Specimen Type: SERUM No comment entered. Ordering Provider: MADHU UGALDE Report Released Date/Time: Mar 17, 2023 11:55 AM Reporting Lab: [facility] [facility] [address] [facility] [address] Performing Lab: [facility] [place] [address] [address] [facility] [place] [facility] LIPID PANEL FASTING TRIGLYCERID E [MASS/VOLUM E] IN SERUM OR PLASMA 123 mg/dL 0 - 150 04/05 Specimen Type: SERUM No comment entered. Ordering Provider: MADHU UGALDE Report Released Date/Time: Mar 17, 2023 11:55 AM Reporting Lab: [facility] [place] [facility] [address] [facility] [address] Performing Lab: [facility] [place] [address] [address] [facility] [place] [facility] LIPID PANEL FASTING CHOLESTEROL IN LDL [MASS/VOLUM E] IN SERUM OR PLASMA BY CALCULATION 111 mg/dL 0 - 129 04/05 Specimen Type: SERUM No comment entered. Ordering Provider: MADHU UGALDE Report Released Date/Time: Mar 17, 2023 11:55 AM Reporting Lab: [facility] [place] [facility] [address] [facility] [address] Performing Lab: [facility] [place] [facility] [address] [facility] [address] [facility] [place] [facility] LIPID PANEL FASTING CHOLESTEROL .TOTAL/CHOL ESTEROL IN HDL [MASS RATIO] IN SERUM OR PLASMA 3.8 04/05 Specimen Type: SERUM No comment entered. Ordering Provider: MADHU UGALDE Report Released Date/Time: Mar 17, 2023 11:55 AM Reporting Lab: [facility] [place] [facility] [address] [facility] [address] Performing Lab: [facility] [place] [facility] [address] [facility] [address] [facility] [place] [facility] LIPID PANEL FASTING CHOLESTEROL IN HDL [MASS/VOLUM E] IN SERUM OR PLASMA 49 mg/dL 40 - 60 04/05 Specimen Type: SERUM No comment entered. Ordering Provider: MADHU UGALDE Report Released Date/Time: Mar 17, 2023 11:55 AM Reporting Lab: [facility] [place] [facility] [address] [facility] [address] Performing Lab: [facility] [place] [facility] [address] [facility] [address] [facility] [place] [facility] BASIC METABOLIC PANEL (fasting) UREA NITROGEN [MASS/VOLUM E] IN SERUM OR PLASMA 15 mg/dL 7 - 25 04/05 Specimen Type: SERUM No comment entered. Ordering Provider: MADHU UGALDE Report Released Date/Time: Mar 17, 2023 11:55 AM Reporting Lab: [facility] [place] [facility] [address] [facility] [address] Performing Lab: [facility] [place] [facility] [address] [facility] [address] [facility] [place] [facility] BASIC METABOLIC PANEL (fasting) GLUCOSE [MASS/VOLUM E] IN SERUM OR PLASMA 71 mg/dL 65 - 100 04/05 Specimen Type: SERUM No comment entered. Ordering Provider: MADHU UGALDE Report Released Date/Time: Mar 17, 2023 11:55 AM Reporting Lab: [facility] [place] [facility] [address] [facility] [address] Performing Lab: [facility] [place] [facility] [address] [facility] [address] [facility] [place] [facility] BASIC METABOLIC PANEL (fasting) SODIUM [MOLES/VOLU ME] IN SERUM OR PLASMA 143 mmol/L 135 - 145 04/05 Specimen Type: SERUM No comment entered. Ordering Provider: MADHU UGALDE Report Released Date/Time: Mar 17, 2023 11:55 AM Reporting Lab: [facility] [place] [facility] [address] [facility] [address] Performing Lab: [facility] [place] [facility] [address] [facility] [address] [facility] [place] [facility] BASIC METABOLIC PANEL (fasting) POTASSIUM [MOLES/VOLU ME] IN SERUM OR PLASMA 3.8 mmol/L 3.5 - 5.0 04/05 Specimen Type: SERUM No comment entered. Ordering Provider: MADHU UGALDE Report Released Date/Time: Mar 17, 2023 11:55 AM Reporting Lab: [facility] [place] [facility] [address] [facility] [address] Performing Lab: [facility] [place] [facility] [address] [facility] [address] [facility] [place] [facility] BASIC METABOLIC PANEL (fasting) CHLORIDE [MOLES/VOLU ME] IN SERUM OR PLASMA 106 mmol/L 100 - 110 04/05 Specimen Type: SERUM No comment entered. Ordering Provider: MADHU UGALDE Report Released Date/Time: Mar 17, 2023 11:55 AM Reporting Lab: [facility] [place] [facility] [address] [facility] [address] Performing Lab: [facility] [place] [facility] [address] [facility] [address] [facility] [facility] BASIC METABOLIC PANEL (fasting) CARBON DIOXIDE, TOTAL [MOLES/VOLU ME] IN SERUM OR PLASMA 27 meq/L 20 - 30 04/05 Specimen Type: SERUM No comment entered. Ordering Provider: MADHU UGALDE Report Released Date/Time: Mar 17, 2023 11:55 AM Reporting Lab: [facility] [address] [facility] [address] Performing Lab: [facility] [address] [facility] [address] [facility] BASIC METABOLIC PANEL (fasting) CREATININE [MASS/VOLUM E] IN SERUM OR PLASMA 1.04 mg/dL 0.50 - 1.40 04/05 Specimen Type: SERUM No comment entered. Ordering Provider: MADHU UGALDE Report Released Date/Time: Mar 17, 2023 11:55 AM Reporting Lab: [facility] [address] [facility] [address] Performing Lab: [facility] [address] [facility] [address] [facility] BASIC METABOLIC PANEL (fasting) GLOMERULAR FILTRATION RATE/1.73 SQ M.PREDICTED [VOLUME RATE/AREA] IN SERUM, PLASMA OR BLOOD BY CREATININE- BASED FORMULA (CKD-EPI) 81 mL/min 60 04/05 Specimen Type: SERUM No comment entered. Ordering Provider: MADHU UGALDE Report Released Date/Time: Mar 17, 2023 11:55 AM Reporting Lab: [facility] [address] [facility] [address] Performing Lab: [facility] [address] [facility] Vital Signs Combined list of inpatient and outpatient Vital Signs from Department of Defense and Veterans Affairs, ranging from 12 months to all on record, depending upon the facility. Vital Sign Value Date Comments Source SYSTOLIC BLOOD PRESSURE 129 12/11/19 25 13:09:26 [facility] DIASTOLIC BLOOD PRESSURE 72 025 13:09:26 [facility] [...] 16 12/10/2024 13:09:26 [facility] Encounters Combined list of: 1) Encounters from Department of Veterans Affairs facilities going backup to the last 18 months, not all VA inpatient encounters are included; 2) Encounters from the Department of [facility] facilities going backup to 280 months. Location Location Details Encounter Type Encounter Number Reason For Visit Attending Provider ADM Date DC Date Status Disposition Source [facility] Out[facility] Encounter [id number] Debo PRECIADO 07/03 [facility] En[facility] [id number] 07/18 [facility] Encounter [id number] MAGO UGALDE MMED JAWED 07/19 [facility] En[facility] [id number] 07/26 [facility] Encounter [id number] Debo PRECIADO 07/28 [facility] En[facility] [id number] 07/28 [facility] HC PRO PHONE CALL 21-30 MIN [id number] Diagnos is: ICD-10- CM 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 MANA SOARES 08/02 [facility] En[facility] [id number] 08/03 [facility]counter [id number] 08/04 [facility] En[facility] [id number] Debo PRECIADO D 08/04 [facility] HC PRO PHONE CALL 11-20 MIN [id number] Diagnos is: ICD-10- CM 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, 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 ASIA Klein 08/04 [facility] Out[facility] Encounter [id number] MAGO UGALDE MMCAESAR JAWED 08/22 [facility] Encounter [id number] 08/31 [facility]counter [id number] Debo PRECIADO NGNONI D 09/05 [facility] Encounter [id number] MAGO UGALDE MMED JAWED 09/18 [facility] Encounter [id number] MAGO UGALDE MMED JAWED 10/16 [facility]counter [id number] [facility]counter [id number] 10/19 [facility]counter [id number] 11/05 [facility]counter [id number] 11/07 [facility]counter [id number] MAGO UGALDE MMED JAWED 11/15 [facility]counter [id number] 11/21 [facility]counter [id number] MAGO UGALDE MMED JAWED 12/04 [facility] OFFICE O/P EST HI 40 MIN [id number] Diagnos is: ICD-10- CM Z77.29 Contact with and exposur e to other hazardo us substan wei FURCOLO,TI NA 12/10 [facility] COLLJ & INTERPJ DATA EA 30 D [id number] Diagnos is: ICD-10- CM G47.33 Obstruc tive sleep apnea (adult) ([facility]) DION VELASQUEZ A 12/11 [facility] Encounter [id number] FURCOLO,TI NA 12/17 [facility] Out[facility] Encounter [id number] FURCOLO,TI NA 12/19 [facility] Out[facility] Encounter [id number] 12/25 [facility] POS AIRWAY PRESSURE CPAP [id number] Diagnos is: ICD-10- CM G47.33 Obstruc tive sleep apnea (adult) ([facility]) DION VELASQUEZ 12/25 [facility] Out[facility] Encounter [id number] FURCOLO,TI NA 12/27 [facility] DISPOSABLE COMPRESSOR FILTER [id number] Diagnos is: ICD-10- CM J44.9 Chronic obstruc tive pulmona ry disease , 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 JARMOLOWIC Z,KAITLIN 01/01 [facility] Out[facility] Encounter [id number] 01/02 [facility] Out[facility] Encounter [id number] 01/02 [facility] Out[facility] Encounter [id number] FURCOLO,TI NA 01/03 [facility] Out[facility] Encounter [id number] DEANGELO MORGAN 01/09 [facility] Out[facility] Encounter [id number] 01/15 [facility] Out[facility] Encounter [id number] FURCOLO,TI NA 01/22 [facility] Out[facility] Encounter [id number] FURCOLO,TI NA 01/30 [facility] HC PRO PHONE CALL 5-10 MIN [id number] Diagnos is: ICD-10- CM J44.9 Chronic obstruc tive pulmona ry disease , 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 JARMOLOWIC KAITLIN Patrick 02/11 [facility] Out[facility] Encounter [id number] DEANGELO MORGAN 02/11 [facility] Out[facility] Encounter [id number] FURCOLO,TI NA 02/14 [facility] SELF-MGMT EDUC & TRAIN 1 [place] [id number] Diagnos is: ICD-10- CM J44.9 Chronic obstruc tive pulmona ry disease , 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 JARKAITLIN MELENDREZ 02/18 [facility] Out[facility] Encounter [id number] 02/18 [facility] Outpatient Encounter [id number] FURCOLO,TI NA 02/27 [facility] Outpatient Encounter [id number] FURCOLO,TI NA 03/20 [facility] Out[facility] Encounter [id number] FURCOLO,TI NA 04/25 [facility] Outpatient Encounter [id number] 05/07 [facility] AIRWAY PRESSURE CPAP [id number] Diagnos is: ICD-10- CM G47.33 Obstruc tive sleep apnea (adult) ([facility]) DION VELASQUEZ 05/08 [place] [facility] Outpatient Encounter [id number] FURCOLO,TI NA 05/09 [facility] Out[facility] Encounter [id number] FURCOLO,TI NA 05/13 [facility] Out[facility] Encounter [id number] FURCOLO,TI NA 05/14 [facility] Out[facility] Encounter [id number] 05/30 [facility] COMPRE OPH EXAM EST PT 1/ [id number] Diagnos is: ICD-10- CM H25.813 Combine d forms of age-rel ated catarac t, bilater al LAURA NEWBERRY 06/24 [facility] FIT SPECTACLES MULTIFOCAL [id number] Diagnos is: ICD-10- CM Z46.0 Encount er for fit/adj st of spectac les and contact lenses LAURA NEWBERRY 06/24 [facility] Out[facility] Encounter [id number] DEANGELO MORGAN 06/28 [facility] Out[facility] Encounter [id number] 08/04 [facility] Outpatient Encounter [id number] DEANGELO MORGAN 08/12 [facility] Out[facility] Encounter [id number] NANCY CEBALLOS 08/19 [facility] Outpatient Encounter [id number] 11/20 [facility] Outpatient Encounter [id number] 11/25 [facility] Outpatient Encounter [id number] CASSI CALDERON 11/26 [facility] Outpatient Encounter [id number] CASSI CALDERON 11/27 [facility] Outpatient Encounter [id number] CASSI CALDERON 11/27 [facility] Outpatient Encounter [id number] 12/02 [facility] CASE MANAGEMENT [id number] Diagnos is: ICD-10- CM 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, 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 OMAYRA ASIA 12/03 [facility] OFFICE O/P EST MOD 30 MIN [id number] Diagnos is: ICD-10- CM Z77.29 Contact with and exposur e to other hazardo us substan wei FURCOLO,TI NA 12/10 [facility] Out[facility] Encounter [id number] 12/10 [facility] NQHP OL DIG ASSMT&MGMT 5-10 [id number] Diagnos is: ICD-10- CM I10 Essenti al (primar y) hyperte nsion SOVEROW,CH RISTY A 12/11 [facility] Outpatient Encounter [id number] 12/13 [facility] [place] [facility] Social History Combined list of available smoking, tobacco, and other social history from Department of Defense and Veterans Affairs facilities. Social History Type Response Date Comment Source Tobacco smoking status NHIS VA-TOBACCO USE FORMER CIGARETTES 12/10/2024 [facility] [place] [facility] History of tobacco use IA-TOBACCO NEVER USED OTHER TYPE 12/10/2024 [facility] [place] [facility] History of tobacco use IA-TOBACCO FORMER USER 10/20/2023 [facility] [place] [facility] History of tobacco use IA-TOBACCO FORMER USER 07/13/2022 [facility] [place] [facility] History of tobacco use IA-TOBACCO FORMER USER 02/25/2021 [facility] [place] [facility] History of tobacco use [facility] QUIT 5 TO < 15 YRS 05/09/2019 [place] History of tobacco use QUIT TOBACCO USE > 7 YEARS AGO 04/13/2018 [place] History of tobacco use QUIT TOBACCO USE 1-7 YEARS AGO 10/27/2017 reports quitting 2 years ago [place] History of tobacco use QUIT TOBACCO USE IN PAST YEAR 03/16/2017 cigarettes/ repoorts quitting 07/06 [place] History of tobacco use CURRENT SMOKER 10/26/2015 few daily [place] History of tobacco use V1-PT DECLINES TOBACCO CESSATION MEDS 07/24/2015 [place] History of tobacco use V1-PT DECLINES TOBACCO CESSATION MEDS 10/24/2014 [place] History of tobacco use CURRENT SMOKER 05/16/2014 smokes cigaretts one ppd. [place] History of tobacco use V1-PT DECLINES TOBACCO CESSATION MEDS 02/27/2014 [place] History of tobacco use CURRENT SMOKER 04/25/2013 half pack per day [place] History of tobacco use V1-PT DECLINES TOBACCO CESSATION MEDS 11/27[facility] [place] [facility] History of tobacco use CURRENT SMOKER 04/12/2012 [facility] [place] [facility] History of tobacco use V1-PT THINKING ABOUT QUIT TOBACCO USE 10/17/2011 [facility] [place] [facility] History of tobacco use CURRENT SMOKER 04/04/2011 [facility] History of tobacco use CURRENT SMOKER 03/01/2010 1/2 ppd [facility] History of tobacco use CURRENT SMOKER 09/02/2008 1/2 ppd [facility] History of tobacco use V1-PT READY TO QUIT TOBACCO USE 01/28/2008 [facility] History of tobacco use CURRENT SMOKER 04/06/2007 1/2 ppd [facility] History of tobacco use CURRENT SMOKER 06/02/2005 1 pk [facility] History of tobacco use CURRENT SMOKER 10/10/2003 smokes 1/2 day [facility] History of tobacco use CURRENT SMOKER 05/28/2002 smokes 1/2 pack/day [facility] History of tobacco use CURRENT SMOKER 11/29/2001 [facility] Plan of Care List of future care activities from Department of [facility] Affairs facilities. Additional future care activities may be listed in the Assessment and Plan section. Date/Time Care Activity Care Activity Detail Facili ty 06/24/2025 AMBULATORY - MEDICINE AMBULATORY - [facility]ICI [facility]
--- OUTSIDE RECORDS SUMMARY | 2024-12-24 12:34 | XMS_ITS ---
Author Organization [facility] Address [address] [place] [id number] Care Team Providers Care [employer] Attorney Name Role Phone Ziyad GOMES, James Primary Care Provider Unavailab Antonio Vitale [phone] REASON FOR VISIT cancelled colon on 12-02-2024 Encounters Encounter Location Date Provider Diagnosis [facility] [address] [place] [id number] 10/14/2024 Antonio Arce Plan Of Treatment No Information Progress Notes * LEVY JERNIGANDOB: [birth year] (64 yo M)Acc No.[id number]:10/14/2024 Patient:?LEVY JERNIGAN :1960???Age:64 Y???Sex:Male Address:[address] [place] [id number] * true * Date:? Generated for Cindy victor/Walt/eTransmitting on:?12/24/2024 12:34 PM EDT
--- OUTSIDE RECORDS SUMMARY | 2024-12-24 12:35 | XMS_ITS ---
Author Name [facility] [facility] [place] Address [address] [place] [address] Care Team Providers Care Cut Off Worker Name Role Phone TEO STALLWORTH Primary Care Provider Unavailabl e Insurance [...] Name Patient's Relationship to Policy Ugarte [facility] FEDERAL PREFERRED PROVIDER ORGANIZAT ION (PPO) BASIC SELF Jun 23, 2013 [id number] [phone] ISAURALEVY LLOYD PATIENT BCBS [place] FEP PREFERRED PROVIDER ORGANIZAT ION (PPO) BASIC INDIV IDUAL Jun 23, 2013 [id number] JANAK LEVY MAIER PATIENT [employer]ARK FEPRX PLAN PRESCRIPT ION CAREM ARK FEPRX Jun 23, 2013 [id number] JANAK LEVY MAIER PATIENT CAREMARK-F EP BCBS PRESCRIPT ION FEP CAREM ARK Jun 23, 2013 [id number] [phone] JANAK MAIERLEVY PATIENT MEDICARE (WNR) MEDICARE (M) PART A Jun 21, 2022 PART A [id number] CINTHIAKIMMY LEVY MAIER PATIENT MEDICARE (WNR) MEDICARE (M) PART B Jun 21, 2022 PART B [id number] LEVY COVARRUBIAS PATIENT Selected Encounter This section includes the information on record at [place] for the Encounter. Date/Time Encounter Type Encounter Description Reason Provider Source Dec 10, 2024 01:00 PM OFFICE O/P EST MOD 30 MIN PRIMARY CARE/MEDICINE ICD-10-CM Z77.29 Contact with and exposure to other hazardous substances FURCOLO,TEO IHE Encounter Template Text not used by [place] Assessments - Encounter Diagnoses This section includes the primary and secondary diagnoses documented for the Encounter. Date/Time Primary/Secondary Diagnosis Diagnosis Name Provider Source Dec 11, 2024 04:09 PM PRIMARY Contact with and exposure to other hazardous substances FURCOLO,TEO [facility] [place] Dec 11, 2024 04:09 PM SECONDARY Allergic rhinitis, unspecified FURCOLO,TEO [facility] [place] [facility] Dec 11, 2024 04:09 PM SECONDARY Anogenital herpesviral infection, unspecified FURCOLO,TEO [facility] [place] [facility] Dec 11, 2024 04:09 PM SECONDARY Chronic kidney disease, stage 2 (mild) FURCOLO,ETO [facility] [place] [facility] Dec 11, 2024 04:09 PM SECONDARY Chronic obstructive pulmonary disease, unspecified FURCOLO,TEO [facility] [place] [facility] Dec 11, 2024 04:09 PM SECONDARY Depression, unspecified FURCOLO,TEO [facility] [place] [facility] Dec 11, 2024 04:09 PM SECONDARY Essential (primary) hypertension FURCOLO,TEO [facility] [place] [facility] Dec 11, 2024 04:09 PM SECONDARY Gastro-esophageal reflux disease without esophagitis FURCOLO,TEO [facility] [place] [facility] Dec 11, 2024 04:09 PM SECONDARY Generalized anxiety disorder FURCOLO,TEO [facility] [place] [facility] Dec 11, 2024 04:09 PM SECONDARY Human immunodeficiency virus [HIV] disease FURCOLO,TEO [facility] [place] [facility] Dec 11, 2024 04:09 PM SECONDARY Male erectile dysfunction, unspecified SILVANACOLOTEO [facility] [place] [facility] Dec 11, 2024 04:09 PM SECONDARY Nicotine dependence, other tobacco product, in remission FURCOLOTEO [facility] [place] [facility] Dec 11, 2024 04:09 PM SECONDARY Nicotine dependence, unspecified, uncomplicated FURCOLOTEO [facility] [place] [facility] Dec 11, 2024 04:09 PM SECONDARY Obstructive sleep apnea (adult) (pediatric) SILVANACOLOTEO [facility] [place] [facility] Plan of Treatment: Future Appointments (+ 6 months) and Future Tests (+/- 45 days) The Plan of Treatment section includes future care activities for the patient from all [place] treatmentfacilities. This section includes future appointments and future orders which are active, pending or scheduled. Active, Pending, and Scheduled Orders This section includes a listing of several types of active, pending, and scheduled orders, including clinic medications orders, diagnostic test orders, procedure orders and consult orders; where the start date of the order is 45 days before the date of the Encounter or 45 days after the date of theEncounter. The data comes from all [place] treatment facilities. Test Date/Time Test Type Test Details Facility Name Nov 27, 2024 12:00 AM Laboratory - Chemistry Order LIPID PANEL FASTING BLOOD (SST-SERUM) SP [place] [facility] [place] [facility] Nov 29, 2024 02:43 PM Consult Order COMMUNITY CARE-PULMONARY Cons Photo Retoucher's Choice [place] [facility] [place] [facility] Dec 10, 2024 01:45 PM Consult Order OCCUPATIONAL THERAPY POWER MOBILITY OUTPT Cons Photo Retoucher's Choice [facility] Lab Results: +/- 30 days of the encounter This section includes the Chemistry and Hematology Lab Results on record with [place] for the patient. Radiology Reports and Pathology Reports are provided separately, in subsequent sections. Lab Results This section contains the Chemistry/Hematology Results that were resulted 30 days before or 30 daysafter the date of the Encounter. Date/Time Source Result Type Result - Unit Interpretation Reference Range Specimen Type Comment Dec 10, 2024 01:53 PM [place] [facility] PSA SERUM Specimen Type: SERUM No comment entered. Ordering Provider: TEO STALLWORTH Report Released Date/Time: Nov 29, 2024 11:36 AM Reporting Lab: [facility] [address] [id number] Performing Lab: [address] [id number] PSA 2.1 ng/mL 0.0-4.0 Dec 10, 2024 01:53 PM [facility] TOTAL TESTOSTERONE SERUM Specimen Type: SERUM No comment entered. Ordering Provider: TEO STALLWORTH Report Released Date/Time: Nov 29, 2024 11:36 AM Reporting Lab: [address] [id number] Performing Lab: [address] [id number] TOTAL TESTOSTERONE 569.99 ng/dL 221-716 Vital Signs: All taken on the encounter date This section contains inpatient and outpatient Vital Signs collected on the date of the Encounter. Date/Time Temperature Pulse Blood Pressure Respiratory Rate SP02 Pain Height Weight Body Mass Index Source Dec 10, 2024 01:09 PM 98.1 64 129/72 16 96 1 144 21 [facility] Social History: Smoking Status (Most current) and Tobacco Use (All prior to encounter date) This section includes the most current, and the historical, smoking and tobacco- related health factors from the [place] facility where the Encounter took place. Current Smoking Status This section includes the most current smoking, or tobacco-related health factor, from the [place] facility where the Encounter took place. Date/Time Current Smoking Status Comment Drake ity Dec 10, 2024 01:00 PM VA-TOBACCO USE FOR RUBIO CIGARETTES [facility] Tobacco Use History This section includes a history of the smoking, or tobacco-related health factors, that were collected on or before the date of the Encounter. The data comes from the [place] facility where the Encounter took place. Date/Time Smoking Status/Tobac co Use Comment Facility Dec 10, 2024 01:00 PM VA-TOBACCO USE FORMER CIGARETTES [facility] Oct 20, 2023 08:21 PM VA-TOBACCO FORMER USER [facility] [place] [facility] Oct 20, 2023 08:21 PM VA-TOBACCO QUIT 5 TO < 15 YRS [facility] [place] [facility] Jul 13, 2022 01:00 PM VA-TOBACCO FORMER USER [facility] [place] [facility] Jul 13, 2022 01:00 PM VA-TOBACCO QUIT 5 TO < 15 YRS [facility] [place] [facility] Feb 25, 2021 01:15 PM VA-TOBACCO FORMER USER [facility] [place] [facility] Feb 25, 2021 01:15 PM VA-TOBACCO QUIT 5 TO < 15 YRS [facility] [place] [facility] Nov 27, 2012 03:19 PM V1-PT DECLINES REF TO TOBACCO CESS PRGM [facility] [place] [facility] Nov 27, 2012 03:19 PM V1-PT DECLINES TOBACCO CESSATION MEDS [facility] [place] [facility] Nov 27, 2012 03:19 PM V1-PT NOT INTERESTED IN QUIT TOBACCO USE [facility] [place] [facility] Apr 12, 2012 10:34 AM CURRENT SMOKER [facility] [place] [facility] Apr 12, 2012 10:34 AM V1-PT THINKING ABOUT QUIT TOBACCO USE [facility] [place] [facility] Oct 17, 2011 11:15 AM V1-PT DECLINES REF TO TOBACCO CESS PRGM [place] [facility] [place] [facility] Oct 17, 2011 11:15 AM V1-PT THINKING ABOUT QUIT TOBACCO USE [facility] [place] [facility] Apr 04, 2011 01:28 PM CURRENT SMOKER [facility] [place] [facility] Apr 04, 2011 01:28 PM V1-PT DECLINES REF TO TOBACCO CESS PRGM [facility] [place] [facility] Apr 04, 2011 01:28 PM V1-PT DECLINES TOBACCO CESSATION MEDS [facility] [place] [facility] Apr 04, 2011 01:28 PM V1-PT NOT INTERESTED IN QUIT TOBACCO USE [facility] [place] [facility] Mar 01, 2010 01:50 PM CURRENT SMOKER 1/2 ppd [facility] [place] [facility] Mar 01, 2010 01:50 PM V1-PT THINKING ABOUT QUIT [facility]BACCO [facility] [place] [facility] Sep 02, 2008 03:15 PM CURRENT SMOKER 1/2 ppd [facility] [place] [facility] Sep 02, 2008 03:15 PM V1-PT DECLINES REF TO TOBACCO CESS PRGM [facility] [place] [facility] Sep 02, 2008 03:15 PM V1-PT READY TO QUIT TOBACCO USE [facility] [place] [facility] Jan 28, 2008 03:59 PM V1-PT DECLINES REF TO TOBACCO CESS PRGM [facility] [place] [facility] Jan 28, 2008 03:59 PM V1-PT READY TO QUIT TOBACCO USE [facility] [place] [facility] Apr 06, 2007 03:19 PM CURRENT SMOKER 1/2 ppd [facility] [place] [facility] Apr 06, 2007 03:19 PM V1-PT DECLINES REF TO TOBACCO CESS PRGM [facility] Apr 06, 2007 03:19 PM V1-PT DECLINES TOBACCO CESSATION MEDS [facility] [place] [facility] Apr 06, 2007 03:19 PM V1-PT THINKING ABOUT QUIT TOBACCO USE [facility] [place] [facility] Jun 02, 2005 01:53 PM CURRENT SMOKER 1 pk [facility] Oct 10, 2003 02:33 PM CURRENT SMOKER smokes 1/2 day [facility] May 28, 2002 03:47 PM CURRENT SMOKER smokes 1/2 pack/[facility] Nov 29, 2001 10:07 AM CURRENT SMOKER [facility] Encounter Notes: All associated encounter notes This section contains the clinical notes associated to the Encounter. Date/Time Encounter Note(s) Provider Source Dec 12, 2024 08:02 AM LETTERS: LOCAL TITLE: PATIENT LETTER (T) STANDARD TITLE: LETTERS DATE OF NOTE: DEC 12, 2024@08:02 ENTRY DATE: DEC 12, 2024@08:02:31 AUTHOR: TEO STALLWORTH EXP COSIGNER: URGENCY: STATUS: COMPLETED DEPARTMENT OF [facility] Toll Free Number Primary Care Telephone Assistance can be reached at extension [phone] [facility] scheduling can be reached at extension [phone] [facility] scheduling can be reached at ext [phone] LEVY JERNIGAN [address] [place] [address], [phone] Dear [place], Your recent test results are as follows: Normal testosterone level and prostate level. Together with labs done by outside specialist, testosterone dose is a safe level for you. Dr. Teo Stallworth LAB CHEMISTRY & HEMATOLOGY Collection DT Specimen Test Name Result Units Ref Range 12/10/2024 13:53 SERUM PSA 2.1 ng/mL 0.0 - 4.0 TOTAL TESTOSTERON 569.99 ng/dL 221 - 716 labs from outside PCP dated 11/12/24: wbc 11.2 Hb 14.7 HCT 42,7 plt 316 Na 142 K 4.0 Cl 108 BUN 20 creat 0.84 AST 28 ALT 29 T bili 0.3 alk phos 168 tot Prot 7.7 Please call if you have any questions or concerns. Upcoming Appointments: 12/19/2024 14:00 PAM OCC THRPY 2 06/24/2025 14:00 PAM OPTOMETRY 4 12/10/2025 13:00 PAM PACT EIGHT Sincerely, Your Primary Care Team [facility] [address] [id number] [place] [address] [facility] [address] [place] [address] [place] [address] [facility] [address] [facility] [place] [id number] [place] [address] TEO STALLWORTH [facility] [place] [facility] Dec 10, 2024 01:11 PM PHYSICIAN NOTE: LOCAL TITLE: MD NOTE STANDARD TITLE: PHYSICIAN NOTE DATE OF NOTE: DEC 10, 2024@13:11 ENTRY DATE: DEC 10, 2024@13:11:21 AUTHOR: TEO STALLWORTH COSIGNER: URGENCY: STATUS: COMPLETED NOTE Has ADDENDA LEVY JERNIGAN is a 64 year old WHITE MALE who is being seen today in primary care for routine yearly. == CARE TEAM == Community Primary Care Provider: Dr James Lackey-- PCP - [facility] Specialists: Community Specialists: Infectious Disease/HIV care: Dr. Ghada Amaro- [phone] fax: [phone] Pulmonary: Dr. Munoz: [phone] fax: [phone] == HISTORY == PERIOD OF SERVICE - [employer]ED % - NONE FOUND [employer], [phone], deployed many places, +asbestos exposure == HISTORY OF PRESENT ILLNESS == Patient presents today for routine follow-up no current issues- doing well overall- no major setbacks == RELEVANT PAST MEDICAL HISTORY == Active problems - Computerized Problem List is the source for the followin. Exposure to potentially hazardous substance ASBESTOS 2. Depression 3. Hypertension 4. Erectile dysfunction 5. Obstructive sleep apnea of adult 6. Nicotine dependence Uses nictoine gum - 4mg - at least 6 a day 7. Sponge kidney 8. Hypogonadism 9. Chronic obstructive lung disease (SNOMED CT [id number]) PFTs 02/02 FVC 54%, FEV1 29%, FEF 25-75 9%, TLC 90% DLCO 34% 10. Genital herpes simplex 11. Gastroesophageal reflux disease 12. Allergic rhinitis 13. Generalized anxiety disorder 14. Human immunodeficiency virus infection 15. Tobacco dependence in remission Quit 2014 - 40 pack yr history == PAST SURGICAL HISTORY == inguinal hernia surgery - 2012 right hand surgery == FAMILY HISTORY == adopted at 2 weeks old Mother (biologic): cancer age 55- ?uterus Father: unknown Siblings: unknown == SOCIAL HISTORY == Background: born in [place], raised in [place]. 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 Alcohol Use: none, never problem drinker Tobacco Use: former smoker, quit 2016 1 ppd x 30 years, uses nicotine gum Drug Use: none Exercise: on oxygen, can walk 50 feet comfortably == ALLERGIES == BACTRIM == MEDICATIONS == Active and Recently Outpatient Medications (excluding Supplies): Active Outpatient Medications Status 1) ALBUTEROL 90MCG (CFC-F) 200D ORAL INHL INHALE 2 PUFFS BY ACTIVE MOUTH EVERY 6 HOURS NEEDED 2) AMLODIPINE BESYLATE 5MG TAB TAKE ONE TABLET BY MOUTH TWICE ACTIVE DAILY FOR BLOOD PRESSURE/HEART, DO NOT TAKE WITH GRAPEFRUIT JUICE 3) ARFORMOTEROL 7.5MCG/ML SOLN INHL 2ML INHALE 1 AMPULE VIA ACTIVE UPDRAFT EVERY 12 HOURS 4) AZITHROMYCIN 250MG TAB TAKE TWO TABLETS BY MOUTH THREE TIMES ACTIVE (S) A WEEK 5) BUDESONIDE 0.5MG/2ML INH SUSP 2ML 1 VIAL VIA NEBULIZER EVERY ACTIVE (S) 12 HOURS 6) BUSPIRONE HCL 5MG TAB TAKE ONE TABLET BY MOUTH EVERY 8 HOURS ACTIVE NEEDED 7) DORAVIRINE 100/LAMIV 300/TENOF 300MG TAB TAKE 1 TABLET BY ACTIVE (S) MOUTH ONCE DAILY Indication: FOR INFECTION 8) HYDROXYZINE PAMOATE 25MG CAP TAKE ONE CAPSULE BY MOUTH EVERY ACTIVE 12 HOURS NEEDED FOR ANXIETY 9) IPRATROPIUM BR 0.06% NASAL SPRAY INSTILL 2 SPRAYS INTO EACH ACTIVE NOSTRIL EVERY 12 HOURS NEEDED FOR CONGESTION 10) METOPROLOL TARTRATE 25MG TAB TAKE ONE TABLET BY MOUTH TWICE ACTIVE (S) DAILY FOR BLOOD PRESSURE/HEART 11) ONDANSETRON HCL 4MG TAB TAKE ONE TABLET BY MOUTH EVERY ACTIVE (S) MORNING Indication: FOR NAUSEA AND VOMITING 12) TESTOSTERONE 1.62% 20.25MG/PUMP TOP GEL APPLY 2 PUMPS (40.5 ACTIVE MG) TOPICALLY ONCE DAILY Indication: FOR LOW TESTOSTERONE 13) THEOPHYLLINE 400MG 24HR SA TAB TAKE ONE TABLET BY MOUTH ONCE ACTIVE (S) DAILY Indication: FOR ASTHMA 14) TIOTROPIUM 2.5MCG/ACTUAT 60D ORAL INHL INHALE 2 PUFFS BY ACTIVE MOUTH ONCE DAILY Indication: -CONTROLLER MEDICATION FOR ASTHMA Inactive Outpatient Medications Status 1) POLYETHYLENE GLYCOL 3350 ORAL PWDR TAKE 17 GRAMS(FILL CAP TO 17GM LINE) BY MOUTH ONCE DAILY [MIX WITH 4 TO 8OZ. OF BEVERAGE] ONE 238 GM BOTTLE MIXED WITH GATORADE, BEGIN AT 5 PM THE DAY BEFORE THE PROCEDURE. DR. TINO BONNER Indication: FOR EMPTYING OF THE BOWEL Active Non-VA Medications Status 1) Non-VA LORAZEPAM 0.5MG TAB 0.5MG BY MOUTH ONCE DAILY ACTIVE 2) Non-VA OXYGEN MISCELLANEOUS DIRECTED ACTIVE 3) Non-VA PREDNISONE 10MG TAB 10MG BY MOUTH NEEDED ACTIVE 18 Total Medications == REVIEW OF SYMPTOMS == NEGATIVE FOR: CONSTITUTION: no weight loss/gain, fatigue, fevers, night sweats HEENT: no vision problems, hearing loss,swallowing difficulties, sinus pain CV: no chest pain, palpitations, dyspnea on exertion, orthopnea RESP: no cough, shortness of breath, wheezing GI: no abdominal pain, N/V/D, constipation, blood in stool, normal appetite : no urinary frequency, nocturia, hematuria MUSC: no joint pain, joint swelling, muscle aches NEURO: no headaches, dizziness, memory loss, tremor, weakness PSYCH: no depression, anxiety, suicidal or homicidal thoughts SKIN: no rash, new skin lesions == PHYSICAL EXAM == Vitals: - - - - - - - B/P: 129/72 (12/10/2024 13:09) pulse: 64 (12/10/2024 13:09) resp: 16 (12/10/2024 13:09) temp: 98.1 F [36.7 C] (12/10/2024 13:09) Ht: 69 in [175.3 cm] (01/05/2022 13:13) Wgt: 144 lb [65.32 kg] (12/10/2024 13:09) BMI: BMI: 21.3 Exam: - - - - - - - General: A&O x 3, no acute distress, normal affect and mood Neck: normal thyroid, normal carotids- no bruits CV: RRR S1S2, no murmur Resp: LCTA bilat, no wheezing, rales or rhonchi Neuro: grossly intact, no visible tremor, normal memory and speech Extremities: normal movement of extremities, normal gait, normal strength no LE edema == RECENT LABS == will do today == ASSESSMENT AND PLAN == Active problems - Computerized Problem List is the source for the followin. Exposure to potentially hazardous substance ASBESTOS 2. Depression 3. Hypertension 4. Erectile dysfunction 5. Obstructive sleep apnea of adult 6. Nicotine dependence Uses nictoine gum - 4mg - at least 6 a day 7. Sponge kidney 8. Hypogonadism 9. Chronic obstructive lung disease (SNOMED CT [id number]) PFTs 02/02 FVC 54%, FEV1 29%, FEF 25-75 9%, TLC 90% DLCO 34%. uses home O2 and bipap- needs new filter and tubing/equipment- will make pulm referral 10. Genital herpes simplex 11. Gastroesophageal reflux disease 12. Allergic rhinitis 13. Generalized anxiety disorder 14. Human immunodeficiency virus infection 15. Tobacco dependence in remission Quit 2014 - 40 pack yr history == HEALTH MAINTENANCE == Colonoscopy - scheduled Abdominal Aortic Aneurysm Screening - due at age 65 Prostate screening - 2023 Tetanus: due every 10 years Pneumonia Vacccine: Flu Vaccine: due yearly Covid Vaccine: due yearly == FOLLOW UP == f/u in 1 year. VISIT TYPE: a MODERATE complexity visit where 30 minutes was spent in direct patient care, review of records and documentation. /desean/ TEO STALLWORTH D.O. PHYSICIAN Signed: 12/11/2024 16:10 12/12/2024 ADDENDUM STATUS: COMPLETED brought in labs from outside PCP dated 11/12/24: cbc: wbc 11.2 Hb 14.7 HCT 42,7 plt 316 Na 142 K 4.0 Cl 108 BUN 20 creat 0.84 AST 28 ALT 29 T bili 0.3 alk phos 168 tot Prot 7.7 /desean/ TEO STALLWORTH D.O. PHYSICIAN Signed: 12/12/2024 08:05 TEO STALLWORTH [facility] [place] [facility] Dec 10, 2024 01:10 PM PREVENTIVE MEDICIN [...] of their sexual orientation as: Lesbian or [place]millan Advance Directive Screen MH AD: Patient has [...] (historical) Patient received a prior dose of Nextiva RSV vaccine. Documented: RSV, BIVALENT, PROTEIN SUBUNIT [...] Practical Nurse Signed: 12/10/2024 13:15 CLARIBEL MORGAN [facility]
[2024-12-24 14:58] LABS: Cholesterol 204 mg/dL (<200); Glucose Fasting 90 mg/dL (60-99); HDL Cholesterol 42 mg/dL (>40); LDL Cholesterol Calculated 122 mg/dL (<100); Triglycerides 203 mg/dL (<150)
== END 2024-12-24 10:52 | disposition home or self-care (01) ==
LOC: HO.WFDLDS 10:51
PROVIDERS: Visit Provider Family Medicine
DX: E78.00 Pure hypercholesterolemia, unspecified (principal); B20 Human immunodeficiency virus [HIV] disease; R73.09 Other abnormal glucose; I67.9 Cerebrovascular disease, unspecified
CPT/HCPCS: 36415; 80061; 82947

== ENCOUNTER → 2025-02-03 13:39 | Outpatient (REF) | payer MEDICARE, BC, SELFPAY ==
--- NOTE | 2025-02-03 13:44 | HM_ITS ---
Conclusion: 1. Patient was monitored for total period of 4 days and 4 hours 2. Baseline was normal sinus rhythm with average heart of 73 beats per minute 3. Rare PACs noted 4. No significant pauses noted 5. Patient marked the counter 2 times with symptoms of fast heart rate correlating with sinus rhythm MTDD
--- OUTSIDE RECORDS SUMMARY | 2025-02-03 15:14 | XMS_ITS | Encounter Summary ---
Author Name [facility] [place] [facility] [place] Address [address] [place] [address] Care Team Providers Care Dual Rate Dealer Name Role Phone TEO SANCHEZ Primary Care [...] Ugarte's Name Patient's Relationship to Policy Ugarte ANTHEM BCBS CT FEDERAL PREFERRED PROVIDER ORGANIZAT ION (PPO) BASIC SELF Jun 23, 2013 111 [id number] [phone] LEVY COVARRUBIAS PATIENT BCBS [place] PREFERRED PROVIDER ORGANIZAT ION (PPO) BASIC INDIV IDUAL Jun 23, 2013 111 [id number] LEVY COVARRUBIAS PATIENT [place] PREFERRED PROVIDER ORGANIZAT ION (PPO) BASIC SELF Jun 23, 2013 111 [id number] [phone] LEVY COVARRUBIAS PATIENT [place] DENTAL DENTAL INSURANCE BASIC Jun 23, 2013 DENTAL [id number] [phone] LEVY COVARRUBIAS PATIENT CAR[place] FEP BCBS PRESCRIPT ION CAREM ARK FEPRX Jun 23, 2013 [id number] LEVY COVARRUBIAS PATIENT [place] FEP BCBS PRESCRIPT ION CAREM ARK FEPRX PLAN Jun 23, 2013 [id number] LEVY COVARRUBIAS PATIENT CAREMARK-F EP BCBS PRESCRIPT ION FEP CAREM ARK Jun 23, 2013 [id number] LEVY COVARRUBIAS PATIENT MEDICARE (WNR) MEDICARE (M) PART A Jun 21, 2022 PART A [id number] [phone] LEVY COVARRUBIAS PATIENT MEDICARE (WNR) MEDICARE (M) PART B Jun 21, 2022 PART B [id number] LEVY COVARRUBIAS PATIENT MEDICARE (WNR) MEDICARE (M) PART A Jun 21, 2022 PART A [id number] LEVY COVARRUBIAS PATIENT MEDICARE (WNR) MEDICARE (M) PART B Jun 21, 2022 PART B [id number] LEVY COVARRUBIAS PATIENT MEDICARE (WNR) MEDICARE (M) PART B Jun 21, 2022 PART B [id number] LEVY COVARRUBIAS PATIENT MEDICARE (WNR) MEDICARE (M) PART A Jun 21, 2022 PART A [id number] LEVY COVARRUBIAS PATIENT Selected Encounter This section includes the information on record at [place] for the Encounter. Date/Time Encounter Type Encounter Description Reason Provider Source Jan 29, 2025 11:25 AM COLLJ & INTERPJ DATA EA 30 D SLEEP MEDICINE ICD-10-CM G47.33 Obstructive sleep apnea (adult) (pediatric) JOSE G PERRIN [facility] Encounter Template Text not used by [place] Assessments - Encounter Diagnoses This section includes the primary and secondary diagnoses documented for the Encounter. Date/Time Primary/Secondary Diagnosis Diagnosis Name Provider Source Jan 29, 2025 11:33 AM PRIMARY Obstructive sleep apnea (adult) (pediatric) JOSE G PERRIN [place] [facility] [place] [facility] Plan of Treatment: Future Appointments (+ 6 months) and Future Tests (+/- 45 days) The Plan of Treatment section includes future care activities for the patient from all [place] [facility] This section includes future appointments and future orders which are active, pending or scheduled. Future Appointments This section includes appointments that were scheduled to occur 6 months from the date of the Encounter, up to a maximum of 20 appointments. The data comes from all [place] treatment facilities. Appointment Date/Time Appointment Type Appointme nt Facility Name Feb 11, 2025 01:00 PM AMBULATORY - REHAB MEDICIN E [facility] [place] [facility] Apr 01, 2025 01:15 PM AMBULATORY - MEDICINE [facility] [place] [facility] Jun 24, 2025 02:00 PM AMBULATORY - MEDICINE [facility] [place] [facility] Social History: Smoking Status (Most current) [...] took place. Date/Time Current Smoking Status Comment [facility] it Dec 10, 2024 01:00 PM VA-TOBACCO USE FOR RUBIO CIGARETTES [facility] Tobacco Use History This section includes a history of the smoking, or tobacco-related health factors, that were collected on or before the date of the Encounter. The data comes from the [place] facility where the Encounter took place. Date/Time Smoking Status/Tobac co Use Comment Facility Dec 10, 2024 01:00 PM VA-TOBACCO USE FORMER CIGARETTES [facility] [place] [facility] Oct 20, 2023 08:21 PM VA-TOBACCO FORMER USER [facility] [place] [facility] Oct 20, 2023 08:21 PM VA-TOBACCO QUIT 5 TO < 15 YRS [facility] [place] [facility] Jul 13, 2022 01:00 PM VA-TOBACCO FORMER USER [facility] [place] [facility] Jul 13, 2022 01:00 PM VA-TOBACCO QUIT 5 TO < 15 YRS [facility] [place] [facility] Feb 25, 2021 01:15 PM VA-TOBACCO FORMER USER [facility] [place] [facility] Feb 25, 2021 01:15 PM VA-TOBACCO QUIT 5 TO < 15 YRS [facility] [place] [facility] Nov 27, 2012 03:19 PM V1-PT DECLINES REF TO TOBACCO CESS PRGM [facility] [place] [facility] Nov 27, 2012 03:19 PM V1-PT DECLINES TOBACCO CESSATION MEDS [facility] [place] [facility] Nov 27, 2012 03:19 PM V1-PT NOT INTERESTED IN QUIT TOBACCO USE [facility] [place] [facility] Apr 12, 2012 10:34 AM CURRENT SMOKER [facility] [place] [facility] Apr 12, 2012 10:34 AM V1-PT THINKING ABOUT QUIT TOBACCO USE [facility] [place] [facility] Oct 17, 2011 11:15 AM V1-PT DECLINES REF [facility]BACCO [facility]ESS [facility] Oct 17, 2011 11:15 AM V1-PT THINKING ABOUT QUIT TOBACCO USE [facility] [place] [facility] Apr 04, 2011 01:28 PM CURRENT SMOKER [facility] [place] Apr 04, 2011 01:28 PM V1-PT DECLINES REF TO TOBACCO CESS [facility] Apr 04, 2011 01:28 PM V1-PT DECLINES TOBACCO CESSATION MEDS [facility] [place] Apr 04, 2011 01:28 PM V1-PT NOT INTERESTED IN QUIT TOBACCO USE [facility] [place] Mar 01, 2010 01:50 PM CURRENT SMOKER 1/2 ppd [facility] [place] [facility] Mar 01, 2010 01:50 PM V1-PT THINKING ABOUT QUIT TOBACCO USE [facility] [place] [facility] Sep 02, 2008 03:15 PM CURRENT SMOKER 1/2 ppd [facility] [place] [facility] Sep 02, 2008 03:15 PM V1-PT DECLINES REF TO TOBACCO CESS [facility] [place] [facility] Sep 02, 2008 03:15 PM V1-PT READY TO QUIT TOBACCO USE [facility] [place] Jan 28, 2008 03:59 PM V1-PT DECLINES REF TO TOBACCO CESS PRGM [facility] Jan 28, 2008 03:59 PM V1-PT READY TO QUIT [facility]AC[facility] Apr 06, 2007 03:19 PM CURRENT SMOKER 1/2 ppd [facility] Apr 06, 2007 03:19 PM V1-PT DECLINES REF TO TOBACCO CESS [facility] Apr 06, 2007 03:19 PM V1-PT DECLINES TOBACCO CESSATION MEDS [facility] Apr 06, 2007 03:19 PM V1-PT THINKING ABOUT QUIT TOBACCO USE [facility] Jun 02, 2005 01:53 PM CURRENT SMOKER 1 pk [facility] Oct 10, 2003 02:33 PM CURRENT SMOKER smokes 1/2 day [facility] May 28, 2002 03:47 PM CURRENT SMOKER smokes 1/2 pack/day [facility] Nov 29, 2001 10:07 AM CURRENT SMOKER [facility] Encounter Notes: All associated encounter notes This section contains the clinical notes associated to the Encounter. Date/Time Encounter Note(s) Provider Source Jan 29, 2025 11:25 AM SLEEP MEDICINE NOT E: LOCAL TITLE: CPAP CLINIC NOTE STANDARD TITLE: SLEEP MEDICINE NOTE DATE OF NOTE: JAN 29, 2025@11:25 ENTRY DATE: JAN 29, 2025@11:25:49 AUTHOR: JOSE G PERRIN EXP COSIGNER: URGENCY: STATUS: COMPLETED diagnosed with sleep apnea had initial Airview data download after set up appointment. Supplies sent via [facility]. AirView Compliance Report Usage 12/31/2024 - 01/27/2025 Usage days 27/28 days (96%) >= 4 hours 27 days (96%) < 4 hours 0 days (0%) Usage hours 243 hours 53 minutes Average usage (total days) 8 hours 43 minutes Average usage (days used) 9 hours 2 minutes Median usage (days used) 9 hours 1 minutes Total used hours (value since last reset - 01/27/2025) 235 hours [employer] Serial number [id number] Mode Spont IPAP 16 cmH2O EPAP 6 cmH2O Easy-Breathe On Therapy Leaks - L/min Median: 0.0 95th percentile: 2.7 Maximum: 101.0 Events per hour AI: 1.4 HI: 0.2 AHI: 1.6 Apnea Index Central: 0.6 Obstructive: 0.5 Unknown: 0.2 /desean/ JOSE G PERRIN RESPIRATORY THERAPIST Signed: 01/29/2025 11:33 [facility] G [facility] [place] [facility]
== END ==
LOC: HO.CARD 13:39
PROVIDERS: PCP Internal Medicine; Visit Provider Family Medicine
DX: R00.2 Palpitations (principal)
CPT/HCPCS: 93242

== ENCOUNTER → 2025-02-03 13:44 | Outpatient (BNV) | payer MEDICARE, BC, SELFPAY | PROVIDERS: PCP Internal Medicine; Visit Provider Internal Medicine Cardiovascular Disease | DX: I49.1 Atrial premature depolarization (principal) | CPT/HCPCS: 93244 ==

== ENCOUNTER 2025-03-20 15:48 | Outpatient (AMB) | payer MEDICARE, BC, SELFPAY ==
--- NOTE | 2025-03-20 15:48 | MHC.PC.OV ---
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 Required: No Accompanied by: Self / Same As Patient Allergies ethinyl estradiol (From Seasonale (91)) Allergy (Severe, Verified 03/20/25 15:49) Dry Eye levonorgestrel (From Seasonale (91)) Allergy (Severe, Verified 03/20/25 15:49) Dry Eye sulfamethoxazole (From Bactrim) Allergy (Mild, Verified 03/20/25 15:49) RASH trimethoprim (From Bactrim) Allergy (Mild, Verified 03/20/25 15:49) RASH Sulfa (Sulfonamide Antibiotics) Allergy (Unknown, Verified 03/20/25 15:49) mild rash Medication List - Last Reconciled 03/20/25 by Karen Maxwell MD albuterol sulfate 90 mcg/actuation inhalation amlodipine 10 mg PO DAILY amoxicillin-pot clavulanate 875-125 mg 1 tab PO BID PRN arformoterol mL inhalation atorvastatin 20 mg PO BEDTIME 30 days azithromycin 500 mg PO 3XW 28 days budesonide 0.5 mg (2 mL) inhalation BID 30 days buspirone 5 mg PO BID cetirizine (Zyrtec) 10 mg PO DAILY PRN CPAP (CPAP Machine/Device) As directed tjrqtqcaeu-ltqvhe-qixkrvj diso 100-300-300 mg (Delstrigo) 1 tab PO DAILY 90 days ensifentrine (Ohtuvayre) 2.5 mL inhalation BID ensifentrine (Ohtuvayre) 2.5 mL inhalation BID gabapentin 300 mg PO BEDTIME hydroxyzine pamoate 25 mg PO BID ipratropium bromide intranasal ipratropium-albuterol 0.5 mg-3 mg(2.5 mg base)/3 mL 3 mL inhalation QID 30 days lorazepam 0.5 mg PO TID PRN metoprolol tartrate 25 mg PO BID nebulizers As directed omeprazole 20 mg PO DAILY ondansetron HCl mg PO Oxygen Home Use As directed prednisone 10 mg PO DAILY PRN testosterone 40.5 mg topical QAM theophylline ER 400 mg PO DAILY 30 days tiotropium bromide 2.5 mcg/actuation (Spiriva Respimat) 2 puffs inhalation DAILY valacyclovir (Valtrex) 1,000 mg PO DAILY PRN Tobacco use date assessed: 03/20/25 HPI HPI Comments History of Present Illness Details The patient is a 64 year old male with a past medical history of COPD, AYLA, HIV, hypertension, hld, IBS presenting for follow up. Follows at the [place] as well. Dr Alma Delia Maya CV: on lipitor, norvasc, lopressor 25mg twice daily. Denies chest pain, exertional dyspnea. COPD: Follows with Dr Berg. AYLA treated with bipap. ID: HIV, follows with Dr Amaro. Frequent oral thrush. BH: On buspar, hydoxyzine, lorazepam Colonoscopy: positive cologuard. Decided against completing colonsocopy after consultation due to respiratory risk. ROS see HPI PHYSICAL EXAM: GENERAL: Alert and oriented x 3. NAD EYES: EOMI. Anicteric. HENT: Moist mucous membranes. No scleral icterus. No cervical lymphadenopathy. LUNGS: Clear to auscultation bilaterally. CARDIOVASCULAR: Regular rate and rhythm. No murmur. No JVD. ABDOMEN: Soft, non-tender +bs EXTREMITIES: No edema. Non-tender. SKIN: No rashes or lesions. Warm. NEUROLOGIC: No focal neurological deficits. CN II-XII grossly intact PSYCHIATRIC: Cooperative. Appropriate mood and affect [facility] Medical History Bone disease Sinusitis Pulmonary nodules Abdominal pain Abnormal chest x-ray HIV (human immunodeficiency virus infection) AYLA treated with BiPAP Hemoptysis HIV (human immunodeficiency virus infection) Chronic respiratory failure COPD (chronic obstructive pulmonary disease) Family History Mother Lung cancer Social History Patient Tobacco Use Status: Never used Tobacco e-Cigarette/Vaping Use: Never Used Physical exam (Primary Care) Vital Signs: Last Vital Signs Temp 97.4 F 03/20/25 15:54 Pulse 88 03/20/25 15:54 Resp 17 03/20/25 15:54 BP 132/68 03/20/25 15:54 Pulse Ox 100 03/20/25 15:54 Oxygen Delivery Method Nasal Cannula 03/20/25 15:54 Oxygen Flow Rate 2.5 03/20/25 15:54 Tobacco/Smoking Status: Tobacco use Status Tobacco use date assessed 03/20/25 03/20/25 15:51 Patient Tobacco Use Status Never used Tobacco 03/20/25 15:51 e-Cigarette/Vaping Use Never Used 03/20/25 15:51 Coding Level of Care Code New Pt Level 4 (92184) Diagnoses HIV infection, unspecified symptom status Z21 HIV symptom status: unspecified AYLA treated with BiPAP G47.33 Centrilobular emphysema J43.2 COPD type: emphysema Emphysema type: centrilobular Assessment & Plan Assessment & Plan (1) HIV (human immunodeficiency virus infection): Comment: He has slight viral load at 58 and says doesnt miss doses. He had cold then when getting blood. Would continue Delstrigo and recheck viral load at 3 months. See in six months with new PCP. Bone density test ordered. Per Reprieve trial HIV independent risk for CAD and CVD and has hypertension would add statin,atovastatin high intensity, 10 one week and then 20 mg daily. Needs to see Yazmin Li at [facility] for anal Pap with HPV positivity and ASCUS. See us in six months. Code(s): B20 - Human immunodeficiency virus [HIV] disease Category: Medical Qualifiers: HIV symptom status: unspecified Qualified Code(s): Z21 - Asymptomatic human immunodeficiency virus [HIV] infection status (2) AYLA treated with BiPAP: Comment: Effective and beneficial Code(s): G47.33 - Obstructive sleep apnea (adult) (pediatric) Category: Medical (3) COPD (chronic obstructive pulmonary disease): Code(s): J44.9 - Chronic obstructive pulmonary disease, unspecified Category: Medical Qualifiers: COPD type: emphysema Emphysema type: centrilobular Qualified Code(s): J43.2 - Centrilobular emphysema Plan 64 year old male presenting to [facility] care Past medical, surgical, social reviewed Anxiety-long standing lorazepam, refilled continue coverage specialist rn Orders: Orders Vitamin B12 and Folate 03/20/25 Karen Maxwell MD R71.8 - Other abnormality of red blood cells TSH reflex Free T4 03/20/25 Karen Maxwell MD R71.8 - Other abnormality of red blood cells Medications: Changed From valacyclovir (Valtrex) 1,000 mg PO DAILY 90 days 90 tabs 3RF To valacyclovir (Valtrex) 1,000 mg PO DAILY PRN Mary Grace Amaro MD From lorazepam 0.5 mg PO TID PRN To lorazepam 0.5 mg PO TID PRN 30 tabs 3RF anxiety 30 days Karen Maxwell MD Refilled nystatin swish and swallow 2.5 mL PO QID 300 mL 3RF 30 days Karen Maxwell MD
--- OUTSIDE RECORDS SUMMARY | 2025-03-20 15:51 | XMS_ITS | Patient Health Record ---
Author Organization [facility] Address [address] [place] [phone] Care Team Providers Care Wire Technician Name Role Phone Ziyad (RETIRED) James GOMES Primary Care Provider Unavailable Antonio Arce Unavailable [phone] Allergies No Known Allergies Reason For Referral [...] MG Oral for 10 A ctive Ipratropium [place] 0.06 % Nasal for 30 Active hydrOXYzine Pamoate 25 MG Oral for 90 Active Azithromycin 250 MG Oral for 90 Active Nystatin [id number] UNIT/ML SWISH AND SWALLO W 1 TEASPOONFUL [...] 07/16/2024 Encounters Encounter Location Date Provider Diagnosis [facility] [address] [place] [phone] 07/16/2024 Antonio Arce Positive colorectal cancer screening using Cologuard test R19.5 [facility] [address] [place] [phone] 08/03/2024 Antonio Arce [facility] [address] [place] [phone] 08/30/2024 Antonio Arce [facility] [address] [place] [phone] 10/14/2024 Antonio Arce Assessments Encounter Date Diagnosis [...] Date MEDICARE OF [place] [address] [facility] [address] [id number] LEVY ANDINO Self - patient is the insured [facility] [address] [place], [place] [id number] [phone] [id number] LEVY ANDINO Self - patient is the insured Medical (General) History Medical History History ICD Code COPD/Emphysema -on oxygen/uses bipap/neb ulizer GERD Hypertension Sleep apnea-Uses BIPAP HIV Kidney stones HTN Negative colonoscopy in 1999 Denies [place],DM,CVA,renal disease Lactose-intolerance with gas and bloatin g Surgical History Surgery Date(Month/Year) Left inguinal hernia with mesh 2012 Right testicle with removal surgery for a torsion with implant - [facility]
[2025-03-20 15:54] VITALS: BP 132/68; PULSE 88; RESP 17; TEMP 36.3; O2SAT 100
== END 2025-03-20 17:18 | disposition home or self-care (01) ==
LOC: HO.HMCHD 15:49
PROVIDERS: PCP Internal Medicine; Visit Provider Internal Medicine
DX: Z21 Asymptomatic human immunodeficiency virus [HIV] infection status (principal); G47.33 Obstructive sleep apnea (adult) (pediatric); J43.2 Centrilobular emphysema

== ENCOUNTER → 2025-03-20 15:48 | Outpatient (BNVA) | payer MEDICARE, BC, SELFPAY | PROVIDERS: PCP Internal Medicine; Visit Provider Internal Medicine | DX: Z76.89 Persons encountering health services in other specified circumstances (principal); Z21 Asymptomatic human immunodeficiency virus [HIV] infection status; G47.33 Obstructive sleep apnea (adult) (pediatric); J43.2 Centrilobular emphysema; F41.9 Anxiety disorder, unspecified; Z79.899 Other long term (current) drug therapy | CPT/HCPCS: 99202 ==

== ENCOUNTER 2025-03-31 14:11 | Outpatient (REF) | payer MEDICARE, BC, SELFPAY ==
--- OUTSIDE RECORDS SUMMARY | 2025-03-31 14:42 | XMS_ITS | Patient Health Record ---
Author Organization [facility] Address [address] [place] [phone] Care Team Providers Care Director Audience Marketing Name Role Phone Ziyad (RETIRED) James GOMES Primary Care Provider Unavailable Antonio Arce Unavailable [phone] Allergies No Known Allergies Reason For Referral [...] MG Oral for 10 A ctive Ipratropium [place] 0.06 % Nasal for 30 Active hydrOXYzine Pamoate 25 MG Oral for 90 Active Azithromycin 250 MG Oral for 90 Active Nystatin [id number] UNIT/ML SWISH AND SWALLO W 1 TEASPOONFUL [...] 07/16/2024 Encounters Encounter Location Date Provider Diagnosis [facility] [address] [place] [phone] 07/16/2024 Antonio Arce Positive colorectal cancer screening using Cologuard test R19.5 [facility] [address] [place] [phone] 08/03/2024 Antonio Arce [facility] [address] [place] [phone] 08/30/2024 Antonio Arce [facility] [address] [place] [phone] 10/14/2024 Antonio Arce Assessments Encounter Date Diagnosis [...] Date MEDICARE OF [place] [address] [place] [address] [id number] LEVY ANDINO Self - patient is the insured [facility] [address] [place], [place] [id number] LEVY ANDINO Self - patient is the insured Medical (General) History Medical History History ICD Code COPD/Emphysema -on oxygen/uses bipap/neb ulizer GERD Hypertension Sleep apnea-Uses BIPAP HIV Kidney stones HTN Negative colonoscopy in 1999 Denies HI,DM,CVA,renal disease Lactose-intolerance with gas and bloatin g Surgical History Surgery Date(Month/Year) Left inguinal hernia with mesh 2012 Right testicle with removal surgery for a torsion with implant - [facility]
[2025-03-31 18:55] LABS: Folate 9.3 ng/mL (> or = 4.0); Vitamin B12 1024 pg/mL (200-900)
[2025-04-01 08:54] LABS: Syphilis Screen Nonreactive (Nonreactive)
[2025-04-01 09:03] LABS: ~HepC Num1 0.10 S/CO (0.00-0.79); ~Hepatitis C Antibody Nonreactive (Nonreactive)
[2025-04-02 16:18] LABS: HIV RNA PCR Qn Copies NOT DETECTED copies/mL (NOT DETECTED); HIV RNA PCR Qn Log Copies NOT DETECTED (NOT DETECTED)
[2025-04-04 15:28] LABS: Absolute CD3 Count 1943 cells/uL (840-3060); Absolute CD8 Count 1287 cells/uL (180-1170); Percent CD3 Cells 59 % (57-85); Percent CD8 Cells 39 % (12-42)
== END 2025-03-31 14:12 | disposition home or self-care (01) ==
LOC: HO.WFDLDS 14:11
PROVIDERS: Internal Medicine; Visit Provider Internal Medicine
DX: Z11.59 Encounter for screening for other viral diseases (principal); Z01.84 Encounter for antibody response examination; B20 Human immunodeficiency virus [HIV] disease; R71.8 Other abnormality of red blood cells
CPT/HCPCS: 36415; 82607; 82746; 84443; 86359; 86360; 86780; 86803; 87536

== ENCOUNTER 2025-04-01 12:45 | Outpatient (AMB) | payer MEDICARE, BC, SELFPAY ==
[2025-04-01 12:54] VITALS: BP 104/56; PULSE 67; O2SAT 98; BMI 21.1
--- NOTE | 2025-04-01 12:54 | A.OFFVIS_ITS ---
Vital Signs 04/01/25 12:54 Height 5 ft 8 in Weight 138 lb 14.259 oz BMI 21.1 BP 104/56 L Blood Pressure Location Lt brachial Position Sitting Pulse 67 Pulse Source Pulse Oximeter Pulse Oximetry (%) 98 Oxygen Delivery Method Room Air Intake Visit Reasons: COPD Log Getter Required: No Accompanied by: Self / Same As Patient Allergies ethinyl estradiol (From Seasonale (91)) Allergy (Severe, Verified 04/01/25 13:00) Dry Eye levonorgestrel (From Seasonale (91)) Allergy (Severe, Verified 04/01/25 13:00) Dry Eye sulfamethoxazole (From Bactrim) Allergy (Mild, Verified 04/01/25 13:00) RASH trimethoprim (From Bactrim) Allergy (Mild, Verified 04/01/25 13:00) RASH Sulfa (Sulfonamide Antibiotics) Allergy (Unknown, Verified 04/01/25 13:00) mild rash HPI Comments Details: The patient is a 64-year-old gentleman with a known history of COPD, chronic hypoxic and hypercarbic respiratory failure on oxygen supplementation and obstructive sleep apnea. Overall the patient has been doing well. He continues on his anti retroviral therapy without any complications. He has responded very well to the azithromycin. He did have an EKG done. he has been having issues with cough lately. He has noticed productive cough and at times he notices small amount of blood-tinged sputum. He denies any fevers or chills or any chest discomfort. His sputum has normalized at this time. In the meantime will be reasonable to get a chest x-ray. She continues use the BiPAP every night. The BiPAP therapy continues to be affecting beneficial. 11/17/2020 the patient is here for pulmonary follow-up visit. Overall he has been doing well from a respiratory status. He feels like his chest feels [employer] and he is able to breathe a little easier. He has been using the oxygen with good effect. The only new issue is that he has had episodes of coughing up blood. This is been intermittent in and has not had it more than a week. Today he did undergo pulmonary function studies and we were able to compared to PFTs from 2015. It appears that he does have a severe obstructive ventilatory defect along with a severe diffusion impairment. But when compared to 2015 the patient has not had any significant worsening in actually some numbers have trend improved. Therefore it is reassuring that he is sustaining his lung capacity. He also brought his BiPAP with him. Currently set up at 16/6. His AHI is down to 2. The therapy has been affecting beneficial. At this point will keep it at at the current pressure settings. It appears to be affecting beneficial. He is wondering if there is any other respiratory medications he can use instead of the once he is on to try to get more of a bronchodilator effect. The only thing we can do this point is consider nebulized therapy in the form Brovana and budesonide. That he would use in exchange of the Symbicort. [facility] in addition to that we looked at the x-ray from 08/09/2020 demonstrating the hazy opacity in the right mid lung area. He had this area also noted his previous x-ray. Based on his abnormal chest x-ray in his episodic hemoptysis. I will request a CT scan of the chest at this time. 03/04/2021 the patient is here for a pulmonary follow-up visit. Overall the patient has been doing well. His cough is respiratory symptoms have been stable. He does continue using his Formeterol and budesonide. Appears to be effective for him. He also continues use the BiPAP. The BiPAP therapy continues to be affecting beneficial. He does use it more than 4 hours a night. He also continues to use the oxygen. The oxygen supplementation he does use continuously. We did review his last CT scan of the chest done in November 2020 which demonstrated extensive emphysema and also a new pulmonary nodule. I personally reviewed the CT scan with the patient in the nodule does not any concerning features although with his significant smoking history id needs to be followed closely. 10/26/2021 the patient is here for a pulmonary follow-up visit. He had taken prednisone yesterday because he felt that his breathing was not great. Today feels a lot better. He continues on the nebulized therapy. He also continues use the oxygen with good effect. He has been using the BiPAP at nighttime with a fullface mask. Still getting of a dry mouth. He started developing gentle disease. Having hard time tolerating the the BiPAP due to the gingivitis in the infection of his gum. He needs to follow-up with dentist. In the meantime the patient has a known pulmonary nodule measuring 3 mm on the last CT scan back in November 2020. He has been reluctant to get a CT scan at this time. So therefore push it out to the end of the summer and will follow-up in [address] scan. If the patient has any worsening symptoms prior to that he is to call for an earlier evaluation. Otherwise will follow-up in 6 months. 07/08/2022 the patient is here for a pulmonary follow-up visit. The patient does complaint of worsening shortness of breath. He has been using his oxygen with good effect. He has also continue with respiratory therapy. But, still complaining of shortness of breath even at rest. Moderate severity. He also has been coughing more lately. He has been More congested lately. Denies any hemoptysis. He has been noticing his phlegm is dark yellowish green. Moderate severity. Does complaint of sinus congestion. He did recently have a CT scan as part of a follow-up CT scan for his pulmonary nodules. Did have significant edematous changes. Some bronchiectatic changes also appreciated. Although no significant pulmonary nodules noted. This is reassuring. He also continues use the BiPAP at nighttime very good effect. At this point will go ahead and optimize respiratory therapy by adding theophylline. We can also treated for a lower respiratory infection. The patient will undergo blood work in a couple weeks to make sure that is theophylline levels are reasonable. I will put him on a very low dose. 09/29/2022 the patient is here for a pulmonary follow-up visit. Overall the patient has been doing fairly well. Continues to have episodes of shortness of breath. Some days are good some days are bad. He does not see that he is getting significant response to Brovana. Seems to do better with DuoNeb. Therefore will switch him off the room I placed on DuoNeb 4 times a day. He is to continue the budesonide for now. He does get a lot of mouth irritation because of the BiPAP and also the inhalers. He gets a lot of infections. I will send him chlorhexidine mouthwash CP can not assess with that. He may have to see the dentist because he does have a growth on his change about that needs to be addressed. The patient has been using his BiPAP. The BiPAP therapy has been affecting beneficial. His venous gas today demonstrate normal acid-base status with a baseline pCO2 of 54 mmHg which is a trying higher than it was before. The patient also is tolerating the theophylline. Will go ahead and get a theophylline level to see if we need to adjust the dose at this time. He is wondering about the severity of his disease. He knows that he has very advanced COPD. We did talk about lung transplant. Although he does have HIV he is viral load is undetectable. He does not want to pursue lung transplant this point. Although he would be open to considering lung volume reduction intervention. Will go ahead and repeat his pulmonary function studies and look into pulmonary rehabilitation the next time he comes in. He continues use the oxygen with good effect. Will follow-up in 6-8 weeks with PFTs. 11/15/2022 the patient is here for a pulmonary follow-up visit. The patient has been having increasing shortness of breath at times. We did review his pulmonary function studies demonstrating very severe COPD. But compared to 2020 not much has changed which is reassuring. We did talk about switching his nebulized therapy as he has not seen significant improvement with Brovana. But he has not done as of yet. He is wondering if Trelegy may be a good inhaler for him. I did recommend that if he goes on Trelegy with have to stop the Brovana and would have to decrease the budesonide. He is willing to do so at this time. If however I cannot get in the Trelegy then he can use the DuoNeb and budesonide twice a day and also good DuoNeb as needed. The patient also had blood work including a theophylline level that was significantly low. He has been adherent to the therapy. Therefore, we talked about increasing the dose from 200 mg to 400 mg. He will double upon what he has and then will [facility] The in addition to that the patient did have a venous blood gas. His CO2 slight elevated at 54 mmHg which is slightly elevated on the venous gas likely overestimate. His pH is within normal limits. He does use the BiPAP every night. The BiPAP therapy continues to be affecting beneficial. She is also using the oxygen with good effect. The patient also is working with pulmonary rehabilitation which is helpful and encouraging 02/27/2023 the patient is here for a pulmonary follow-up visit. Overall the patient is doing well from a respiratory status. He did start the theophylline seems to be helping. The patient still continues on his nebulized therapy to make sure he finishes all the medication before he switches over to the new regimen. He is complaining of a worsening cough. Initially also had significant lymphadenopathy on the posterior right side of his neck. Also complained of sinus discomfort. Had increased sinus drainage. He attributes it to the BiPAP or his 8 conditioner. He did take 5 days of Augmentin he felt better and then went back to the azithromycin. He still has residual symptoms with persistent productive cough and some sinus discomfort headaches. I did recommend he complete a full course in view of the residual symptoms. I will send a prescription for doxycycline. Once his complete study can go back in azithromycin. Will go ahead and request blood work including a venous gas to monitor closely his CO2. He continues uses oxygen with good effect. He was participating in pulmonary rehabilitation both the humidity and the fires is been hard to leave the house. Therefore he is going to continue to exercise at home. He will consider going back in-person in the fall. 05/11/2023 the patient is here for a pulmonary follow-up visit. The patient overall has been doing well. Still having episodes of nasal congestion and allergies that are affecting him now in the fall likely typically does. He is tolerating his nebulized therapy. He will stay on the Brovana and budesonide for now. He continues on the Spiriva. The patient has been using the BiPAP at nighttime. Will go ahead and check a venous gas at this point also check his theophylline levels. He did tolerate the high dose theophylline without any adverse effects. If she does have room will try to increase the accordingly. The patient has been considering the one-way valves for lung volume reduction intervention. Although I a.m. concerned with his immune status risk for infection and also raise of pneumothorax. If she wishes for me to send him for a referral to do that I did explain to him that I do not believe it is without significant risk to have any semi invasive intervention in his case. He is already up-to-date with vaccines. The patient will continue with current respiratory therapy. 10/10/2023 the patient is here for a pulmonary follow-up visit. Doing well from a respiratory status. He does have his good days and bad days. But overall has been stable. His chest congestion is improved. He continues uses respiratory therapy as prescribed. He is tolerating the theophylline. His theophylline levels have been low but reasonable. His last venous blood gas was also reassuring. The patient has not had a chest x-ray in some time. His last CT scan of the chest was personally reviewed demonstrating emphysematous change s. No significant pulmonary nodules appreciated. Therefore no additional CT scans are warranted unless his x-ray is abnormal. The patient unfortunately has been having viral loads that are positive regards of his HIV testing. His CD4 count last was also decreasing. He is going to have blood work done again and will follow up with his Infectious Disease doctor regarding his retroviral therapy. At this point continue with the oxygen therapy. Is okay for him to take it off as long as his pulse ox stays above 90% specially with the dry air and having some epistaxis. He can also try water-based lubricants to lubricate the inside of his mucosa is nose. 03/12/2024 the patient is here for a pulmonary follow-up visit. Overall he is feeling well. The patient continues to use his respiratory therapy as prescribed. He is already maxed on respiratory medications. He was wondering about other alternatives. We did talk about the lung volume reduction intervention with the one-way valves. He understands that there is a risk of pneumothorax with dose increase the risks of pneumonia. Therefore need to consider the risk benefit ratio. Right now he seems to be doing okay would like to hold off. He continues use the BiPAP. The BiPAP has been affecting beneficial. Also has been using the oxygen. Did get a new portable oxygen concentrator through his [employer] company which is to the [place]. seems to be working little better although a little bit more bulk here. Denies any epistaxis. He is still dealing with some oral candidiasis. Recently gotten a statin swish and swallow. He is going to try that for little bit. He also was having left flank pain. He had taking the Augmentin for that. Appeared that he was passing stone. He did have some hematuria. He did follow-up with his primary care doctor. His primary care doctor rather him not have any antibiotics at home that he will call if he needs anything we do not allow any fester. I do agree with that. 07/08/2024 the patient is here for a pulmonary follow-up visit. Still complaining of difficulty breathing. Also chest congestion and cough. He does have evidence of chronic bronchitis. He has been responding fairly decent to his current respiratory regimen. He is using the oxygen with good effect. He is also using the BiPAP at nighttime. Seems to be tolerating the theophylline well. Will monitor closely levels. The patient did have his CT scan to the lung cancer screening program appears to be stable this time. In regards of the respiratory symptoms I do believe that adding a PD4 inhibitor will be helpful. He has already had significant amount of weight loss therefore Daliresp would be potentially problematic. We will look into starting Ohtuvayre nebs BID. The patient did have a Cologuard test done was positive. He is going to follow-up with the GI doctor. He has significant COPD and respiratory failure so therefore undergoing a colonoscopy is always rescue. Therefore, he will talk to his GI doctor to see if there is any other alternative testing for colon cancer including imaging studies. I do believe does good options specially with in view of his respiratory disease and high risk for perioperative pulmonary complications. 11/20/2024 the patient is here for a pulmonary follow-up visit. Overall he is doing okay. He did start the new nebulized therapy, Ohtuvayre, initially felt that he has not side effects from it such as tachycardia. But he took some additional metoprolol the symptoms subsided. He then started taking a daily and seems to be tolerating it. He also started taking more recently twice a day and seems to be helping. He is going to continue to use it daily and monitor closely. Will continue with his current respiratory therapy and also continues with the oxygen. He is also using the BiPAP. He states that he is getting very dry mouth. He does not have the BiPAP with him. I did talk to about 100 potentially adjust the temperature and humidity a little bit to help him with a dry mouth. He also gets thrush because of the dry mouth and he has did signs switch and swallow that he can use. The patient would benefit from pulmonary function studies to assess his lung capacity specially after on the medication will plan to do that sometime in the next 4 months. We did review his blood work. His theophylline levels are 8.8 which is below therapeutic range. I do believe that theophylline is helping and I would encourage him to continue it. Another was concerns because of the elevated heart rate but with this low level I do not believe is playing a role. If he develops further tachycardia arrhythmias or issues with his heart rate then we can consider stopping it and see what happens. Therefore, will follow-up in 4 months with PFTs. If he has any issues prior to this he will call for an earlier assessment. 04/01/2025 the patient is here for pulmonary follow-up visit. Overall the patient has been doing okay. She continues to have significant dyspnea on exertion. Moderate severity. His oxygen has been affecting beneficial. [facility]. he has a portable oxygen concentrator for better portability. In addition to that he does use the BiPAP at nighttime. The BiPAP therapy has been affecting beneficial. The mask us in bothering his teeth alignment some he is using a F20 AirTouch foam mask that seems to be the best option for him right now. He does use it for more than 4 hours he gets supplies [facility] as [facility]. From respiratory status he continues to be on all the respiratory inhalers and nebulizer therapy. He is tolerating them well. Although, the Ohtuvayre sometimes at night results in some tachycardia. 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 Seems like he is finding that is very helpful so he wants to continue it at this time. His last PFTs were back in 2022. Will go ahead and request repeat PFTs and also a blood gas to be done prior to the next visit. He is going to work on exercise activity and also I did provide him information about the online pulmonary rehabilitation. Also request that he start performing additional exercises with his air instruments. COUNT INCLUDES THE [facility] Medical History Bone disease Sinusitis Pulmonary nodules Abdominal pain Abnormal chest x-ray HIV (human immunodeficiency virus infection) AYLA treated with BiPAP Hemoptysis HIV (human immunodeficiency virus infection) Chronic respiratory failure COPD (chronic obstructive pulmonary disease) Family History Mother Lung cancer Social History Patient Tobacco Use Status: Never used Tobacco e-Cigarette/Vaping Use: Never Used Review of Systems Const All systems reviewed & are unremarkable except as noted in HPI and below Denies headache(s) and Denies night sweats ENT Denies change in voice, Denies headache(s), Denies lip swelling, Reports epistaxis, Denies mouth pain, Reports nasal congestion, Reports nasal discharge and Denies tongue swelling Card Denies chest pain and Reports dyspnea on exertion Resp Denies change in phlegm color, Reports chest congestion, Reports cough, Denies hemoptysis (scant), Reports dyspnea on exertion and Reports wheezing GI Denies abdominal pain Musc Denies no additional complaints Neuro Denies Neuro-related abnormal movements and Denies headache(s) Psych Denies no additional complaints Barry/Lymph Denies easy bleeding and Denies lymphadenopathy Aller/Immun Denies lip swelling, Denies tongue swelling and Reports wheezing Physical Exam Vital Signs: Last Vital Signs Pulse 67 04/01/25 12:54 BP 104/56 L 04/01/25 12:54 Pulse Ox 98 04/01/25 12:54 Oxygen Delivery Method Room Air 04/01/25 12:54 BMI result Body Mass Index 21.1 Const General: alert HEENT Mouth: moist mucous membranes abnormal (gingival disease) Neck Neck: Yes normal visual inspection, Yes full ROM and Yes no lymphadenopathy Chest Chest palpation & inspection: normal inspection of the chest Resp Effort & Inspection: normal respiratory effort and prolonged expiratory phase Auscultation: no rhonchi and diminished lung sounds Cardio Rate: regular rate Rhythm: regular rhythm Heart sounds: S1 normal heart sound present and S2 normal heart sound present GI Palpation (GI): Soft to palpation and nontender Auscultation: normal bowel sounds Skin General skin exam: rashes and/or lesions noted Assessment & Plan Assessment & Plan (1) AYLA treated with BiPAP: Comment: Effective and beneficial Code(s): G47.33 - Obstructive sleep apnea (adult) (pediatric) Category: Medical (2) Chronic respiratory failure: Code(s): J96.10 - Chronic respiratory failure, unspecified whether with hypoxia or hypercapnia Category: Medical Qualifiers: Respiratory failure complication: hypoxia and hypercapnia Qualified Code(s): J96.11 - Chronic respiratory failure with hypoxia; J96.12 - Chronic respiratory failure with hypercapnia (3) COPD (chronic obstructive pulmonary disease): Code(s): J44.9 - Chronic obstructive pulmonary disease, unspecified Category: Medical Qualifiers: COPD type: emphysema Emphysema type: centrilobular Qualified Code(s): J43.2 - Centrilobular emphysema (4) Pulmonary nodules: Code(s): R91.8 - Other nonspecific abnormal finding of lung field Category: Medical Plan Duoneb twice a day as needed continue budesonide 2 day continue Brovana continue Spiriva continue theophylline 400mg continue Ohtuvayre nebs BID (side effects: ?HR elevated) will keep to once a day continue oxygen supplementation, Respironic POC from [facility] continue BiPAP 16/6 with oxygen VBG prior to next visit PFTs prior to next visit follow-up in 4-6 months Orders: Orders Venous Blood Gas Today J43.2 - Centrilobular emphysema, J96.11 - Chronic respiratory failure with hypoxia, J96.12 - Chronic respiratory failure with hypercapnia PFT pulmonary function test Today J43.2 - Centrilobular emphysema, J96.11 - Chronic respiratory failure with hypoxia, J96.12 - Chronic respiratory failure with hypercapnia Basic Metabolic Panel Today J43.2 - Centrilobular emphysema, J96.11 - Chronic respiratory failure with hypoxia, J96.12 - Chronic respiratory failure with hypercapnia Coding Level of Care Code Est Pt Level 4 (36210) Complex EM visit Add On G2211 Diagnoses AYLA treated with BiPAP G47.33 Chronic respiratory failure with hypoxia and hypercapnia J96.11; J96.12 Respiratory failure complication: hypoxia and hypercapnia Centrilobular emphysema J43.2 COPD type: emphysema Emphysema type: centrilobular Pulmonary nodules R91.8 Time Spent (min) 17
--- OUTSIDE RECORDS SUMMARY | 2025-04-01 13:26 | XMS_ITS | Patient Health Record ---
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 Role Phone Ziyad (RETIRED) James GOMES Primary Care Provider Unavailable Antonio Arce Unavailable [phone] Allergies No Known Allergies Reason For Referral [...] MG Oral for 10 A ctive Ipratropium [place] 0.06 % Nasal for 30 Active hydrOXYzine Pamoate 25 MG Oral for 90 Active Azithromycin 250 MG Oral for 90 Active Nystatin [id number] UNIT/ML SWISH AND SWALLO W 1 TEASPOONFUL [...] 07/16/2024 Encounters Encounter Location Date Provider Diagnosis [facility] [address] [place] [phone] 07/16/2024 Antonio Arce Positive colorectal cancer screening using Cologuard test R19.5 [facility] [address] [place] [phone] 08/03/2024 Antonio Arce [facility] [address] [place] [phone] 08/30/2024 Antonio Arce [facility] [address] [place] [phone] 10/14/2024 Antonio Arce Assessments Encounter Date Diagnosis [...] Date MEDICARE OF [place] [address] [place] [address] [id number] LEVY ANDINO Self - patient is the insured [facility] [address] [place], [place] [id number] [phone] [id number] LEVY ANDINO Self - patient is the insured Medical (General) History Medical History History ICD Code COPD/Emphysema -on oxygen/uses bipap/neb ulizer GERD Hypertension Sleep apnea-Uses BIPAP HIV Kidney stones HTN Negative colonoscopy in 1999 Denies [place],DM,CVA,renal disease Lactose-intolerance with gas and bloatin g Surgical History Surgery Date(Month/Year) Left inguinal hernia with mesh 2012 Right testicle with removal surgery for a torsion with implant - [facility]
== END 2025-04-01 13:27 | disposition home or self-care (01) ==
LOC: HO.HPS 12:45
PROVIDERS: PCP Family Medicine; Visit Provider Hospitalist
DX: G47.33 Obstructive sleep apnea (adult) (pediatric) (principal); J96.11 Chronic respiratory failure with hypoxia; J96.12 Chronic respiratory failure with hypercapnia; J43.2 Centrilobular emphysema; R91.8 Other nonspecific abnormal finding of lung field
CPT/HCPCS: 99214; G2211

== ENCOUNTER → 2025-04-01 12:45 | Outpatient (BNVA) | payer MEDICARE, BC, SELFPAY | PROVIDERS: PCP Family Medicine; Visit Provider Hospitalist | DX: J43.2 Centrilobular emphysema (principal); R91.8 Other nonspecific abnormal finding of lung field; J96.11 Chronic respiratory failure with hypoxia; J96.12 Chronic respiratory failure with hypercapnia; G47.33 Obstructive sleep apnea (adult) (pediatric) | CPT/HCPCS: 99212 ==

== ENCOUNTER 2025-05-02 14:52 | Outpatient (AMB) | payer MEDICARE, BC, SELFPAY ==
--- OUTSIDE RECORDS SUMMARY | 2024-12-02 09:40 | XMS_ITS ---
Author Organization [facility] Address [address] [place] [phone] Care Team Providers Care Sr. Payroll Processor Name Role Phone Ziyad (RETIRED) , James Primary Care Provider Unavailable Antonio Arce [phone] REASON FOR VISIT positive colon ca screening using cologuard Encounters Encounter Location Date Provider Diagnosis [facility] Out[facility] [address] [place] [id number] 12/02/2024 Antonio Arce Plan Of Treatment No Information Progress Notes * LEVY JERNIGANDOB: [birth year] (64 yo M)Acc No.[id number]:12/02/2024 COLON WITH MAC Patient: LEVY GARCIA Provider: Manju Arce MD :1960 A ge:64 Y S ex:Male Date:12/02/2024 Address:[address] [place], [place] [phone] Pcp:Jmaes Lackey (RETIRED) MD Subjective: * Chief Complaints: * 1 . Positive colon ca screening using cologuard. * Medical History: Objective: * Vitals: Assessment: Plan: * Treatment: * * The named appointment provid er may or may not be the originator of this progress note, and it is not deemed complete until electronically signed by the appointment provider. Sign off status: Pending * Provider: Manju Arce MD Date: 0 12/02/2024 Generated for Jujui kayleigh/Fagio/eTransmitting on: 0 05/02/2025 05:32 PM EDT
[2025-05-02 14:56] VITALS: BP 136/68; PULSE 87; RESP 14; O2SAT 97; BMI 21.6
--- NOTE | 2025-05-02 14:56 | A.OFFPC_ITS ---
Vital Signs 05/02/25 14:56 Height 5 ft 8 in Weight 142 lb 4 oz BMI 21.6 BP 136/68 Blood Pressure Location Rt brachial Position Sitting Respiration 14 Pulse 87 Pulse Source Pulse Oximeter Pulse Oximetry (%) 97 Oxygen Delivery Method Nasal Cannula Oxygen Flow Rate 2 Intake Visit Reasons: [address] Karen Maxwell pt Intake Note: Transfer of care Leather Splitter Required: No Allergies ethinyl estradiol (From Seasonale (91)) Allergy (Severe, Verified 05/02/25 14:57) Dry Eye levonorgestrel (From Seasonale (91)) Allergy (Severe, Verified 05/02/25 14:57) Dry Eye sulfamethoxazole (From Bactrim) Allergy (Mild, Verified 05/02/25 14:57) RASH trimethoprim (From Bactrim) Allergy (Mild, Verified 05/02/25 14:57) RASH Sulfa (Sulfonamide Antibiotics) Allergy (Unknown, Verified 05/02/25 14:57) mild rash Medication List - Last Reconciled 05/02/25 by Karen Maxwell MD albuterol sulfate 90 mcg/actuation inhalation amlodipine 10 mg PO DAILY amoxicillin-pot clavulanate 875-125 mg 1 tab PO BID PRN arformoterol mL inhalation atorvastatin 20 mg PO BEDTIME 30 days azithromycin 500 mg PO 3XW 28 days budesonide 0.5 mg (2 mL) inhalation BID 30 days buspirone 5 mg PO BID cetirizine (Zyrtec) 10 mg PO DAILY PRN CPAP (CPAP Machine/Device) As directed [id number]-[id number]-gdmmoxe diso 100-300-300 mg (Delstrigo) 1 tab PO DAILY 90 days ensifentrine (Ohtuvayre) 2.5 mL inhalation BID ensifentrine (Ohtuvayre) 2.5 mL inhalation BID gabapentin 300 mg PO BEDTIME hydroxyzine pamoate 25 mg PO BID ipratropium bromide intranasal lorazepam 0.5 mg PO TID PRN lorazepam 0.5 mg PO BID PRN metoprolol tartrate 25 mg PO BID nebulizers As directed nystatin 2.5 mL PO QID 30 days omeprazole 20 mg PO DAILY ondansetron HCl mg PO Oxygen Home Use As directed prednisone 10 mg PO DAILY PRN testosterone 40.5 mg topical QAM theophylline ER 400 mg PO DAILY 30 days tiotropium bromide 2.5 mcg/actuation (Spiriva Respimat) 2 puffs inhalation DAILY valacyclovir (Valtrex) 1,000 mg PO DAILY PRN Tobacco use date assessed: 05/02/25 Fall risk assessment: No Falls in past year Last assessed Fall Risk: 05/02/25 Dental Screening Dental Screen Date: 05/02/25 Did you have a dental visit in the last 12 months?: No Did you have a dental problem in the last 6 months where you did not have access to dental care?: No Was dental information given to patient?: Patient declined HPI HPI Comments History of Present Illness Details The patient is a 64 year old male with a past medical history of COPD, AYLA, HIV, hypertension, hld, IBS presenting for follow up. [facility] as [facility]. Dr Alma Delia Maya 2 weeks ago was doing some work in his s unroom-touch up painting. Rested every few minutes. Start to get sweaty, anxious, heart racing, vision changes. no chest pain, dyspnea. Two days ago at [facility] another episode much short in duration. Recent rn cardiac without arrythmia. Has seen [facility] [place] in the past CV: on lipitor, norvasc, lopressor 25mg twice daily. Denies chest pain, exertional dyspnea. COPD: Follows with Dr Berg. AYLA treated with bipap. ID: HIV, follows with Dr Amaro. Frequent oral thrush. BH: On buspar (not taking), hydoxyzine, lorazepam-currently taking once daily. Reports daily anxiety not controlled by current medications Colonoscopy: positive cologuard. Decided against completing colonsocopy after consultation due to respiratory risk. ROS see HPI PHYSICAL EXAM: GENERAL: Alert and oriented x 3. NAD EYES: EOMI. Anicteric. HENT: Moist mucous membranes. No scleral icterus. No cervical lymphadenopathy. LUNGS: Clear to auscultation bilaterally. CARDIOVASCULAR: Regular rate and rhythm. No murmur. No JVD. ABDOMEN: Soft, non-tender +bs EXTREMITIES: No edema. Non-tender. SKIN: No rashes or lesions. Warm. NEUROLOGIC: No focal neurological deficits. CN II-XII grossly intact PSYCHIATRIC: Cooperative. Appropriate mood and affect [facility] Medical History (Updated 05/04/25 @ 10:19 by Karen Maxwell MD) Bone disease Sinusitis Pulmonary nodules Abdominal pain Abnormal chest x-ray HIV (human immunodeficiency virus infection) AYLA treated with BiPAP Hemoptysis HIV (human immunodeficiency virus infection) Chronic respiratory failure COPD (chronic obstructive pulmonary disease) Family History Mother Lung cancer Social History Housing: Other (mobile home) Patient Tobacco Use Status: Never used Tobacco e-Cigarette/Vaping Use: Never Used service: Yes Current occupational status: retired and disabled Cognitive needs: No Hearing needs: No Vision needs: Yes (glasses) Questionnaire PHQ-9 Over the last 2 weeks, how often have you been bothered by any of the following problems? 1. Little interest or pleasure in doing things: several days 2. Feeling down, depressed, or hopeless: not at all 3. Trouble falling or staying asleep, or sleeping too much: not at all 4. Feeling tired or having little energy: several days 5. Poor appetite or overeating: several days 6. Feeling bad about yourself - or that you are a failure or have let yourself or your family down: not at all 7. Trouble concentrating on things, such as reading the newspaper or watching television: not at all 8. Moving or speaking so slowly that other people could have noticed. Or the opposite - being so fidgety or restless that you have been moving around a lot more than usual: not at all 9. Thoughts that you would be better off or of hurting yourself in some way: not at all Total score: 3 Depression Screening Interpretation: Negative Depression Screening Done: Yes 10065 - PHQ-9 Billing: Yes Source: Developed by Drs. Antonio Fleming, Krystal Teague, Gregory Martin and colleagues, with an educational mis from [employer]: turn off the lights. Thrive Questionnaire Date Thrive assessed: 05/02/25 I am a: Patient What is your living situation today?: I choose not to answer this question Within the past 12 months, did the food you bought not last and you didn't have the money to get more?: I choose not to answer this question Within the past 12 months, did you worry whether your food would run out before you got money to buy more?: I choose not to answer this question Do you have trouble paying for medicines?: I choose not to answer this question Do you have trouble getting transportation to medical appointments?: I choose not to answer this question Do you have trouble paying your heating and electricity bill?: I choose not to answer this question Do you have trouble taking care of your child, family member or friend?: I choose not to answer this question Do you have trouble with day-to-day activities such as bathing, preparing meals, shopping, managing finances, etc.?: I choose not to answer this question Are you currently unemployed and looking for a job?: I choose not to answer this question Are you interested in more education?: I choose not to answer this question Please select the resources that you would like help with: Care for elder or disabled Currently or been in a relationship where the following occur: I choose not to answer THRIVE Score: 0 AUDIT C Alcohol Use Questionnaire (AUDIT-C) 1. How often do you have a drink containing alcohol?: Monthly or less 2. How many drinks containing alcohol do you have on a typical day when you are drinking?: 1 or 2 3. How often do you have six or more drinks on one occasion?: Never Total Score: 1 EDA-7 AMB Questionnaire EDA-7 Date EDA - 7 assessed: 05/02/25 Feeling nervous, anxious, or on edge: 2 = More than half the days Not being able to stop or control worryin = Several days Worrying too much about different things: 1 = Several days Trouble relaxin = Not at all Being so restless that it is hard to sit still: 0 = Not at all Becoming easily annoyed or irritable: 1 = Several days Feeling afraid as if something awful might happen: 1 = Several days Total EDA-7 score (0-4 normal; 5-9 mild; 10-14 moderate; 15-21 severe): 6 Source: Developed by Drs. Antonio Fleming, Krystal Teague, Gregory Martin and colleagues, with an educational mis from [employer] EDA-7 Assessment Billing EDA-7 Assessment Tool: EDA-7 Assessment 36884 Physical exam (Primary Care) Vital Signs: Last Vital Signs Pulse 87 05/02/25 14:56 Resp 14 05/02/25 14:56 BP 136/68 05/02/25 14:56 Pulse Ox 97 05/02/25 14:56 Oxygen Delivery Method Nasal Cannula 05/02/25 14:56 Oxygen Flow Rate 2 05/02/25 14:56 BMI result Body Mass Index 21.6 Tobacco/Smoking Status: Tobacco use Status Tobacco use date assessed 05/02/25 05/02/25 15:07 Patient Tobacco Use Status Never used Tobacco 05/02/25 15:07 e-Cigarette/Vaping Use Never Used 05/02/25 15:07 PHQ-9: PHQ-9 Score PHQ-9: Total score 3 05/02/25 15:29 Depression Screening Interpretation: Negative Thrive Assessment: Date of Thrive Assessment Date Thrive assessed 05/02/25 05/02/25 15:09 Currently or been in a relationship where the following occur: I choose not to answer Coding Level of Care Code Est Pt Level 4 (57237) Diagnoses Panic attack F41.0 Chronic respiratory failure with hypoxia and hypercapnia J96.11; J96.12 Respiratory failure complication: hypoxia and hypercapnia HIV infection, unspecified symptom status Z21 HIV symptom status: unspecified Additional Codes EDA-7 Assessment Billing - EDA-7 Assessment Tool: EDA-7 Assessment 41586 ([id number]) PHQ-9 - 01032 - PHQ-9 Billing: Yes ([id number]) Assessment & Plan Assessment & Plan (1) Panic attack: Code(s): F41.0 - Panic disorder [episodic paroxysmal anxiety] Category: Medical (2) Chronic respiratory failure: Code(s): J96.10 - Chronic respiratory failure, unspecified whether with hypoxia or hypercapnia Category: Medical Qualifiers: Respiratory failure complication: hypoxia and hypercapnia Qualified Code(s): J96.11 - Chronic respiratory failure with hypoxia; J96.12 - Chronic respiratory failure with hypercapnia (3) HIV (human immunodeficiency virus infection): Comment: He has slight viral load at 58 and says doesnt miss doses. He had cold then when getting blood. Would continue Delstrigo and recheck viral load at 3 months. See in six months with new PCP. Bone density test ordered. Per [employer] trial HIV independent risk for CAD and CVD and has hypertension would add statin,atovastatin high intensity, 10 one week and then 20 mg daily. Needs to see Yazmin Li at [facility] for anal Pap with HPV positivity and ASCUS. See us in six months. Code(s): B20 - Human immunodeficiency virus [HIV] disease Category: Medical Qualifiers: HIV symptom status: unspecified Qualified Code(s): Z21 - Asymptomatic human immunodeficiency virus [HIV] infection status Plan 64 year old male for follow up Uncontrolled baseline anxiety, now with likely panic attacks given negative cardiac work up previously and lack of chest pain etc Start sertraline. Increase lorazepam script to bid Medications: New sertraline Take 1/2 tab oral once daily for 2 weeks then increase to one tablet oral daily 25 mg PO DAILY 90 tabs 1RF Changed From lorazepam 0.5 mg PO BID PRN 60 tabs 3RF anxiety, panic To lorazepam may pay out of pocket if not covered by insurance 0.5 mg PO BID PRN 60 tabs 3RF anxiety, panic From lorazepam 0.5 mg PO TID PRN anxiety To lorazepam 0.5 mg PO BID PRN 60 tabs 3RF anxiety, panic
--- OUTSIDE RECORDS SUMMARY | 2025-05-02 17:32 | XMS_ITS | Patient Health Record ---
Author Organization 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 Phone Ziyad (RETIRED) James GOMES Primary Care Provider Unavailable Antonio Arce Unavailable [phone] Allergies No Known Allergies Reason For Referral [...] MG Oral for 10 A ctive Ipratropium [place] 0.06 % Nasal for 30 Active hydrOXYzine Pamoate 25 MG Oral for 90 Active Azithromycin 250 MG Oral for 90 Active Nystatin 534740 UNIT/ML SWISH AND SWALLO W 1 TEASPOONFUL [...] W/U Status Risk Notes Problem Abnormal feces ([id number]) Positive colorectal cancer screening using Cologuard test (R19.5) Active confirmed Vital Signs Blood pressure diastolic 00 mm Hg 07/16/2024 Height 5 ft 8 in in 07/16/2024 Blood pressure systolic 00 mm Hg 07/16/2024 Weight 139 lbs 07/16/2024 BMI 21.13 kg/m2 07/16/2024 Encounters Encounter Location Date Provider Diagnosis [facility] [address] [place] [phone] 07/16/2024 Antonio Arce Positive colorectal cancer screening using Cologuard test R19.5 [facility] [address] [place] [phone] 08/03/2024 Antonio Arce [facility] [address] [place] [phone] 08/30/2024 Antonio Arce [facility] [address] [place] [phone] 10/14/2024 Antonio Arce Assessments Encounter Date Diagnosis [...] Date MEDICARE OF [place] [address] [place] [address] [id number] LEVY ANDINO Self - patient is the insured [facility] [address] [place], [place] [id number] LEVY ANDINO Self - patient is the insured Medical (General) History Medical History History ICD Code COPD/Emphysema -on oxygen/uses bipap/neb ulizer GERD Hypertension Sleep apnea-Uses BIPAP HIV Kidney stones HTN Negative colonoscopy in 1999 Denies [place],DM,CVA,renal disease Lactose-intolerance with gas and bloatin g Surgical History Surgery Date(Month/Year) Left inguinal hernia with mesh 2012 Right testicle with removal surgery for a torsion with implant - [facility]
== END 2025-05-02 15:33 | disposition home or self-care (01) ==
LOC: HO.HMCFM 14:53
PROVIDERS: PCP Internal Medicine; Visit Provider Internal Medicine
DX: F41.0 Panic disorder [episodic paroxysmal anxiety] (principal); J96.11 Chronic respiratory failure with hypoxia; J96.12 Chronic respiratory failure with hypercapnia; Z21 Asymptomatic human immunodeficiency virus [HIV] infection status

== ENCOUNTER → 2025-05-02 14:52 | Outpatient (BNVA) | payer MEDICARE, BC, SELFPAY | PROVIDERS: PCP Internal Medicine; Visit Provider Internal Medicine | DX: F41.0 Panic disorder [episodic paroxysmal anxiety] (principal); J96.11 Chronic respiratory failure with hypoxia; J96.12 Chronic respiratory failure with hypercapnia; Z21 Asymptomatic human immunodeficiency virus [HIV] infection status; J44.9 Chronic obstructive pulmonary disease, unspecified; G47.33 Obstructive sleep apnea (adult) (pediatric); I10 Essential (primary) hypertension; Z79.899 Other long term (current) drug therapy; Z13.31 Encounter for screening for depression; Z13.39 Encounter for screening examination for other mental health and behavioral disorders | CPT/HCPCS: 96127; 99212 ==

== ENCOUNTER 2025-06-06 13:50 | Outpatient (REF) | payer MEDICARE, BC, SELFPAY ==
--- OUTSIDE RECORDS SUMMARY | 2024-12-02 09:40 | XMS_ITS ---
Author Organization [facility] Address [address] [place] [address] Care Team Providers Care Processing Clerk Name Role Phone Ziyad (RETIRED) , James Primary Care Provider Unavailable Antonio Arce [phone] REASON FOR VISIT positive colon ca screening using cologuard Encounters Encounter Location Date Provider Diagnosis [facility] Outpatient [address] [place] [phone] 12/02/2024 Antonio Arce Plan Of Treatment No Information Progress Notes * LEVY JERNIGANDOB: [birth year] (64 yo M)Acc No.[id number]:12/02/2024 COLON WITH MAC Patient: LEVY GARCIA Provider: Manju Arce MD :1960 A ge:64 Y S ex:Male Date:12/02/2024 Address:[address] [place], [place] [phone] Pcp:James Lackey (RETIRED) MD Subjective: * Chief [...] 0 12/02/2024 Generated for Jujui kayleigh/Fagio/eTransmitting on: 1 04:15 PM EDT
--- NOTE | 2025-06-06 14:55 | PFT_ITS ---
Flows: FEV1: 24 % of predicted at 0.76 L FVC: 65 % of predicted at 2.70 L FEV1/FVC: 28 % Bronchodilator response: Absent Volumes: Total lung capacity: 90 % of predicted at 6.02 L Residual volume: 150 % of predicted at 3.32 L Slow vital capacity: 59 % of predicted at 2.70 L Expiratory reserve volume: 89 % of predicted at 1.03 L Diffusion capacity: Severely decreased, adjusts to being moderately decreased after correction for alveolar ventilation. Impression: Very severe obstructive ventilatory defect with no bronchodilator response. Increased residual volume suggests air trapping. Decreased diffusion capacity suggests emphysema. MTDD
[2025-06-06 14:57] VITALS: PULSE 72
[2025-06-06 16:02] LABS: Anion Gap 13 (12-20); Blood Urea Nitrogen 14 mg/dL (9-16); Calcium 9.5 mg/dL (8.4-10.2); Carbon Dioxide 27 mmol/L (22-29); Chloride 107 mmol/L (96-108); Estimated Glomerular Filt Rate > 60; Potassium 3.5 mmol/L (3.3-5.1); Sodium 143 mmol/L (135-145)
--- OUTSIDE RECORDS SUMMARY | 2025-06-06 16:16 | XMS_ITS | Patient Health Record ---
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m. the day before the procedure; Duration: 1 day 09/01/2024 Active ZyrTEC 10 MG 1 tablet Orally Once a day; Duration: 30 day(s) Active Omeprazole 20 MG Oral; Duration: 90 Active Doravirine 100 MG 1 tablet Orally Once a day; Duration: 30 day(s) Active Spiriva Respimat 2.5 MCG/ACT Inhalation; Duration: 90 Act justin Dulcolax (colon prep) 5 MG take at 3:00 p.m and 7:00p.m. Orally two tablets twice a day for one day; Duration: 1 day 09/01/2024 Active Testosterone 1.62 % Transdermal; Duration: 30 Active Metoprolol Tartrate 25 MG Oral; Duration: 90 Active Budesonide 0.5 MG/2ML Inhalation; Duration: 90 Active Theophylline ER 400 MG Oral; Duration: 90 Active predniSONE 10 MG Oral; Duration: 60 Active Amoxicillin-Pot Clavulanate 875-125 MG Oral; Duration: 10 Active Brovana 15 MCG/2ML 2 mL Inhalation Twic e a day Active Ondansetron HCl 4 MG Oral; Duration: 30 Active LORazepam 0.5 MG Oral; Duration: 10 Active Ipratropium [place] 0.06 % Nasal; Duration: 30 Active hydrOXYzine Pamoate 25 MG Oral; Duration: 90 Active Azithromycin 250 MG Oral; Duration: 90 Active Nystatin 934545 UNIT/ML SWISH AND SWALLO W 1 TEASPOONFUL 5 ML) THREE TIMES A DAY FOR 7 DAYS THEN STOP Mouth/Throat; Duration: 31 Active Social History Tobacco Use: Social [...] W/U Status Risk Notes Problem Abnormal feces ([id number]) Positive colorectal cancer screening using Cologuard test (R19.5) Active confirmed Vital Signs Blood pressure diastolic 00 mm Hg 07/16/2024 Height 5 ft 8 in in 07/16/2024 Blood pressure systolic 00 mm Hg 07/16/2024 Weight 139 lbs 07/16/2024 BMI 21.13 kg/m2 07/16/2024 Encounters Encounter Location Date Provider Diagnosis [facility] [address] [place] [phone] 07/16/2024 Antonio Arce Positive colorectal cancer screening using Cologuard test R19.5 [facility] [address] [place] [phone] 08/03/2024 Antonio Arce [facility] [address] [place] [address] [place] [phone] 08/30/2024 Antonio Arce [facility] [address] [place] [address] 10/14/2024 Antonio Arce Assessments Encounter Date Diagnosis [...] Date MEDICARE OF [place] [address] [facility] [address] [id number] MAINE LEVY BETANCUR Self - patient is the insured [facility] [address] [place], [place] [id number] [phone] [id number] FELIXOLYALEVY COHN Self - patient is the insured Medical (General) History Medical History History ICD Code COPD/Emphysema -on oxygen/uses bipap/neb ulizer GERD Hypertension Sleep apnea-Uses BIPAP HIV Kidney stones HTN Negative colonoscopy in 1999 Denies [place],DM,CVA,renal disease Lactose-intolerance with gas and bloatin g Surgical History Surgery Date(Month/Year) Left inguinal hernia with mesh 2012 Right testicle with removal surgery for a torsion with implant - [facility]
== END 2025-06-06 13:51 | disposition home or self-care (01) ==
LOC: HO.RESP 13:50
PROVIDERS: PCP Internal Medicine; Visit Provider Hospitalist
DX: J96.11 Chronic respiratory failure with hypoxia (principal); J96.12 Chronic respiratory failure with hypercapnia; J43.2 Centrilobular emphysema; Z87.891 Personal history of nicotine dependence
CPT/HCPCS: 36415; 80048; 94060; 94640; 94727; 94729

== ENCOUNTER → 2025-06-06 14:55 | Outpatient (BNV) | payer MEDICARE, BC, SELFPAY | PROVIDERS: PCP Internal Medicine; Visit Provider Internal Medicine Pulmonary Disease | DX: J98.4 Other disorders of lung (principal) | CPT/HCPCS: 94060; 94727; 94729 ==

== ENCOUNTER 2025-06-13 14:25 | Outpatient (AMB) | payer MEDICARE, BC, SELFPAY ==
--- OUTSIDE RECORDS SUMMARY | 2024-12-02 09:40 | XMS_ITS ---
Author Organization [facility] Address [address] [place] [address] Care Team Providers Care Profiling Machine Set Up Operator Name Role Phone Ziyad (RETIRED) , James Primary Care Provider Unavailable Antonio Arce [phone] REASON FOR VISIT positive colon ca screening using cologuard Encounters Encounter Location Date Provider Diagnosis [facility] Outpatient [address] [place] [id number] 12/02/2024 Antonio Arce Plan Of Treatment No Information Progress Notes * LEVY JERNIGANDOB: [birth year] (64 yo M)Acc No.[id number]:12/02/2024 COLON WITH MAC Patient: LEVY GARCIA Provider: Manju Arce MD :1960 A ge:64 Y S ex:Male Date:12/02/2024 Address:[address] [place], [place] [phone] Pcp:James Lackey (RETIRED) MD Subjective: * Chief Complaints: [...] MD Date: 0 12/02/2024 Generated for Jujui ng/Faelizabethg/eTransmitting on: 1 04:19 PM EDT
--- NOTE | 2025-06-13 14:28 | A.OFFPC_ITS ---
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 Allergies ethinyl estradiol (From Seasonale (91)) Allergy (Severe, Verified 06/13/25 14:31) Dry Eye levonorgestrel (From Seasonale (91)) Allergy (Severe, Verified 06/13/25 14:31) Dry Eye sulfamethoxazole (From Bactrim) Allergy (Mild, Verified 06/13/25 14:31) RASH trimethoprim (From Bactrim) Allergy (Mild, Verified 06/13/25 14:31) RASH Sulfa (Sulfonamide Antibiotics) Allergy (Unknown, Verified 06/13/25 14:31) mild rash Tobacco use date assessed: 06/13/25 Fall risk assessment: No Falls in past year Last assessed Fall Risk: 06/13/25 Dental Screening Dental Screen Date: 06/13/25 Did you have a dental visit in the last 12 months?: No Did you have a dental problem in the last 6 months where you did not have access to dental care?: No Was dental information given to patient?: Patient declined HPI HPI Comments History of Present Illness Details The patient is a 64 year old male with a past medical history of COPD, AYLA, HIV, hypertension, hld, IBS presenting for follow up-this is in person[facility] Al[facility] Delia Maya CV: on lipitor, norvasc, lopressor 25mg twice daily. Denies chest pain, exertional dyspnea. COPD: Follows with Dr Berg. AYLA treated with bipap. ID: HIV, follows with Dr Amaro. Frequent oral thrush. BH: placed on sertraline last visit. He thinks it has taken the edge off some of his daily anxiety. Lorazepam was increased so that he could take up to two daily. Has buspar (not taking), hydoxyzine. Reports daily anxiety not controlled by current medications. At last visit 2 weeks ago was doing some work in his sunroom-touch up painting. Rested every few minutes. Start to get sweaty, anxious, heart racing, vision changes. no chest pain, dyspnea. Two days ago at [employer] parking lot another episode much short in duration. 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 Has seen [facility] in the past Colonoscopy: positive cologuard. Decided against completing colonsocopy after consultation due to respiratory risk. ROS see HPI PHYSICAL EXAM: GENERAL: Alert and oriented x 3. NAD EYES: EOMI. Anicteric. HENT: Moist mucous membranes. No scleral icterus. No cervical lymphadenopathy. LUNGS: Clear to auscultation bilaterally. CARDIOVASCULAR: Regular rate and rhythm. No murmur. No JVD. ABDOMEN: Soft, non-tender +bs EXTREMITIES: No edema. Non-tender. SKIN: No rashes or lesions. Warm. NEUROLOGIC: No focal neurological deficits. CN II-XII grossly intact PSYCHIATRIC: Cooperative. Appropriate mood and affect [facility] Medical History Bone disease Sinusitis Pulmonary nodules Abdominal pain Abnormal chest x-ray HIV (human immunodeficiency virus infection) AYLA treated with BiPAP Hemoptysis HIV (human immunodeficiency virus infection) Chronic respiratory failure COPD (chronic obstructive pulmonary disease) Family History Mother Lung cancer Social History Housing: Other (mobile home) Patient Tobacco Use Status: Never used Tobacco e-Cigarette/Vaping Use: Never Used service: Yes Current occupational status: retired and disabled Cognitive needs: No Hearing needs: No Vision needs: Yes (glasses) Questionnaire Thrive Questionnaire Date Thrive assessed: 05/02/25 I am a: Patient What is your living situation today?: I choose not to answer this question Within the past 12 months, did the food you bought not last and you didn't have the money to get more?: I choose not to answer this question Within the past 12 months, did you worry whether your food would run out before you got money to buy more?: I choose not to answer this question Do you have trouble paying for medicines?: I choose not to answer this question Do you have trouble getting transportation to medical appointments?: I choose not to answer this question Do you have trouble paying your heating and electricity bill?: I choose not to answer this question Do you have trouble taking care of your child, family member or friend?: I choose not to answer this question Do you have trouble with day-to-day activities such as bathing, preparing meals, shopping, managing finances, etc.?: I choose not to answer this question Are you currently unemployed and looking for a job?: I choose not to answer this question Are you interested in more education?: I choose not to answer this question Please select the resources that you would like help with: Care for elder or disabled Currently or been in a relationship where the following occur: I choose not to answer THRIVE Score: 0 EDA-7 AMB Questionnaire EDA-7 Date EDA - 7 assessed: 05/02/25 Source: Developed by Drs. Antonio Fleming, Krystal Teague, Gregory Martin and colleagues, with an educational mis from [employer]. Physical exam (Primary Care) Vital Signs: Last Vital Signs Temp 97.9 F 06/13/25 14:35 Pulse 80 06/13/25 14:35 Resp 18 06/13/25 14:35 BP 126/64 06/13/25 14:35 Pulse Ox 93 06/13/25 14:35 Oxygen Delivery Method Room Air 06/13/25 14:35 BMI result Body Mass Index 20.7 Tobacco/Smoking Status: Tobacco use Status Tobacco use date assessed 06/13/25 06/13/25 14:38 Patient Tobacco Use Status Never used Tobacco 06/13/25 14:30 e-Cigarette/Vaping Use Never Used 06/13/25 14:30 Thrive Assessment: Date of Thrive Assessment Date Thrive assessed 05/02/25 06/13/25 14:30 Currently or been in a relationship where the following occur: I choose not to answer Coding Level of Care Code Est Pt Level 3 (42306) Diagnoses Anxiety F41.9 Panic attack F41.0 Assessment & Plan Assessment & Plan (1) Anxiety: Code(s): F41.9 - Anxiety disorder, unspecified Category: Medical (2) Panic attack: Code(s): F41.0 - Panic disorder [episodic paroxysmal anxiety] Category: Medical Plan 64 year old for follow up Some improvement in anxiety since starting sertraline. Will continue at current dosing
[2025-06-13 14:35] VITALS: BP 126/64; PULSE 80; RESP 18; TEMP 36.6; O2SAT 93; BMI 20.7
--- OUTSIDE RECORDS SUMMARY | 2025-06-13 16:19 | XMS_ITS | Patient Health Record ---
Author Organization [facility] Address [address] [place] [id number] Care Team Providers Care Communications Strategist Name Role Phone Ziyad (RETIRED) James GOMES Primary Care Provider Unavailable Antonio Arce Unavailable [phone] Allergies No Known Allergies Reason For Referral [...] 0.5 MG Oral; Duration: 10 Active Ipratropium [place] 0.06 % Nasal; Duration: 30 Active hydrOXYzine Pamoate 25 MG Oral; Duration: 90 Active Azithromycin 250 MG Oral; Duration: 90 Active Nystatin 799415 UNIT/ML SWISH AND SWALLO W 1 TEASPOONFUL [...] W/U Status Risk Notes Problem Abnormal feces (076133491) Positive colorectal cancer screening using Cologuard test (R19.5) Active confirmed Vital Signs Blood pressure diastolic 00 mm Hg 07/16/2024 Height 5 ft 8 in in 07/16/2024 Blood pressure systolic 00 mm Hg 07/16/2024 Weight 139 lbs 07/16/2024 BMI 21.13 kg/m2 07/16/2024 Encounters Encounter Location Date Provider Diagnosis [facility] [address] [place] [phone] 07/16/2024 Antonio Arce Positive colorectal cancer screening using Cologuard test R19.5 [facility] [address] [place] [phone] 08/03/2024 Antonio Arce [facility] [address] [place] [address] [place] [address] 08/30/2024 Antonio Arce [facility] [address] [place] [address] 10/14/2024 Antonio Arce Assessments Encounter Date Diagnosis [...] Date MEDICARE OF [place] [address] [facility] [place] [place] [address] [id number] MAINE LEVY BETANCUR Self - patient is the insured [facility] [address] [place], [place] [id number] FELIXOLYALEVY COHN Self - patient is the insured Medical (General) History Medical History History ICD Code COPD/Emphysema -on oxygen/uses bipap/neb ulizer GERD Hypertension Sleep apnea-Uses BIPAP HIV Kidney stones HTN Negative colonoscopy in 1999 Denies [place],DM,CVA,renal disease Lactose-intolerance with gas and bloatin g Surgical History Surgery Date(Month/Year) Left inguinal hernia with mesh 2012 Right testicle with removal surgery for a torsion with implant - [facility]
== END 2025-06-13 14:53 | disposition home or self-care (01) ==
LOC: HO.HMCFM 14:26
PROVIDERS: PCP Internal Medicine; Visit Provider Internal Medicine
DX: F41.9 Anxiety disorder, unspecified (principal); F41.0 Panic disorder [episodic paroxysmal anxiety]

== ENCOUNTER → 2025-06-13 14:25 | Outpatient (BNVA) | payer MEDICARE, BC, SELFPAY | PROVIDERS: PCP Internal Medicine; Visit Provider Internal Medicine | DX: F41.9 Anxiety disorder, unspecified (principal); F41.0 Panic disorder [episodic paroxysmal anxiety]; I10 Essential (primary) hypertension; J44.9 Chronic obstructive pulmonary disease, unspecified; Z21 Asymptomatic human immunodeficiency virus [HIV] infection status; Z79.899 Other long term (current) drug therapy | CPT/HCPCS: 99212 ==

== ENCOUNTER 2025-07-07 13:32 | Outpatient (AMB) | payer MEDICARE, BC, SELFPAY ==
[2025-07-07 13:43] VITALS: PULSE 74; O2SAT 99
--- NOTE | 2025-07-07 13:43 | MHC.OFFVIS ---
Vital Signs 07/07/25 13:43 Pulse 74 Pulse Source Pulse Oximeter Pulse Oximetry (%) 99 Oxygen Delivery Method Room Air Intake Visit Reasons: 6 Month HIB Allergies ethinyl estradiol (From Seasonale (91)) Allergy (Severe, Verified 07/07/25 14:31) Dry Eye levonorgestrel (From Seasonale (91)) Allergy (Severe, Verified 07/07/25 14:31) Dry Eye sulfamethoxazole (From Bactrim) Allergy (Mild, Verified 07/07/25 14:31) RASH trimethoprim (From Bactrim) Allergy (Mild, Verified 07/07/25 14:31) RASH Sulfa (Sulfonamide Antibiotics) Allergy (Unknown, Verified 07/07/25 14:31) mild rash HPI HPI 6 Month HIB: Details: He is taking Delstrigo and has CD4 count 674 and viral load undetectable on 03/31. He has no complaints [facility] Medical History Bone disease Sinusitis Pulmonary nodules Abdominal pain Abnormal chest x-ray HIV (human immunodeficiency virus infection) AYLA treated with BiPAP Hemoptysis HIV (human immunodeficiency virus infection) Chronic respiratory failure COPD (chronic obstructive pulmonary disease) Family History Mother Lung cancer Social History Housing: Other (mobile home) Patient Tobacco Use Status: Never used Tobacco e-Cigarette/Vaping Use: Never Used service: Yes Current occupational status: retired and disabled Cognitive needs: No Hearing needs: No Vision needs: Yes (glasses) Review of Systems Const All systems reviewed & are unremarkable except as noted in HPI and below Physical Exam Vital Signs: Last Vital Signs Pulse 74 07/07/25 13:43 Pulse Ox 99 07/07/25 13:43 Oxygen Delivery Method Room Air 07/07/25 13:43 Const General: cooperative HEENT Head: Yes normal to inspection Face and sinus: Yes normal facial exam Mouth: Normal oral and palatal mucosa present Teeth and gingiva: dentition normal Eyes General: appearance normal, both eyes and all related structures Pupils: Equal, round and reactive pupils present Resp Effort & Inspection: normal respiratory effort Cardio Rate: regular rate Rhythm: regular rhythm GI Palpation (GI): Soft to palpation and nontender General: Yes no CVA tenderness Back/Spine/Pelvis Back: no CVA tenderness Skin General skin exam: no rashes or lesions noted Neuro General: moves all extremities Cranial nerves: Yes Equal, round and reactive pupils present Extrem General: Yes normal to inspection Psych Appearance: grossly normal Assessment & Plan Assessment & Plan (1) HIV (human immunodeficiency virus infection): Comment: He has been doing well and has viral load undetectable in March He takes Delstrigo. Code(s): B20 - Human immunodeficiency virus [HIV] disease Category: Medical Qualifiers: HIV symptom status: unspecified Qualified Code(s): Z21 - Asymptomatic human immunodeficiency virus [HIV] infection status Plan: Continue Delstrigo Med was renewed today See in six months and CD4 count and viral load checked then also. Orders: Orders HIV-1 RNA QN PCR Expanded 3 Months Z21 - Asymptomatic human immunodeficiency virus [HIV] infection status Lymphocyte Subset Panel 3 3 Months Z21 - Asymptomatic human immunodeficiency virus [HIV] infection status Medications: Refilled nhgeuksrwg-[id number]-oazsihm diso 100-300-300 mg (Delstrigo) 1 tab PO DAILY 90 tabs 3RF 90 days Coding Level of Care Code Est Pt Level 4 (54793) Diagnoses HIV infection, unspecified symptom status Z21 HIV symptom status: unspecified
== END 2025-07-07 14:23 | disposition home or self-care (01) ==
LOC: HO.HID 13:32
PROVIDERS: PCP Internal Medicine; Visit Provider Internal Medicine
DX: Z21 Asymptomatic human immunodeficiency virus [HIV] infection status (principal)
CPT/HCPCS: 99214

== ENCOUNTER 2025-07-07 13:32 | Outpatient (REF) | payer MEDICARE, BC, SELFPAY ==
[2025-07-07 15:43] LABS: MANUAL DIFF FLAG NO
[2025-07-07 15:51] LABS: Venous Blood Gas Refer to POC result
[2025-07-07 16:23] LABS: Hematocrit 44.9 % (42.0-52.0); Hemoglobin 15.1 g/dl (14.0-18.0); Imm Gran Abs Auto 0.07 X10*3/uL (0.00-0.03); Imm Gran Pct Auto 0.6 % (0.0-0.4); Lymphocytes Absolute Auto 3.1 X10*3/uL (1.2-4.9); Mean Corpuscular HGB Conc 33.6 g/dl (31.0-36.0); Mean Corpuscular Hemoglobin 34.0 pg (27.0-33.0); Mean Corpuscular Volume 101.1 fL (80.0-98.0); NRBC Abs Auto 0.000 X10*3/uL (0.0-0.012); NRBC Pct Auto 0.0 /100WBC (0.0-0.2); Platelet Count 343 X10*3/uL (160-400); Red Blood Count 4.44 X10*6/uL (4.60-5.80); White Blood Count 12.4 X10*3/uL (4.8-10.8)
[2025-07-07 16:59] LABS: Anion Gap 11 (12-20); Blood Urea Nitrogen 17 mg/dL (9-16); Calcium 10.2 mg/dL (8.4-10.2); Carbon Dioxide 30 mmol/L (22-29); Chloride 104 mmol/L (96-108); Estimated Glomerular Filt Rate > 60; Potassium 3.5 mmol/L (3.3-5.1); Sodium 141 mmol/L (135-145)
[2025-07-07 17:03] LABS: Troponin-I High Sensitivity 4.0 ng/L (<3.5-35.0)
--- OUTSIDE RECORDS SUMMARY | 2025-07-08 05:53 | XMS_ITS | Patient Health Record ---
Author Organization [facility] Address [address] [place] [id number] Care Team Providers Care Pastry Cook Helper Name Role Phone Ziyad (RETIRED) James GOMES Primary Care Provider Unavailable Antonio Arce Unavailable [phone] Allergies No Known Allergies Reason For Referral No Information Medications Medication SIG (Take, Route, Frequency, Duration) Notes Start Date End Date Status Albuterol Sulfate HFA 108 (90 Base) MCG/ACT Aerosol Solution Inhalation; Duration: 25 Act justin busPIRone HCl 5 MG Tablet Oral; Duration: 60 Active amLODIPine Besylate 5 MG Tablet Oral; Duration: 90 Active Gabapentin 300 MG Capsule Oral; Duration: 90 Active MiraLax (colon prep) 17 GM/SCOOP Powder 1 238Gm bottle mixed with Gatorade or Crystal Light Orally begin at 5:00 p.m. the day before the procedure; Duration: 1 day 09/01/2024 Active ZyrTEC 10 MG Tablet Chewable 1 tablet Orally Once a day; Duration: 30 day(s) Active Omeprazole 20 MG Capsule Delayed Release Oral; Duration: 90 Active Doravirine 100 MG Tablet 1 tablet Orally Once a day; Duration: 30 day(s) Active Spiriva Respimat 2.5 MCG/ACT Aerosol Solution Inhalation; Duration: 90 Active Dulcolax (colon prep) 5 MG Tablet Delayed Release take at 3:00 p.m and 7:00p.m. Orally two tablets twice a day for one day; Duration: 1 day 09/01/2024 Active Testosterone 1.62 % Gel Transdermal; Duration: 30 Active Metoprolol Tartrate 25 MG Tablet Oral; Duration: 90 Active Budesonide 0.5 MG/2ML Suspension Inhalation; Duration: 90 Act justin Theophylline ER 400 MG Tablet Extended Release 24 Hour Oral; Duration: 90 Active predniSONE 10 MG Tablet Oral; Duration: 60 Active Amoxicillin-Pot Clavulanate 875-125 MG Tablet Oral; Duration: 10 Acti ve Brovana 15 MCG/2ML Nebulization Solution 2 mL Inhalation Twice a day Active Ondansetron HCl 4 MG Tablet Oral; Duration: 30 Active LORazepam 0.5 MG Tablet Oral; Duration: 10 Active Ipratropium Casselberry 0.06 % Solution Nasal; Duration: 30 Active hydrOXYzine Pamoate 25 MG Capsule Oral; Duration: 90 Active Azithromycin 250 MG Tablet Oral; Duration: 90 Active Nystatin 429842 UNIT/ML Suspension SWISH AND SWALLOW 1 TEASPOONFUL 5 ML) THREE TIMES A DAY FOR 7 DAYS THEN STOP Mouth/Throat; Duration: 31 Active Social History Tobacco Use: Social History Observation Description Date Details (start date - stop date) Former Smoker NA - NA Social History Drugs/Alcohol: Social Info Question Answer Notes Alcohol Screen Did you have a drink containing alcohol in the past year? Yes How often did you have a drink containing alcohol in the past year? Never (0 point) How many drinks did you have on a typical day when you were drinking in the past year? 1 or 2 drinks (0 point) How often did you have 6 or more drinks on one occasion in the past year? Never (0 point) Points 0 Interpretation Negative Tobacco Use: Social Info Question Answer Notes Tobacco Use/Smoking Patient is a former smoker How long has it been since you last smoked? > 10 years Additional Details Category Social Info Options Details Miscellaneous: Marital status: single Occupation: retired-disabled Section Notes: 2015 stopped tobacco chews nicotine gum very occaional drink /socially Problems Problem Type SNOMED Code ICD Code Onset Dates Problem Status W/U Status Risk Notes Problem Abnormal feces (656086380) Positive colorectal cancer screening using Cologuard test (R19.5) Active confirmed Vital Signs Blood pressure diastolic 00 mm Hg 07/16/2024 Height 5 ft 8 in in 07/16/2024 Blood pressure systolic 00 mm Hg 07/16/2024 Weight 139 lbs 07/16/2024 BMI 21.13 kg/m2 07/16/2024 Encounters Encounter Location Date Provider Diagnosis [facility] [address] [place] [phone] 07/16/2024 Antonio Arce Positive colorectal cancer screening using Cologuard test R19.5 [facility] [address] [place] [phone] [facility] [address] [place] [phone] [facility] [address] [place] [address] 10/14/2024 Antonio Arce Assessments Encounter Date Diagnosis [...] Date MEDICARE OF [place] [address] JIA BARRAZA [address] [id number] MAINE BETANCURLEVY Self - patient is the insured [facility] [address] [place], [place] [id number] [phone] [id number] LEVY ANDINO Self - patient is the insured Medical (General) History Medical History History ICD Code COPD/Emphysema -on oxygen/uses bipap/neb ulizer GERD Hypertension Sleep apnea-Uses BIPAP HIV Kidney stones HTN Negative colonoscopy in 1999 Denies MA,DM,CVA,renal disease Lactose-intolerance with gas and bloatin g Surgical History Surgery Date(Month/Year) Left inguinal hernia with mesh 2012 Right testicle with removal surgery for a torsion with implant - [facility] [place]
[2025-07-08 12:37] LABS: Theophylline 12.8
[2025-07-09 14:54] LABS: VBG HCO3 30 mmol/L (22-26); VBG O2 % Saturation 70.0 %
== END 2025-07-07 13:33 | disposition home or self-care (01) ==
LOC: HO.LAB 13:32
PROVIDERS: Absent Provider Hospitalist; PCP Internal Medicine; Visit Provider Internal Medicine
DX: G47.33 Obstructive sleep apnea (adult) (pediatric) (principal); J96.11 Chronic respiratory failure with hypoxia; J44.9 Chronic obstructive pulmonary disease, unspecified; J43.2 Centrilobular emphysema; Z21 Asymptomatic human immunodeficiency virus [HIV] infection status; Z79.899 Other long term (current) drug therapy; Z99.89 Dependence on other enabling machines and devices
CPT/HCPCS: 36415; 80048; 80198; 82803; 84484; 85025; 85652; 99212

== ENCOUNTER 2025-07-07 14:18 | Outpatient (AMB) | payer MEDICARE, BC, SELFPAY ==
[2025-07-07 14:27] VITALS: BP 120/62; PULSE 63; O2SAT 92
--- NOTE | 2025-07-07 14:27 | MHC.OFFVIS ---
Vital Signs 07/07/25 14:27 Height 5 ft 8 in BMI Reason not done Patient refused/unable BP 120/62 Blood Pressure Location Lt brachial Position Sitting Pulse 63 Pulse Source Pulse Oximeter Pulse Oximetry (%) 92 Oxygen Delivery Method Room Air Intake Visit Reasons: copd Finish Saw Operator Required: No Accompanied by: Self / Same As Patient Allergies ethinyl estradiol (From Seasonale (91)) Allergy (Severe, Verified 07/07/25 14:31) Dry Eye levonorgestrel (From Seasonale (91)) Allergy (Severe, Verified 07/07/25 14:31) Dry Eye sulfamethoxazole (From Bactrim) Allergy (Mild, Verified 07/07/25 14:31) RASH trimethoprim (From Bactrim) Allergy (Mild, Verified 07/07/25 14:31) RASH Sulfa (Sulfonamide Antibiotics) Allergy (Unknown, Verified 07/07/25 14:31) mild rash HPI Comments Details: The patient is a 64-year-old gentleman with a known history of COPD, chronic hypoxic and hypercarbic respiratory failure on oxygen supplementation and obstructive sleep apnea. Overall the patient has been doing well. He continues on his anti retroviral therapy without any complications. He has responded very well to the azithromycin. He did have an EKG done. he has been having issues with cough lately. He has noticed productive cough and at times he notices small amount of blood-tinged sputum. He denies any fevers or chills or any chest discomfort. His sputum has normalized at this time. In the meantime will be reasonable to get a chest x-ray. She continues use the BiPAP every night. The BiPAP therapy continues to be affecting beneficial. 11/17/2020 the patient is here for pulmonary follow-up visit. Overall he has been doing well from a respiratory status. 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 He has been using the oxygen with good effect. The only new issue is that he has had episodes of coughing up blood. This is been intermittent in and has not had it more than a week. Today he did undergo pulmonary function studies and we were able to compared to PFTs from 2015. It appears that he does have a severe obstructive ventilatory defect along with a severe diffusion impairment. But when compared to 2015 the patient has not had any significant worsening in actually some numbers have trend improved. Therefore it is reassuring that he is sustaining his lung capacity. He also brought his BiPAP with him. Currently set up at 16/6. His AHI is down to 2. The therapy has been affecting beneficial. At this point will keep it at at the current pressure settings. It appears to be affecting beneficial. He is wondering if there is any other respiratory medications he can use instead of the once he is on to try to get more of a bronchodilator effect. The only thing we can do this point is consider nebulized therapy in the form Brovana and budesonide. That he would use in exchange of the Symbicort. Will try to submit does to the HI. in addition to that we looked at the x-ray from 08/09/2020 demonstrating the hazy opacity in the right mid lung area. He had this area also noted his previous x-ray. Based on his abnormal chest x-ray in his episodic hemoptysis. I will request a CT scan of the chest at this time. 03/04/2021 the patient is here for a pulmonary follow-up visit. Overall the patient has been doing well. His cough is respiratory symptoms have been stable. He does continue using his Formeterol and budesonide. Appears to be effective for him. He also continues use the BiPAP. The BiPAP therapy continues to be affecting beneficial. He does use it more than 4 hours a night. He also continues to use the oxygen. The oxygen supplementation he does use continuously. We did review his last CT scan of the chest done in November 2020 which demonstrated extensive emphysema and also a new pulmonary nodule. I personally reviewed the CT scan with the patient in the nodule does not any concerning features although with his significant smoking history id needs to be followed closely. 10/26/2021 the patient is here for a pulmonary follow-up visit. He had taken prednisone yesterday because he felt that his breathing was not great. Today feels a lot better. He continues on the nebulized therapy. He also continues use the oxygen with good effect. He has been using the BiPAP at nighttime with a fullface mask. Still getting of a dry mouth. He started developing gentle disease. Having hard time tolerating the the BiPAP due to the gingivitis in the infection of his gum. He needs to follow-up with dentist. In the meantime the patient has a known pulmonary nodule measuring 3 mm on the last CT scan back in November 2020. He has been reluctant to get a CT scan at this time. So therefore push it out to the end of the summer and will follow-up in [address] scan. If the patient has any worsening symptoms prior to that he is to call for an earlier evaluation. Otherwise will follow-up in 6 months. 07/08/2022 the patient is here for a pulmonary follow-up visit. The patient does complaint of worsening shortness of breath. He has been using his oxygen with good effect. He has also continue with respiratory therapy. But, still complaining of shortness of breath even at rest. Moderate severity. He also has been coughing more lately. He has been More congested lately. Denies any hemoptysis. He has been noticing his phlegm is dark yellowish green. Moderate severity. Does complaint of sinus congestion. He did recently have a CT scan as part of a follow-up CT scan for his pulmonary nodules. Did have significant edematous changes. Some bronchiectatic changes also appreciated. Although no significant pulmonary nodules noted. This is reassuring. He also continues use the BiPAP at nighttime very good effect. At this point will go ahead and optimize respiratory therapy by adding theophylline. We can also treated for a lower respiratory infection. The patient will undergo blood work in a couple weeks to make sure that is theophylline levels are reasonable. I will put him on a very low dose. 09/29/2022 the patient is here for a pulmonary follow-up visit. Overall the patient has been doing fairly well. Continues to have episodes of shortness of breath. Some days are good some days are bad. He does not see that he is getting significant response to Brovana. Seems to do better with DuoNeb. Therefore will switch him off the room I placed on DuoNeb 4 times a day. He is to continue the budesonide for now. He does get a lot of mouth irritation because of the BiPAP and also the inhalers. He gets a lot of infections. I will send him chlorhexidine mouthwash CP can not assess with that. He may have to see the dentist because he does have a growth on his change about that needs to be addressed. The patient has been using his BiPAP. The BiPAP therapy has been affecting beneficial. His venous gas today demonstrate normal acid-base status with a baseline pCO2 of 54 mmHg which is a trying higher than it was before. The patient also is tolerating the theophylline. Will go ahead and get a theophylline level to see if we need to adjust the dose at this time. He is wondering about the severity of his disease. He knows that he has very advanced COPD. We did talk about lung transplant. Although he does have HIV he is viral load is undetectable. He does not want to pursue lung transplant this point. Although he would be open to considering lung volume reduction intervention. Will go ahead and repeat his pulmonary function studies and look into pulmonary rehabilitation the next time he comes in. He continues use the oxygen with good effect. Will follow-up in 6-8 weeks with PFTs. 11/15/2022 the patient is here for a pulmonary follow-up visit. The patient has been having increasing shortness of breath at times. We did review his pulmonary function studies demonstrating very severe COPD. But compared to 2020 not much has changed which is reassuring. We did talk about switching his nebulized therapy as he has not seen significant improvement with Brovana. But he has not done as of yet. He is wondering if Trelegy may be a good inhaler for him. I did recommend that if he goes on Trelegy with have to stop the Brovana and would have to decrease the budesonide. He is willing to do so at this time. If however I cannot get in the Trelegy then he can use the DuoNeb and budesonide twice a day and also good DuoNeb as needed. The patient also had blood work including a theophylline level that was significantly low. He has been adherent to the therapy. Therefore, we talked about increasing the dose from 200 mg to 400 mg. He will double upon what he has and then [facility] The in addition to that the patient did have a venous blood gas. His CO2 slight elevated at 54 mmHg which is slightly elevated on the venous gas likely overestimate. His pH is within normal limits. He does use the BiPAP every night. The BiPAP therapy continues to be affecting beneficial. She is also using the oxygen with good effect. The patient also is working with pulmonary rehabilitation which is helpful and encouraging 02/27/2023 the patient is here for a pulmonary follow-up visit. Overall the patient is doing well from a respiratory status. He did start the theophylline seems to be helping. The patient still continues on his nebulized therapy to make sure he finishes all the medication before he switches over to the new regimen. He is complaining of a worsening cough. Initially also had significant lymphadenopathy on the posterior right side of his neck. Also complained of sinus discomfort. Had increased sinus drainage. He attributes it to the BiPAP or his 8 conditioner. He did take 5 days of Augmentin he felt better and then went back to the azithromycin. He still has residual symptoms with persistent productive cough and some sinus discomfort headaches. I did recommend he complete a full course in view of the residual symptoms. I will send a prescription for doxycycline. Once his complete study can go back in azithromycin. Will go ahead and request blood work including a venous gas to monitor closely his CO2. He continues uses oxygen with good effect. He was participating in pulmonary rehabilitation both the humidity and the fires is been hard to leave the house. Therefore he is going to continue to exercise at home. He will consider going back in-person in the fall. 05/11/2023 the patient is here for a pulmonary follow-up visit. The patient overall has been doing well. Still having episodes of nasal congestion and allergies that are affecting him now in the fall likely typically does. He is tolerating his nebulized therapy. He will stay on the Brovana and budesonide for now. He continues on the Spiriva. The patient has been using the BiPAP at nighttime. Will go ahead and check a venous gas at this point also check his theophylline levels. He did tolerate the high dose theophylline without any adverse effects. If she does have room will try to increase the accordingly. The patient has been considering the one-way valves for lung volume reduction intervention. Although I a.m. concerned with his immune status risk for infection and also raise of pneumothorax. If she wishes for me to send him for a referral to do that I did explain to him that I do not believe it is without significant risk to have any semi invasive intervention in his case. He is already up-to-date with vaccines. The patient will continue with current respiratory therapy. 10/10/2023 the patient is here for a pulmonary follow-up visit. Doing well from a respiratory status. He does have his good days and bad days. But overall has been stable. His chest congestion is improved. He continues uses respiratory therapy as prescribed. He is tolerating the theophylline. His theophylline levels have been low but reasonable. His last venous blood gas was also reassuring. The patient has not had a chest x-ray in some time. His last CT scan of the chest was personally reviewed demonstrating emphysematous changes. No significant pulmonary nodules appreciated. Therefore no additional CT scans are warranted unless his x-ray is abnormal. The patient unfortunately has been having viral loads that are positive regards of his HIV testing. His CD4 count last was also decreasing. He is going to have blood work done again and will follow up with his Infectious Disease doctor regarding his retroviral therapy. At this point continue with the oxygen therapy. Is okay for him to take it off as long as his pulse ox stays above 90% specially with the dry air and having some epistaxis. He can also try water-based lubricants to lubricate the inside of his mucosa is nose. 03/12/2024 the patient is here for a pulmonary follow-up visit. Overall he is feeling well. The patient continues to use his respiratory therapy as prescribed. He is already maxed on respiratory medications. He was wondering about other alternatives. We did talk about the lung volume reduction intervention with the one-way valves. He understands that there is a risk of pneumothorax with dose increase the risks of pneumonia. Therefore need to consider the risk benefit ratio. Right now he seems to be doing okay would like to hold off. He continues use the BiPAP. The BiPAP has been affecting beneficial. Also has been using the oxygen. Did get a new portable oxygen concentrator through his [employer] company which is to the [place]. seems to be working little better although a little bit more bulk here. Denies any epistaxis. He is still dealing with some oral candidiasis. Recently gotten a statin swish and swallow. He is going to try that for little bit. He also was having left flank pain. He had taking the Augmentin for that. Appeared that he was passing stone. He did have some hematuria. He did follow-up with his primary care doctor. His primary care doctor rather him not have any antibiotics at home that he will call if he needs anything we do not allow any fester. I do agree with that. 07/08/2024 the patient is here for a pulmonary follow-up visit. Still complaining of difficulty breathing. Also chest congestion and cough. He does have evidence of chronic bronchitis. He has been responding fairly decent to his current respiratory regimen. He is using the oxygen with good effect. He is also using the BiPAP at nighttime. Seems to be tolerating the theophylline well. Will monitor closely levels. The patient did have his CT scan to the lung cancer screening program appears to be stable this time. In regards of the respiratory symptoms I do believe that adding a PD4 inhibitor will be helpful. He has already had significant amount of weight loss therefore Daliresp would be potentially problematic. We will look into starting Ohtuvayre nebs BID. The patient did have a Cologuard test done was positive. He is going to follow-up with the GI doctor. He has significant COPD and respiratory failure so therefore undergoing a colonoscopy is always rescue. Therefore, he will talk to his GI doctor to see if there is any other alternative testing for colon cancer including imaging studies. I do believe does good options specially with in view of his respiratory disease and high risk for perioperative pulmonary complications. 11/20/2024 the patient is here for a pulmonary follow-up visit. Overall he is doing okay. He did start the new nebulized therapy, Ohtuvayre, initially felt that he has not side effects from it such as tachycardia. But he took some additional metoprolol the symptoms subsided. He then started taking a daily and seems to be tolerating it. He also started taking more recently twice a day and seems to be helping. He is going to continue to use it daily and monitor closely. Will continue with his current respiratory therapy and also continues with the oxygen. He is also using the BiPAP. He states that he is getting very dry mouth. He does not have the BiPAP with him. I did talk to about 100 potentially adjust the temperature and humidity a little bit to help him with a dry mouth. He also gets thrush because of the dry mouth and he has did signs switch and swallow that he can use. The patient would benefit from pulmonary function studies to assess his lung capacity specially after on the medication will plan to do that sometime in the next 4 months. We did review his blood work. His theophylline levels are 8.8 which is below therapeutic range. I do believe that theophylline is helping and I would encourage him to continue it. Another was concerns because of the elevated heart rate but with this low level I do not believe is playing a role. If he develops further tachycardia arrhythmias or issues with his heart rate then we can consider stopping it and see what happens. Therefore, will follow-up in 4 months with PFTs. If he has any issues prior to this he will call for an earlier assessment. 04/01/2025 the patient is here for pulmonary follow-up visit. Overall the patient has been doing okay. She continues to have significant dyspnea on exertion. Moderate severity. His oxygen has been affecting beneficial. [facility] he has a portable oxygen concentrator for better portability. In addition to that he does use the BiPAP at nighttime. The BiPAP therapy has been affecting beneficial. The mask us in bothering his teeth alignment some he is using a F20 AirTouch foam mask that seems to be the best option for him right now. He does use it for more than 4 hours he gets supplies [facility] as [facility]. From respiratory status he continues to be on all the respiratory inhalers and nebulizer therapy. He is tolerating them well. Although, the Ohtuvayre sometimes at night results in some tachycardia. Therefore for now just using it once a day until he follows up with his joint terminal attack controller. Seems like he is finding that is very helpful so he wants to continue it at this time. His last PFTs were back in 2022. Will go ahead and request repeat PFTs and also a blood gas to be done prior to the next visit. He is going to work on exercise activity and also I did provide him information about the online pulmonary rehabilitation. Also request that he start performing additional exercises with his air instruments. 07/07/2025 the patient is here for pulmonary follow-up visit. He has had episodes of what appears to be panic attacks. He has had a few them. He does get very nervous in his heart rate does increase up to about 150 beats per minute. Some of the episodes can last sec and sometimes it can be minutes or even longer. He has been on the Ohtuvayre and therefore he stopped it in case it was related to the medication. We did talk about the molecules with PD for inhibitor which is very effective for the breathing. I do hope that he can not tolerated. But for now he was started on Zoloft and we are going to let him take the Xolair for the month and then we can retry the Ohtuvayre again. If not he does have blood work pending. Will go ahead and check his eosinophils to see if he is a candidate for biologics such as Nucala. There may be a very effective treatment for him with his advanced disease. He did have PFTs done which I personally reviewed demonstrating very severe COPD but no significantly changed from before. Overall he sustaining. He is using his oxygen with good effect and also continues with the BiPAP at nighttime although he did complain about the mask in about dry mouth. But he understands that it is helpful. Therefore he will continue with the therapy for now. [facility] Medical History Bone disease Sinusitis Pulmonary nodules Abdominal pain Abnormal chest x-ray HIV (human immunodeficiency virus infection) AYLA treated with BiPAP Hemoptysis HIV (human immunodeficiency virus infection) Chronic respiratory failure COPD (chronic obstructive pulmonary disease) Family History Mother Lung cancer Social History Housing: Other (mobile home) Patient Tobacco Use Status: Never used Tobacco e-Cigarette/Vaping Use: Never Used service: Yes Current occupational status: retired and disabled Cognitive needs: No Hearing needs: No Vision needs: Yes (glasses) Review of Systems Const All systems reviewed & are unremarkable except as noted in HPI and below Denies headache(s) and Denies night sweats ENT Denies change in voice, Denies headache(s), Denies lip swelling, Reports epistaxis, Denies mouth pain, Reports nasal congestion, Reports nasal discharge and Denies tongue swelling Card Denies chest pain and Reports dyspnea on exertion Resp Denies change in phlegm color, Reports chest congestion, Reports cough, Denies hemoptysis (scant), Reports dyspnea on exertion and Reports wheezing GI Denies abdominal pain Musc Denies no additional complaints Neuro Denies Neuro-related abnormal movements and Denies headache(s) Psych Reports as per HPI Barry/Lymph Denies easy bleeding and Denies lymphadenopathy Aller/Immun Denies lip swelling, Denies tongue swelling and Reports wheezing Physical Exam Vital Signs: Last Vital Signs Pulse 63 07/07/25 14:27 BP 120/62 07/07/25 14:27 Pulse Ox 92 07/07/25 14:27 Oxygen Delivery Method Room Air 07/07/25 14:27 Const General: alert HEENT Mouth: moist mucous membranes abnormal (gingival disease) Neck Neck: Yes normal visual inspection, Yes full ROM and Yes no lymphadenopathy Chest Chest palpation & inspection: normal inspection of the chest Resp Effort & Inspection: normal respiratory effort and prolonged expiratory phase Auscultation: no rhonchi and diminished lung sounds Cardio Rate: regular rate Rhythm: regular rhythm Heart sounds: S1 normal heart sound present and S2 normal heart sound present GI Palpation (GI): Soft to palpation and nontender Auscultation: normal bowel sounds Skin General skin exam: rashes and/or lesions noted Assessment & Plan Assessment & Plan (1) AYLA treated with BiPAP: Comment: Effective and beneficial Code(s): G47.33 - Obstructive sleep apnea (adult) (pediatric) Category: Medical (2) Chronic respiratory failure: Code(s): J96.10 - Chronic respiratory failure, unspecified whether with hypoxia or hypercapnia Category: Medical Qualifiers: Respiratory failure complication: hypoxia and hypercapnia Qualified Code(s): J96.11 - Chronic respiratory failure with hypoxia; J96.12 - Chronic respiratory failure with hypercapnia (3) COPD (chronic obstructive pulmonary disease): Code(s): J44.9 - Chronic obstructive pulmonary disease, unspecified Category: Medical Qualifiers: COPD type: emphysema Emphysema type: centrilobular Qualified Code(s): J43.2 - Centrilobular emphysema (4) Pulmonary nodules: Code(s): R91.8 - Other nonspecific abnormal finding of lung field Category: Medical Plan Duoneb twice a day as needed continue budesonide 2 day continue Brovana continue Spiriva continue theophylline 400mg holding Ohtuvayre nebs BID (side effects: ?HR elevated) will restart July. If develops further eposides of palpitations/tachycardia will stop continue oxygen supplementation, Respironic POC from [facility] continue BiPAP 16/ with oxygen VBG prior to next visit PFTs prior to next visit, very severe COPD (stable 2022) consider Diandra, requesting bloodwork. follow-up in 4 months Orders: Orders Venous Blood Gas Today J43.2 - Centrilobular emphysema ECG 12 lead EKG Today J44.9 - Chronic obstructive pulmonary disease, unspecified Troponin-I High Sensitivity Today J43.2 - Centrilobular emphysema Theophylline Today J43.2 - Centrilobular emphysema Basic Metabolic Panel Today J43.2 - Centrilobular emphysema Erythrocyte Sedimentation Rate Today J43.2 - Centrilobular emphysema Complete Blood Count Auto Diff Today J43.2 - Centrilobular emphysema Coding Level of Care Code Est Pt Level 5 (84682) Complex EM visit Add On G2211 Diagnoses AYLA treated with BiPAP G47.33 Chronic respiratory failure with hypoxia and hypercapnia J96.11; J96.12 Respiratory failure complication: hypoxia and hypercapnia Centrilobular emphysema J43.2 COPD type: emphysema Emphysema type: centrilobular Pulmonary nodules R91.8 Time Spent (min) 40
== END 2025-07-07 15:01 | disposition home or self-care (01) ==
LOC: HO.HPS 14:18
PROVIDERS: PCP Family Medicine; Visit Provider Hospitalist
DX: G47.33 Obstructive sleep apnea (adult) (pediatric) (principal); J96.11 Chronic respiratory failure with hypoxia; J96.12 Chronic respiratory failure with hypercapnia; J43.2 Centrilobular emphysema; R91.8 Other nonspecific abnormal finding of lung field
CPT/HCPCS: 99215; G2211